=== PATIENT | male | born 1950 | race Caucasian/White ===

== ENCOUNTER 2017-02-21 18:47 | Emergency (ER) | payer MEDICARE ==
--- NOTE | 2017-02-21 19:36 | ERPHSYRPT ---
- History of Present Illness Time Seen by Provider: 02/21/17 19:29 Source: patient Exam Limitations: no limitations Patient Subjective Stated Complaint: abd pain since wednesday night Triage Nursing Assessment: c/o mid abd pain since wednesday night. constipation since wednesday. small oral intake makes pt feel 'bloated and full' 'i have the same feeling and bowel trouble as i did years ago with my aneurysm' skin pale and dry. pt c/o blaoting and distended abd. bs hypoactive Physician History: The patient is a 66-year-old male with his complaining of abdominal bloating for 3-4 days. His last bowel movement was 3 days ago. He feels like he needs to have a bowel movement but is unable to. He and his are concerned because this is the same way he felt more than a year ago when he had an aneurysm in the abdomen repaired. He said a few episodes of abdominal pain but nothing right now. He said before he came and he thought he passed a kidney stone. His past medical history is significant for COPD, abdominal aortic aneurysm, gout, high cholesterol, high blood pressure, and possible kidney stones. Timing/Duration: day(s) (4) Severity: moderate Modifying Factors: Improves With: nothing Associated Symptoms: abdominal pain, loss of appetite, other (abd bloating) Allergies/Adverse Reactions: penicillin G Allergy (Mild, Verified 02/21/17 19:00) hydrocodone bitartrate [From [place]] Adverse Reaction (Verified 02/21/17 19:00) Home Medications: Allopurinol 100 mg [Zyloprim 100 mg] 200 mg PO DAILY 10/29/14 [History] Aspirin 81 mg PO DAILY 10/29/14 [History] Docusate Sodium 100 mg [Colace 100 MG] 100 mg PO BID 10/29/14 [History] Enalapril Maleate 10 mg [Vasotec 10 MG] 10 mg PO DAILY 10/29/14 [History] Ezetimibe/Simvastatin [Vytorin 10-80 mg Tablet] 1 each PO HS 10/29/14 [History] Isosorbide Mononitrate 30 mg [Imdur 30 MG] 30 mg PO DAILY 10/29/14 [History ] Metoprolol Tartrate 25 mg [Lopressor 25MG Tab] 12.5 mg PO BID 10/29/14 [ History] Niacin 500 mg [Niaspan 500 mg] 500 mg PO HS 10/29/14 [History] Simvastatin 40 mg PO HS 10/29/14 [History] Tamsulosin HCl 0.4 mg [Flomax 0.4 MG] 0.4 mg PO HS 10/29/14 [History] Senna 8.6 mg [Senokot 8.6 mg] 1 tab PO BID 02/12/16 [History] Hx Tetanus, Diphtheria Vaccination/Date Given: Yes Hx Influenza Vaccination/Date Given: No Hx Pneumococcal Vaccination/Date Given: No Immunizations Up to Date: Yes - Review of Systems Constitutional: No Fever, No Chills Eyes: No Symptoms Ears, Nose, & Throat: No Symptoms Respiratory: No Cough, No Dyspnea Cardiac: No Chest Pain, No Edema, No Syncope Abdominal/Gastrointestinal: Appetite Changes, Other (bloating) Genitourinary Symptoms: No Dysuria Musculoskeletal: No Back Pain, No Neck Pain Skin: No Rash Neurological: No Dizziness, No Focal Weakness, No Sensory Changes Psychological: No Symptoms Endocrine: No Symptoms Hematologic/Lymphatic: No Symptoms Immunological/Allergic: No Symptoms All Other Systems: Reviewed and Negative - Past Medical History Pertinent Past Medical History: Yes Neurological History: Stroke ENT History: No Pertinent History Cardiac History: Coronary Artery Disease, High Cholesterol, Hypertension, Myocardial Infarction ([place]) Respiratory History: COPD Endocrine Medical History: No Pertinent History Musculoskeletal History: No Pertinent History GI Medical History: Diverticulosis, GERD, Hernia History: No Pertinent History Psycho-Social History: No Pertinent History Male Reproductive Disorders: No Pertinent History Other Medical History: GOUT - Past Surgical History Past Surgical History: Yes Neuro Surgical History: No Pertinent History Cardiac: Angioplasty, CABG, Cardiac Catheterization, Cardiac Stent, Vascular Surgery Respiratory: Chest Surgery Gastrointestinal: Appendectomy, Hernia Repair Genitourinary: No Pertinent History Musculoskeletal: Orthopedic Surgery Male Surgical History: No Pertinent History Other Surgical History: SEVERAL STENTS-cardiac stent x2, femoral stent x1. TRIPLE A REPAIR JANUARY [id number] - Social History Smoking Status: Current every day smoker How long have you smoked: 55 years Exposure to second hand smoke: Yes Drug Use: none Patient Lives Alone: No - Nursing Vital Signs Nursing Vital Signs: Initial Vital Signs Temperature 97.9 F Temperature Source Oral Pulse Rate 52 Respiratory Rate 16 Blood Pressure [] 176/77 Pain Intensity 6 - Physical Exam General Appearance: mild distress Eye Exam: PERRL/EOMI, eyes nml inspection Ears, Nose, Throat Exam: normal ENT inspection, TMs normal, pharynx normal, moist mucous membranes Neck Exam: normal inspection, non-tender, supple, full range of motion Respiratory Exam: normal breath sounds Cardiovascular Exam: regular rate/rhythm, normal heart sounds, normal peripheral pulses Gastrointestinal/Abdomen Exam: soft, normal bowel sounds, No tenderness, No mass Rectal Exam: not done Back Exam: normal inspection, normal range of motion, No CVA tenderness, No vertebral tenderness Extremity Exam: normal inspection, normal range of motion, pelvis stable Neurologic Exam: alert, oriented x 3, cooperative, normal mood/affect, nml cerebellar function, nml station & gait, sensation nml, No motor deficits Skin Exam: normal color, warm, dry, No rash Lymphatic Exam: No adenopathy SpO2 Interpretation: normal SpO2: 94 Oxygen Delivery: Room Air - CT Exams Abdomen/Pelvis CT Interpretation: Tele-radiologist Report (mild difuse fecal stasis, aortocaval soft tissue mass, repaired AAA per DR Aleman.) Ordered Tests: Active Orders 24 hr Category Date Time Status IV Insertion STAT Care 02/21/17 19:40 Active ABDOMEN AND PELVIS W/0 CONTRAS [CT] Stat Exams 02/21/17 19:40 Taken CBC W DIFF Stat Lab 02/21/17 20:00 Completed CMP Stat Lab 02/21/17 20:00 Completed LIPASE Stat Lab 02/21/17 20:00 Completed TROPONIN Stat Lab 02/21/17 20:00 Completed UA Stat Lab 02/21/17 20:11 Completed Lab/Rad Data: Laboratory Result Diagrams 02/21/17 20:00 02/21/17 20:00 Laboratory Results 02/21/17 02/21/17 02/21/17 Range/Units 20:11 20:00 20:00 WBC 10.3 (4.0-10.5) K/mm3 RBC 5.30 (4.1-5.6) M/mm3 Hgb 16.5 (12.5-18.0) gm/dl Hct 49.3 (42-50) % MCV 93.0 (78-100) fl MCH 31.1 (26-32) pg MCHC 33.5 (32-36) g/dl RDW 13.7 (11.5-14.0) % Plt Count 133 L (150-450) K/mm3 MPV 9.7 H (6-9.5) fl Gran % 71.9 H (36.0-66.0) % Lymphocytes % 20.1 L (24.0-44.0) % Monocytes % 7.0 (0.0-12.0) % Eosinophils % 0.7 (0.00-5.0) % Basophils % 0.3 (0.0-0.4) % Basophils # 0.03 (0-0.4) Sodium 146 H (136-145) mEq/L Potassium 3.9 (3.5-5.1) mEq/L Chloride 107 (98-107) mEq/L Carbon Dioxide 28.6 (21-32) mEq/L Anion Gap 14.2 (5-15) MEQ/L BUN 15 (9-20) mg/dL Creatinine 0.96 (0.55-1.30) mg/dl Estimated GFR > 60 ML/MIN Glucose 90 (70-110) MG/DL Calcium 9.9 (8.5-10.1) mg/dL Total Bilirubin 0.6 (0.2-1.0) mg/dL AST 18 (15-37) U/L ALT 23 (12-78) U/L Alkaline Phosphatase 123 H (46-116) U/L Troponin I < 0.017 (0.000-0.056) ng/ml Serum Total Protein 7.6 (6.4-8.2) gm/dL Albumin 3.8 (3.4-5.0) g/dL Lipase 170 (73-393) U/L Ur Collection Type VOID Urine Color YELLOW (YELLOW) Urine Appearance CLEAR (CLEAR) Urine pH 6.5 (5-6) Ur Specific [place] 1.010 (1.005-1.025) Urine Protein NEGATIVE (Negative) Urine Glucose (UA) NEGATIVE (NEGATIVE) mg/dL Urine Ketones NEGATIVE (NEGATIVE) Urine Nitrite NEGATIVE (NEGATIVE) Urine Bilirubin NEGATIVE (NEGATIVE) Urine Urobilinogen 0.2 (0-1) mg/dL Urine WBC (Auto) NEGATIVE (NEGATIVE) Urine RBC (Auto) NEGATIVE (0-5) Augie/ul Specimen Received 02/21/171999 - Progress Progress: unchanged Counseled pt/family regarding: lab results, diagnosis, rad results - Departure Time of Disposition: 21:29 Departure Disposition: Home Clinical Impression: Constipation Condition: Stable Critical Care Time: No Additional Instructions: You have constipation. By a bottle of magnesium citrate [id number] and consume tonight with plenty of fluids.
[2017-02-21 20:03] LABS: BASOPHIL % 0.3 % (0.0-0.4); Eosinophil % 0.7 % (0.00-5.0); Granulocytes % 71.9 % (36.0-66.0); Lymphocytes % 20.1 % (24.0-44.0); Mean Corpuscular Hemoglobin 31.1 pg (26-32); Mean Platelet Volume 9.7 fl (6-9.5); Platelet Count 133 K/mm3 (150-450); Red Cell Distribution Width 13.7 % (11.5-14.0); White Blood Count 10.3 K/mm3 (4.0-10.5)
[2017-02-21 20:14] LABS: COMPLETE URINE MICROSCOPIC? NO; Collection Type VOID; Ph 6.5 (5-6)
[2017-02-21 20:27] LABS: ALBUMIN 3.8 g/dL (3.4-5.0); ALKALINE PHOSPHATASE 123 U/L (46-116); ANION GAP 14.2 MEQ/L (5-15); BILIRUBIN,TOTAL 0.6 mg/dL (0.2-1.0); BLOOD UREA NITROGEN 15 mg/dL (9-20); CHLORIDE 107 mEq/L (98-107); Carbon Dioxide 28.6 mEq/L (21-32); Glucose 90 MG/DL (70-110); LIPASE 170 U/L (73-393); Potassium 3.9 mEq/L (3.5-5.1); SGOT/AST 18 U/L (15-37); SGPT/ALT 23 U/L (12-78); SODIUM 146 mEq/L (136-145); Total Protein 7.6 gm/dL (6.4-8.2)
[2017-02-21 20:28] LABS: TROPONIN < 0.017 ng/ml (0.000-0.056)
[2017-02-21 21:41] VITALS: BP 167/84; PULSE 78; O2SAT 98
--- NOTE | 2017-02-22 09:00 | XRAY ---
Indication: Abdominal pain. Multiple contiguous axial images obtained through the abdomen and pelvis without contrast as ordered. Comparison: CT abdomen February 19, 2016. Lung bases again demonstrates mild pulmonary emphysema with scattered fibrosis/scarring. Stable tiny subpleural nodules in the left lower lobe, probably granulomatous in this demographic. Heart is not enlarged. Noncontrasted stomach and bowel loops appear nonobstructed. There is now mild diffuse scattered colonic fecal debris throughout. Previous reported appendectomy. No free fluid/air. Stable bilateral renal cysts, bilateral nonobstructing renal micro-calculi, and small aortocaval soft tissue mass. Incidental enlarged prostate gland with benign chunky calcifications. Remaining liver, gallbladder, pancreas, spleen, adrenal glands, kidneys, ureters, and bladder appear unremarkable for noncontrast exam. There remains scattered aortoiliac calcifications. Stable distal 3.3 cm AAA with aortobiiliac stent graft. Lack of IV contrast precludes evaluation for stent graft patency. Osseous structures intact again with L5-S1 degenerative changes and L5 laminectomy. Impression: 1. Fecal stasis without obstruction. 2. Enlarged prostate gland with benign calcifications. 3. Stable bilateral renal cysts, nonobstructing bilateral renal micro-calculi, small aortocaval soft tissue mass, and 3.3 cm AAA with aortobiiliac stent graft. CT DI 12.83
== END 2017-02-21 21:41 | disposition home or self-care (01) ==
LOC: ED 18:47
DX: K59.00 Constipation, unspecified (principal); R10.9 Unspecified abdominal pain; Z79.899 Other long term (current) drug therapy
CPT/HCPCS: 36000; 36415; 74176; 80053; 81002; 83690; 84484; 85025; 99284

== ENCOUNTER 2017-04-20 19:04 | Emergency (ER) | payer MEDICARE ==
--- NOTE | 2017-04-20 20:02 | ERPHSYRPT ---
- History of Present Illness Time Seen by Provider: 04/20/17 19:51 Historian: patient Exam Limitations: no limitations (now her there is a visible line normal: This is going on for many years and was she given when given Toradol) Patient Subjective Stated Complaint: pt states he has been having stomach pain for 2-3 weeks. states he feels bloated and has stomach cramping after eating. states he went to his dr and had a ct on wednesday. c/o difficulty urinating also since this morning. Triage Nursing Assessment: pt alert and oriented, asnwers questions approp. pt ambulatory with steady gait noted. respirations nonlabored. abd soft, bowel sounds present in all 4 quads. no urine assessed at this time. Physician History: The patient is a 66-year-old male with his complaining of chronic lower abdominal pain for many months that has worsened in the past 3 weeks. Today he says he is tired of it and wants to know what is wrong. He had a colonoscopy done in January that the says was clean. He had a abdomen pelvis CT done about a week ago and they do not have the report. I am currently looking at the report which states minimally worsening fecal stasis, new posterior urinary bladder calcifications. Today he denies nausea or vomiting. He typically has constipation that for the last 2 days he has had diarrhea. His doctor is now on vacation for 2 weeks. His past medical history is significant for COPD, aneurysm repairs, hypertension, gout, and BPH. He has had his appendix removed. Timing/Duration: week(s) (3), gradual onset, worse Activities at Onset: none Quality: other (bloating) Abdominal Pain Onset Location: suprapubic Pain Radiation: no radiation Severity of Pain-Max: moderate Severity of Pain-Current: moderate Modifying Factors: Improves With: eating (makes it worse) Associated Symptoms: denies symptoms Allergies/Adverse Reactions: penicillin G Allergy (Mild, Verified 04/20/17 19:27) hydrocodone bitartrate [From [place]] Adverse Reaction (Verified 04/20/17 19:27) Home Medications: Allopurinol 100 mg [Zyloprim 100 mg] 200 mg PO DAILY 10/29/14 [History] Aspirin 81 mg PO DAILY 10/29/14 [History] Docusate Sodium 100 mg [Colace 100 MG] 100 mg PO BID 10/29/14 [History] Enalapril Maleate 10 mg [Vasotec 10 MG] 10 mg PO DAILY 10/29/14 [History] Isosorbide Mononitrate 30 mg [Imdur 30 MG] 30 mg PO DAILY 10/29/14 [History ] Metoprolol Tartrate 25 mg [Lopressor 25MG Tab] 12.5 mg PO BID 10/29/14 [ History] Niacin 500 mg [Niaspan 500 mg] 500 mg PO HS 10/29/14 [History] Simvastatin 40 mg PO HS 10/29/14 [History] Tamsulosin HCl 0.4 mg [Flomax 0.4 MG] 0.4 mg PO HS 10/29/14 [History] Senna 8.6 mg [Senokot 8.6 mg] 1 tab PO BID 02/12/16 [History] Hx Tetanus, Diphtheria Vaccination/Date Given: Yes Hx Influenza Vaccination/Date Given: No Hx Pneumococcal Vaccination/Date Given: No Immunizations Up to Date: Yes - Review of Systems Constitutional: No Fever, No Chills Eyes: No Symptoms Ears, Nose, & Throat: No Symptoms Respiratory: No Cough, No Dyspnea Cardiac: No Chest Pain, No Edema, No Syncope Abdominal/Gastrointestinal: Abdominal Pain, Diarrhea, Constipation Genitourinary Symptoms: No Dysuria Musculoskeletal: No Back Pain, No Neck Pain Skin: No Rash Neurological: No Dizziness, No Focal Weakness, No Sensory Changes Psychological: No Symptoms Endocrine: No Symptoms Hematologic/Lymphatic: No Symptoms Immunological/Allergic: No Symptoms All Other Systems: Reviewed and Negative - Past Medical History Pertinent Past Medical History: Yes Neurological History: Stroke ENT History: No Pertinent History Cardiac History: Coronary Artery Disease, High Cholesterol, Hypertension, Myocardial Infarction ([place]) Respiratory History: COPD Endocrine Medical History: No Pertinent History Musculoskeletal History: No Pertinent History GI Medical History: Diverticulosis, GERD, Hernia History: No Pertinent History Psycho-Social History: No Pertinent History Male Reproductive Disorders: No Pertinent History Other Medical History: GOUT - Past Surgical History Past Surgical History: Yes Neuro Surgical History: No Pertinent History Cardiac: Angioplasty, CABG, Cardiac Catheterization, Cardiac Stent, Vascular Surgery Respiratory: Chest Surgery Gastrointestinal: Appendectomy, Hernia Repair Genitourinary: No Pertinent History Musculoskeletal: Orthopedic Surgery Male Surgical History: No Pertinent History Other Surgical History: SEVERAL STENTS-cardiac stent x2, femoral stent x1. TRIPLE A REPAIR JANUARY [id number] - Social History Smoking Status: Current every day smoker How long have you smoked: 55 years Exposure to second hand smoke: Yes Drug Use: none Patient Lives Alone: No - Nursing Vital Signs Nursing Vital Signs: Initial Vital Signs Temperature 97.8 F Temperature Source Oral Pulse Rate 64 Respiratory Rate 22 Blood Pressure [] 179/86 Pain Intensity 8 - Physical Exam General Appearance: no apparent distress, alert Eye Exam: PERRL/EOMI, eyes nml inspection Ears, Nose, Throat Exam: normal ENT inspection, pharynx normal, moist mucous membranes Neck Exam: normal inspection, non-tender, supple, full range of motion Respiratory Exam: normal breath sounds, lungs clear, No respiratory distress Cardiovascular Exam: regular rate/rhythm, normal heart sounds Gastrointestinal/Abdomen Exam: soft, No tenderness, No mass Rectal Exam: not done Back Exam: normal inspection, normal range of motion, No CVA tenderness, No vertebral tenderness Extremity Exam: normal inspection, normal range of motion, pelvis stable Neurologic Exam: alert, oriented x 3, cooperative, normal mood/affect, nml cerebellar function, sensation nml, No motor deficits Skin Exam: normal color, warm, dry SpO2 Interpretation: normal SpO2: 94 Oxygen Delivery: Room Air - CT Exams Abdomen/Pelvis CT Interpretation: Tele-radiologist Report, Other (nonacute and nonobstructed abd. nonobstructing renal microcalculi. enlarged prostate. posterior urinary calcifications. small aortocaval soft tissues mass. 3.3 cm AAA with aortobiiliac stent graft. per Dr Barnhart) Ordered Tests: Active Orders 24 hr Category Date Time Status IV Insertion STAT Care 04/20/17 20:07 Active ABDOMEN AND PELVIS W/0 CONTRAS [CT] Stat Exams 04/20/17 20:08 Taken CBC W DIFF Stat Lab 04/20/17 20:15 Completed CMP Stat Lab 04/20/17 20:15 Completed LIPASE Stat Lab 04/20/17 20:15 Completed Lactic Acid Stat Lab 04/20/17 20:17 Completed UA W/RFX UR CULTURE Stat Lab 04/20/17 20:15 Completed Medication Summary Discontinued Medications Generic Name Dose Route Start Last Admin Trade Name Ivonne PRN Reason Stop Dose Admin Sodium Chloride 1,000 mls @ 999 mls/hr 04/20/17 20:07 04/20/17 20:21 Sodium Chloride 0.9% 1000 Ml IV 04/20/17 21:07 999 mls/hr .Q1H1M STA Administration Sodium Chloride Confirm 04/20/17 20:20 Sodium Chloride 0.9% 1000 Ml Administered 04/20/17 20:21 Dose 1,000 mls @ ud .ROUTE .STK-MED ONE Ondansetron HCl 4 mg 04/20/17 21:40 Zofran 4 Mg/2 Ml Vial IV 04/20/17 21:41 STAT ONE Potassium Chloride 40 meq 04/20/17 21:13 04/20/17 21:19 Klor Con 10 Meq PO 04/20/17 21:14 40 meq STAT ONE Administration Potassium Chloride Confirm 04/20/17 21:16 Klor Con 10 Meq Administered 04/20/17 21:17 Dose 40 meq PO .STK-MED ONE Potassium Chloride Confirm 04/20/17 21:21 Klor Con 10 Meq Administered 04/20/17 21:22 Dose 10 meq PO .STK-MED ONE Lab/Rad Data: Laboratory Result Diagrams 04/20/17 20:15 04/20/17 20:15 Laboratory Results 04/20/17 04/20/17 04/20/17 Range/Units 20:17 20:15 20:15 WBC 11.8 H (4.0-10.5) K/mm3 RBC 5.05 (4.1-5.6) M/mm3 Hgb 15.9 (12.5-18.0) gm/dl Hct 46.8 (42-50) % MCV 92.7 (78-100) fl MCH 31.5 (26-32) pg MCHC 34.0 (32-36) g/dl RDW 14.0 (11.5-14.0) % Plt Count 143 L (150-450) K/mm3 MPV 9.6 H (6-9.5) fl Gran % 75.0 H (36.0-66.0) % Lymphocytes % 17.0 L (24.0-44.0) % Monocytes % 6.7 (0.0-12.0) % Eosinophils % 1.1 (0.00-5.0) % Basophils % 0.2 (0.0-0.4) % Basophils # 0.02 (0-0.4) Sodium 146 H (136-145) mEq/L Potassium 3.1 L (3.5-5.1) mEq/L Chloride 108 H (98-107) mEq/L Carbon Dioxide 27.3 (21-32) mEq/L Anion Gap 14.2 (5-15) MEQ/L BUN 15 (9-20) mg/dL Creatinine 1.10 (0.55-1.30) mg/dl Estimated GFR > 60 ML/MIN Glucose 97 (70-110) MG/DL Lactic Acid 1.0 (0.4-2.0) Calcium 9.3 (8.5-10.1) mg/dL Total Bilirubin 0.70 (0.2-1.0) mg/dL AST 18 (15-37) U/L ALT 25 (12-78) U/L Alkaline Phosphatase 112 (46-116) U/L Serum Total Protein 7.1 (6.4-8.2) gm/dL Albumin 3.5 (3.4-5.0) g/dL Lipase 123 (73-393) U/L Ur Collection Type Urine Color (YELLOW) Urine Appearance (CLEAR) Urine pH (5-6) Ur Specific [place] (1.005-1.025) Urine Protein (Negative) Urine Ketones (NEGATIVE) Urine Blood (0-5) Augie/ul Urine Nitrite (NEGATIVE) Urine Bilirubin (NEGATIVE) Urine Urobilinogen (0-1) mg/dL Ur Leukocyte Esterase (NEGATIVE) Urine Glucose (NEGATIVE) mg/dL Specimen Received 04/20/17 Range/Units 20:15 WBC (4.0-10.5) K/mm3 RBC (4.1-5.6) M/mm3 Hgb (12.5-18.0) gm/dl Hct (42-50) % MCV (78-100) fl MCH (26-32) pg MCHC (32-36) g/dl RDW (11.5-14.0) % Plt Count (150-450) K/mm3 MPV (6-9.5) fl Gran % (36.0-66.0) % Lymphocytes % (24.0-44.0) % Monocytes % (0.0-12.0) % Eosinophils % (0.00-5.0) % Basophils % (0.0-0.4) % Basophils # (0-0.4) Sodium (136-145) mEq/L Potassium (3.5-5.1) mEq/L Chloride (98-107) mEq/L Carbon Dioxide (21-32) mEq/L Anion Gap (5-15) MEQ/L BUN (9-20) mg/dL Creatinine (0.55-1.30) mg/dl Estimated GFR ML/MIN Glucose (70-110) MG/DL Lactic Acid (0.4-2.0) Calcium (8.5-10.1) mg/dL Total Bilirubin (0.2-1.0) mg/dL AST (15-37) U/L ALT (12-78) U/L Alkaline Phosphatase (46-116) U/L Serum Total Protein (6.4-8.2) gm/dL Albumin (3.4-5.0) g/dL Lipase (73-393) U/L Ur Collection Type CLEAN CATCH Urine Color YELLOW (YELLOW) Urine Appearance SLIGHTLY CLOUDY (CLEAR) Urine pH 7.0 (5-6) Ur Specific [place] 1.010 (1.005-1.025) Urine Protein NEGATIVE (Negative) Urine Ketones NEGATIVE (NEGATIVE) Urine Blood NEGATIVE (0-5) Augie/ul Urine Nitrite NEGATIVE (NEGATIVE) Urine Bilirubin NEGATIVE (NEGATIVE) Urine Urobilinogen NORMAL (0-1) mg/dL Ur Leukocyte Esterase NEGATIVE (NEGATIVE) Urine Glucose NEGATIVE (NEGATIVE) mg/dL Specimen Received 04/20/172014 - Progress Progress: unchanged Counseled pt/family regarding: lab results, diagnosis, need for follow-up, rad results - Departure Time of Disposition: 21:31 Departure Disposition: Home Clinical Impression: Abdominal pain, Hypokalemia Condition: Stable Critical Care Time: No Referrals: CAMACHO EARL [Primary Care Provider] - Additional Instructions: You have abdominal pain. We are unsure of what is causing your pain at this time. Your potassium level was slightly low in the ER. We gave you potassium 40 mEq. The abdominal pelvic CT scan did not show any definite findings that would explain your abdominal pain. I want to put you on a trial of Zofran 4 mg ODT every 8 hours. Call your doctor's office tomorrow and arrange for a follow- up. Prescriptions: Ondansetron [Zofran Odt] 4 mg PO Q6HPRN PRN #10 tab.rapdis PRN Reason: Nausea/Vomiting
[2017-04-20] MEDS ORDERED: Sodium Chloride 0.9% 1000 ML 1,000 ML IV STA (20:07)
[2017-04-20] MEDS ORDERED: Sodium Chloride 0.9% 1000 ML 1,000 ML ONE (20:20)
[2017-04-20 20:28] LABS: BASOPHIL % 0.2 % (0.0-0.4); Eosinophil % 1.1 % (0.00-5.0); Mean Cell Volume 92.7 fl (78-100); Mean Corpuscular Hemoglobin 31.5 pg (26-32); Mean Platelet Volume 9.6 fl (6-9.5); Monocytes % 6.7 % (0.0-12.0); Platelet Count 143 K/mm3 (150-450); Red Blood Count 5.05 M/mm3 (4.1-5.6); White Blood Count 11.8 K/mm3 (4.0-10.5)
[2017-04-20 20:41] LABS: ADD URINE CULTURE? NO (NO); Bilirubin NEGATIVE (NEGATIVE); Blood NEGATIVE Ery/ul (0-5); COMPLETE URINE MICROSCOPIC? NO; Collection Type CLEAN CATCH; Glucose NEGATIVE (NEGATIVE); Leukocyte Esterase NEGATIVE (NEGATIVE)
[2017-04-20 20:48] LABS: ALBUMIN 3.5 g/dL (3.4-5.0); ALKALINE PHOSPHATASE 112 U/L (46-116); ANION GAP 14.2 MEQ/L (5-15); BLOOD UREA NITROGEN 15 mg/dL (9-20); CHLORIDE 108 mEq/L (98-107); Carbon Dioxide 27.3 mEq/L (21-32); Glucose 97 MG/DL (70-110); LIPASE 123 U/L (73-393); Potassium 3.1 mEq/L (3.5-5.1); SGOT/AST 18 U/L (15-37); SGPT/ALT 25 U/L (12-78); SODIUM 146 mEq/L (136-145); Total Protein 7.1 gm/dL (6.4-8.2)
[2017-04-20] MEDS ORDERED: Klor Con 10 MEQ PO ONE ×3 (21:13→21:21)
[2017-04-20] MEDS ORDERED: Zofran 4 MG/2 ML VIAL IV ONE (21:40)
[2017-04-20] MEDS ORDERED: Zofran 4 MG/2 ML VIAL ONE (21:43)
[2017-04-20 21:52] VITALS: BP 128/70; PULSE 70; O2SAT 100
--- NOTE | 2017-04-21 08:42 | XRAY ---
Indication: Abdominal pain and bloating. Multiple contiguous axial images obtained through the abdomen and pelvis without contrast as ordered. Comparison: April 15, 2017. Lung bases again demonstrates mild pulmonary emphysema with scattered fibrosis/scarring. Stable tiny subpleural nodules in the left lower lobe, probably granulomatous in this demographic. Heart is not enlarged. Noncontrasted stomach and bowel loops appear nonobstructed. No significant fecal stasis. Previous reported appendectomy. No free fluid/air. Stable curvilinear posterior urinary bladder calcifications/micro-calculi. Also stable bilateral renal cysts, nonobstructing renal micro-calculi, small aortocaval soft tissue mass, and enlarged prostate gland with benign chunky calcifications. Remaining liver, gallbladder, pancreas, spleen, adrenal glands, kidneys, ureters, and bladder appear unremarkable for noncontrast exam. There remains mild scattered aortoiliac calcifications including both intrarenal arteries. Stable distal 3.3 cm AAA with aortobiiliac stent graft. Lack of IV contrast precludes evaluation for stent graft patency. Osseous structures intact again with L5-S1 degenerative changes and L5 laminectomy. Impression: 1. No new or acute intra-abdominal/pelvic abnormalities on this noncontrast exam. 2. Stable urinary bladder calcifications/micro-calculi, bilateral renal cysts, nonobstructing renal micro-calculi, enlarged prostate gland with benign calcifications, small aortocaval soft tissue mass, 3.3 cm AAA with aortobiiliac stent graft, and pulmonary emphysema. CT DI 9.57
== END 2017-04-20 21:52 | disposition home or self-care (01) ==
LOC: ED 19:04
DX: R10.9 Unspecified abdominal pain (principal); E87.6 Hypokalemia; R19.7 Diarrhea, unspecified; K59.00 Constipation, unspecified; I25.2 Old myocardial infarction; E78.00 Pure hypercholesterolemia, unspecified; I10 Essential (primary) hypertension; I25.10 Atherosclerotic heart disease of native coronary artery without angina pectoris
CPT/HCPCS: 36000; 36415; 74176; 80053; 81002; 83605; 83690; 85025; 96360; 96374; 99284; J2405; A9270-GY

== ENCOUNTER 2017-05-01 21:08 | Observation (INO) | payer MEDICARE ==
[2017-05-01] MEDS ORDERED: Zofran 4 MG/2 ML VIAL IV ONE (22:28)
[2017-05-01] MEDS ORDERED: MORPHINE SULFATE 4 MG INJ IV ONE (22:28)
[2017-05-01] MEDS ORDERED: Sodium Chloride 0.9% 1000 ML 1,000 ML IV SCH (22:30)
--- NOTE | 2017-05-01 22:32 | ERPHSYRPT ---
- History of Present Illness Time Seen by Provider: 05/01/17 22:28 Historian: patient Exam Limitations: no limitations Patient Subjective Stated Complaint: PER PATIENT C/O INTERMITENT ABD PAIN STARTING 3-4 MONTHS AGO, SEEN BY PCP AND HERE BY DR TELLO FOR INCREASED PAIN IN BILAT LOWER QUADS, NO C/O NAUSEA, VOMITING OR DIARRHEA, HAS HAD 2 CT'S WITHOUT FINDINGS, NO DIFF WITH URINATION Triage Nursing Assessment: PATIENT AOX3, B/P HIGH REPORTED TO MD, NO FEVER NOTED , ABD SOFT, Physician History: This is a 66-year-old white male with history of chronic lower abdominal pain, coronary artery disease, CVA, hyperlipidemia, high blood pressure, [place], COPD He arrives with complaint of lower abdominal pain bilaterally in the lower abdomen symptoms going on for 4-5 days he states he's had some constipation but had a bowel movement today no melena no hematochezia no urinary symptoms no vomiting he does state that he has pain when he walks in the lower abdomen. Past medical history includes chronic lower abdominal pain, CVA, coronary artery disease, hyperlipidemia, high blood pressure, myocardial infarction, COPD , diverticulosis, GERD, hernia, gout Past surgical history includes angioplasty, CABG, cardiac catheter, cardiac stent, vascular surgery, chest surgery, appendectomy, hernia repair, stents, AAA , femoral stent 1 Timing/Duration: day(s) (4 days) Activities at Onset: none Quality: cramping Abdominal Pain Onset Location: other (bilateral lower abdomen) Pain Radiation: other (bilateral lower abdomen) Severity of Pain-Max: moderate Modifying Factors: Improves With: walking. Worsens With: analgesics, antacids, breathing, coughing, defecating, eating, exercise, lying down, movement, palpation, rest, urinating, vomiting, position Associated Symptoms: No back, No chest pain, No diaphoresis, No diarrhea, No fever/chills, No fatigue, No headache, No heartburn, No loss of appetite, No nausea ( ), No neck pain, No rash, No shortness of breath, No syncope, No vomiting, No weakness (40 ago) Previous symptoms: same symptoms as today Allergies/Adverse Reactions: penicillin G Allergy (Mild, Verified 04/20/17 19:27) hydrocodone bitartrate [From [place]] Adverse Reaction (Verified 04/20/17 19:27) Home Medications: Allopurinol 100 mg [Zyloprim 100 mg] 200 mg PO DAILY 10/29/14 [History] Aspirin 81 mg PO DAILY 10/29/14 [History] Docusate Sodium 100 mg [Colace 100 MG] 100 mg PO BID 10/29/14 [History] Enalapril Maleate 10 mg [Vasotec 10 MG] 10 mg PO DAILY 10/29/14 [History] Isosorbide Mononitrate 30 mg [Imdur 30 MG] 30 mg PO DAILY 10/29/14 [History ] Metoprolol Tartrate 25 mg [Lopressor 25MG Tab] 12.5 mg PO BID 10/29/14 [ History] Niacin 500 mg [Niaspan 500 mg] 500 mg PO HS 10/29/14 [History] Simvastatin 40 mg PO HS 10/29/14 [History] Tamsulosin HCl 0.4 mg [Flomax 0.4 MG] 0.4 mg PO HS 10/29/14 [History] Senna 8.6 mg [Senokot 8.6 mg] 1 tab PO BID 02/12/16 [History] Hx Tetanus, Diphtheria Vaccination/Date Given: Yes Hx Influenza Vaccination/Date Given: No Hx Pneumococcal Vaccination/Date Given: No Immunizations Up to Date: Yes - Review of Systems Constitutional: No Fever, No Chills Eyes: No Symptoms Ears, Nose, & Throat: No Symptoms Respiratory: No Cough, No Dyspnea Cardiac: No Chest Pain, No Edema, No Syncope Abdominal/Gastrointestinal: Abdominal Pain, Constipation, No Nausea, No Vomiting , No Diarrhea, No Hematemesis, No Hematochezia, No Melena, No Dysphagia, No Appetite Changes Genitourinary Symptoms: No Dysuria Musculoskeletal: No Back Pain, No Neck Pain Skin: No Rash Neurological: No Dizziness, No Focal Weakness, No Sensory Changes Psychological: No Symptoms Endocrine: No Symptoms All Other Systems: Reviewed and Negative - Past Medical History Pertinent Past Medical History: Yes Neurological History: No Pertinent History ENT History: No Pertinent History Cardiac History: No Pertinent History, Aneurysm, Coronary Artery Disease, High Cholesterol, Hypertension, Peripheral Vascular Disease Respiratory History: No Pertinent History Endocrine Medical History: No Pertinent History Musculoskeletal History: No Pertinent History GI Medical History: No Pertinent History History: No Pertinent History Psycho-Social History: No Pertinent History Male Reproductive Disorders: No Pertinent History Other Medical History: GOUT - Past Surgical History Past Surgical History: Yes Neuro Surgical History: No Pertinent History Cardiac: Vascular Surgery Respiratory: No Pertinent History Gastrointestinal: Hernia Repair Genitourinary: No Pertinent History Musculoskeletal: No Pertinent History Male Surgical History: No Pertinent History Other Surgical History: SEVERAL STENTS-cardiac stent x2, femoral stent x1. TRIPLE A REPAIR JANUARY [id number] - Social History Smoking Status: Current every day smoker How long have you smoked: 1PPD Exposure to second hand smoke: Yes Drug Use: none Patient Lives Alone: No (FAMILY) - Nursing Vital Signs Nursing Vital Signs: Initial Vital Signs Temperature 98.3 F Temperature Source Oral Pulse Rate 60 Respiratory Rate 16 Blood Pressure [] 196/95 Pain Intensity 1 - Physical Exam General Appearance: mild distress Eye Exam: PERRL/EOMI, eyes nml inspection Ears, Nose, Throat Exam: normal ENT inspection, pharynx normal, moist mucous membranes Neck Exam: normal inspection, non-tender, supple, full range of motion Respiratory Exam: normal breath sounds, lungs clear, No respiratory distress Cardiovascular Exam: regular rate/rhythm, normal heart sounds Gastrointestinal/Abdomen Exam: soft, normal bowel sounds, tenderness ( suprapubic tenderness) Rectal Exam: normal exam, other (small amount of firm stool no bleeding) Back Exam: normal inspection, normal range of motion, No CVA tenderness, No vertebral tenderness Extremity Exam: normal inspection, normal range of motion, pelvis stable Neurologic Exam: alert, oriented x 3, cooperative, game protector II-XII nml as tested, normal mood/affect Skin Exam: normal color, warm, dry SpO2 Interpretation: normal (95%) SpO2: 95 Oxygen Delivery: Room Air - Course Nursing assessment & vital signs reviewed: Yes - CT Exams Abdomen/Pelvis CT Interpretation: Tele-radiologist Report, Other (CT abdomen and pelvis: Impression: 1. 3.2 cm abdominal aortic aneurysm is redemonstrated with postoperative changes from aortoiliac bypass graft. There is no periaortic hemorrhage 2. 1.91.4 cm oval soft tissue mass in the aortocaval space unchanged. Differential diagnostic considerations include an enlarged aortocaval lymph node and focal fibrosis. 3. 3 mm nonobstructive calculus present in the lower pole of left kidney. 4. Mild apparent thickening of the wall of the posterior inferior urinary bladder which measures up to 5 mm consider correlation with urinalysis to exclude UTI.) Ordered Tests: Active Orders 24 hr Category Date Time Status IV Insertion STAT Care 05/01/17 22:28 Active Oxygen-ED Only NASAL CANNULA 2 lpm Care 05/01/17 22:42 Active ABDOMEN AND PELVIS W CONTRAST [CT] Stat Exams 05/01/17 23:24 Taken AMYLASE Stat Lab 05/01/17 22:34 Completed CBC W DIFF Stat Lab 05/01/17 22:34 Completed CMP Stat Lab 05/01/17 22:52 Completed LIPASE Stat Lab 05/01/17 22:34 Completed Occult Blood,Stool Other Stat Lab 05/01/17 22:44 Completed UA W/RFX UR CULTURE Stat Lab 05/01/17 22:37 Completed Medication Summary Generic Name Dose Route Start Last Admin Trade Name Freq PRN Reason Stop Dose Admin Sodium Chloride 1,000 mls @ 100 mls/hr 05/01/17 22:30 05/01/17 22:38 Sodium Chloride 0.9% 1000 Ml IV 05/31/17 22:29 100 mls/hr .Q10H YESENIA Administration Discontinued Medications Generic Name Dose Route Start Last Admin Trade Name Freq PRN Reason Stop Dose Admin Morphine Sulfate 4 mg 05/01/17 22:28 05/01/17 22:39 Morphine Sulfate 4 Mg Inj IV 05/01/17 22:29 4 mg STAT ONE Administration Morphine Sulfate Confirm 05/01/17 22:37 Morphine Sulfate 4 Mg Inj Administered 05/01/17 22:38 Dose 4 mg .ROUTE .STK-MED ONE Ondansetron HCl 4 mg 05/01/17 22:28 05/01/17 22:39 Zofran 4 Mg/2 Ml Vial IV 05/01/17 22:29 4 mg STAT ONE Administration Ondansetron HCl Confirm 05/01/17 22:37 Zofran 4 Mg/2 Ml Vial Administered 05/01/17 22:38 Dose 4 mg .ROUTE .STK-MED ONE Lab/Rad Data: Laboratory Result Diagrams 05/01/17 22:34 05/01/17 22:52 Laboratory Results 07/15/17 07/15/17 07/15/17 Range/Units 22:52 22:44 22:37 WBC (4.0-10.5) K/mm3 RBC (4.1-5.6) M/mm3 Hgb (12.5-18.0) gm/dl Hct (42-50) % MCV (78-100) fl MCH (26-32) pg MCHC (32-36) g/dl RDW (11.5-14.0) % Plt Count (150-450) K/mm3 MPV (6-9.5) fl Gran % (36.0-66.0) % Lymphocytes % (24.0-44.0) % Monocytes % (0.0-12.0) % Eosinophils % (0.00-5.0) % Basophils % (0.0-0.4) % Basophils # (0-0.4) Sodium 146 H (136-145) mEq/L Potassium 3.3 L (3.5-5.1) mEq/L Chloride 108 H (98-107) mEq/L Carbon Dioxide 26.4 (21-32) mEq/L Anion Gap 14.8 (5-15) MEQ/L BUN 13 (9-20) mg/dL Creatinine 0.88 (0.55-1.30) mg/dl Estimated GFR > 60 ML/MIN Glucose 113 H (70-110) MG/DL Calcium 9.2 (8.5-10.1) mg/dL Total Bilirubin 0.60 (0.2-1.0) mg/dL AST 21 (15-37) U/L ALT 28 (12-78) U/L Alkaline Phosphatase 112 (46-116) U/L Serum Total Protein 7.0 (6.4-8.2) gm/dL Albumin 3.7 (3.4-5.0) g/dL Amylase (25-115) U/L Lipase (73-393) U/L Ur Collection Type VOID Urine Color YELLOW (YELLOW) Urine Appearance CLEAR (CLEAR) Urine pH 7.0 (5-6) Ur Specific Horatio 1.015 (1.005-1.025) Urine Protein NEGATIVE (Negative) Urine Ketones NEGATIVE (NEGATIVE) Urine Blood NEGATIVE (0-5) Augie/ul Urine Nitrite NEGATIVE (NEGATIVE) Urine Bilirubin NEGATIVE (NEGATIVE) Urine Urobilinogen NORMAL (0-1) mg/dL Ur Leukocyte Esterase NEGATIVE (NEGATIVE) Urine Glucose NEGATIVE (NEGATIVE) mg/dL Stool Occult Blood NEGATIVE (Negative) Specimen Received 05/01/17 2200 05/01/17 05/01/17 Range/Units 22:34 22:34 WBC 13.5 H (4.0-10.5) K/mm3 RBC 4.94 (4.1-5.6) M/mm3 Hgb 15.7 (12.5-18.0) gm/dl Hct 46.3 (42-50) % MCV 93.7 (78-100) fl MCH 31.8 (26-32) pg MCHC 33.9 (32-36) g/dl RDW 14.1 H (11.5-14.0) % Plt Count 132 L (150-450) K/mm3 MPV 9.8 H (6-9.5) fl Gran % 80.1 H (36.0-66.0) % Lymphocytes % 12.4 L (24.0-44.0) % Monocytes % 6.7 (0.0-12.0) % Eosinophils % 0.6 (0.00-5.0) % Basophils % 0.2 (0.0-0.4) % Basophils # 0.03 (0-0.4) Sodium (136-145) mEq/L Potassium (3.5-5.1) mEq/L Chloride (98-107) mEq/L Carbon Dioxide (21-32) mEq/L Anion Gap (5-15) MEQ/L BUN (9-20) mg/dL Creatinine (0.55-1.30) mg/dl Estimated GFR ML/MIN Glucose (70-110) MG/DL Calcium (8.5-10.1) mg/dL Total Bilirubin (0.2-1.0) mg/dL AST (15-37) U/L ALT (12-78) U/L Alkaline Phosphatase (46-116) U/L Serum Total Protein (6.4-8.2) gm/dL Albumin (3.4-5.0) g/dL Amylase 26 (25-115) U/L Lipase 139 (73-393) U/L Ur Collection Type Urine Color (YELLOW) Urine Appearance (CLEAR) Urine pH (5-6) Ur Specific Horatio (1.005-1.025) Urine Protein (Negative) Urine Ketones (NEGATIVE) Urine Blood (0-5) Augie/ul Urine Nitrite (NEGATIVE) Urine Bilirubin (NEGATIVE) Urine Urobilinogen (0-1) mg/dL Ur Leukocyte Esterase (NEGATIVE) Urine Glucose (NEGATIVE) mg/dL Stool Occult Blood (Negative) Specimen Received - Progress Progress: improved Progress Note: 05/02/17 01:27 This is a 66-year-old white male with history of abdominal aortic aneurysm with repair, chronic low abdominal pain, CVA, coronary artery disease, hyperlipidemia , high blood pressure, UT, COPD, diverticulosis, GERD, hernia Patient has been complaining of several days of pain in the lower abdomen he states he has felt constipated Patient presents with complaint of the lower abdominal pain Patient was given IV fluids of normal saline he was also given morphine for pain He was noted have a white count of 13.5, hemoglobin 15.7 hematocrit 46.3 chemistry was essentially normal urinalysis essentially normal occult stool was negative patient did not have a rectal impaction Patient did have a 3.2 cm abdominal aortic aneurysm which was redemonstrated there was no periaortic hemorrhage there were postoperative changes from aortobiiliac bypass graft was also 1.9 x 1.4 cm oval soft tissue mass in the aorta locatable space which was unchanged there is a 3 mm nonobstructing calculus present in the lower pole of the left kidney there was a mild appearing 16 of the wall posterior inferior urinary bladder which measured up to 5 mm Patient was given morphine and IV fluids patient continued to have lower abdominal pain but which improved patient was noted to have a blood pressure which was 180/90 this came up to 196/95 wall patient was being monitored I've discussed the case with Dr. Earl she requests that we admit patient place patient on IV fluids provide I the pain medications we will monitor the patient's blood pressure it is felt that he is most likely elevated secondary to pain and will not use antihypertensive at this time. Will repeat CBC CMP in the morning - Departure Time of Disposition: 01:34 Departure Disposition: Observation Clinical Impression: Abdominal pain Qualifiers: Abdominal location: unspecified location Qualified Code(s): R10.9 - Unspecified abdominal pain Condition: Fair Critical Care Time: No Referrals: CAMACHO EARL [Primary Care Provider] -
[2017-05-01] MEDS ORDERED: Sodium Chloride 0.9% 1000 ML 1,000 ML ONE (22:37)
[2017-05-01] MEDS ORDERED: Zofran 4 MG/2 ML VIAL ONE (22:37)
[2017-05-01] MEDS ORDERED: MORPHINE SULFATE 4 MG INJ ONE (22:37)
[2017-05-01 22:38] LABS: BASOPHIL % 0.2 % (0.0-0.4); Eosinophil % 0.6 % (0.00-5.0); Granulocytes % 80.1 % (36.0-66.0); Lymphocytes % 12.4 % (24.0-44.0); Mean Cell Volume 93.7 fl (78-100); Mean Corpuscular Hemoglobin 31.8 pg (26-32); Mean Platelet Volume 9.8 fl (6-9.5); Monocytes % 6.7 % (0.0-12.0); Platelet Count 132 K/mm3 (150-450); Red Blood Count 4.94 M/mm3 (4.1-5.6); Red Cell Distribution Width 14.1 % (11.5-14.0); White Blood Count 13.5 K/mm3 (4.0-10.5)
[2017-05-01 22:40] LABS: ADD URINE CULTURE? NO (NO); Bilirubin NEGATIVE (NEGATIVE); Blood NEGATIVE Ery/ul (0-5); COMPLETE URINE MICROSCOPIC? NO; Collection Type VOID; Glucose NEGATIVE (NEGATIVE); Leukocyte Esterase NEGATIVE (NEGATIVE)
[2017-05-01 22:58] LABS: LIPASE 139 U/L (73-393)
[2017-05-01 23:04] LABS: ALBUMIN 3.7 g/dL (3.4-5.0); ALKALINE PHOSPHATASE 112 U/L (46-116); ANION GAP 14.8 MEQ/L (5-15); BLOOD UREA NITROGEN 13 mg/dL (9-20); CHLORIDE 108 mEq/L (98-107); Carbon Dioxide 26.4 mEq/L (21-32); Glucose 113 MG/DL (70-110); Potassium 3.3 mEq/L (3.5-5.1); SGOT/AST 21 U/L (15-37); SGPT/ALT 28 U/L (12-78); SODIUM 146 mEq/L (136-145)
[2017-05-02] MEDS ORDERED: Zofran 4 MG/2 ML VIAL IV PRN (01:58)
[2017-05-02] MEDS: Sodium Chloride 0.9% 1000 ML 1,000 ML IV SCH ×2 (06:14→17:18)
[2017-05-02 06:52] LABS: BASOPHIL % 0.2 % (0.0-0.4); Eosinophil % 0.7 % (0.00-5.0); Granulocytes % 77.7 % (36.0-66.0); Lymphocytes % 14.4 % (24.0-44.0); Mean Cell Volume 94.6 fl (78-100); Mean Corpuscular Hemoglobin 31.6 pg (26-32); Platelet Count 108 K/mm3 (150-450); Red Blood Count 4.62 M/mm3 (4.1-5.6); Red Cell Distribution Width 14.1 % (11.5-14.0); White Blood Count 11.5 K/mm3 (4.0-10.5)
[2017-05-02 07:35] LABS: ALBUMIN 3.1 g/dL (3.4-5.0); ALKALINE PHOSPHATASE 97 U/L (46-116); ANION GAP 11.7 MEQ/L (5-15); BLOOD UREA NITROGEN 10 mg/dL (9-20); CHLORIDE 109 mEq/L (98-107); Glucose 98 MG/DL (70-110); Potassium 3.2 mEq/L (3.5-5.1); SGOT/AST 16 U/L (15-37); SGPT/ALT 27 U/L (12-78); SODIUM 146 mEq/L (136-145); Total Protein 6.4 gm/dL (6.4-8.2)
[2017-05-02] MEDS ORDERED: ZOFRAN ODT 4 MG PO PRN (09:44)
--- NOTE | 2017-05-02 09:45 | PCM.HP ---
History of Present Illness - Chief Complaint Chief Complaint: abd pain for 2-3 days History of Present Illness: This is a 66-year-old white male with history of chronic lower abdominal pain, coronary artery disease, CVA, hyperlipidemia, high blood pressure, [place], COPD He arrives with complaint of lower abdominal pain bilaterally in the lower abdomen symptoms going on for 4-5 days he states he's had some constipation but had a bowel movement today no melena no hematochezia no urinary symptoms no vomiting he does state that he has pain when he walks in the lower abdomen. Past medical history includes chronic lower abdominal pain, CVA, coronary artery disease, hyperlipidemia, high blood pressure, myocardial infarction, COPD , diverticulosis, GERD, hernia, gout Past surgical history includes angioplasty, CABG, cardiac catheter, cardiac stent, vascular surgery, chest surgery, appendectomy, hernia repair, stents, AAA , femoral stent 1 - Review of Systems Constitutional: No Fever, No Chills Eyes: No Symptoms Ears, Nose, & Throat: No Symptoms Respiratory: No Cough, No Short Of Breath Cardiac: No Chest Pain, No Edema, No Syncope Abdominal/Gastrointestinal: Abdominal Pain, No Nausea, No Vomiting, No Diarrhea Genitourinary Symptoms: Dysuria Musculoskeletal: No Back Pain, No Neck Pain Skin: No Rash Neurological: No Dizziness, No Focal Weakness, No Sensory Changes Psychological: No Symptoms Endocrine: No Symptoms Hematologic/Lymphatic: No Symptoms Immunological/Allergic: No Symptoms Medications & Allergies Home Medications: Home Medication List Allopurinol 100 mg [Zyloprim 100 mg] 200 mg PO DAILY 10/29/14 [History Confirmed 04/20/17] Aspirin 81 mg PO DAILY 10/29/14 [History Confirmed 04/20/17] Docusate Sodium 100 mg [Colace 100 MG] 100 mg PO BID 10/29/14 [History Confirmed 04/20/17] Enalapril Maleate 10 mg [Vasotec 10 MG] 10 mg PO DAILY 10/29/14 [History Confirmed 04/20/17] Isosorbide Mononitrate 30 mg [Imdur 30 MG] 30 mg PO DAILY 10/29/14 [ History Confirmed 04/20/17] Metoprolol Tartrate 25 mg [Lopressor 25MG Tab] 12.5 mg PO BID 10/29/14 [ History Confirmed 04/20/17] Niacin 500 mg [Niaspan 500 mg] 500 mg PO HS 10/29/14 [History Confirmed ] Simvastatin 40 mg PO HS 10/29/14 [History Confirmed 04/20/17] Tamsulosin HCl 0.4 mg [Flomax 0.4 MG] 0.4 mg PO HS 10/29/14 [History Confirmed 04/20/17] Senna 8.6 mg [Senokot 8.6 mg] 1 tab PO BID 02/12/16 [History Confirmed 02/01] Ondansetron [Zofran Odt] 4 mg PO Q6HPRN PRN #10 tab.rapdis 04/20/17 [Rx] Allergies/Adverse Reactions: Allergies Allergy/AdvReac Type Severity Reaction Status Date / Time penicillin G Allergy Mild Verified 04/20/17 19:27 hydrocodone bitartrate AdvReac Verified 04/20/17 19:27 [From [facility]] - Past Medical History Past Medical History: Yes Neurological History: No Pertinent History, Stroke ENT History: No Pertinent History Cardiac History: No Pertinent History, Aneurysm, Coronary Artery Disease, High Cholesterol, Hypertension, Peripheral Vascular Disease Respiratory History: No Pertinent History Endocrine Medical History: No Pertinent History Musculoskelatal History: No Pertinent History GI Medical History: No Pertinent History History: No Pertinent History Pyscho-Social History: No Pertinent History Male Reproductive Disorders: No Pertinent History Comment: GOUT - Past Surgical History Past Surgical History: Yes Neuro Surgical History: No Pertinent History Cardiac History: CABG, Cardiac Catheterization, Cardiac Stent, Vascular Surgery Respiratory Surgery: No Pertinent History GI Surgical History: Appendectomy, Hernia Repair Genitourinary Surgical Hx: No Pertinent History Musculskeletal Surgical Hx: No Pertinent History Male Surgical History: No Pertinent History Other Surgical History: SEVERAL STENTS-cardiac stent x2, femoral stent x1. Double Aneurysm REPAIR JANUARY [id number], quadruple bypass - Social History Smoking Status: Current every day smoker How long have you smoked: 57 years Exposure to second hand smoke: Yes Alcohol: None Drug Use: none - Physical Exam Vital Signs: Vital Signs - 24 hr Temp Pulse Resp BP Pulse Ox 05/02/17 08:00 98.2 F 60 18 177/81 95 07/16/17 07:41 96 05/02/17 03:03 96 05/02/17 02:01 97.9 F 68 19 215/102 97 05/02/17 01:34 95 05/02/17 01:03 60 16 196/95 95 05/01/17 23:55 18 05/01/17 23:48 62 18 197/99 96 05/01/17 22:43 60 22 187/93 95 05/01/17 22:18 98.3 F 56 L 12 180/90 95 Oxygen-Last 24 hours O2 Percentage 2 Liters = 28% O2 Percentage 2 Liters = 28% O2 Percentage 2 Liters = 28% General Appearance: no apparent distress, alert Neurologic Exam: alert, oriented x 3, cooperative, normal mood/affect, nml cerebellar function, nml station & gait, sensation nml, No motor deficits Eye Exam: PERRL/EOMI, eyes nml inspection Ears, Nose, Throat Exam: normal ENT inspection, TMs normal, pharynx normal, moist mucous membranes Neck Exam: normal inspection, non-tender, supple, full range of motion Respiratory Exam: normal breath sounds, lungs clear, No respiratory distress Cardiovascular Exam: regular rate/rhythm, normal heart sounds, normal peripheral pulses Gastrointestinal/Abdomen Exam: soft, normal bowel sounds, No tenderness, No mass Back Exam: normal inspection, normal range of motion, No CVA tenderness, No vertebral tenderness Extremity Exam: normal inspection, normal range of motion, pelvis stable Skin Exam: normal color, warm, dry, No rash Lymphatic Exam: No adenopathy Results - Labs Lab/Micro Results: Lab Results-Last 24 Hours 05/02/17 05/02/17 Range/Units 06:25 06:25 WBC 11.5 H (4.0-10.5) K/mm3 RBC 4.62 (4.1-5.6) M/mm3 Hgb 14.6 (12.5-18.0) gm/dl Hct 43.7 (42-50) % MCV 94.6 (78-100) fl MCH 31.6 (26-32) pg MCHC 33.4 (32-36) g/dl RDW 14.1 H (11.5-14.0) % Plt Count 108 L (150-450) K/mm3 MPV 10.0 H (6-9.5) fl Gran % 77.7 H (36.0-66.0) % Lymphocytes % 14.4 L (24.0-44.0) % Monocytes % 7.0 (0.0-12.0) % Eosinophils % 0.7 (0.00-5.0) % Basophils % 0.2 (0.0-0.4) % Basophils # 0.02 (0-0.4) Sodium 146 H (136-145) mEq/L Potassium 3.2 L (3.5-5.1) mEq/L Chloride 109 H (98-107) mEq/L Carbon Dioxide 28.0 (21-32) mEq/L Anion Gap 11.7 (5-15) MEQ/L BUN 10 (9-20) mg/dL Creatinine 0.81 (0.55-1.30) mg/dl Estimated GFR > 60 ML/MIN Glucose 98 (70-110) MG/DL Calcium 8.5 (8.5-10.1) mg/dL Total Bilirubin 0.70 (0.2-1.0) mg/dL AST 16 (15-37) U/L ALT 27 (12-78) U/L Alkaline Phosphatase 97 (46-116) U/L Serum Total Protein 6.4 (6.4-8.2) gm/dL Albumin 3.1 L (3.4-5.0) g/dL - Other Procedures and Tests Respiratory Therapy 05/02/17 03:54 Oxygen NASAL CANNULA 2 lpm Assessment/Plan (1) UTI (urinary tract infection) Current Visit: Yes Status: Acute Qualifiers: Urinary tract infection type: site unspecified Hematuria presence: without hematuria Qualified Code(s): N39.0 - Urinary tract infection, site not specified Code(s): N39.0 - URINARY TRACT INFECTION, SITE NOT SPECIFIED (2) Abdominal pain Current Visit: Yes Status: Acute Qualifiers: Abdominal location: lower abdomen, unspecified Qualified Code(s): R10.30 - Lower abdominal pain, unspecified Code(s): R10.9 - UNSPECIFIED ABDOMINAL PAIN
[2017-05-02] MEDS ORDERED: MEDICATION INTERVENTION MC PRN (09:51)
--- NOTE | 2017-05-02 09:52 | XRAY ---
Indication: Abdominal pain and bloating. Multiple contiguous axial images obtained through the abdomen and pelvis using 80 cc Isovue 370 contrast. Comparison: February 21, April 15, and April 20, 2017. Lung bases again demonstrates mild pulmonary emphysema with scattered fibrosis/scarring. Stable tiny subpleural nodules in the left lower lobe, probably granulomatous in this demographic. Heart is not enlarged. Noncontrasted stomach and bowel loops appear nonobstructed. Previous reported appendectomy. No free fluid/air. Stable curvilinear posterior urinary bladder calcifications/micro-calculi. Also stable bilateral renal cysts, nonobstructing renal micro-calculi, bilateral renal cysts, small aortocaval soft tissue mass, and enlarged prostate gland with benign chunky calcifications. Remaining liver, gallbladder, pancreas, spleen, adrenal glands, kidneys, ureters, and bladder appear unremarkable. There remains mild scattered aortoiliac calcifications including both intrarenal arteries. Stable distal 3.3 cm AAA with patent aortobiiliac stent graft. Osseous structures intact again with L5-S1 degenerative changes and L5 laminectomy. Impression: 1. Again no acute intra-abdominal/pelvic abnormalities. 2. Stable urinary bladder calcifications/micro-calculi, bilateral renal cysts, nonobstructing renal micro-calculi, enlarged prostate gland with benign calcifications, small aortocaval soft tissue mass, 3.3 cm AAA with aortobiiliac stent graft, and pulmonary emphysema. Comment: Preliminary interpretation was made by [facility]. No discrepancy. CT DI 12.44
[2017-05-02] MEDS ORDERED: Levofloxacin 500MG/100ML D5W 500 MG/100 ML BAG IV SCH (10:00)
[2017-05-02] MEDS ORDERED: NON-FORMULARY ITEM (Aspirin [Aspirin] 81 MG) PO SCH (10:00)
[2017-05-02] MEDS: Lopressor 25MG Tab PO SCH ×2 (11:33→21:18)
[2017-05-02] MEDS: SENOKOT 8.6 MG PO SCH ×2 (11:33→21:19)
[2017-05-02] MEDS: Imdur 30 MG PO SCH (11:35)
[2017-05-02] MEDS: Vasotec 10 MG PO SCH (11:35)
[2017-05-02] MEDS: ECOTRIN 81 MG PO SCH (11:36)
[2017-05-02] MEDS: Colace 100 MG PO SCH ×2 (11:36→21:18)
[2017-05-02] MEDS: ZYLOPRIM 100 MG PO SCH (11:37)
[2017-05-02] MEDS: MORPHINE SULFATE 4 MG INJ IV PRN (20:47)
[2017-05-02] MEDS ORDERED: NON-FORMULARY ITEM (Simvastatin [Simvastatin] 40 MG) PO SCH (22:00)
[2017-05-02] MEDS ORDERED: NON-FORMULARY ITEM (Niacin 500 Mg*** [Niaspan 500 Mg***] 500 MG) PO SCH (22:00)
[2017-05-02] MEDS ORDERED: Flomax 0.4 MG PO SCH (22:00)
[2017-05-02] MEDS ORDERED: ZOCOR 20MG PO SCH (22:00)
[2017-05-03] MEDS: MORPHINE SULFATE 4 MG INJ IV PRN (03:25)
[2017-05-03] MEDS: Sodium Chloride 0.9% 1000 ML 1,000 ML IV SCH (03:31)
[2017-05-03 06:17] LABS: BASOPHIL % 0.1 % (0.0-0.4); Eosinophil % 1.4 % (0.00-5.0); Granulocytes % 71.2 % (36.0-66.0); Lymphocytes % 19.8 % (24.0-44.0); Mean Cell Volume 94.7 fl (78-100); Mean Corpuscular Hemoglobin 31.6 pg (26-32); Mean Platelet Volume 9.3 fl (6-9.5); Monocytes % 7.5 % (0.0-12.0); Platelet Count 97 K/mm3 (150-450); Red Blood Count 4.34 M/mm3 (4.1-5.6); White Blood Count 7.8 K/mm3 (4.0-10.5)
[2017-05-03 06:58] LABS: ANION GAP 8.7 MEQ/L (5-15); BLOOD UREA NITROGEN 10 mg/dL (9-20); CHLORIDE 108 mEq/L (98-107); Carbon Dioxide 30.2 mEq/L (21-32); Glucose 100 MG/DL (70-110); Potassium 3.5 mEq/L (3.5-5.1); SODIUM 143 mEq/L (136-145)
[2017-05-03 07:50] VITALS: BP 180/88; PULSE 47; O2SAT 95
--- NOTE | 2017-05-03 08:54 | PCM.DCORD ---
- Discharge Discharge Date: 05/03/17 Disposition: Home, Self-Care Condition: Stable Prescriptions: New Ciprofloxacin [Cipro 500 MG] 500 mg PO BIDAC #14 tablet Continue Aspirin 81 mg PO DAILY Allopurinol 100 mg [Zyloprim 100 mg] 200 mg PO DAILY Niacin 500 mg [Niaspan 500 mg] 500 mg PO HS Docusate Sodium 100 mg [Colace 100 MG] 100 mg PO BID Tamsulosin HCl 0.4 mg [Flomax 0.4 MG] 0.4 mg PO HS Isosorbide Mononitrate 30 mg [Imdur 30 MG] 30 mg PO DAILY Simvastatin 40 mg PO HS Metoprolol Tartrate 25 mg [Lopressor 25MG Tab] 12.5 mg PO BID Senna 8.6 mg [Senokot 8.6 mg] 1 tab PO BID Ondansetron [Zofran Odt] 4 mg PO Q6HPRN PRN #10 tab.rapdis PRN Reason: Nausea/Vomiting Enalapril Maleate 10 mg [Vasotec 10 MG] 20 mg PO DAILY #30 tablet Discontinued Enalapril Maleate 10 mg [Vasotec 10 MG] 10 mg PO DAILY Follow up with: CAMACHO EARL [Primary Care Provider] - Forms: Patient Portal Information
[2017-05-03] MEDS: Colace 100 MG PO SCH (10:03)
[2017-05-03] MEDS: Imdur 30 MG PO SCH (10:04)
[2017-05-03] MEDS: ZYLOPRIM 100 MG PO SCH (10:04)
[2017-05-03] MEDS: Vasotec 10 MG PO SCH (10:04)
[2017-05-03] MEDS: Lopressor 25MG Tab PO SCH (10:04)
[2017-05-03] MEDS: SENOKOT 8.6 MG PO SCH (10:04)
[2017-05-03] MEDS: ECOTRIN 81 MG PO SCH (10:05)
== END 2017-05-03 10:55 | disposition home or self-care (01) ==
LOC: ED 21:08 → MED SURG 05-02 01:53
PROVIDERS: ADMIT General Practice; ATTEND General Practice
DX: N39.0 Urinary tract infection, site not specified (principal); I10 Essential (primary) hypertension; Z79.899 Other long term (current) drug therapy
CPT/HCPCS: 36000; 36415; 74177; 80048; 80053; 81002; 82150; 82272; 83690; 85025; 93268; 94760; 96360; 96361; 96374; 96375; 99285; G0378; J1956; J2270; J2405; A9270-GY

== ENCOUNTER 2017-06-22 22:16 | Emergency (ER) | payer MEDICARE ==
[2017-06-22] MEDS ORDERED: Xopenex 1.25 MG/0.5 ML UD NEBULE IH ONE ×2 (22:24→22:36)
[2017-06-22] MEDS ORDERED: ROCEPHIN 1 Gm-D5w 50 ml Bag** 1 G/50 ML IVPB IV STA (22:25)
[2017-06-22] MEDS ORDERED: Zithromax 500 MG/ 250 ML NaCl Premix 500 MG/250 ML IVPB IV STA (22:25)
[2017-06-22] MEDS ORDERED: Sodium Chloride 0.9% 1000 ML 1,000 ML IV SCH (22:30)
--- NOTE | 2017-06-22 22:30 | ERPHSYRPT ---
- History of Present Illness Time Seen by Provider: 06/22/17 22:16 Source: patient Exam Limitations: no limitations Physician History: FOR THE PAST 12 HOURS PT HAS HAD INTERMITTENT SHORTNESS OF AIR AND A FEELING LIKE HIS ABDOMEN IS DISTENDED WITHOUT PAIN; DENIES FEVER, NAUSEA, VOMITING, CHEST PAIN. Allergies/Adverse Reactions: penicillin G Allergy (Mild, Verified 06/22/17 22:42) hydrocodone bitartrate [From [place]] Adverse Reaction (Verified 06/22/17 22:42) Home Medications: Allopurinol 100 mg [Zyloprim 100 mg] 200 mg PO DAILY 10/29/14 [History] Aspirin 81 mg PO DAILY 10/29/14 [History] Docusate Sodium 100 mg [Colace 100 MG] 100 mg PO BID 10/29/14 [History] Isosorbide Mononitrate 30 mg [Imdur 30 MG] 30 mg PO DAILY 10/29/14 [History ] Metoprolol Tartrate 25 mg [Lopressor 25MG Tab] 12.5 mg PO BID 10/29/14 [ History] Niacin 500 mg [Niaspan 500 mg] 500 mg PO HS 10/29/14 [History] Simvastatin 40 mg PO HS 10/29/14 [History] Tamsulosin HCl 0.4 mg [Flomax 0.4 MG] 0.4 mg PO HS 10/29/14 [History] Senna 8.6 mg [Senokot 8.6 mg] 1 tab PO BID 02/12/16 [History] Hx Tetanus, Diphtheria Vaccination/Date Given: Yes Hx Influenza Vaccination/Date Given: No Hx Pneumococcal Vaccination/Date Given: No - Review of Systems Constitutional: No Fever Respiratory: Dyspnea Cardiac: No Chest Pain Abdominal/Gastrointestinal: Other (ABDOMINAL DISTENSION(SUBJECTIVE FEELING).), No Nausea, No Vomiting All Other Systems: Reviewed and Negative - Past Medical History Pertinent Past Medical History: Yes Neurological History: No Pertinent History, Stroke ENT History: No Pertinent History Cardiac History: No Pertinent History, Aneurysm, Coronary Artery Disease, High Cholesterol, Hypertension, Peripheral Vascular Disease Respiratory History: No Pertinent History Endocrine Medical History: No Pertinent History Musculoskeletal History: No Pertinent History GI Medical History: No Pertinent History History: No Pertinent History Psycho-Social History: No Pertinent History Male Reproductive Disorders: No Pertinent History Other Medical History: GOUT - Past Surgical History Past Surgical History: Yes Neuro Surgical History: No Pertinent History Cardiac: CABG, Cardiac Catheterization, Cardiac Stent, Vascular Surgery Respiratory: No Pertinent History Gastrointestinal: Appendectomy, Hernia Repair Genitourinary: No Pertinent History Musculoskeletal: No Pertinent History Male Surgical History: No Pertinent History Other Surgical History: SEVERAL STENTS-cardiac stent x2, femoral stent x1. Double Aneurysm REPAIR JANUARY [id number], quadruple bypass - Social History Smoking Status: Current every day smoker How long have you smoked: 57 years Exposure to second hand smoke: Yes Drug Use: none Patient Lives Alone: No (FAMILY) - Nursing Vital Signs Nursing Vital Signs: Initial Vital Signs Pulse Rate 66 06/22/17 22:35 Respiratory Rate 66 H 06/22/17 22:35 Blood Pressure 122/68 06/22/17 22:35 O2 Sat by Pulse Oximetry 98 06/22/17 22:35 Pain Scale Pain Intensity 0 - Physical Exam General Appearance: alert Eye Exam: PERRL/EOMI Ears, Nose, Throat Exam: TMs normal, pharynx normal Neck Exam: normal inspection Respiratory Exam: wheezing (MILD) Cardiovascular Exam: normal heart sounds Gastrointestinal/Abdomen Exam: soft, normal bowel sounds Back Exam: normal range of motion Extremity Exam: normal inspection, No pedal edema Neurologic Exam: alert, cooperative Skin Exam: warm, dry - Course Nursing assessment & vital signs reviewed: Yes EKG Interpreted by Me: RATE (65), Sinus Rhythm, NORMAL AXIS, NORMAL INTERVALS - Radiology Exams Chest X-ray Interpretation: Interpreted by me, No Pneumonia Ordered Tests: Active Orders 24 hr Category Date 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 06/22/17 22:24 Active EKG-ER Only STAT Care 06/22/17 22:20 Active IV Insertion STAT Care 06/22/17 22:20 Active Oxygen-ED Only NASAL CANNULA 4 lpm Care 06/22/17 22:20 Active Pulse Oximetry (ED) STAT Care 06/22/17 22:20 Active CHEST 2 VIEWS (PA AND LAT) Stat Exams 06/22/17 22:21 Completed AMYLASE Stat Lab 06/22/17 22:30 Completed ARTERIAL BLOOD GASES Stat Lab 06/22/17 23:20 Results BLOOD CULTURE Stat Lab 06/22/17 22:42 Received CBC W DIFF Stat Lab 06/22/17 22:30 Completed CMP Stat Lab 06/22/17 22:30 Completed CULTURE,SPUTUM Stat Lab 06/22/17 22:25 Uncollected LIPASE Stat Lab 06/22/17 22:30 Completed MAGNESIUM Stat Lab 06/22/17 22:30 Completed Manual Differential NC Stat Lab 06/22/17 22:30 Completed NT PRO BNP Stat Lab 06/22/17 22:30 Completed PROTIME WITH INR Stat Lab 06/22/17 22:30 Completed PTT Stat Lab 06/22/17 22:30 Completed TROPONIN Q3H Lab 06/22/17 22:30 Completed TROPONIN Q3H Lab 06/23/17 01:30 Ordered TROPONIN Q3H Lab 06/23/17 04:30 Ordered TROPONIN Q3H Lab 06/23/17 07:30 Ordered TROPONIN Q3H Lab 06/23/17 10:30 Ordered UA W/RFX UR CULTURE Stat Lab 06/22/17 22:40 Received Medication Summary Generic Name Dose Route Start Last Admin Trade Name Freq PRN Reason Stop Dose Admin Sodium Chloride 1,000 mls @ 100 mls/hr 06/22/17 22:30 06/22/17 23:24 Sodium Chloride 0.9% 1000 Ml IV 07/22/17 22:29 100 mls/hr .Q10H YESENIA Administration Discontinued Medications Generic Name Dose Route Start Last Admin Trade Name Freq PRN Reason Stop Dose Admin Ceftriaxone Sodium/Dextrose 1 g in 50 mls @ 100 mls/hr 06/22/17 22:25 23:25 Rocephin 1 Gm-D5w 50 Ml Bag IV 06/22/17 22:54 100 mls/hr STAT STA Administration Azithromycin 500 mg in 250 mls @ 250 mls/hr 06/22/17 22:25 06/22/17 23:25 Zithromax 500 Mg/ 250 Ml Nacl Premix IV 06/22/17 23:24 250 mls/hr STAT STA Administration Azithromycin Confirm 06/22/17 23:14 Zithromax 500 Mg/ 250 Ml Nacl Premix Administered 06/22/17 23:15 Dose 500 mg in 250 mls @ ud IV .STK-MED ONE Ceftriaxone Sodium/Dextrose Confirm 06/22/17 23:14 Rocephin 1 Gm-D5w 50 Ml Bag Administered 06/22/17 23:15 Dose 1 g in 50 mls @ ud IV .STK-MED ONE Levalbuterol HCl 1.25 mg 06/22/17 22:24 06/22/17 22:41 Xopenex 1.25 Mg/0.5 Ml Ud Nebule IH 06/22/17 22:25 1.25 mg STAT ONE Administration Levalbuterol HCl Confirm 06/22/17 22:36 Xopenex 1.25 Mg/0.5 Ml Ud Nebule Administered 06/22/17 22:37 Dose 1.25 mg IH .STK-MED ONE Sodium Chloride Confirm 06/22/17 22:38 Sodium Chloride 3 Ml Ud Nebules Administered 06/22/17 22:39 Dose 3 ml IH .STK-MED ONE Lab/Rad Data: Laboratory Result Diagrams 06/22/17 22:30 06/22/17 22:30 Laboratory Results 06/22/17 06/22/17 06/22/17 Range/Units 23:20 22:30 22:30 WBC (4.0-10.5) K/mm3 RBC (4.1-5.6) M/mm3 Hgb (12.5-18.0) gm/dl Hct (42-50) % MCV (78-100) fl MCH (26-32) pg MCHC (32-36) g/dl RDW (11.5-14.0) % Plt Count (150-450) K/mm3 MPV (6-9.5) fl INR 1.04 (0.8-3.0) APTT 33.9 (24.1-36.1) SECONDS Puncture Site Pending pCO2 34 L (35-45) mmHg pO2 78 (75-100) mmHg Base Excess 0.1 (-2.0-2.0) O2 Saturation 95.1 (94-100) g/dF ABG pH 7.45 (7.35-7.45) ABG HCO3 23.6 (22-28) ABG O2 Sat (Measured) 101.6 H (95-100) % Jerome Test Pending A-a Gradient 136 a/A Ratio 0.36 Hemoglobin 13.9 Carboxyhemoglobin 5.2 (0.0-6.9) % THgb Methemoglobin 1.1 L (1.4-1.5) % Temperature 37.0 C POC O2 Flow Rate 36 % Sodium (136-145) mEq/L Potassium 3.7 (3.5-5.1) mEq/L Chloride (98-107) mEq/L Carbon Dioxide (21-32) mEq/L Anion Gap (5-15) MEQ/L BUN (9-20) mg/dL Creatinine (0.55-1.30) mg/dl Estimated GFR ML/MIN Glucose (70-110) MG/DL Calcium (8.5-10.1) mg/dL Magnesium (1.8-2.4) mg/dL Total Bilirubin (0.2-1.0) mg/dL AST (15-37) U/L ALT (12-78) U/L Alkaline Phosphatase (46-116) U/L Troponin I < 0.017 (0.000-0.056) ng/ml NT-Pro-B Natriuret Pep (0-125) pg/ml Serum Total Protein (6.4-8.2) gm/dL Albumin (3.4-5.0) g/dL Amylase (25-115) U/L Lipase (73-393) U/L 06/22/17 06/22/17 Range/Units 22:30 22:30 WBC 12.2 H (4.0-10.5) K/mm3 RBC 4.48 (4.1-5.6) M/mm3 Hgb 14.2 (12.5-18.0) gm/dl Hct 42.8 (42-50) % MCV 95.5 (78-100) fl MCH 31.7 (26-32) pg MCHC 33.2 (32-36) g/dl RDW 13.7 (11.5-14.0) % Plt Count 111 L (150-450) K/mm3 MPV 9.7 H (6-9.5) fl INR (0.8-3.0) APTT (24.1-36.1) SECONDS Puncture Site pCO2 (35-45) mmHg pO2 (75-100) mmHg Base Excess (-2.0-2.0) O2 Saturation (94-100) g/dF ABG pH (7.35-7.45) ABG HCO3 (22-28) ABG O2 Sat (Measured) (95-100) % Jerome Test A-a Gradient a/A Ratio Hemoglobin Carboxyhemoglobin (0.0-6.9) % THgb Methemoglobin (1.4-1.5) % Temperature C POC O2 Flow Rate % Sodium 144 (136-145) mEq/L Potassium 4.0 (3.5-5.1) mEq/L Chloride 110 H (98-107) mEq/L Carbon Dioxide 25.5 (21-32) mEq/L Anion Gap 12.4 (5-15) MEQ/L BUN 16 (9-20) mg/dL Creatinine 1.02 (0.55-1.30) mg/dl Estimated GFR > 60 ML/MIN Glucose 107 (70-110) MG/DL Calcium 9.3 (8.5-10.1) mg/dL Magnesium 2.0 (1.8-2.4) mg/dL Total Bilirubin 1.00 (0.2-1.0) mg/dL AST 15 (15-37) U/L ALT 26 (12-78) U/L Alkaline Phosphatase 90 (46-116) U/L Troponin I (0.000-0.056) ng/ml NT-Pro-B Natriuret Pep 245 H (0-125) pg/ml Serum Total Protein 6.8 (6.4-8.2) gm/dL Albumin 3.3 L (3.4-5.0) g/dL Amylase 25 (25-115) U/L Lipase 131 (73-393) U/L - Departure Time of Disposition: 00:00 Departure Disposition: Home Clinical Impression: BRONCHITIS Condition: Stable Critical Care Time: No Referrals: CAMACHO EARL [Primary Care Provider] - Instructions: Bronchitis Additional Instructions: FOLLOW UP WITH PRIVATE DOCTOR TOMORROW. Prescriptions: Azithromycin 250 mg [Zithromax 250 MG TABLET] 250 mg PO ZPACK #6 tablet
[2017-06-22 22:38] VITALS: PULSE 66
[2017-06-22] MEDS ORDERED: Sodium Chloride 3 ML UD NEBULES IH ONE (22:38)
[2017-06-22 22:52] LABS: Mean Cell Volume 95.5 fl (78-100); Mean Corpuscular Hemoglobin 31.7 pg (26-32); Mean Platelet Volume 9.7 fl (6-9.5); Platelet Count 111 K/mm3 (150-450); Red Blood Count 4.48 M/mm3 (4.1-5.6); Red Cell Distribution Width 13.7 % (11.5-14.0); White Blood Count 12.2 K/mm3 (4.0-10.5)
[2017-06-22] MEDS ORDERED: Zithromax 500 MG/ 250 ML NaCl Premix 500 MG/250 ML IVPB IV ONE (23:14)
[2017-06-22] MEDS ORDERED: Sodium Chloride 0.9% 1000 ML 1,000 ML ONE (23:14)
[2017-06-22] MEDS ORDERED: ROCEPHIN 1 Gm-D5w 50 ml Bag** 1 G/50 ML IVPB IV ONE (23:14)
[2017-06-22 23:18] LABS: INR 1.04 (0.8-3.0); PROTIME 11.8 SECONDS (8.83-12.87)
[2017-06-22 23:20] LABS: PTT 33.9 SECONDS (24.1-36.1)
[2017-06-22 23:31] LABS: A-aADO2 136; ARTERIAL BLD GAS O2 SATURATION 101.6 % (95-100); ARTERIAL BLOOD GAS BASE EXCESS 0.1 (-2.0-2.0); ARTERIAL BLOOD GAS FIO2 36 %; ARTERIAL BLOOD GAS PO2 78 mmHg (75-100); ARTERIAL BLOOD GAS pH 7.45 (7.35-7.45)
[2017-06-22 23:33] VITALS: BP 150/82
[2017-06-22 23:33] LABS: ALBUMIN 3.3 g/dL (3.4-5.0); ALKALINE PHOSPHATASE 90 U/L (46-116); ANION GAP 12.4 MEQ/L (5-15); BLOOD UREA NITROGEN 16 mg/dL (9-20); CHLORIDE 110 mEq/L (98-107); Carbon Dioxide 25.5 mEq/L (21-32); Glucose 107 MG/DL (70-110); LIPASE 131 U/L (73-393); SGOT/AST 15 U/L (15-37); SGPT/ALT 26 U/L (12-78); SODIUM 144 mEq/L (136-145); Total Protein 6.8 gm/dL (6.4-8.2)
--- NOTE | 2017-06-22 23:39 | XRAY ---
Exam: Two-view chest from 06/22/2017. Comparison: PA chest film from an acute abdominal series on 03/15/2016. Indication: Shortness of breath. Findings: Upright PA and lateral chest films are submitted for evaluation. The heart size and contour are normal. The central pulmonary arteries appear prominent bilaterally. Consider pulmonary artery hypertension. I see evidence of prior CABG and midline sternotomy. There appears to be a coronary artery vascular calcification or stent overlying the anterior aspect of the heart on the lateral image. Mild tortuosity of the descending thoracic aorta is seen. The lungs are hyperinflated consistent with COPD. No air space infiltrates, vascular congestion, pneumothorax, or significant pleural fluid is seen. The lateral film is mildly rotated. The bones are demineralized. No acute osseous process is seen. Impression: 1. Hyperinflation of the lungs consistent with COPD. 2. In addition, the central pulmonary arteries are quite prominent bilaterally. Correlate clinically regarding pulmonary artery hypertension. 3. Status post CABG. The heart size is normal. No evidence of acute cardiac decompensation/CHF is seen. 4. No air space infiltrates to suggest focal pneumonia or other active lung disease is seen.
[2017-06-23 00:13] LABS: Eosinophil 2 % (0.00-3.0); Platelet Estimate NORMAL (NORMAL); Total Cells Counted 100
[2017-06-23] MEDS ORDERED: Xopenex 1.25 MG/0.5 ML UD NEBULE IH ONE ×2 (01:20→01:22)
[2017-06-23] MEDS ORDERED: Sodium Chloride 3 ML UD NEBULES IH ONE (01:22)
[2017-06-23 01:33] VITALS: O2SAT 94
[2017-06-23 04:30] LABS: ALLEN TEST OK? YES
== END 2017-06-23 01:45 | disposition home or self-care (01) ==
LOC: ED 22:16
DX: J20.9 Acute bronchitis, unspecified (principal); R06.2 Wheezing; I10 Essential (primary) hypertension; I73.9 Peripheral vascular disease, unspecified; Z98.61 Coronary angioplasty status; Z95.1 Presence of aortocoronary bypass graft
CPT/HCPCS: 36000; 36415; 36600; 71020; 80053; 81002; 82150; 82375; 82803; 83690; 83735; 83880; 84484; 85025; 85610; 85730; 87040; 93005; 93041; 94640; 96360; 96365; 96367; 99284; J0456; J0696; A9270-GY

== ENCOUNTER 2017-09-22 04:02 | Emergency (ER) | payer MEDICARE ==
[2017-09-22] MEDS ORDERED: solu-MEDROL 125 MG IV ONE (04:20)
[2017-09-22] MEDS ORDERED: PROVENTIL 2.5 MG/3 ML NEB IH ONE ×2 (04:20→04:32)
[2017-09-22] MEDS ORDERED: solu-MEDROL 125 MG ONE (04:24)
[2017-09-22 04:27] LABS: Mean Cell Volume 93.7 fl (78-100); Mean Platelet Volume 9.1 fl (6-9.5); Platelet Count 129 K/mm3 (150-450); Red Blood Count 4.78 M/mm3 (4.1-5.6); Red Cell Distribution Width 14.2 % (11.5-14.0); White Blood Count 11.7 K/mm3 (4.0-10.5)
--- NOTE | 2017-09-22 04:28 | ERPHSYRPT ---
- History of Present Illness Time Seen by Provider: 09/22/17 04:22 Source: patient Exam Limitations: no limitations Patient Subjective Stated Complaint: pt states he was short of breath at home Triage Nursing Assessment: pt alert and oriented. pt arrive per ambulance. [facility] 3. respirations nonlabored at this time. o2 on per nc 2l. lungs cta. no cough noted at this time. heart rate 60's on monitor sinus rhythm Physician History: patient presents with shortness of breath for 1 day. Patient had a breathing treatment around 1:00 AM and went back to bed. Patient was awakened with continued shortness of breath, which she then called paramedics. Patient has long-standing history of COPD and chronic shortness of breath. Patient denies any chest pain, cough, fever, abdominal pain, dizziness or weakness. Patient states he was last seen in the ED about 2 or 3 months ago for shortness of breath. Timing/Duration: today, hour(s) (2) Activities at Onset: rest Severity of Dyspnea-Max: moderate Severity of Dyspnea-Current: mild Possible Cause: frequent episodes Modifying Factors: Improves With: albuterol nebulizer (improves). Worsens With : coughing, exertion Associated Symptoms: intermittent, No cough, No chest pain/discomfort, No edema , No fever, No lightheadedness, No wheezing, No weakness, No dizziness, No lightheadedness, No productive cough International travel in last 2 weeks: No Allergies/Adverse Reactions: penicillin G Allergy (Mild, Verified 09/22/17 04:16) hydrocodone bitartrate [From [place]] Adverse Reaction (Verified 09/22/17 04:16) Home Medications: Albuterol 8 gm Mdi Hfa [Ventolin Hfa MDI] 2 puffs IH QID 08/18/17 [History ] Albuterol/Ipratropium 3ml Neb* [DUONEB 0.5-3 MG/3 ml Neb] 3 ml IH QID [History] Allopurinol 100 mg [Zyloprim 100 mg] 200 mg PO DAILY 08/18/17 [History] Alprazolam 0.25 mg [xanAX 0.25 MG] 0.25 mg PO [id number] PRN 08/18/17 [ History] Alprazolam [Xanax 0.25 mg] 1 tab PO QHS 08/18/17 [History] Amlodipine Besylate 5 mg [Norvasc 5 mg] 5 mg PO DAILY 08/18/17 [History] Aspirin EC 81 mg [Ecotrin 81 mg] 81 mg PO DAILY 08/18/17 [History] Docusate Sodium 100 mg [Colace 100 MG] 100 mg PO BID 08/18/17 [History] Enalapril Maleate 10 mg [Vasotec 10 MG] 10 mg PO DAILY 08/18/17 [History] HydrALAzine HCL 25 MG TAB [Apresoline 25 MG TABLET] 50 mg PO Q8H 08/18/17 [History] Isosorbide Mononitrate 30 mg [Imdur 30 MG] 30 mg PO DAILY 08/18/17 [History ] Metoprolol Succinate [Toprol Xl] 12.5 mg PO BID 08/18/17 [History] Niacin 500 mg [Niaspan 500 mg] 500 mg PO DAILY 08/18/17 [History] Nitroglycerin 0.4 mg Tablet [Nitrostat 0.4 MG Tablet] 0.4 mg SL Q5MIN PRN MR X 3 PRN 08/18/17 [History] PANTOPRAZOLE 40 mg Tablet [Protonix 40MG Tablet] 40 mg PO QAM 08/18/17 [ History] Potassium Chloride 10 Meq Tab* [Klor Con 10 MEQ] 10 meq PO DAILY 08/18/17 [ History] Ranolazine 500 MG [Ranexa 500 MG] 500 mg PO BID 08/18/17 [History] Simvastatin 40 mg [Zocor 40 mg] 40 mg PO HS 08/18/17 [History] Tamsulosin HCl 0.4 mg [Flomax 0.4 MG] 0.4 mg PO DAILY 08/18/17 [History] Hx Tetanus, Diphtheria Vaccination/Date Given: Yes Hx Influenza Vaccination/Date Given: Yes Hx Pneumococcal Vaccination/Date Given: Yes Immunizations Up to Date: Yes - Review of Systems Constitutional: No Fever, No Chills Eyes: No Symptoms Ears, Nose, & Throat: No Symptoms Respiratory: Dyspnea, Dyspnea on Exertion (MCCRACKEN) (he didn't I think, given 1), No Cough Cardiac: No Chest Pain, No Edema, No Syncope Abdominal/Gastrointestinal: No Symptoms, No Abdominal Pain, No Nausea, No Vomiting, No Diarrhea Genitourinary Symptoms: No Symptoms, No Dysuria Musculoskeletal: No Symptoms, No Back Pain, No Neck Pain Skin: No Symptoms, No Rash Neurological: No Symptoms, No Dizziness, No Focal Weakness, No Sensory Changes Psychological: No Symptoms Endocrine: No Symptoms All Other Systems: Reviewed and Negative - Past Medical History Pertinent Past Medical History: Yes Neurological History: No Pertinent History, Stroke ENT History: No Pertinent History Cardiac History: No Pertinent History, Aneurysm, Coronary Artery Disease, High Cholesterol, Hypertension, Peripheral Vascular Disease Respiratory History: No Pertinent History Endocrine Medical History: No Pertinent History Musculoskeletal History: No Pertinent History GI Medical History: No Pertinent History History: No Pertinent History Psycho-Social History: No Pertinent History Male Reproductive Disorders: No Pertinent History Other Medical History: GOUT - Past Surgical History Past Surgical History: Yes Neuro Surgical History: No Pertinent History Cardiac: CABG, Cardiac Catheterization, Cardiac Stent, Vascular Surgery Respiratory: No Pertinent History Gastrointestinal: Appendectomy, Hernia Repair Genitourinary: No Pertinent History Musculoskeletal: No Pertinent History Male Surgical History: No Pertinent History Other Surgical History: SEVERAL STENTS-cardiac stent x2, femoral stent x1. Double Aneurysm REPAIR JANUARY [id number], quadruple bypass - Social History Smoking Status: Former smoker How long have you smoked: 57 years Exposure to second hand smoke: Yes Drug Use: none Patient Lives Alone: No - Nursing Vital Signs Nursing Vital Signs: Initial Vital Signs Pulse Rate 64 09/22/17 04:06 Respiratory Rate 16 09/22/17 04:06 Blood Pressure 171/100 09/22/17 04:06 O2 Sat by Pulse Oximetry 95 09/22/17 04:06 Pain Scale Pain Intensity 0 - Physical Exam General Appearance: no apparent distress, alert Eye Exam: PERRL/EOMI Neck Exam: normal inspection, supple Respiratory Exam: diminished breath sounds Cardiovascular/Chest Exam: normal heart sounds, regular rate/rhythm Abdominal/Gastrointestinal Exam: soft, No tenderness, No distention, No mass Extremity Exam: non-tender, normal range of motion, normal inspection, no calf tenderness, no pedal edema Peripheral Pulses Exam: dorsalis-pedis (R): 2+, dorsalis-pedis (L): 2+ Neurologic Exam: alert, oriented x 3, cooperative, 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 tested, sensation nml, No motor deficits Skin Exam: normal color, warm, No dry Lymphatic Exam: No adenopathy SpO2 Interpretation: normal SpO2: 95 Oxygen Delivery: Nasal Cannula (2L) - Course Nursing assessment & vital signs reviewed: Yes EKG Interpreted by Me: RATE (60), Sinus Rhythm, NORMAL AXIS, NORMAL INTERVALS, Non-specific ST Changes - CT Exams Chest CT Interpretation: Tele-radiologist Report, No PE (multiple pulmonary nodules seen on previous study) Ordered Tests: Active Orders 24 hr Category 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 09/22/17 04:20 Active EKG-ER Only STAT Care 09/22/17 04:20 Active IV Insertion STAT Care 09/22/17 04:20 Active Oxygen-ED Only NASAL CANNULA 2 lpm Care 09/22/17 04:20 Active CHEST 1 VIEW (PORTABLE) Stat Exams 09/22/17 04:20 Taken CHEST WITH CONTRAST [CT] Stat Exams 09/22/17 05:05 Taken BMP Stat Lab 09/22/17 04:15 Completed CBC W DIFF Stat Lab 09/22/17 04:15 Completed D-DIMER QUANTITATION Stat Lab 09/22/17 04:15 Completed Manual Differential NC Stat Lab 09/22/17 04:15 Completed NT PRO BNP Stat Lab 09/22/17 04:15 Completed TROPONIN Q3H Lab 09/22/17 04:15 Completed TROPONIN Q3H Lab 09/22/17 07:30 Ordered TROPONIN Q3H Lab 09/22/17 10:30 Ordered TROPONIN Q3H Lab 09/22/17 13:30 Ordered TROPONIN Q3H Lab 09/22/17 16:30 Ordered Respiratory Nebulizer STAT RT 09/22/17 04:21 Active Medication Summary Discontinued Medications Generic Name Dose Route Start Last Admin Trade Name Freq PRN Reason Stop Dose Admin Albuterol Sulfate 2.5 mg 09/22/17 04:20 09/22/17 04:33 Proventil 2.5 Mg/3 Ml Neb IH 09/22/17 04:21 2.5 mg STAT ONE Administration Albuterol Sulfate Confirm 09/22/17 04:32 Proventil 2.5 Mg/3 Ml Neb Administered 09/22/17 04:33 Dose 2.5 mg IH .STK-MED ONE Methylprednisolone Sodium Succinate 125 mg 09/22/17 04:20 09/22/17 04:27 Solu-Medrol 125 Mg IV 09/22/17 04:21 125 mg STAT ONE Administration Methylprednisolone Sodium Succinate Confirm 09/22/17 04:24 Solu-Medrol 125 Mg Administered 09/22/17 04:25 Dose 125 mg .ROUTE .STK-MED ONE Lab/Rad Data: Laboratory Result Diagrams 09/22/17 04:15 09/22/17 04:15 Laboratory Results 09/22/17 09/22/17 09/22/17 Range/Units 04:15 04:15 04:15 WBC (4.0-10.5) K/mm3 RBC (4.1-5.6) M/mm3 Hgb (12.5-18.0) gm/dl Hct (42-50) % MCV (78-100) fl MCH (26-32) pg MCHC (32-36) g/dl RDW (11.5-14.0) % Plt Count (150-450) K/mm3 MPV (6-9.5) fl Segmented Neutrophils (36.-66.) % Lymphocytes (Manual) (24-44) % Monocytes (Manual) (0.0-12.0) % Eosinophils (Manual) (0.00-3.0) % Differential Comment Atypical Lymphocytes % Platelet Estimate (NORMAL) D-Dimer 3712.71 H* (0-500) ng/mL Sodium 143 (136-145) mEq/L Potassium 3.7 (3.5-5.1) mEq/L Chloride 105 (98-107) mEq/L Carbon Dioxide 23.8 (21-32) mEq/L Anion Gap 17.5 H (5-15) MEQ/L BUN 15 (9-20) mg/dL Creatinine 1.12 (0.55-1.30) mg/dl Estimated GFR > 60 ML/MIN Glucose 115 H (70-110) MG/DL Calcium 9.3 (8.5-10.1) mg/dL Troponin I < 0.017 (0.000-0.056) ng/ml NT-Pro-B Natriuret Pep 220 H (0-125) pg/ml 09/22/17 Range/Units 04:15 WBC 11.7 H (4.0-10.5) K/mm3 RBC 4.78 (4.1-5.6) M/mm3 Hgb 14.8 (12.5-18.0) gm/dl Hct 44.8 (42-50) % MCV 93.7 (78-100) fl MCH 31.0 (26-32) pg MCHC 33.0 (32-36) g/dl RDW 14.2 H (11.5-14.0) % Plt Count 129 L (150-450) K/mm3 MPV 9.1 (6-9.5) fl Segmented Neutrophils 78 H (36.-66.) % Lymphocytes (Manual) 13 L (24-44) % Monocytes (Manual) 6 (0.0-12.0) % Eosinophils (Manual) 1 (0.00-3.0) % Differential Comment NORMAL Atypical Lymphocytes 2 % Platelet Estimate NORMAL (NORMAL) D-Dimer (0-500) ng/mL Sodium (136-145) mEq/L Potassium (3.5-5.1) mEq/L Chloride (98-107) mEq/L Carbon Dioxide (21-32) mEq/L Anion Gap (5-15) MEQ/L BUN (9-20) mg/dL Creatinine (0.55-1.30) mg/dl Estimated GFR ML/MIN Glucose (70-110) MG/DL Calcium (8.5-10.1) mg/dL Troponin I (0.000-0.056) ng/ml NT-Pro-B Natriuret Pep (0-125) pg/ml - Progress Progress: improved Air Movement: good Progress Note: 09/22/17 06:53 patient was given DuoNeb along with Solu-Medrol, which did seem to improve his shortness of breath. Blood Culture(s) Obtained: No Counseled pt/family regarding: lab results, diagnosis, rad results - Departure Time of Disposition: 06:55 Departure Disposition: Home Clinical Impression: COPD exacerbation, Pulmonary nodules Condition: Stable Critical Care Time: No Referrals: CAMACHO EARL [Primary Care Provider] - Instructions: Chronic Obstructive Pulmonary Disease Additional Instructions: Rx: Prednisone Follow-up with your doctor for pulmonary nodules. Return for worse cough, shortness of breath, fever or any problems
[2017-09-22 04:47] LABS: ANION GAP 17.5 MEQ/L (5-15); BLOOD UREA NITROGEN 15 mg/dL (9-20); CHLORIDE 105 mEq/L (98-107); Carbon Dioxide 23.8 mEq/L (21-32); Glucose 115 MG/DL (70-110); Potassium 3.7 mEq/L (3.5-5.1); SODIUM 143 mEq/L (136-145)
[2017-09-22 05:58] LABS: ATYPICAL LYMPHS 2 %; Eosinophil 1 % (0.00-3.0); Platelet Estimate NORMAL (NORMAL); Total Cells Counted 100
[2017-09-22 06:59] VITALS: BP 174/84; PULSE 70; O2SAT 96
--- NOTE | 2017-09-22 09:23 | XRAY ---
Indication: Chest pain and short of breath. Elevated d-dimer. Multiple contiguous images obtained through the chest using 80 cc Isovue 370 contrast and PE protocol. Comparison: October 30, 2014. There is satisfactory opacification of the pulmonary arteries. No filling defect or pulmonary embolus. Heart is not enlarged and again demonstrates previous CABG surgery. Aorta is normal in course and caliber. Stable small mediastinal lymph nodes. No pathologic mediastinal/hilar lymphadenopathy. Examination of the lung parenchyma again demonstrates extensive diffuse pulmonary emphysema. Stable posterior right upper lobe calcified granuloma. Also stable noncalcified right upper lobe micronodules (image 25 and 33, series 4). No suspicious pulmonary mass, infiltrate, or effusion. Bony thorax intact again with sternotomy wires. Limited upper abdomen demonstrates 1.5 cm bilateral mid renal cysts. There is partially visualized AAA with aortic stent graft. Impression: 1. Again negative pulmonary embolus. 2. Stable extensive pulmonary emphysema 3. Stable calcified and noncalcified pulmonary nodules presumed benign given stability over the years 4. No new/acute cardiopulmonary abnormalities. Comment: Preliminary interpretation was made by [facility]. No discrepancy. CT DI 14.00
--- NOTE | 2017-09-22 09:25 | XRAY ---
Indication: Short of breath. Comparison: August 18, 2017. Portable chest unchanged again hyperinflated and clear. Heart is not enlarged and again demonstrates previous CABG surgery. No new/acute findings.
== END 2017-09-22 08:16 | disposition home or self-care (01) ==
LOC: ED 04:02
DX: J44.1 Chronic obstructive pulmonary disease with (acute) exacerbation (principal); R91.1 Solitary pulmonary nodule; Z79.899 Other long term (current) drug therapy; I25.10 Atherosclerotic heart disease of native coronary artery without angina pectoris; E78.00 Pure hypercholesterolemia, unspecified; I10 Essential (primary) hypertension; I73.9 Peripheral vascular disease, unspecified; Z95.1 Presence of aortocoronary bypass graft; Z98.61 Coronary angioplasty status
CPT/HCPCS: 36000; 36415; 71010; 71260; 80048; 83880; 84484; 85025; 85379; 93005; 93041; 94640; 99284; J2930; A9270-GY

== ENCOUNTER 2017-10-21 06:06 | Emergency (ER) | payer MEDICARE ==
--- NOTE | 2017-10-21 06:15 | ERPHSYRPT ---
- History of Present Illness Time Seen by Provider: 10/21/17 06:06 Source: patient, EMS Exam Limitations: no limitations Physician History: THIS AM PT GOT OUT OF BED, BECAME UNSTEADY AND FELL HITTING HIS RIGHT FOREARM ON THE OXYGEN TANK. PT DENIES CHEST PAIN, BACK PAIN, NECK PAIN, LOC, NAUSEA, VOMITING, ABDOMINAL PAIN, NUMBNESS. PT HAS BEEN COUGHING UP WHITE PHLEGM FOR THE PAST 2 WEEKS AND HAS BEEN GENERALLY WEAK, DIZZY AND SHORT OF AIR. Allergies/Adverse Reactions: penicillin G Allergy (Mild, Verified 09/22/17 04:16) hydrocodone bitartrate [From [place]] Adverse Reaction (Verified 09/22/17 04:16) Home Medications: Albuterol 8 gm Mdi Hfa [Ventolin Hfa MDI] 2 puffs IH QID 08/18/17 [History ] Albuterol/Ipratropium 3ml Neb* [DUONEB 0.5-3 MG/3 ml Neb] 3 ml IH QID [History] Allopurinol 100 mg [Zyloprim 100 mg] 200 mg PO DAILY 08/18/17 [History] Alprazolam 0.25 mg [xanAX 0.25 MG] 0.25 mg PO [id number] PRN 08/18/17 [ History] Alprazolam [Xanax 0.25 mg] 1 tab PO QHS 08/18/17 [History] Amlodipine Besylate 5 mg [Norvasc 5 mg] 5 mg PO DAILY 08/18/17 [History] Aspirin EC 81 mg [Ecotrin 81 mg] 81 mg PO DAILY 08/18/17 [History] Docusate Sodium 100 mg [Colace 100 MG] 100 mg PO BID 08/18/17 [History] Enalapril Maleate 10 mg [Vasotec 10 MG] 10 mg PO DAILY 08/18/17 [History] HydrALAzine HCL 25 MG TAB [Apresoline 25 MG TABLET] 50 mg PO Q8H 08/18/17 [History] Isosorbide Mononitrate 30 mg [Imdur 30 MG] 30 mg PO DAILY 08/18/17 [History ] Metoprolol Succinate [Toprol Xl] 12.5 mg PO BID 08/18/17 [History] Niacin 500 mg [Niaspan 500 mg] 500 mg PO DAILY 08/18/17 [History] Nitroglycerin 0.4 mg Tablet [Nitrostat 0.4 MG Tablet] 0.4 mg SL Q5MIN PRN MR X 3 PRN 08/18/17 [History] PANTOPRAZOLE 40 mg Tablet [Protonix 40MG Tablet] 40 mg PO QAM 08/18/17 [ History] Potassium Chloride 10 Meq Tab* [Klor Con 10 MEQ] 10 meq PO DAILY 08/18/17 [ History] Ranolazine 500 MG [Ranexa 500 MG] 500 mg PO BID 08/18/17 [History] Simvastatin 40 mg [Zocor 40 mg] 40 mg PO HS 08/18/17 [History] Tamsulosin HCl 0.4 mg [Flomax 0.4 MG] 0.4 mg PO DAILY 08/18/17 [History] Hx Tetanus, Diphtheria Vaccination/Date Given: Yes Hx Influenza Vaccination/Date Given: Yes Hx Pneumococcal Vaccination/Date Given: Yes - Review of Systems Constitutional: Weakness (GENERALIZED) Respiratory: Cough, Dyspnea Cardiac: No Chest Pain Abdominal/Gastrointestinal: No Abdominal Pain, No Nausea, No Vomiting Neurological: Dizziness, No Headache All Other Systems: Reviewed and Negative - Past Medical History Pertinent Past Medical History: Yes Neurological History: No Pertinent History, Stroke ENT History: No Pertinent History Cardiac History: No Pertinent History, Aneurysm, Coronary Artery Disease, High Cholesterol, Hypertension, Peripheral Vascular Disease Respiratory History: No Pertinent History Endocrine Medical History: No Pertinent History Musculoskeletal History: No Pertinent History GI Medical History: No Pertinent History History: No Pertinent History Psycho-Social History: No Pertinent History Male Reproductive Disorders: No Pertinent History Other Medical History: GOUT - Past Surgical History Past Surgical History: Yes Neuro Surgical History: No Pertinent History Cardiac: CABG, Cardiac Catheterization, Cardiac Stent, Vascular Surgery Respiratory: No Pertinent History Gastrointestinal: Appendectomy, Hernia Repair Genitourinary: No Pertinent History Musculoskeletal: No Pertinent History Male Surgical History: No Pertinent History Other Surgical History: SEVERAL STENTS-cardiac stent x2, femoral stent x1. Double Aneurysm REPAIR JANUARY [id number], quadruple bypass - Social History Smoking Status: Former smoker How long have you smoked: 57 years Exposure to second hand smoke: Yes Drug Use: none Patient Lives Alone: No - Nursing Vital Signs Nursing Vital Signs: Initial Vital Signs Temperature 97.5 F 10/21/17 06:17 Pulse Rate 67 10/21/17 06:17 Respiratory Rate 20 10/21/17 06:17 Blood Pressure 152/92 10/21/17 06:17 O2 Sat by Pulse Oximetry 99 10/21/17 06:17 Pain Scale Pain Intensity 5 - Physical Exam General Appearance: alert Eye Exam: PERRL/EOMI Ears, Nose, Throat Exam: TMs normal, moist mucous membranes, pharyngeal erythema Neck Exam: normal inspection, No midline tenderness Respiratory Exam: other (BRONCHIAL B.S. OVER ALL VELASQUEZ) Cardiovascular Exam: normal heart sounds Gastrointestinal/Abdomen Exam: soft, normal bowel sounds Back Exam: normal inspection, No vertebral tenderness Extremity Exam: normal range of motion Neurologic Exam: alert, cooperative, sensation nml, other (NO BABINSKI PRESENT) , No motor deficits, No motor weakness Skin Exam: laceration (9.5 CM SUPERFICIAL LACERATION ON VOLAR ASPECT OF RIGHT FOREARM; 3 CM X 1 CM SKIN TEAR ON PROXIMAL VOLAR ASPECT OF RIGHT FOREARM; 1/2 CM ABRASION ON PROXIMAL PALMAR ASPECT RIGHT THUMB.) - Course Nursing assessment & vital signs reviewed: Yes EKG Interpreted by Me: RATE (64), Sinus Rhythm, NORMAL AXIS, NORMAL INTERVALS - Radiology Exams Chest X-ray Interpretation: Interpreted by me, No Pneumonia Right Forearm X-ray Interpretation: Interpreted by me, No Fracture Ordered Tests: Active Orders 24 hr Category Date Time Status EKG-ER Only STAT Care 10/21/17 06:16 Active Wound Care STAT Care 10/21/17 07:03 Active Wound Care STAT Care 10/21/17 07:04 Active CHEST 2 VIEWS (PA AND LAT) Stat Exams 10/21/17 06:13 Taken FOREARM Stat Exams 10/21/17 06:13 Taken BMP Stat Lab 10/21/17 06:25 Completed CBC W DIFF Stat Lab 10/21/17 06:25 Completed MAGNESIUM Stat Lab 10/21/17 06:25 Completed Manual Differential NC Stat Lab 10/21/17 06:25 Completed TROPONIN Q3H Lab 10/21/17 06:25 Completed TROPONIN Q3H Lab 10/21/17 09:30 Ordered TROPONIN Q3H Lab 10/21/17 12:30 Ordered TROPONIN Q3H Lab 10/21/17 15:30 Ordered TROPONIN Q3H Lab 10/21/17 18:30 Ordered Medication Summary Generic Name Dose Route Start Last Admin Trade Name Freq PRN Reason Stop Dose Admin Ceftriaxone Sodium/Dextrose 1 g in 50 mls @ 100 mls/hr 10/21/17 07:11 Rocephin 1 Gm-D5w 50 Ml Bag IV 10/21/17 07:40 STAT STA Magnesium Oxide 400 mg 10/21/17 10:00 Mag-Ox 400 PO 11/20/17 09:59 BID YESENIA Discontinued Medications Generic Name Dose Route Start Last Admin Trade Name Freq PRN Reason Stop Dose Admin Azithromycin 500 mg 10/21/17 07:12 Zithromax 250 Mg Tablet PO 10/21/17 07:13 STAT ONE Lab/Rad Data: Laboratory Result Diagrams 10/21/17 06:25 10/21/17 06:25 Laboratory Results 10/21/17 10/21/17 10/21/17 Range/Units 06:25 06:25 06:25 WBC 9.3 (4.0-10.5) K/mm3 RBC 4.03 L (4.1-5.6) M/mm3 Hgb 12.5 (12.5-18.0) gm/dl Hct 38.7 L (42-50) % MCV 96.0 (78-100) fl MCH 31.0 (26-32) pg MCHC 32.3 (32-36) g/dl RDW 13.1 (11.5-14.0) % Plt Count 99 L (150-450) K/mm3 MPV 9.1 (6-9.5) fl Segmented Neutrophils 81 H (36.-66.) % Band Neutrophils 1 (0.0-2.0) % Lymphocytes (Manual) 13 L (24-44) % Monocytes (Manual) 4 (0.0-12.0) % Eosinophils (Manual) 1 (0.00-3.0) % Differential Comment NORMAL Platelet Estimate DECREASED (NORMAL) Sodium 144 (136-145) mEq/L Potassium 4.1 (3.5-5.1) mEq/L Chloride 108 H (98-107) mEq/L Carbon Dioxide 25.8 (21-32) mEq/L Anion Gap 13.8 (5-15) MEQ/L BUN 18 (9-20) mg/dL Creatinine 1.02 (0.55-1.30) mg/dl Estimated GFR > 60 ML/MIN Glucose 119 H (70-110) MG/DL Calcium 9.0 (8.5-10.1) mg/dL Magnesium 1.7 L (1.8-2.4) mg/dL Troponin I < 0.017 (0.000-0.056) ng/ml - Departure Time of Disposition: 07:15 Departure Disposition: Home Clinical Impression: BRONCHITIS, 9.5 CM LACERATION TO RIGHT FOREARM, SKIN TEAR TO RIGHT FOREARM, ABRASION OF RIGHT THUMB, PHARYNGITIS Condition: Stable Critical Care Time: No Referrals: CAMACHO EARL [Primary Care Provider] - Instructions: Care for a Laceration After Repair, Bronchitis Additional Instructions: FOLLOW UP WITH PRIVATE DOCTOR TOMORROW. KEEP RIGHT FOREARM CLEAN & DRY. NEOSPORIN & BANDAGE TO RIGHT THUMB DAILY FOR THE NEXT 10 DAYS. Prescriptions: Guaifenesin/Codeine Phosphate [Robitussin AC Syrup] 10 ml PO Q4H PRN PRN #120 ml PRN Reason: Cough Azithromycin 250 mg [Zithromax 250 MG TABLET] 250 mg PO ZPACK #6 tablet
[2017-10-21 06:31] VITALS: O2SAT 99
[2017-10-21 06:45] LABS: Granulocyte Absolute (ANC) 6.73 (1.4-6.9); Hematocrit 38.7 % (42-50); Hemoglobin 12.5 gm/dl (12.5-18.0); Mean Corpuscular Hgb Concent. 32.3 g/dl (32-36); Mean Platelet Volume 9.1 fl (6-9.5); Platelet Count 99 K/mm3 (150-450); Red Blood Count 4.03 M/mm3 (4.1-5.6); Red Cell Distribution Width 13.1 % (11.5-14.0); White Blood Count 9.3 K/mm3 (4.0-10.5)
[2017-10-21 06:56] LABS: ANION GAP 13.8 MEQ/L (5-15); BLOOD UREA NITROGEN 18 mg/dL (9-20); CHLORIDE 108 mEq/L (98-107); Carbon Dioxide 25.8 mEq/L (21-32); Creatinine 1 1.02 mg/dl (0.55-1.30); EST GLOMERULAR FILTRATION RATE > 60 ML/MIN; Glucose 119 MG/DL (70-110); MAGNESIUM 1.7 mg/dL (1.8-2.4); Potassium 4.1 mEq/L (3.5-5.1); SODIUM 144 mEq/L (136-145)
[2017-10-21 07:04] LABS: BAND 1 % (0.0-2.0); Eosinophil 1 % (0.00-3.0); Lymphocytes 13 % (24-44); Monocyte 4 % (0.0-12.0); Neutrophils 81 % (36.-66.); Total Cells Counted 100
[2017-10-21 07:05] LABS: Platelet Estimate DECREASED (NORMAL)
[2017-10-21] MEDS ORDERED: ROCEPHIN 1 Gm-D5w 50 ml Bag** 1 G/50 ML IVPB IV STA (07:11)
[2017-10-21] MEDS ORDERED: Zithromax 250 MG TABLET PO ONE (07:12)
[2017-10-21 07:36] VITALS: BP 171/90; PULSE 68
[2017-10-21] MEDS ORDERED: Rocephin 500 MG INJ ONE (07:41)
[2017-10-21] MEDS ORDERED: MAG-OX 400 ONE (07:41)
[2017-10-21] MEDS ORDERED: Zithromax 250 MG TABLET ONE (07:41)
[2017-10-21] MEDS ORDERED: Rocephin 500 MG INJ IM ONE (07:50)
--- NOTE | 2017-10-21 09:15 | XRAY ---
Indication: Cough. Comparison: September 22, 2017. PA/lateral chest unchanged again hyperinflated and clear with previous CABG surgery. Heart is not enlarged. No new/acute findings.
--- NOTE | 2017-10-21 09:17 | XRAY ---
Indication: Pain and laceration following fall. Comparison: None 2 views of the right forearm demonstrates mild osteopenia and minimal posterior elbow soft tissue swelling/laceration. No other bony, articular, or soft tissue abnormalities.
[2017-10-21] MEDS ORDERED: MAG-OX 400 PO SCH (10:00)
== END 2017-10-21 08:38 | disposition home or self-care (01) ==
LOC: ED 06:06
DX: J40 Bronchitis, not specified as acute or chronic (principal); S51.811A Laceration without foreign body of right forearm, initial encounter; S60.311A Abrasion of right thumb, initial encounter; J02.9 Acute pharyngitis, unspecified; W01.198A Fall on same level from slipping, tripping and stumbling with subsequent striking against other object, initial encounter
CPT/HCPCS: 36415; 71046; 73090; 80048; 83735; 84484; 85025; 93005; 96372; 99284; J0696; A9270-GY

== ENCOUNTER 2017-12-05 20:07 | Inpatient (IN) | payer MEDICARE ==
[2017-12-05] MEDS ORDERED: DUONEB 0.5-3 MG/3 ml Neb IH ONE ×2 (20:19→20:35)
[2017-12-05] MEDS ORDERED: solu-MEDROL 125 MG IV ONE (20:35)
[2017-12-05] MEDS ORDERED: Sodium Chloride 0.9% 1000 ML 1,000 ML IV SCH (20:45)
--- NOTE | 2017-12-05 20:48 | ERPHSYRPT ---
- History of Present Illness Time Seen by Provider: 12/05/17 20:45 Source: patient, family Exam Limitations: no limitations Patient Subjective Stated Complaint: increased SOA today at home Triage Nursing Assessment: dropped in sats at home today 90%, increased home O2 today to 3L, normal use 2L, right side exp wheezes, left side diminished on auscultation, right side swelling to lower extremities Physician History: pt is SP CABG with no CP but has SOBreath today - and family members have had the flu - has hx also of COPD and now has swelling of right leg Timing/Duration: today Cough Quality/Degree: dry cough Possible Cause: no prior episodes Modifying Factors: Improves With: nothing Associated Symptoms: cough, shortness of breath Allergies/Adverse Reactions: penicillin G Allergy (Mild, Verified 10/21/17 08:27) hydrocodone bitartrate [From [place]] Adverse Reaction (Verified 10/21/17 08:27) Home Medications: Albuterol 8 gm Mdi Hfa [Ventolin Hfa MDI] 2 puffs IH QID 08/18/17 [History ] Albuterol/Ipratropium 3ml Neb* [DUONEB 0.5-3 MG/3 ml Neb] 3 ml IH QID [History] Allopurinol 100 mg [Zyloprim 100 mg] 200 mg PO DAILY 08/18/17 [History] Alprazolam 0.25 mg [xanAX 0.25 MG] 0.25 mg PO [id number] PRN 08/18/17 [ History] Alprazolam [Xanax 0.25 mg] 1 tab PO QHS 08/18/17 [History] Amlodipine Besylate 5 mg [Norvasc 5 mg] 5 mg PO DAILY 08/18/17 [History] Aspirin EC 81 mg [Ecotrin 81 mg] 81 mg PO DAILY 08/18/17 [History] Docusate Sodium 100 mg [Colace 100 MG] 100 mg PO BID 08/18/17 [History] Enalapril Maleate 10 mg [Vasotec 10 MG] 10 mg PO DAILY 08/18/17 [History] HydrALAzine HCL 25 MG TAB [Apresoline 25 MG TABLET] 50 mg PO Q8H 08/18/17 [History] Isosorbide Mononitrate 30 mg [Imdur 30 MG] 30 mg PO DAILY 08/18/17 [History ] Metoprolol Succinate [Toprol Xl] 12.5 mg PO BID 08/18/17 [History] Niacin 500 mg [Niaspan 500 mg] 500 mg PO DAILY 08/18/17 [History] Nitroglycerin 0.4 mg Tablet [Nitrostat 0.4 MG Tablet] 0.4 mg SL Q5MIN PRN MR X 3 PRN 08/18/17 [History] PANTOPRAZOLE 40 mg Tablet [Protonix 40MG Tablet] 40 mg PO QAM 08/18/17 [ History] Potassium Chloride 10 Meq Tab* [Klor Con 10 MEQ] 10 meq PO DAILY 08/18/17 [ History] Ranolazine 500 MG [Ranexa 500 MG] 500 mg PO BID 08/18/17 [History] Simvastatin 40 mg [Zocor 40 mg] 40 mg PO HS 08/18/17 [History] Tamsulosin HCl 0.4 mg [Flomax 0.4 MG] 0.4 mg PO DAILY 08/18/17 [History] Hx Tetanus, Diphtheria Vaccination/Date Given: Yes Hx Influenza Vaccination/Date Given: Yes Hx Pneumococcal Vaccination/Date Given: Yes Immunizations Up to Date: Yes - Review of Systems Constitutional: Fatigue, Malaise, Weakness, No Fever, No Chills Eyes: No Symptoms Ears, Nose, & Throat: No Symptoms Respiratory: Cough, Dyspnea Cardiac: No Chest Pain, No Edema, No Syncope Abdominal/Gastrointestinal: No Abdominal Pain, No Nausea, No Vomiting, No Diarrhea Genitourinary Symptoms: No Dysuria Musculoskeletal: No Back Pain, No Neck Pain Skin: No Rash Neurological: No Dizziness, No Focal Weakness, No Sensory Changes Psychological: No Symptoms Endocrine: No Symptoms Hematologic/Lymphatic: No Symptoms Immunological/Allergic: No Symptoms All Other Systems: Reviewed and Negative - Past Medical History Pertinent Past Medical History: Yes Neurological History: No Pertinent History, Stroke ENT History: No Pertinent History Cardiac History: Aneurysm, Coronary Artery Disease, High Cholesterol, Hypertension, Peripheral Vascular Disease Respiratory History: No Pertinent History Endocrine Medical History: No Pertinent History Musculoskeletal History: No Pertinent History GI Medical History: No Pertinent History History: No Pertinent History Psycho-Social History: No Pertinent History Male Reproductive Disorders: No Pertinent History Other Medical History: GOUT - Past Surgical History Past Surgical History: Yes Neuro Surgical History: No Pertinent History Cardiac: CABG, Cardiac Catheterization, Cardiac Stent, Vascular Surgery Respiratory: No Pertinent History Gastrointestinal: Appendectomy, Hernia Repair Genitourinary: No Pertinent History Musculoskeletal: No Pertinent History Male Surgical History: No Pertinent History Other Surgical History: SEVERAL STENTS-cardiac stent x2, femoral stent x1. Double Aneurysm REPAIR JANUARY [id number], quadruple bypass - Social History Smoking Status: Former smoker How long have you smoked: 57 years Exposure to second hand smoke: Yes Drug Use: none Patient Lives Alone: No - Nursing Vital Signs Nursing Vital Signs: Initial Vital Signs Temperature 97.2 F 12/05/17 20:22 Pulse Rate 76 12/05/17 20:22 Respiratory Rate 24 12/05/17 20:22 Blood Pressure 136/71 12/05/17 20:22 O2 Sat by Pulse Oximetry 92 L 12/05/17 20:22 Pain Scale Pain Intensity 0 - Physical Exam General Appearance: no apparent distress, alert Eye Exam: PERRL/EOMI, eyes nml inspection Ears, Nose, Throat Exam: normal ENT inspection, TMs normal, pharynx normal, moist mucous membranes Neck Exam: normal inspection, non-tender, supple, full range of motion Respiratory Exam: airway intact, crackles/rales, No respiratory distress Cardiovascular Exam: regular rate/rhythm, normal heart sounds Gastrointestinal/Abdomen Exam: soft, No tenderness Back Exam: normal inspection, No CVA tenderness, No vertebral tenderness Extremity Exam: normal range of motion, swelling (right leg) Neurologic Exam: alert, oriented x 3, cooperative, normal mood/affect, sensation nml, No motor deficits Skin Exam: normal color, warm, dry, No rash Lymphatic Exam: No adenopathy SpO2: 92 Oxygen Delivery: Nasal Cannula - Course Nursing assessment & vital signs reviewed: Yes EKG Interpreted by Me: Sinus Rhythm, NORMAL AXIS, NORMAL QRS, Non-specific ST Changes - Radiology Exams Chest X-ray Interpretation: Reviewed by me, Other (chronic interstitial changes) - Radiology Ultrasound Exam Right Venous Lower Extremity Ultrasound: negative Ordered Tests: Active Orders 24 hr Category Date Time Status Pouncing Machine Operator STAT Care 12/05/17 20:37 Active EKG-ER Only STAT Care 12/05/17 20:35 Active EKG-ER Only STAT Care 12/05/17 20:35 Inactive IV Insertion STAT Care 12/05/17 20:35 Active IV Insertion STAT Care 12/05/17 20:35 Inactive Oxygen-ED Only NASAL CANNULA 2 lpm Care 12/05/17 20:35 Active Pulse Oximetry (ED) STAT Care 12/05/17 20:35 Active CHEST 1 VIEW (PORTABLE) Stat Exams 12/05/17 20:36 Taken CHEST WITH CONTRAST [CT] Stat Exams 12/05/17 21:37 Taken VENOUS UNILAT/LIMITED EXTREMIT [US] Stat Exams 12/05/17 20:42 Taken CBC W DIFF Stat Lab 12/05/17 20:30 Completed CMP Stat Lab 12/05/17 20:30 Completed CULTURE, THROAT Stat Lab 12/05/17 21:00 Received D-DIMER QUANTITATION Stat Lab 12/05/17 20:30 Completed Lactic Acid Stat Lab 12/05/17 20:35 Completed Manual Differential NC Stat Lab 12/05/17 20:30 Completed NT PRO BNP Stat Lab 12/05/17 20:30 Completed STREP SCREEN-BETA A Stat Lab 12/05/17 21:00 Completed TROPONIN Q3H Lab 12/05/17 20:30 Completed TROPONIN Q3H Lab 12/05/17 23:45 Ordered TROPONIN Q3H Lab 12/06/17 02:45 Ordered TROPONIN Q3H Lab 12/06/17 05:45 Ordered TROPONIN Q3H Lab 12/06/17 08:45 Ordered UA W/RFX UR CULTURE Stat Lab 12/05/17 20:38 Ordered Respiratory Nebulizer STAT RT 12/05/17 20:38 Completed Medication Summary Generic Name Dose Route Start Last Admin Trade Name Freq PRN Reason Stop Dose Admin Sodium Chloride 1,000 mls @ 50 mls/hr 12/05/17 20:45 12/05/17 20:57 Sodium Chloride 0.9% 1000 Ml IV 01/04/18 20:44 50 mls/hr .Q20H YESENIA Administration Discontinued Medications Generic Name Dose Route Start Last Admin Trade Name Freq PRN Reason Stop Dose Admin Albuterol/Ipratropium Confirm 12/05/17 20:19 Duoneb 0.5-3 Mg/3 Ml Neb Administered 12/05/17 20:20 Dose 3 ml IH .STK-MED ONE Albuterol/Ipratropium 3 ml 12/05/17 20:35 12/05/17 20:25 Duoneb 0.5-3 Mg/3 Ml Neb IH 12/05/17 20:36 3 ml STAT ONE Administration Methylprednisolone Sodium Succinate 125 mg 12/05/17 20:35 12/05/17 20:57 Solu-Medrol 125 Mg IV 12/05/17 20:36 125 mg STAT ONE Administration Methylprednisolone Sodium Succinate Confirm 12/05/17 20:52 Solu-Medrol 125 Mg Administered 12/05/17 20:53 Dose 125 mg .ROUTE .STK-MED ONE Lab/Rad Data: Laboratory Result Diagrams 12/05/17 20:30 12/05/17 20:30 Laboratory Results 12/05/17 12/05/17 12/05/17 Range/Units 21:00 21:00 20:35 WBC (4.0-10.5) K/mm3 RBC (4.1-5.6) M/mm3 Hgb (12.5-18.0) gm/dl Hct (42-50) % MCV (78-100) fl MCH (26-32) pg MCHC (32-36) g/dl RDW (11.5-14.0) % Plt Count (150-450) K/mm3 MPV (6-9.5) fl D-Dimer (0-500) ng/mL Sodium (136-145) mEq/L Potassium (3.5-5.1) mEq/L Chloride (98-107) mEq/L Carbon Dioxide (21-32) mEq/L Anion Gap (5-15) MEQ/L BUN (9-20) mg/dL Creatinine (0.55-1.30) mg/dl Estimated GFR ML/MIN Glucose (70-110) MG/DL Lactic Acid 1.0 (0.4-2.0) Calcium (8.5-10.1) mg/dL Total Bilirubin (0.2-1.0) mg/dL AST (15-37) U/L ALT (12-78) U/L Alkaline Phosphatase (46-116) U/L Troponin I (0.000-0.056) ng/ml NT-Pro-B Natriuret Pep (0-125) pg/ml Serum Total Protein (6.4-8.2) gm/dL Albumin (3.4-5.0) g/dL Influenza Type A Ag NEGATIVE (NEGATIVE) Influenza Type B Ag NEGATIVE (NEGATIVE) RSV (PCR) NEGATIVE (Negative) Streptococcus Screen NEGATIVE (Negative) 12/05/17 12/05/17 12/05/17 Range/Units 20:30 20:30 20:30 WBC (4.0-10.5) K/mm3 RBC (4.1-5.6) M/mm3 Hgb (12.5-18.0) gm/dl Hct (42-50) % MCV (78-100) fl MCH (26-32) pg MCHC (32-36) g/dl RDW (11.5-14.0) % Plt Count (150-450) K/mm3 MPV (6-9.5) fl D-Dimer 2422.83 H* (0-500) ng/mL Sodium 144 (136-145) mEq/L Potassium 3.9 (3.5-5.1) mEq/L Chloride 109 H (98-107) mEq/L Carbon Dioxide 25.3 (21-32) mEq/L Anion Gap 13.9 (5-15) MEQ/L BUN 19 (9-20) mg/dL Creatinine 1.16 (0.55-1.30) mg/dl Estimated GFR > 60 ML/MIN Glucose 121 H (70-110) MG/DL Lactic Acid (0.4-2.0) Calcium 8.9 (8.5-10.1) mg/dL Total Bilirubin 0.70 (0.2-1.0) mg/dL AST 15 (15-37) U/L ALT 23 (12-78) U/L Alkaline Phosphatase 84 (46-116) U/L Troponin I < 0.017 (0.000-0.056) ng/ml NT-Pro-B Natriuret Pep 226 H (0-125) pg/ml Serum Total Protein 6.9 (6.4-8.2) gm/dL Albumin 3.6 (3.4-5.0) g/dL Influenza Type A Ag (NEGATIVE) Influenza Type B Ag (NEGATIVE) RSV (PCR) (Negative) Streptococcus Screen (Negative) 12/05/17 Range/Units 20:30 WBC 8.1 (4.0-10.5) K/mm3 RBC 4.40 (4.1-5.6) M/mm3 Hgb 13.6 (12.5-18.0) gm/dl Hct 41.5 L (42-50) % MCV 94.3 (78-100) fl MCH 30.9 (26-32) pg MCHC 32.8 (32-36) g/dl RDW 14.1 H (11.5-14.0) % Plt Count 135 L (150-450) K/mm3 MPV 8.9 (6-9.5) fl D-Dimer (0-500) ng/mL Sodium (136-145) mEq/L Potassium (3.5-5.1) mEq/L Chloride (98-107) mEq/L Carbon Dioxide (21-32) mEq/L Anion Gap (5-15) MEQ/L BUN (9-20) mg/dL Creatinine (0.55-1.30) mg/dl Estimated GFR ML/MIN Glucose (70-110) MG/DL Lactic Acid (0.4-2.0) Calcium (8.5-10.1) mg/dL Total Bilirubin (0.2-1.0) mg/dL AST (15-37) U/L ALT (12-78) U/L Alkaline Phosphatase (46-116) U/L Troponin I (0.000-0.056) ng/ml NT-Pro-B Natriuret Pep (0-125) pg/ml Serum Total Protein (6.4-8.2) gm/dL Albumin (3.4-5.0) g/dL Influenza Type A Ag (NEGATIVE) Influenza Type B Ag (NEGATIVE) RSV (PCR) (Negative) Streptococcus Screen (Negative) - Progress Progress: improved, re-examined Air Movement: good Progress Note: 12/05/17 21:36 d dimer of 200 + dioscussed risk and benfit of CT and pt /family wish to proceed to rule out PE 12/05/17 23:55 pt still feel SObreath and wishes to stay in hosp to stabilize treatment - discussed with Dr Cardenas and will place in on obs Blood Culture(s) Obtained: No Antibiotics given: Yes Discussed with : Other (Ronald ) Will see patient in: hospital (observation) Counseled pt/family regarding: lab results, diagnosis, need for follow-up, rad results - Departure Time of Disposition: 23:56 Departure Disposition: Home Clinical Impression: COPD exacerbation Condition: Good Critical Care Time: No Referrals: CAMACHO EARL [Primary Care Provider] -
[2017-12-05 20:49] LABS: Hematocrit 41.5 % (42-50); Hemoglobin 13.6 gm/dl (12.5-18.0); Mean Cell Volume 94.3 fl (78-100); Mean Corpuscular Hemoglobin 30.9 pg (26-32); Mean Corpuscular Hgb Concent. 32.8 g/dl (32-36); Mean Platelet Volume 8.9 fl (6-9.5); Platelet Count 135 K/mm3 (150-450); Red Cell Distribution Width 14.1 % (11.5-14.0); White Blood Count 8.1 K/mm3 (4.0-10.5)
[2017-12-05] MEDS ORDERED: solu-MEDROL 125 MG ONE (20:52)
[2017-12-05] MEDS ORDERED: Sodium Chloride 0.9% 1000 ML 1,000 ML ONE (20:52)
[2017-12-05 21:32] LABS: ALBUMIN 3.6 g/dL (3.4-5.0); ALKALINE PHOSPHATASE 84 U/L (46-116); ANION GAP 13.9 MEQ/L (5-15); BLOOD UREA NITROGEN 19 mg/dL (9-20); CHLORIDE 109 mEq/L (98-107); Calcium 8.9 mg/dL (8.5-10.1); Carbon Dioxide 25.3 mEq/L (21-32); Creatinine 1 1.16 mg/dl (0.55-1.30); EST GLOMERULAR FILTRATION RATE > 60 ML/MIN; Glucose 121 MG/DL (70-110); NT PRO BNP 226 pg/ml (0-125); Potassium 3.9 mEq/L (3.5-5.1); SGOT/AST 15 U/L (15-37); SGPT/ALT 23 U/L (12-78); SODIUM 144 mEq/L (136-145); Total Protein 6.9 gm/dL (6.4-8.2)
[2017-12-05 21:36] LABS: INFLUENZA A NEGATIVE (NEGATIVE); INFLUENZA B NEGATIVE (NEGATIVE); RESPIRATORY SYNCTIAL VIRUS NEGATIVE (Negative)
[2017-12-06] MEDS ORDERED: Senokot-S Tablet PO PRN (00:45)
[2017-12-06] MEDS ORDERED: MORPHINE SULFATE 2 MG INJ IV PRN (00:45)
[2017-12-06] MEDS ORDERED: MAALOX ES 30 ML UNIT DOSE PO PRN (00:45)
[2017-12-06] MEDS ORDERED: TYLENOL 325 MG PO PRN (00:45)
[2017-12-06] MEDS ORDERED: Zofran 4 MG/2 ML VIAL IV PRN (00:45)
[2017-12-06] MEDS ORDERED: solu-MEDROL 125 MG IV SCH (00:45)
[2017-12-06] MEDS ORDERED: MILK OF MAGNESIA 30 ML PO PRN (00:45)
[2017-12-06 02:22] LABS: ANISOCYTOSIS 1+; Eosinophil 2 % (0.00-3.0); Lymphocytes 23 % (24-44); Monocyte 5 % (0.0-12.0); Neutrophils 70 % (36.-66.); Platelet Estimate NORMAL (NORMAL); Total Cells Counted 100
[2017-12-06 03:39] LABS: Appearance CLEAR (CLEAR); Bilirubin NEGATIVE (NEGATIVE); Blood NEGATIVE Ery/ul (0-5); Glucose NEGATIVE (NEGATIVE); Ketones NEGATIVE (NEGATIVE); Leukocyte Esterase NEGATIVE (NEGATIVE); Nitrite NEGATIVE (NEGATIVE); Protein,Urine Dip NEGATIVE (Negative); Specific Gravity 1.015 (1.005-1.025); Urobilinogen NORMAL mg/dL (0-1)
[2017-12-06 06:55] LABS: Risk Ratio 2.1
[2017-12-06] MEDS: DUONEB 0.5-3 MG/3 ml Neb IH SCH ×5 (07:15→23:57)
--- NOTE | 2017-12-06 09:01 | XRAY ---
Indication: Short of breath. Comparison: October 21, 2017. Portable chest remains hyperinflated and clear with previous CABG surgery. Heart and mediastinal structures within normal limits. No new/acute findings.
--- NOTE | 2017-12-06 09:01 | XRAY ---
Indication: Short of breath. Wheezing. Elevated d-dimer. Multiple contiguous axial images obtained through the chest using 80 cc Isovue 370 contrast and PE protocol. Comparison: September 22, 2017. There is satisfactory opacification of the pulmonary arteries to include the lobar and segmental branches. Minimal respiration artifact limits evaluation of the more distal branches. No filling defect or pulmonary embolus. Heart is not enlarged. Again previous CABG surgery. Aorta is normal in course and caliber. No pathologic mediastinal lymphadenopathy. Examination of the lung parenchyma again demonstrates diffuse pulmonary emphysema, posterior right upper lobe noncalcified micronodule, and right midlung calcified granuloma. No new pulmonary mass, infiltrate, or effusion. Bony thorax intact again with sternotomy wires. Limited upper abdomen demonstrates stable fatty liver and right renal cyst. Impression: 1. Minimal respiration artifact. Again negative for pulmonary embolus. 2. Stable pulmonary emphysema and calcified/noncalcified pulmonary nodules. 3. No new or acute cardiopulmonary abnormalities. 4. Stable fatty liver and right renal cyst. Comment: Preliminary interpretation was made by [facility]. No discrepancy. CT DI 13.33
--- NOTE | 2017-12-06 09:06 | XRAY ---
Indication: Right leg swelling. Short of breath. 2-dimensional sonogram and color Doppler imaging of the major venous vessels of the right leg was performed. Comparison: October 30, 2014. Again no thrombus seen in the examined deep venous vessels of the right leg including greater saphenous vein. Veins demonstrate normal compressibility. Venous waveforms are normal with and without augmentation. Impression: Right leg again negative for DVT. Comment: Preliminary report was given.
[2017-12-06] MEDS ORDERED: Ecotrin 325 MG PO SCH (10:00)
[2017-12-06] MEDS ORDERED: LEVOFLOXACIN 750MG/150ML D5W 750 MG/150 ML BAG IV SCH (10:00)
[2017-12-06] MEDS ORDERED: Zithromax 500 MG/ 250 ML NaCl Premix 500 MG/250 ML IVPB IV SCH ×2 (10:00→22:00)
[2017-12-06] MEDS: NovoLIN R SQ PRN ×2 (10:03→23:33)
[2017-12-06] MEDS: Pepcid 20 MG VIAL IV SCH ×2 (10:03→23:32)
[2017-12-06] MEDS: solu-MEDROL 125 MG IV SCH ×3 (12:32→23:33)
--- NOTE | 2017-12-06 13:31 | PCM.HP ---
History of Present Illness - Chief Complaint Chief Complaint: shortness of breath for 2-3 days History of Present Illness: Mr.HADLEY ESPINOSA is a 67 year old male.pt is SP CABG with no CP but has SOBreath today - and family members have had the flu - has hx also of COPD and now has swelling of right leg Timing/Duration: today Cough Quality/Degree: dry cough Possible Cause: no prior episodes Modifying Factors: Improves With: nothing Associated Symptoms: cough, shortness of breath - Review of Systems Constitutional: No Fever, No Chills Eyes: No Symptoms Ears, Nose, & Throat: No Symptoms Respiratory: Cough, Orthopnea, Short Of Breath Cardiac: No Chest Pain, No Edema, No Syncope Abdominal/Gastrointestinal: No Abdominal Pain, No Nausea, No Vomiting, No Diarrhea Genitourinary Symptoms: No Dysuria Musculoskeletal: No Back Pain, No Neck Pain Skin: No Rash Neurological: No Dizziness, No Focal Weakness, No Sensory Changes Psychological: No Symptoms Endocrine: No Symptoms Hematologic/Lymphatic: No Symptoms Immunological/Allergic: No Symptoms Medications & Allergies Home Medications: Home Medication List Albuterol 8 gm Mdi Hfa [Ventolin Hfa MDI] 2 puffs IH QID 08/18/17 [ History Confirmed 08/18/17] Albuterol/Ipratropium 3ml Neb* [DUONEB 0.5-3 MG/3 ml Neb] 3 ml IH QID [History Confirmed 08/18/17] Allopurinol 100 mg [Zyloprim 100 mg] 200 mg PO DAILY 08/18/17 [History Confirmed 08/18/17] Alprazolam 0.25 mg [xanAX 0.25 MG] 0.25 mg PO [id number] PRN 08/18/17 [ History Confirmed 08/18/17] Alprazolam [Xanax 0.25 mg] 1 tab PO QHS 08/18/17 [History Confirmed 08/18/17] Amlodipine Besylate 5 mg [Norvasc 5 mg] 5 mg PO DAILY 08/18/17 [History Confirmed 08/18/17] Aspirin EC 81 mg [Ecotrin 81 mg] 81 mg PO DAILY 08/18/17 [History Confirmed 08/18/17] Docusate Sodium 100 mg [Colace 100 MG] 100 mg PO BID 08/18/17 [History Confirmed 08/18/17] Enalapril Maleate 10 mg [Vasotec 10 MG] 10 mg PO DAILY 08/18/17 [History Confirmed 08/18/17] HydrALAzine HCL 25 MG TAB [Apresoline 25 MG TABLET] 50 mg PO Q8H 08/18/17 [History Confirmed 08/18/17] Isosorbide Mononitrate 30 mg [Imdur 30 MG] 30 mg PO DAILY 08/18/17 [ History Confirmed 08/18/17] Metoprolol Succinate [Toprol Xl] 12.5 mg PO BID 08/18/17 [History Confirmed 11/03] Niacin 500 mg [Niaspan 500 mg] 500 mg PO DAILY 08/18/17 [History Confirmed 08/18/17] Nitroglycerin 0.4 mg Tablet [Nitrostat 0.4 MG Tablet] 0.4 mg SL Q5MIN PRN MR X 3 PRN 08/18/17 [History Confirmed 08/18/17] PANTOPRAZOLE 40 mg Tablet [Protonix 40MG Tablet] 40 mg PO QAM 08/18/17 [ History Confirmed 08/18/17] Potassium Chloride 10 Meq Tab* [Klor Con 10 MEQ] 10 meq PO DAILY 08/18/17 [ History Confirmed 08/18/17] Ranolazine 500 MG [Ranexa 500 MG] 500 mg PO BID 08/18/17 [History Confirmed 08/18/17] Simvastatin 40 mg [Zocor 40 mg] 40 mg PO HS 08/18/17 [History Confirmed 08/18/17 ] Tamsulosin HCl 0.4 mg [Flomax 0.4 MG] 0.4 mg PO DAILY 08/18/17 [History Confirmed 08/18/17] Levofloxacin [Levaquin] 250 mg PO DAILY #5 tablet 08/22/17 [Rx] Azithromycin 250 mg [Zithromax 250 MG TABLET] 250 mg PO ZPACK #6 tablet [Rx] Guaifenesin/Codeine Phosphate [Robitussin AC Syrup] 10 ml PO Q4H PRN PRN #120 ml 10/21/17 [Rx] Allergies/Adverse Reactions: Allergies Allergy/AdvReac Type Severity Reaction Status Date / Time penicillin G Allergy Mild Verified 10/21/17 08:27 hydrocodone bitartrate AdvReac Verified 10/21/17 08:27 [From [employer]] - Past Medical History Past Medical History: Yes Neurological History: Stroke ENT History: No Pertinent History Cardiac History: Aneurysm, Angina, Coronary Artery Disease, High Cholesterol, Hypertension, Myocardial Infarction ([place]), Peripheral Vascular Disease Respiratory History: COPD Endocrine Medical History: No Pertinent History Musculoskelatal History: Arthritis GI Medical History: No Pertinent History History: No Pertinent History Pyscho-Social History: Anxiety, Depression Male Reproductive Disorders: No Pertinent History Comment: GOUT - Past Surgical History Past Surgical History: Yes Neuro Surgical History: No Pertinent History Cardiac History: CABG, Cardiac Catheterization, Cardiac Stent, Vascular Surgery Respiratory Surgery: No Pertinent History GI Surgical History: Appendectomy, Hernia Repair Genitourinary Surgical Hx: No Pertinent History Musculskeletal Surgical Hx: No Pertinent History Male Surgical History: No Pertinent History Other Surgical History: SEVERAL STENTS-cardiac stent x2, femoral stent x1. Double Aneurysm REPAIR JANUARY [id number], quadruple bypass - Social History Smoking Status: Former smoker How long have you smoked: 57 years Exposure to second hand smoke: No Alcohol: None Drug Use: none - Physical Exam Vital Signs: Vital Signs - 24 hr Temp Pulse Resp BP Pulse Ox 12/06/17 12:00 97 F 79 18 194/92 97 12/06/17 10:35 79 18 97 12/06/17 08:00 95 12/06/17 07:47 75 20 97 12/06/17 07:08 97.8 F 80 20 166/87 97 12/06/17 04:54 74 23 99 12/06/17 04:00 97.6 F 87 23 172/91 95 12/06/17 01:28 97.5 F 80 24 182/98 92 L 12/06/17 00:45 92 L 12/06/17 00:16 74 20 183/93 95 12/05/17 23:57 92 L 02/18/18 23:39 20 158/93 96 02/18/18 22:25 74 22 153/84 96 12/05/17 20:47 96 12/05/17 20:25 66 24 96 12/05/17 20:22 97.2 F 76 24 136/71 92 L Oxygen-Last 24 hours O2 Percentage 3 Liters = 32% O2 Percentage 4 Liters = 36% O2 Percentage 4 Liters = 36% O2 Percentage 4 Liters = 36% O2 Percentage 3 Liters = 32% General Appearance: no apparent distress, alert Neurologic Exam: alert, oriented x 3, cooperative, normal mood/affect, nml cerebellar function, nml station & gait, sensation nml, No motor deficits Eye Exam: PERRL/EOMI, eyes nml inspection Ears, Nose, Throat Exam: normal ENT inspection, TMs normal, pharynx normal, moist mucous membranes Neck Exam: normal inspection, non-tender, supple, full range of motion Respiratory Exam: normal breath sounds, lungs clear, No respiratory distress Cardiovascular Exam: regular rate/rhythm, normal heart sounds, normal peripheral pulses Gastrointestinal/Abdomen Exam: soft, normal bowel sounds, No tenderness, No mass Back Exam: normal inspection, normal range of motion, No CVA tenderness, No vertebral tenderness Extremity Exam: normal inspection, normal range of motion, pelvis stable Skin Exam: normal color, warm, dry, No rash Lymphatic Exam: No adenopathy Results - Labs Lab/Micro Results: Accuchecks Date 12/06/17 Time 11:33 Accucheck Value: 142 Accucheck Value: 214 Lab Results-Last 24 Hours 12/06/17 12/06/17 12/06/17 Range/Units 03:20 05:00 05:40 Hemoglobin A1c 5.5 (4.5-6.2) Troponin I < 0.017 < 0.017 (0.000-0.056) ng/ml Triglycerides (30-200) mg/dL Cholesterol (100-200) mg/dL LDL Cholesterol (5-99) mg/dL HDL Cholesterol (35-60) mg/dL Heart Disease Risk Ratio 12/06/17 12/06/17 Range/Units 05:40 08:45 Hemoglobin A1c (4.5-6.2) Troponin I < 0.017 (0.000-0.056) ng/ml Triglycerides 33 (30-200) mg/dL Cholesterol 155 (100-200) mg/dL LDL Cholesterol 70 (5-99) mg/dL HDL Cholesterol 75 H (35-60) mg/dL Heart Disease Risk Ratio 2.1 Accuchecks Date 12/06/17 Time 11:33 Accucheck Value: 142 Accucheck Value: 214 - Other Procedures and Tests Respiratory Therapy 12/06/17 05:26 Oxygen NASAL CANNULA 2 lpm 12/07/17 05:00 EKG DAILY 12/08/17 05:00 EKG DAILY 12/09/17 05:00 EKG DAILY Assessment/Plan (1) COPD exacerbation Current Visit: Yes Status: Acute Code(s): J44.1 - CHRONIC OBSTRUCTIVE PULMONARY DISEASE W (ACUTE) EXACERBATION (2) COPD (chronic obstructive pulmonary disease) Current Visit: Yes Status: Chronic Qualifiers: COPD type: COPD with acute lower respiratory infection Qualified Code(s): J44.0 - Chronic obstructive pulmonary disease with acute lower respiratory infection
[2017-12-06] MEDS ORDERED: Nitrostat 0.4 MG Tablet SL PRN (15:38)
[2017-12-06] MEDS ORDERED: xanAX 0.25 MG PO PRN (15:38)
[2017-12-06] MEDS ORDERED: MEDICATION INTERVENTION PO SCH (16:00)
[2017-12-06] MEDS: Prozac 20 MG PO SCH (16:21)
[2017-12-06] MEDS: NORVASC 5 MG PO SCH (16:21)
[2017-12-06] MEDS: Klor Con 10 MEQ PO SCH (16:21)
[2017-12-06] MEDS: Imdur 30 MG PO SCH (16:21)
[2017-12-06] MEDS: Flomax 0.4 MG PO SCH (16:21)
[2017-12-06] MEDS: ZYLOPRIM 100 MG PO SCH (16:21)
[2017-12-06] MEDS: Vasotec 10 MG PO SCH (16:21)
[2017-12-06] MEDS ORDERED: Ventolin Hfa MDI IH SCH (17:00)
[2017-12-06] MEDS ORDERED: NON-FORMULARY ITEM (Simvastatin 40 Mg [Zocor 40 Mg] 40 MG) PO SCH (22:00)
[2017-12-06] MEDS: Ranexa 500 MG PO SCH (23:30)
[2017-12-06] MEDS: xanAX 0.25 MG PO SCH (23:31)
[2017-12-06] MEDS: ZOCOR 20MG PO SCH (23:31)
[2017-12-06] MEDS: Colace 100 MG PO SCH (23:31)
[2017-12-06] MEDS: Apresoline 25 MG TABLET PO SCH (23:31)
[2017-12-06] MEDS: Toprol-Xl 25MG Tablets PO SCH (23:32)
[2017-12-07] MEDS: DUONEB 0.5-3 MG/3 ml Neb IH SCH ×6 (03:23→23:43)
[2017-12-07] MEDS: LEVOFLOXACIN 750MG/150ML D5W 750 MG/150 ML BAG IV SCH ×2 (03:33→21:23)
[2017-12-07] MEDS: solu-MEDROL 125 MG IV SCH (05:36)
[2017-12-07] MEDS: ENOXAPARIN SODIUM SQ SCH (09:28)
[2017-12-07] MEDS: Vasotec 10 MG PO SCH (09:29)
[2017-12-07] MEDS: solu-MEDROL 40 MG IV SCH ×3 (09:29→21:25)
[2017-12-07] MEDS: Imdur 30 MG PO SCH (09:29)
[2017-12-07] MEDS: Klor Con 10 MEQ PO SCH (09:29)
[2017-12-07] MEDS: NORVASC 5 MG PO SCH (09:29)
[2017-12-07] MEDS: Pepcid 20 MG VIAL IV SCH (09:29)
[2017-12-07] MEDS: Apresoline 25 MG TABLET PO SCH ×2 (09:29→21:24)
[2017-12-07] MEDS: ECOTRIN 81 MG PO SCH (09:29)
[2017-12-07] MEDS: Ranexa 500 MG PO SCH ×2 (09:29→21:24)
[2017-12-07] MEDS: Colace 100 MG PO SCH ×2 (09:29→21:23)
[2017-12-07] MEDS: Toprol-Xl 25MG Tablets PO SCH ×2 (09:29→21:24)
[2017-12-07] MEDS: Prozac 20 MG PO SCH (09:29)
[2017-12-07] MEDS: Flomax 0.4 MG PO SCH (09:29)
[2017-12-07] MEDS: ZYLOPRIM 100 MG PO SCH (09:29)
[2017-12-07] MEDS ORDERED: NON-FORMULARY ITEM (Niacin 500 Mg*** [Niaspan 500 Mg***] 500 MG) PO SCH (10:00)
--- NOTE | 2017-12-07 11:56 | PCM.NOTE ---
Date and Time: 12/07/17 1155 Subjective Assessment: still short of breath - Review of Systems Constitutional: No Fever, No Chills Eyes: No Symptoms Ears, Nose, & Throat: No Symptoms Respiratory: No Cough, No Short Of Breath Cardiac: No Chest Pain, No Edema, No Syncope Abdominal/Gastrointestinal: No Abdominal Pain, No Nausea, No Vomiting, No Diarrhea Genitourinary Symptoms: No Dysuria Musculoskeletal: No Back Pain, No Neck Pain Skin: No Rash Neurological: No Dizziness, No Focal Weakness, No Sensory Changes Psychological: No Symptoms Endocrine: No Symptoms Hematologic/Lymphatic: No Symptoms Immunological/Allergic: No Symptoms Objective Exam General Appearance: no apparent distress, alert Neurologic Exam: alert, oriented x 3, cooperative, normal mood/affect, nml cerebellar function, sensation nml, No motor deficits Skin Exam: normal color, warm, dry Eye Exam: PERRL, EOMI, eyes nml inspection Ears, Nose, Throat Exam: normal ENT inspection, pharynx normal, moist mucous membranes Neck Exam: normal inspection, non-tender, supple, full range of motion Respiratory Exam: normal breath sounds, lungs clear, No respiratory distress Cardiovascular Exam: regular rate/rhythm, normal heart sounds Gastrointestinal/Abdomen Exam: soft, No tenderness, No mass Extremity Exam: normal inspection, normal range of motion Back Exam: normal inspection, normal range of motion, No CVA tenderness, No vertebral tenderness Male Genitalia Exam: deferred Rectal Exam: deferred OBJECTIVE DATA Vital Signs: Vital Signs - 24 hr Temp Pulse Resp BP Pulse Ox 12/07/17 11:39 22 12/07/17 11:15 97.8 F 84 22 125/83 96 12/07/17 11:05 81 16 95 12/07/17 07:30 98.6 F 87 20 114/88 94 L 12/07/17 06:55 86 20 92 L 12/07/17 04:00 98.5 F 100 H 20 131/75 95 12/07/17 03:23 100 H 20 95 12/07/17 00:00 98.5 F 101 H 20 146/68 92 L 12/06/17 23:57 102 H 19 93 L 12/06/17 20:00 98.1 F 102 H 20 139/73 94 L 12/06/17 19:15 102 H 20 94 L 12/06/17 16:31 97.6 F 80 20 178/91 97 02/19/18 15:35 86 18 94 L 12/06/17 12:00 97 F 79 18 194/92 97 Oxygen-Last 24 hours O2 Percentage 4 Liters = 36% O2 Percentage 4 Liters = 36% O2 Percentage 2 Liters = 28% O2 Percentage 2 Liters = 28% O2 Percentage 2 Liters = 28% O2 Percentage 2 Liters = 28% O2 Percentage 3 Liters = 32% Pain Assessment - Last Documented Pain Intensity 0 Pain Scale Used 0-10 Pain Scale Intake and Output: Intake & Output 12/04/17 12/05/17 12/06/17 12/07/17 11:59 11:59 11:59 11:59 Intake Total 480 Balance 480 Lab Results: Accuchecks Date 12/07/17 Time 11:11 Accucheck Value: 123 Radiology Exams: Radiology Procedures Category Date Time Status VENOUS BILATERAL EXTREMITY [US] Routine Exams 12/07/17 10:30 Ordered Multi-Disciplinary Progress Notes: Multi-Disciplinary Progress Notes 12/07/17 10:47 Pharmacy Note by Simba Gibbs changed to oral per IV to PO policy. Initialized on 12/07/17 10:47 - END OF NOTE Assessment/Plan (1) COPD exacerbation Current Visit: Yes Status: Acute Code(s): J44.1 - CHRONIC OBSTRUCTIVE PULMONARY DISEASE W (ACUTE) EXACERBATION (2) COPD (chronic obstructive pulmonary disease) Current Visit: Yes Status: Chronic Qualifiers: COPD type: COPD with acute lower respiratory infection Qualified Code(s): J44.0 - Chronic obstructive pulmonary disease with acute lower respiratory infection
[2017-12-07] MEDS ORDERED: Sodium Chloride 0.9% 10 ML FLUSH Syringe IV PRN (12:39)
--- NOTE | 2017-12-07 14:08 | XRAY ---
Indication: Elevated d-dimer. Short of breath. 2-dimensional sonogram and color Doppler imaging of the major venous vessels of the left and right leg was performed. Comparison: Right leg venous ultrasound 2 days ago. No thrombus seen in the examined deep venous vessels of the left and right leg including greater saphenous veins. Veins demonstrate normal compressibility. Venous waveforms are normal with and without augmentation. Impression: Left and right legs negative for DVT.
[2017-12-07] MEDS: Sodium Chloride 0.9% 10 ML FLUSH Syringe IV SCH ×2 (15:21→22:09)
--- NOTE | 2017-12-07 15:27 | CONS ---
CONSULT DATE: 12/07/2017 HISTORY: Victor M Phillips is a 67 year-old male with history of chronic obstructive pulmonary disease known to me who has been sick for almost past month. The patient reports that he has had frequent exacerbations of chronic obstructive pulmonary disease requiring emergency room and/or hospital visit. He was brought to the emergency room of [facility] on 12/05/2017 at 2045 hours with complaints of increasing shortness of breath at home. The patient also was noted to have drop in oxygen saturation despite being on oxygen at 3 liters. He usually uses oxygen at 2 liters. He was noted to have diffuse wheezing along with shortness of breath and some leg swelling which has improved since admission. The patient has been admitted to medical floor. He has been treated with IV antibiotics, steroid, bronchodilator with improvement in symptoms. Also I noticed some extreme shortness of breath just walking back from bathroom back to his bed. PAST MEDICAL HISTORY: Besides chronic obstructive pulmonary disease the patient has history of coronary artery disease having undergone coronary artery bypass graft surgery, history of hypertension, anxiety disorder, gastroesophageal reflux, hyperlipidemia and prostatic enlargement. PAST SURGICAL HISTORY: As above. PERSONAL AND SOCIAL HISTORY: The patient has been a smoker. MEDICATIONS: Home and current medications are reviewed. ALLERGIES: PENICILLIN-G, HYDROCODONE. PHYSICAL EXAMINATION: This is an elderly male who appears tachypneic at rest. Vital signs noted. HEENT: Normocephalic. Pupils are reactive. Oropharynx unremarkable. NECK: Supple. Accessory muscles prominent.CVS: First and second heart sounds are normal, regular, rhythmic. RESPIRATORY: Shows diminished breath sounds, bilateral rhonchi are heard. ABDOMEN: Soft. EXTREMITIES: ZANE hose in place. LABORATORY DATA AND TESTS: Cultures are negative. Troponin is negative. Hemoglobin A1C 5.5. Lipid panel noted. White blood cell count 8.1, hemoglobin 13.6, hematocrit 41.5, PLT 135,000. Influenza A and B were negative. D-dimer 22. Sodium 144, potassium 3.9, chloride 109, bicarb 25, glucose 121, BUN 19, creatinine 1.6. CT chest showed respiratory artifact, no pulmonary embolism seen, stable emphysema with calcified pulmonary nodules were noted. Fatty liver with right renal cyst noted as well. ASSESSMENT: This is a 67 year old male admitted with: 1) Chronic obstructive pulmonary disease with acute exacerbation. 2) Acute bronchitis. 3) Hypoxemia with worsening oxygenation requiring incremental increase in supplemental oxygen. 4) Anxiety. 5) Coronary artery disease. 6) Positive D-dimer. RECOMMENDATIONS: Discussed the plan of care with the patient. The patient wishes to do inpatient pulmonary rehab. Plan was discussed with patient. I will follow up.
[2017-12-07] MEDS: ZOCOR 20MG PO SCH (21:23)
[2017-12-07] MEDS: Pepcid 20 MG PO SCH (21:23)
[2017-12-07] MEDS: xanAX 0.25 MG PO SCH (21:23)
[2017-12-08] MEDS: DUONEB 0.5-3 MG/3 ml Neb IH SCH ×6 (03:49→19:37)
[2017-12-08] MEDS: Sodium Chloride 0.9% 10 ML FLUSH Syringe IV SCH ×2 (05:47→13:38)
[2017-12-08] MEDS: solu-MEDROL 40 MG IV SCH ×3 (06:45→21:55)
[2017-12-08] MEDS: Imdur 30 MG PO SCH (09:30)
[2017-12-08] MEDS: ECOTRIN 81 MG PO SCH (09:30)
[2017-12-08] MEDS: Pepcid 20 MG PO SCH ×2 (09:30→21:54)
[2017-12-08] MEDS: Prozac 20 MG PO SCH (09:30)
[2017-12-08] MEDS: Colace 100 MG PO SCH ×2 (09:30→21:54)
[2017-12-08] MEDS: Flomax 0.4 MG PO SCH (09:30)
[2017-12-08] MEDS: Toprol-Xl 25MG Tablets PO SCH ×2 (09:30→21:55)
[2017-12-08] MEDS: Vasotec 10 MG PO SCH (09:30)
[2017-12-08] MEDS: Apresoline 25 MG TABLET PO SCH ×2 (09:30→21:54)
[2017-12-08] MEDS: Ranexa 500 MG PO SCH ×2 (09:30→21:55)
[2017-12-08] MEDS: ENOXAPARIN SODIUM SQ SCH (09:31)
[2017-12-08] MEDS: Klor Con 10 MEQ PO SCH (09:31)
[2017-12-08] MEDS: ZYLOPRIM 100 MG PO SCH (09:31)
--- NOTE | 2017-12-08 12:17 | PCM.NOTE ---
Date and Time: 12/08/17 1216 Subjective Assessment: doing ok - Review of Systems Constitutional: No Fever, No Chills Eyes: No Symptoms Ears, Nose, & Throat: No Symptoms Respiratory: No Cough, No Short Of Breath Cardiac: No Chest Pain, No Edema, No Syncope Abdominal/Gastrointestinal: No Abdominal Pain, No Nausea, No Vomiting, No Diarrhea Genitourinary Symptoms: No Dysuria Musculoskeletal: No Back Pain, No Neck Pain Skin: No Rash Neurological: No Dizziness, No Focal Weakness, No Sensory Changes Psychological: No Symptoms Endocrine: No Symptoms Hematologic/Lymphatic: No Symptoms Immunological/Allergic: No Symptoms Objective Exam General Appearance: no apparent distress, alert Neurologic Exam: alert, oriented x 3, cooperative, normal mood/affect, nml cerebellar function, sensation nml, No motor deficits Skin Exam: normal color, warm, dry Eye Exam: PERRL, EOMI, eyes nml inspection Ears, Nose, Throat Exam: normal ENT inspection, pharynx normal, moist mucous membranes Neck Exam: normal inspection, non-tender, supple, full range of motion Respiratory Exam: normal breath sounds, lungs clear, No respiratory distress Cardiovascular Exam: regular rate/rhythm, normal heart sounds Gastrointestinal/Abdomen Exam: soft, No tenderness, No mass Extremity Exam: normal inspection, normal range of motion Back Exam: normal inspection, normal range of motion, No CVA tenderness, No vertebral tenderness Male Genitalia Exam: deferred Rectal Exam: deferred OBJECTIVE DATA Vital Signs: Vital Signs - 24 hr Temp Pulse Resp BP Pulse Ox 12/08/17 12:00 22 12/08/17 11:13 22 12/08/17 10:57 98.7 F 95 H 22 171/83 92 L 12/08/17 08:00 22 12/08/17 07:47 98.4 F 88 22 162/90 94 L 12/08/17 07:26 100 H 24 93 L 12/08/17 04:28 98.1 F 96 H 16 164/94 92 L 12/08/17 04:00 18 12/08/17 03:50 96 H 16 92 L 12/08/17 00:11 98.0 F 90 16 161/84 93 L 12/08/17 00:00 18 12/07/17 23:44 90 16 93 L 12/07/17 20:00 97.8 F 90 18 134/68 93 L 12/07/17 19:36 93 L 12/07/17 19:30 90 18 93 L 12/07/17 15:52 97.5 F 76 18 114/64 92 L 12/07/17 14:38 92 H 20 93 L Oxygen-Last 24 hours O2 Percentage 4 Liters = 36% O2 Percentage 4 Liters = 36% O2 Percentage 3 Liters = 32% O2 Percentage 3 Liters = 32% O2 Percentage 3 Liters = 32% Oxygen Flowrate (L/min)-RT 3 Pain Assessment - Last Documented Pain Intensity 0 Pain Scale Used 0-10 Pain Scale Intake and Output: Intake & Output 12/06/17 12/07/17 12/08/17 12/09/17 11:59 11:59 11:59 11:59 Intake Total 480 2649 Output Total 2350 Balance 480 299 Weight 72.1 kg Lab Results: Accuchecks Date 12/07/17 Time 22:13 Accucheck Value: 116 Accucheck Value: 112 Accucheck Value: 149 Accucheck Value: 130 Radiology Exams: Radiology Procedures Category Date Time Status VENOUS BILATERAL EXTREMITY [US] Routine Exams 12/07/17 10:30 Completed Multi-Disciplinary Progress Notes: Multi-Disciplinary Progress Notes 12/07/17 14:26 Case Management Note by Lea Brock DISCHARGE PLAN REVIEWED WITH PT AND . REPORTS THAT PT NORMALLY IS ACTIVE AND INDEPENDENT WITH ALL ADL'S. DOES HAVE HOME OXYGEN AND NEBULIZER AT HOME, [facility] IS PROVIDER. DOES NOT USE ANY [facility] EQUIP AT HOME. DID DISCUSS SWING BED ON DISCHARGE FROM ACUTE CARE FOR SHORT TERM REHAB. ALSO, DISCUSSED HAVING C FOLLOW ON DISCHARGE FROM SWING BED. PT/ BOTH IN AGREEMENT FOR THIS PLAN. REPORTS THAT THEY WILL HAVE [facility] ON DISCHARGE , REPORTS THAT SHE WORKS FOR THEM. DECLINED ADDNL NEEDS AT PRESENT. WILL FOLLOW FOR ALL DC NEEDS. Initialized on 12/07/17 14:26 - END OF NOTE Assessment/Plan (1) COPD exacerbation Current Visit: Yes Status: Acute Code(s): J44.1 - CHRONIC OBSTRUCTIVE PULMONARY DISEASE W (ACUTE) EXACERBATION (2) COPD (chronic obstructive pulmonary disease) Current Visit: Yes Status: Chronic Qualifiers: COPD type: COPD with acute lower respiratory infection Qualified Code(s): J44.0 - Chronic obstructive pulmonary disease with acute lower respiratory infection
[2017-12-08] MEDS: LEVOFLOXACIN 750MG/150ML D5W 750 MG/150 ML BAG IV SCH (21:54)
[2017-12-08] MEDS: ZOCOR 20MG PO SCH (21:56)
[2017-12-08] MEDS: xanAX 0.25 MG PO SCH (21:56)
[2017-12-09] MEDS: DUONEB 0.5-3 MG/3 ml Neb IH SCH ×7 (00:40→23:50)
[2017-12-09] MEDS: solu-MEDROL 40 MG IV SCH ×3 (06:31→21:54)
[2017-12-09] MEDS: Sodium Chloride 0.9% 10 ML FLUSH Syringe IV SCH ×3 (06:32→21:54)
--- NOTE | 2017-12-09 09:03 | PCM.NOTE ---
Date and Time: 12/09/17900 Subjective Assessment: very short of breath - Review of Systems Constitutional: No Fever, No Chills Eyes: No Symptoms Ears, Nose, & Throat: No Symptoms Respiratory: No Cough, No Short Of Breath Cardiac: No Chest Pain, No Edema, No Syncope Abdominal/Gastrointestinal: No Abdominal Pain, No Nausea, No Vomiting, No Diarrhea Genitourinary Symptoms: No Dysuria Musculoskeletal: No Back Pain, No Neck Pain Skin: No Rash Neurological: No Dizziness, No Focal Weakness, No Sensory Changes Psychological: No Symptoms Endocrine: No Symptoms Hematologic/Lymphatic: No Symptoms Immunological/Allergic: No Symptoms Objective Exam General Appearance: no apparent distress, alert Neurologic Exam: alert, oriented x 3, cooperative, normal mood/affect, nml cerebellar function, sensation nml, No motor deficits Skin Exam: normal color, warm, dry Eye Exam: PERRL, EOMI, eyes nml inspection Ears, Nose, Throat Exam: normal ENT inspection, pharynx normal, moist mucous membranes Neck Exam: normal inspection, non-tender, supple, full range of motion Respiratory Exam: normal breath sounds, lungs clear, No respiratory distress Cardiovascular Exam: regular rate/rhythm, normal heart sounds Gastrointestinal/Abdomen Exam: soft, No tenderness, No mass Extremity Exam: normal inspection, normal range of motion Back Exam: normal inspection, normal range of motion, No CVA tenderness, No vertebral tenderness Male Genitalia Exam: deferred Rectal Exam: deferred OBJECTIVE DATA Vital Signs: Vital Signs - 24 hr Temp Pulse Resp BP Pulse Ox 12/09/17 07:26 98.4 F 77 20 182/85 97 12/09/17 04:04 89 20 96 12/09/17 04:00 98.0 F 83 22 159/77 93 L 12/09/17 00:40 80 20 96 12/09/17 00:10 97.6 F 89 24 140/81 92 L 12/08/17 20:00 97.7 F 75 22 153/80 94 L 12/08/17 19:38 75 20 95 12/08/17 16:20 97.6 F 78 20 139/81 92 L 12/08/17 16:00 22 12/08/17 15:27 100 H 22 94 L 12/08/17 12:00 22 12/08/17 11:13 22 12/08/17 10:57 98.7 F 95 H 22 171/83 92 L Oxygen-Last 24 hours O2 Percentage 4 Liters = 36% O2 Percentage 3 Liters = 32% O2 Percentage 3 Liters = 32% O2 Percentage 3 Liters = 32% O2 Percentage 3 Liters = 32% O2 Percentage 4 Liters = 36% Pain Assessment - Last Documented Pain Intensity 0 Pain Scale Used 0-10 Pain Scale Intake and Output: Intake & Output 12/06/17 12/07/17 12/08/17 12/09/17 11:59 11:59 11:59 11:59 Intake Total 480 2649 1890 Output Total 2350 1550 Balance 480 299 340 Weight 72.1 kg 79.1 kg Lab Results: Accuchecks Date 12/08/17 Time 16:00 Accucheck Value: 150 Accucheck Value: 118 Accucheck Value: 116 Radiology Exams: Radiology Procedures Category Date Time Status VENOUS BILATERAL EXTREMITY [US] Routine Exams 12/07/17 10:30 Completed Assessment/Plan (1) COPD exacerbation Current Visit: Yes Status: Acute Code(s): J44.1 - CHRONIC OBSTRUCTIVE PULMONARY DISEASE W (ACUTE) EXACERBATION (2) COPD (chronic obstructive pulmonary disease) Current Visit: Yes Status: Chronic Qualifiers: COPD type: COPD with acute lower respiratory infection Qualified Code(s): J44.0 - Chronic obstructive pulmonary disease with acute lower respiratory infection (3) CAD (coronary artery disease) Current Visit: Yes Status: Acute Qualifiers: Coronary Disease-Associated Artery/Lesion type: [place] artery Associated angina: without angina Code(s): I25.10 - ATHSCL HEART DISEASE OF [place] CORONARY ARTERY W/O ANG PCTRS
[2017-12-09] MEDS: Klor Con 10 MEQ PO SCH (09:40)
[2017-12-09] MEDS: ECOTRIN 81 MG PO SCH (09:40)
[2017-12-09] MEDS: Prozac 20 MG PO SCH (09:40)
[2017-12-09] MEDS: Imdur 30 MG PO SCH (09:40)
[2017-12-09] MEDS: Flomax 0.4 MG PO SCH (09:40)
[2017-12-09] MEDS: Ranexa 500 MG PO SCH ×2 (09:41→21:59)
[2017-12-09] MEDS: Toprol-Xl 25MG Tablets PO SCH ×2 (09:41→21:57)
[2017-12-09] MEDS: ENOXAPARIN SODIUM SQ SCH (09:41)
[2017-12-09] MEDS: Vasotec 10 MG PO SCH (09:41)
[2017-12-09] MEDS: Pepcid 20 MG PO SCH ×2 (09:41→21:58)
[2017-12-09] MEDS: Colace 100 MG PO SCH ×2 (09:41→21:58)
[2017-12-09] MEDS: ZYLOPRIM 100 MG PO SCH (09:41)
[2017-12-09] MEDS: Apresoline 25 MG TABLET PO SCH ×2 (09:41→21:59)
[2017-12-09] MEDS: NovoLIN R SQ PRN (21:57)
[2017-12-09] MEDS: xanAX 0.25 MG PO SCH (21:57)
[2017-12-09] MEDS: ZOCOR 20MG PO SCH (21:59)
[2017-12-09] MEDS: LEVOFLOXACIN 750MG/150ML D5W 750 MG/150 ML BAG IV SCH (22:00)
[2017-12-10] MEDS: DUONEB 0.5-3 MG/3 ml Neb IH SCH ×3 (03:33→10:33)
[2017-12-10] MEDS: solu-MEDROL 40 MG IV SCH (05:27)
[2017-12-10] MEDS: Sodium Chloride 0.9% 10 ML FLUSH Syringe IV SCH ×2 (05:27→12:11)
[2017-12-10] MEDS: ECOTRIN 81 MG PO SCH (08:15)
[2017-12-10] MEDS: Vasotec 10 MG PO SCH (08:15)
[2017-12-10] MEDS: Imdur 30 MG PO SCH (08:15)
[2017-12-10] MEDS: Apresoline 25 MG TABLET PO SCH (08:15)
[2017-12-10] MEDS: Flomax 0.4 MG PO SCH (08:15)
[2017-12-10] MEDS: Prozac 20 MG PO SCH (08:15)
[2017-12-10] MEDS: Ranexa 500 MG PO SCH (08:15)
[2017-12-10] MEDS: ENOXAPARIN SODIUM SQ SCH (08:16)
[2017-12-10] MEDS: ZYLOPRIM 100 MG PO SCH (08:16)
[2017-12-10] MEDS: Pepcid 20 MG PO SCH (08:16)
[2017-12-10] MEDS: Klor Con 10 MEQ PO SCH (08:16)
[2017-12-10] MEDS: Toprol-Xl 25MG Tablets PO SCH (08:16)
[2017-12-10] MEDS: Colace 100 MG PO SCH (08:16)
--- NOTE | 2017-12-10 10:34 | PCM.DS ---
Discharge Summary Date of Admission: 12/07/17 08:30 Admitting Physician: LEONCIO PRECIADO Primary Care Provider: CAMACHO EARL Allergies Allergies penicillin G Allergy (Mild, Verified 10/21/17 08:27) hydrocodone bitartrate [From [place]] Adverse Reaction (Verified 10/21/17 08:27) Hospital Summary - Hospital Course Hospital Course: Chief Complaint Diagnosis EXACERBATION COPD, SOB, DYSPNEA Allergies Allergy/AdvReac Type Severity Reaction Status Date / Time penicillin G Allergy Mild Verified 10/21/17 08:27 hydrocodone bitartrate AdvReac Verified 10/21/17 08:27 [From [place]] Vital Signs (Last 24 hours) Temp Pulse Resp BP Pulse Ox 12/10/17 07:44 20 12/10/17 07:15 97.8 F 78 20 160/78 93 L 12/10/17 06:55 78 24 93 L 12/10/17 04:10 98.1 F 78 20 166/90 94 L 12/10/17 04:00 20 12/10/17 03:33 84 22 92 L 12/10/17 00:06 97.6 F 92 H 24 167/94 94 L 12/10/17 00:00 22 12/09/17 23:51 81 18 94 L 12/09/17 20:10 98.2 F 73 18 144/82 95 12/09/17 20:00 18 12/09/17 19:33 96 12/09/17 19:23 80 18 96 12/09/17 16:00 93 H 12/09/17 15:42 97.8 F 76 93 H 156/76 12/09/17 15:30 72 18 93 L 12/09/17 12:00 18 12/09/17 11:41 85 18 95 12/09/17 11:38 78 22 98 12/09/17 10:44 97.9 F 88 20 170/89 95 Home Medications Medication Instructions Recorded Confirmed Last Taken Type Fluoxetine HCl 20 mg [Prozac 20 20 mg PO DAILY 12/06/17 12/07/17 12/05/17 History MG] Docusate Sodium [Stool Softener] 50 mg PO BID 12/07/17 12/07/17 Unknown History Current Medications Generic Name Dose Route Start Last Admin Trade Name Freq PRN Reason Stop Dose Admin Acetaminophen 650 mg 12/06/17 00:45 12/06/17 23:31 Tylenol 325 Mg PO 01/05/18 00:44 650 mg Q4H PRN PRN Administration PAIN AND/OR FEVER Al Hydrox/Mg Hydrox/Simethicone 30 ml 12/06/17 00:45 Maalox Es 30 Ml Unit Dose PO 01/05/18 00:44 Q4H PRN PRN INDIGESTION Albuterol/Ipratropium 3 ml 12/06/17 03:00 12/10/17 06:53 Duoneb 0.5-3 Mg/3 Ml Neb IH 01/05/18 02:59 3 ml Q4HRT YESENIA Administration Allopurinol 100 mg 12/06/17 16:00 12/10/17 08:16 Zyloprim 100 Mg PO 01/05/18 15:59 100 mg DAILY YESENIA Administration Alprazolam 0.25 mg 12/06/17 22:00 12/09/17 21:57 Xanax 0.25 Mg PO 01/05/18 21:59 0.25 mg QHS YESENIA Administration Alprazolam 0.25 mg 12/06/17 15:38 Xanax 0.25 Mg PO 01/05/18 15:37 [id number] PRN ANXIETY Aspirin 81 mg 12/07/17 10:00 12/10/17 08:15 Ecotrin 81 Mg PO 01/06/18 09:59 81 mg DAILY YESENIA Administration Docusate Sodium 100 mg 12/06/17 22:00 12/10/17 08:16 Colace 100 Mg PO 01/05/18 21:59 100 mg BID YESENIA Administration Enalapril Maleate 10 mg 12/06/17 16:00 12/10/17 08:15 Vasotec 10 Mg PO 01/05/18 15:59 10 mg DAILY YESENIA Administration Enoxaparin Sodium 40 mg 12/07/17 10:00 12/10/17 08:16 Enoxaparin Sodium SQ 01/06/18 09:59 40 mg DAILY YESENIA Administration Famotidine 20 mg 12/07/17 22:00 12/10/17 08:16 Pepcid 20 Mg PO 01/06/18 21:59 20 mg Q12HT YESENIA Administration Fluoxetine HCl 20 mg 12/06/17 16:00 12/10/17 08:15 Prozac 20 Mg PO 01/05/18 15:59 20 mg DAILY YESENIA Administration Hydralazine HCl 50 mg 12/06/17 22:00 12/10/17 08:15 Apresoline 25 Mg Tablet PO 01/05/18 21:59 50 mg BID YESENIA Administration Levofloxacin/Dextrose 750 mg in 150 mls @ 100 mls/hr 12/06/17 22:00 12/09/17 22:00 Levofloxacin 750mg/150ml D5w IV 01/05/18 21:59 100 mls/hr Q24H22 YESENIA Administration Insulin Human Regular 0 unit 12/06/17 00:45 12/09/17 21:57 Novolin R SQ 01/05/18 00:44 3 unit PRN PRN Administration HYPERGLYCEMIA Isosorbide Mononitrate 30 mg 12/06/17 16:00 12/10/17 08:15 Imdur 30 Mg PO 01/05/18 15:59 30 mg DAILY YESENIA Administration Magnesium Hydroxide 30 - 60 ml 12/06/17 00:45 Milk Of Magnesia 30 Ml PO 01/05/18 00:44 QDP PRN CONSTIPATION Methylprednisolone Sodium Succinate 40 mg 12/07/17 09:00 12/10/17 05:27 Solu-Medrol 40 Mg IV 01/06/18 08:59 40 mg Q8HT YESENIA Administration Metoprolol Succinate 12.5 mg 12/06/17 22:00 12/10/17 08:16 Toprol-Xl 25mg Tablets PO 01/05/18 21:59 12.5 mg BID YESENIA Administration Morphine Sulfate 2 mg 12/06/17 00:45 Morphine Sulfate 2 Mg Inj IV 12/11/17 00:44 .Q15MIN PRN PRN CHEST PAIN Nitroglycerin 0.4 mg 12/06/17 15:38 Nitrostat 0.4 Mg Tablet SL 01/05/18 15:37 Q5MIN PRN MR X 3 PRN CHEST PAIN Ondansetron HCl 4 mg 12/06/17 00:45 Zofran 4 Mg/2 Ml Vial IV 01/05/18 00:44 Q4H PRN PRN NAUSEA/VOMITING Potassium Chloride 10 meq 12/06/17 16:00 12/10/17 08:16 Klor Con 10 Meq PO 01/05/18 15:59 10 meq DAILY YESENIA Administration Ranolazine 500 mg 12/06/17 22:00 12/10/17 08:15 Ranexa 500 Mg PO 01/05/18 21:59 500 mg BID YESENIA Administration Senna/Docusate Sodium 2 udtab 12/06/17 00:45 Senokot-S Tablet PO 01/05/18 00:44 BID PRN PRN CONSTIPATION Simvastatin 20 mg 12/06/17 22:00 12/09/17 21:59 Zocor 20mg PO 01/05/18 21:59 20 mg HS YESENIA Administration Sodium Chloride 10 ml 12/07/17 14:00 12/10/17 05:27 Sodium Chloride 0.9% 10 Ml Flush Syringe IV 01/06/18 13:59 10 ml Q8HT YESENIA Administration Sodium Chloride 10 ml 12/07/17 12:39 Sodium Chloride 0.9% 10 Ml Flush Syringe IV 01/06/18 12:38 PRN PRN FLUSH Tamsulosin HCl 0.4 mg 12/06/17 16:00 12/10/17 08:15 Flomax 0.4 Mg PO 01/05/18 15:59 0.4 mg DAILY YESENIA Administration Discontinued Medications Generic Name Dose Route Start Last Admin Trade Name Freq PRN Reason Stop Dose Admin Albuterol/Ipratropium Confirm 12/05/17 20:19 Duoneb 0.5-3 Mg/3 Ml Neb Administered 12/05/17 20:20 Dose 3 ml IH .STK-MED ONE Albuterol/Ipratropium 3 ml 12/05/17 20:35 12/05/17 20:25 Duoneb 0.5-3 Mg/3 Ml Neb IH 12/05/17 20:36 3 ml STAT ONE Administration Amlodipine Besylate 5 mg 12/06/17 16:00 12/07/17 09:29 Norvasc 5 Mg PO 01/05/18 15:59 5 mg DAILY YESENIA Administration Aspirin 325 mg 12/06/17 10:00 12/06/17 10:02 Ecotrin 325 Mg PO 01/05/18 09:59 325 mg DAILY YESENIA Administration Famotidine 20 mg 12/06/17 10:00 12/07/17 09:29 Pepcid 20 Mg Vial IV 01/05/18 09:59 20 mg Q12HT YESENIA Administration Sodium Chloride 1,000 mls @ 50 mls/hr 12/05/17 20:45 12/05/17 20:57 Sodium Chloride 0.9% 1000 Ml IV 01/04/18 20:44 50 mls/hr .Q20H YESENIA Administration Sodium Chloride Confirm 12/05/17 20:52 Sodium Chloride 0.9% 1000 Ml Administered 12/05/17 20:53 Dose 1,000 mls @ ud .ROUTE .STK-MED ONE Azithromycin 500 mg in 250 mls @ 250 mls/hr 12/06/17 10:00 12/06/17 05:06 Zithromax 500 Mg/ 250 Ml Nacl Premix IV 01/05/18 09:59 250 mls/hr Q24H10 YESENIA Administration Levofloxacin/Dextrose 750 mg in 150 mls @ 100 mls/hr 12/06/17 10:00 12/06/17 03:14 Levofloxacin 750mg/150ml D5w IV 01/05/18 09:59 100 mls/hr Q24H10 YESENIA Administration Azithromycin 500 mg in 250 mls @ 250 mls/hr 12/06/17 22:00 Zithromax 500 Mg/ 250 Ml Nacl Premix IV 01/05/18 21:59 Q24H22 YESENIA Methylprednisolone Sodium Succinate 125 mg 12/05/17 20:35 12/05/17 20:57 Solu-Medrol 125 Mg IV 12/05/17 20:36 125 mg STAT ONE Administration Methylprednisolone Sodium Succinate Confirm 12/05/17 20:52 Solu-Medrol 125 Mg Administered 12/05/17 20:53 Dose 125 mg .ROUTE .STK-MED ONE Methylprednisolone Sodium Succinate 80 mg 12/06/17 00:45 12/06/17 03:15 Solu-Medrol 125 Mg IV 01/05/18 00:44 80 mg Q6HT YESENIA Administration Methylprednisolone Sodium Succinate 80 mg 12/06/17 12:00 12/07/17 05:36 Solu-Medrol 125 Mg IV 01/05/18 11:59 80 mg Q6HT YESENIA Administration Intake & Output (Last 24 hours) 12/07/17 12/08/17 12/09/17 12/10/17 11:59 11:59 11:59 11:59 Intake Total 1670 2649 1890 1470 Output Total 1150 2350 1550 1950 Balance 520 299 340 -480 Weight 71.7 kg 72.1 kg 79.1 kg 78.8 kg Microbiology Results (Last 24 hours) 12/07/17 13:05 Sputum - Expectorant Gram Stain - Final 12/07/17 13:05 Sputum - Expectorant Sputum Culture - Final ORGANISMS ISOLATED ARE CONSISTENT WITH NORMAL RESP MJ MODERATE GROWTH, NO PREDOMINANT ORGANISM Orders (Last 24 hours) Category Date Time Status Peak Expiratory Flow Rate UD RT 12/09/17 11:38 Active Patient Care Notes (Last 24 hours) 12/10/17 09:25 (created 12/10/17 09:59) Case Management Note by Lea Brock DISCHARGE PLAN REVIEWED, PLAN FOR TRANSITION TO SWING BED TODAY. DECLINED ADDNL NEEDS AT PRESENT. WILL DC HOME WITH POST REHAB STAY WITH [facility]. Initialized on 12/10/17 09:59 - END OF NOTE 12/10/17 09:03 Nursing Note by Grisel Handy AOx3, PERRLA, accommodation normal, wheezing noted bilaterally, stated wheezing not any better than when he came in, O2 3L cannula, O2 sat 93%, skin pink, warm, dry, BS active in all four quadrants, abdomen slightly distended, stated he has been passing gas and had BM yesterday, +1 swelling in right ankle , pedal pulses equal bilaterally. Stated he had a sponge bath yesterday and has no interest in having one today. Resting after eating breakfast. [facility] Initialized on 12/10/17 09:03 - END OF NOTE - Vitals & Intake/Output Vital Signs: Vital Signs Temperature 97.8 F 12/10/17 07:15 Pulse Rate 78 12/10/17 07:15 Respiratory Rate 20 12/10/17 07:44 Blood Pressure 160/78 12/10/17 07:15 O2 Sat by Pulse Oximetry 93 L 12/10/17 07:15 Oxygen-Last Documented O2 Percentage 3 Liters = 32% Intake & Output: Intake & Output 12/07/17 12/08/17 12/09/17 12/10/17 11:59 11:59 11:59 11:59 Intake Total 480 2649 1890 1470 Output Total 2350 1550 1950 Balance 480 299 340 -480 Weight 72.1 kg 79.1 kg 78.8 kg - Lab Result Diagrams: 12/05/17 20:30 12/05/17 20:30 Lab Results-Last 24 Hrs: Accuchecks Date 12/10/17 Date 12/09/17 Time 07:25 Time 22:00 Accucheck Value: 118 Accucheck Value: 200 Accucheck Value: 123 Accucheck Value: 98 Micro Results-Entire Visit: Microbiology 12/07/17 13:05 Gram Stain - Final Sputum - Expectorant Sputum Culture - Final ORGANISMS ISOLATED ARE CONSISTENT WITH NORMAL RESP MJ MODERATE GROWTH, NO PREDOMINANT ORGANISM Accuchecks Date 12/10/17 Date 12/09/17 Time 07:25 Time 22:00 Accucheck Value: 118 Accucheck Value: 200 Accucheck Value: 123 Accucheck Value: 98 - Procedures and Test Procedures and Tests throughout Hospitalization: Therapy Orders & Screens 12/09/17 11:38 Peak Expiratory Flow Rate UD Comment: Reason For Exam: Diagnosis: EXACERBATION COPD, SOB, DYSPNEA Discharge Exam General Appearance: no apparent distress, alert Neurologic Exam: alert, oriented x 3, cooperative, normal mood/affect, nml cerebellar function, sensation nml, No motor deficits Skin Exam: normal color, warm, dry Eye Exam: PERRL, EOMI, eyes nml inspection Ears, Nose, Throat Exam: normal ENT inspection, pharynx normal, moist mucous membranes Neck Exam: normal inspection, non-tender, supple, full range of motion Respiratory Exam: chest tenderness, accessory muscle use, crackles/rales, rhonchi, wheezing, No respiratory distress Cardiovascular Exam: regular rate/rhythm, normal heart sounds Gastrointestinal/Abdomen Exam: soft, No tenderness, No mass Extremity Exam: normal inspection, normal range of motion Back Exam: normal inspection, normal range of motion, No CVA tenderness, No vertebral tenderness Male Genitalia Exam: deferred Rectal Exam: deferred Final Diagnosis/Problem List - Final Discharge Diagnosis/Problem (1) COPD exacerbation Current Visit: Yes Status: Resolved (2) COPD (chronic obstructive pulmonary disease) Current Visit: Yes Status: Chronic (3) CAD (coronary artery disease) Current Visit: Yes Status: Chronic (4) Debilitated patient Current Visit: Yes Status: Acute Assessment & Plan: will transfer patient to rehab. - Discharge Discharge Date: 12/10/17 Disposition: Swing Bed @ [facility] Condition: Stable Prescriptions: No Action Albuterol 8 gm Mdi Hfa [Ventolin Hfa MDI] 2 puffs IH QID HydrALAzine HCL 25 MG TAB [Apresoline 25 MG TABLET] 50 mg PO BID Alprazolam [Xanax 0.25 mg] 1 tab PO QHS Metoprolol Succinate [Toprol Xl] 12.5 mg PO BID Alprazolam 0.25 mg [xanAX 0.25 MG] 0.25 mg PO [id number] PRN PRN Reason: Anxiety Tamsulosin HCl 0.4 mg [Flomax 0.4 MG] 0.4 mg PO HS Simvastatin 40 mg [Zocor 40 mg] 40 mg PO HS Ranolazine 500 MG [Ranexa 500 MG] 500 mg PO BID Potassium Chloride 10 Meq Tab* [Klor Con 10 MEQ] 10 meq PO DAILY Niacin 500 mg [Niaspan 500 mg] 500 mg PO HS Isosorbide Mononitrate 30 mg [Imdur 30 MG] 30 mg PO DAILY Enalapril Maleate 10 mg [Vasotec 10 MG] 10 mg PO DAILY Albuterol/Ipratropium 3ml Neb* [DUONEB 0.5-3 MG/3 ml Neb] 3 ml IH QID Aspirin EC 81 mg [Ecotrin 81 mg] 81 mg PO DAILY Allopurinol 100 mg [Zyloprim 100 mg] 100 mg PO DAILY Nitroglycerin 0.4 mg Tablet [Nitrostat 0.4 MG Tablet] 0.4 mg SL Q5MIN PRN MR X 3 PRN PRN Reason: Chest Pain Fluoxetine HCl 20 mg [Prozac 20 MG] 20 mg PO DAILY Docusate Sodium [Stool Softener] 50 mg PO BID Follow up with: CAMACHO EARL [Primary Care Provider] -
[2017-12-10 11:29] VITALS: BP 132/73; PULSE 80; O2SAT 93
== END 2017-12-10 13:44 | disposition swing bed (61) | DRG 191 ==
LOC: ED 20:07 → MED SURG 12-06 00:40 → OBSVTOIN 12-07 08:30
PROVIDERS: ADMIT General Practice; ATTEND General Practice
DX: J44.1 Chronic obstructive pulmonary disease with (acute) exacerbation (principal); I25.810 Atherosclerosis of coronary artery bypass graft(s) without angina pectoris; R53.81 Other malaise; I10 Essential (primary) hypertension; M79.89 Other specified soft tissue disorders; I73.9 Peripheral vascular disease, unspecified; E78.00 Pure hypercholesterolemia, unspecified; Z86.73 Personal history of transient ischemic attack (TIA), and cerebral infarction without residual deficits; M19.90 Unspecified osteoarthritis, unspecified site; F41.8 Other specified anxiety disorders; Z79.899 Other long term (current) drug therapy; I25.2 Old myocardial infarction; M10.9 Gout, unspecified; Z72.0 Tobacco use
CPT/HCPCS: 36000; 36415; 71045; 71260; 80053; 80061; 81002; 82962; 83036; 83605; 83721; 83880; 84484; 85025; 85379; 87070; 87430; 87631; 93005; 93041; 93970; 93971; 94150; 94640; 94760; 94762; 96360; 96361; 99285; G0378; J0456; J1650; J1956; J2920; J2930; A9270-GY

== ENCOUNTER 2017-12-10 13:44 | Inpatient (IN) | payer MEDICARE ==
[2017-12-10] MEDS ORDERED: MAALOX ES 30 ML UNIT DOSE PO PRN (14:21)
[2017-12-10] MEDS ORDERED: MILK OF MAGNESIA 30 ML PO PRN (14:21)
[2017-12-10] MEDS ORDERED: Nitrostat 0.4 MG Tablet SL PRN (14:21)
[2017-12-10] MEDS ORDERED: Senokot-S Tablet PO PRN (14:21)
[2017-12-10] MEDS ORDERED: TYLENOL 325 MG PO PRN (14:21)
[2017-12-10] MEDS ORDERED: Zofran 4 MG/2 ML VIAL IV PRN (14:21)
[2017-12-10] MEDS ORDERED: MORPHINE SULFATE 2 MG INJ IV PRN (14:21)
[2017-12-10] MEDS ORDERED: DUONEB 0.5-3 MG/3 ml Neb IH ONE (14:31)
[2017-12-10] MEDS ORDERED: Sodium Chloride 0.9% 10 ML FLUSH Syringe IV PRN (14:33)
[2017-12-10] MEDS: DUONEB 0.5-3 MG/3 ml Neb IH SCH ×3 (14:34→23:23)
[2017-12-10] MEDS ORDERED: xanAX 0.25 MG PO PRN (14:36)
[2017-12-10] MEDS: solu-MEDROL 40 MG IV SCH ×2 (14:44→21:35)
[2017-12-10] MEDS: Sodium Chloride 0.9% 10 ML FLUSH Syringe IV SCH ×2 (14:44→23:49)
[2017-12-10] MEDS ORDERED: MEDICATION INTERVENTION MC SCH (14:45)
[2017-12-10] MEDS: NovoLIN R SQ PRN (17:10)
[2017-12-10] MEDS: Toprol-Xl 25MG Tablets PO SCH (21:40)
[2017-12-10] MEDS: Ranexa 500 MG PO SCH (21:40)
[2017-12-10] MEDS: LEVOFLOXACIN 750MG/150ML D5W 750 MG/150 ML BAG IV SCH (21:40)
[2017-12-10] MEDS: ZOCOR 20MG PO SCH (21:42)
[2017-12-10] MEDS: xanAX 0.25 MG PO SCH (21:42)
[2017-12-10] MEDS: Apresoline 25 MG TABLET PO SCH (21:42)
[2017-12-10] MEDS: Colace 100 MG PO SCH (21:43)
[2017-12-10] MEDS: Pepcid 20 MG PO SCH (21:43)
[2017-12-11] MEDS: DUONEB 0.5-3 MG/3 ml Neb IH SCH ×5 (02:56→19:06)
[2017-12-11] MEDS: Sodium Chloride 0.9% 10 ML FLUSH Syringe IV SCH ×3 (05:55→22:43)
[2017-12-11] MEDS: solu-MEDROL 40 MG IV SCH ×3 (05:55→22:33)
[2017-12-11] MEDS: Ranexa 500 MG PO SCH ×2 (08:35→22:32)
[2017-12-11] MEDS: Apresoline 25 MG TABLET PO SCH ×2 (08:35→22:32)
[2017-12-11] MEDS: Vasotec 10 MG PO SCH (08:36)
[2017-12-11] MEDS: Prozac 20 MG PO SCH (08:36)
[2017-12-11] MEDS: Flomax 0.4 MG PO SCH (08:36)
[2017-12-11] MEDS: Klor Con 10 MEQ PO SCH (08:36)
[2017-12-11] MEDS: Colace 100 MG PO SCH ×2 (08:36→22:32)
[2017-12-11] MEDS: ECOTRIN 81 MG PO SCH (08:36)
[2017-12-11] MEDS: Imdur 30 MG PO SCH (08:36)
[2017-12-11] MEDS: Toprol-Xl 25MG Tablets PO SCH ×2 (08:36→22:32)
[2017-12-11] MEDS: ZYLOPRIM 100 MG PO SCH (08:36)
[2017-12-11] MEDS: Pepcid 20 MG PO SCH ×2 (08:36→22:33)
[2017-12-11] MEDS: ENOXAPARIN SODIUM SQ SCH (08:37)
[2017-12-11] MEDS ORDERED: Aplisol ID SCH (10:00)
[2017-12-11] MEDS: LEVOFLOXACIN 750MG/150ML D5W 750 MG/150 ML BAG IV SCH (22:32)
[2017-12-11] MEDS: ZOCOR 20MG PO SCH (22:32)
[2017-12-11] MEDS: xanAX 0.25 MG PO SCH (22:33)
[2017-12-12] MEDS: DUONEB 0.5-3 MG/3 ml Neb IH SCH ×7 (00:46→23:41)
[2017-12-12] MEDS: solu-MEDROL 40 MG IV SCH ×3 (06:00→21:23)
[2017-12-12] MEDS: Sodium Chloride 0.9% 10 ML FLUSH Syringe IV SCH ×3 (06:06→21:23)
[2017-12-12] MEDS: Klor Con 10 MEQ PO SCH (10:21)
[2017-12-12] MEDS: ENOXAPARIN SODIUM SQ SCH (10:21)
[2017-12-12] MEDS: Apresoline 25 MG TABLET PO SCH ×2 (10:21→21:23)
[2017-12-12] MEDS: Toprol-Xl 25MG Tablets PO SCH ×2 (10:22→21:24)
[2017-12-12] MEDS: Vasotec 10 MG PO SCH (10:23)
[2017-12-12] MEDS: Colace 100 MG PO SCH ×2 (10:23→21:23)
[2017-12-12] MEDS: Pepcid 20 MG PO SCH ×2 (10:23→21:23)
[2017-12-12] MEDS: Ranexa 500 MG PO SCH ×2 (10:23→21:23)
[2017-12-12] MEDS: ZYLOPRIM 100 MG PO SCH (10:23)
[2017-12-12] MEDS: ECOTRIN 81 MG PO SCH (10:23)
[2017-12-12] MEDS: Flomax 0.4 MG PO SCH (10:23)
[2017-12-12] MEDS: Prozac 20 MG PO SCH (10:23)
[2017-12-12] MEDS: Imdur 30 MG PO SCH (10:23)
[2017-12-12] MEDS: NovoLIN R SQ PRN (15:22)
[2017-12-12] MEDS: LEVOFLOXACIN 750MG/150ML D5W 750 MG/150 ML BAG IV SCH (21:23)
[2017-12-12] MEDS: xanAX 0.25 MG PO SCH (21:24)
[2017-12-12] MEDS: ZOCOR 20MG PO SCH (21:24)
[2017-12-13] MEDS: DUONEB 0.5-3 MG/3 ml Neb IH SCH ×5 (03:42→19:10)
[2017-12-13] MEDS: solu-MEDROL 40 MG IV SCH ×3 (05:32→22:00)
[2017-12-13] MEDS: Sodium Chloride 0.9% 10 ML FLUSH Syringe IV SCH ×3 (05:32→22:08)
[2017-12-13] MEDS: Imdur 30 MG PO SCH (10:57)
[2017-12-13] MEDS: Apresoline 25 MG TABLET PO SCH ×2 (10:58→22:01)
[2017-12-13] MEDS: Vasotec 10 MG PO SCH (10:58)
[2017-12-13] MEDS: Colace 100 MG PO SCH ×2 (10:58→22:01)
[2017-12-13] MEDS: Prozac 20 MG PO SCH (10:58)
[2017-12-13] MEDS: Flomax 0.4 MG PO SCH (10:58)
[2017-12-13] MEDS: Toprol-Xl 25MG Tablets PO SCH ×2 (10:58→22:01)
[2017-12-13] MEDS: Ranexa 500 MG PO SCH ×2 (10:59→22:01)
[2017-12-13] MEDS: ZYLOPRIM 100 MG PO SCH (10:59)
[2017-12-13] MEDS: Klor Con 10 MEQ PO SCH (10:59)
[2017-12-13] MEDS: ECOTRIN 81 MG PO SCH (10:59)
[2017-12-13] MEDS: Pepcid 20 MG PO SCH ×2 (10:59→22:00)
[2017-12-13] MEDS: ENOXAPARIN SODIUM SQ SCH (11:01)
--- NOTE | 2017-12-13 11:51 | PROG NOTE ---
DATE: 12/11/2017 Chart is reviewed and events noted. The patient was transferred to [facility] yesterday. At the time of this evaluation he was alert, awake, complains fatigue, complains of shortness of breath. Complains of dry cough. Complains of choking with solids and liquids. Appears comfortable. PHYSICAL EXAMINATION: VITAL SIGNS: Blood pressure 192/88, heart rate 81, respiratory rate 20, temperature 97.9F. Oxygen saturation 94%. HEENT: Pallor is present. NECK: No JVD is present. CVS: S1, S2 present. RESPIRATORY: Breath sounds are bilaterally diminished. ABDOMEN: Soft, nontender. NEURO: He is alert, awake, answers simple questions. EXTREMITIES: No edema on bilateral lower extremities. LABORATORY DATA AND TESTS: There were no labs since admission. Medications were reviewed. ASSESSMENT: A 67 year old male with impression: 1) Deconditioning. 2) Generalized weakness. 3) Chronic obstructive pulmonary disease with exacerbation. 4) Acute bronchopneumonia. 5) Hypoxemia. 6) Anxiety. 7) History of elevated D-dimer. 8) Coronary artery disease. 9) Dysphagia. 10) Hypertension/coronary artery disease. 11) Anxiety/depression. PLAN: Continue PT and OT as tolerated. Continue broad spectrum IV antibiotic/IV steroids. With his difficulty swallowing will request speech therapy evaluation and modified barium swallow and likely EGD was discussed with patient and his . The patient's clinical condition, work-up results and plan of management were discussed with him and his . He seemed to be understanding and agreement.
--- NOTE | 2017-12-13 12:00 | PCM.NOTE ---
Date and Time: 12/13/17 1159 Subjective Assessment: doing better - Review of Systems Constitutional: No Fever, No Chills Eyes: No Symptoms Ears, Nose, & Throat: No Symptoms Respiratory: Cough, Orthopnea, Short Of Breath, Wheezing Cardiac: No Chest Pain, No Edema, No Syncope Abdominal/Gastrointestinal: No Abdominal Pain, No Nausea, No Vomiting, No Diarrhea Genitourinary Symptoms: No Dysuria Musculoskeletal: No Back Pain, No Neck Pain Skin: No Rash Neurological: No Dizziness, No Focal Weakness, No Sensory Changes Psychological: No Symptoms Endocrine: No Symptoms Hematologic/Lymphatic: No Symptoms Immunological/Allergic: No Symptoms Objective Exam General Appearance: no apparent distress, alert Neurologic Exam: alert, oriented x 3, cooperative, normal mood/affect, nml cerebellar function, sensation nml, No motor deficits Skin Exam: normal color, warm, dry Eye Exam: PERRL, EOMI, eyes nml inspection Ears, Nose, Throat Exam: normal ENT inspection, pharynx normal, moist mucous membranes Neck Exam: normal inspection, non-tender, supple, full range of motion Respiratory Exam: diminished breath sounds, No respiratory distress Cardiovascular Exam: regular rate/rhythm, normal heart sounds Gastrointestinal/Abdomen Exam: soft, No tenderness, No mass Extremity Exam: normal inspection, normal range of motion Back Exam: normal inspection, normal range of motion, No CVA tenderness, No vertebral tenderness Male Genitalia Exam: deferred Rectal Exam: deferred OBJECTIVE DATA Vital Signs: Vital Signs - 24 hr Temp Pulse Resp BP Pulse Ox 12/13/17 11:00 79 22 93 L 12/13/17 07:44 97.9 F 74 18 152/73 96 12/13/17 06:53 81 20 94 L 12/13/17 04:00 22 12/13/17 03:00 83 22 93 L 12/13/17 00:00 22 12/12/17 23:44 89 22 94 L 12/12/17 20:00 97.6 F 87 22 145/69 96 12/12/17 18:42 85 24 93 L 12/12/17 16:00 20 12/12/17 14:57 88 20 96 12/12/17 12:00 20 Oxygen-Last 24 hours O2 Percentage 3 Liters = 32% Pain Assessment - Last Documented Pain Intensity 0 Pain Scale Used 0-10 Pain Scale Intake and Output: Intake & Output 12/10/17 12/11/17 12/12/17 12/13/17 11:59 11:59 11:59 11:59 Intake Total 1600 2040 3111 Output Total 550 450 800 Balance 1050 1590 2311 Weight 79 kg Lab Results: Accuchecks Date 12/12/17 Date 12/12/17 Time 20:00 Time 16:39 Accucheck Value: 118 Accucheck Value: 122 Accucheck Value: 102 Assessment/Plan (1) CAD (coronary artery disease) Current Visit: Yes Status: Chronic Code(s): I25.10 - ATHSCL HEART DISEASE OF [place] CORONARY ARTERY W/O ANG PCTRS (2) COPD (chronic obstructive pulmonary disease) Current Visit: Yes Status: Chronic Qualifiers: COPD type: COPD with acute exacerbation Qualified Code(s): J44.1 - Chronic obstructive pulmonary disease with (acute) exacerbation (3) Vascular disease of abdomen Current Visit: Yes Status: Chronic Code(s): I99.9 - UNSPECIFIED DISORDER OF CIRCULATORY SYSTEM (4) COPD exacerbation Current Visit: No Status: Resolved Code(s): J44.1 - CHRONIC OBSTRUCTIVE PULMONARY DISEASE W (ACUTE) EXACERBATION
--- NOTE | 2017-12-13 14:31 | XRAY ---
Indication: Dysphagia. Modified barium swallow study was performed by Department of speech therapy with fluoroscopic assistance provided. Patient ingested multiple consistencies of liquids and solids. Full report and recommendations will be reported separately. 42 seconds fluoroscopy used.
[2017-12-13 17:11] LABS: Hematocrit 43.7 % (42-50); Hemoglobin 14.6 gm/dl (12.5-18.0); Mean Cell Volume 94.4 fl (78-100); Mean Corpuscular Hemoglobin 31.5 pg (26-32); Mean Corpuscular Hgb Concent. 33.4 g/dl (32-36); Mean Platelet Volume 9.5 fl (6-9.5); Platelet Count 136 K/mm3 (150-450); Red Blood Count 4.63 M/mm3 (4.1-5.6); White Blood Count 19.4 K/mm3 (4.0-10.5)
[2017-12-13 17:28] LABS: ANION GAP 17.2 MEQ/L (5-15); BLOOD UREA NITROGEN 32 mg/dL (9-20); CHLORIDE 104 mEq/L (98-107); Calcium 8.9 mg/dL (8.5-10.1); Carbon Dioxide 23.8 mEq/L (21-32); Creatinine 1 1.25 mg/dl (0.55-1.30); Glucose 135 MG/DL (70-110); Potassium 4.5 mEq/L (3.5-5.1); SODIUM 141 mEq/L (136-145)
[2017-12-13] MEDS: Levofloxacin 250MG Tablet PO SCH (22:00)
[2017-12-13] MEDS: Levofloxacin 500 MG Tablet PO SCH (22:00)
[2017-12-13] MEDS: ZOCOR 20MG PO SCH (22:01)
[2017-12-13] MEDS: xanAX 0.25 MG PO SCH (22:01)
[2017-12-14] MEDS: DUONEB 0.5-3 MG/3 ml Neb IH SCH ×6 (03:34→23:08)
[2017-12-14] MEDS: Sodium Chloride 0.9% 10 ML FLUSH Syringe IV SCH ×3 (05:40→22:34)
[2017-12-14] MEDS: solu-MEDROL 40 MG IV SCH ×3 (05:40→22:27)
[2017-12-14] MEDS: ENOXAPARIN SODIUM SQ SCH (08:35)
[2017-12-14] MEDS: Pepcid 20 MG PO SCH ×2 (08:36→22:28)
[2017-12-14] MEDS: ZYLOPRIM 100 MG PO SCH (08:36)
[2017-12-14] MEDS: Apresoline 25 MG TABLET PO SCH ×2 (08:36→22:28)
[2017-12-14] MEDS: Colace 100 MG PO SCH ×2 (08:36→22:27)
[2017-12-14] MEDS: Ranexa 500 MG PO SCH ×2 (08:37→22:28)
[2017-12-14] MEDS: ECOTRIN 81 MG PO SCH (08:37)
[2017-12-14] MEDS: Imdur 30 MG PO SCH (08:37)
[2017-12-14] MEDS: Prozac 20 MG PO SCH (08:37)
[2017-12-14] MEDS: Toprol-Xl 25MG Tablets PO SCH ×2 (08:37→22:27)
[2017-12-14] MEDS: Klor Con 10 MEQ PO SCH (08:37)
[2017-12-14] MEDS: Vasotec 10 MG PO SCH (08:37)
[2017-12-14] MEDS: Flomax 0.4 MG PO SCH (08:37)
[2017-12-14] MEDS: NovoLIN R SQ PRN ×2 (08:47→13:43)
--- NOTE | 2017-12-14 13:12 | PCM.NOTE ---
Date and Time: 12/14/17 1311 Subjective Assessment: doing ok - Review of Systems Constitutional: No Fever, No Chills Eyes: No Symptoms Ears, Nose, & Throat: No Symptoms Respiratory: No Cough, No Short Of Breath Cardiac: No Chest Pain, No Edema, No Syncope Abdominal/Gastrointestinal: No Abdominal Pain, No Nausea, No Vomiting, No Diarrhea Genitourinary Symptoms: No Dysuria Musculoskeletal: No Back Pain, No Neck Pain Skin: No Rash Neurological: No Dizziness, No Focal Weakness, No Sensory Changes Psychological: No Symptoms Endocrine: No Symptoms Hematologic/Lymphatic: No Symptoms Immunological/Allergic: No Symptoms Objective Exam General Appearance: no apparent distress, alert Neurologic Exam: alert, oriented x 3, cooperative, normal mood/affect, nml cerebellar function, sensation nml, No motor deficits Skin Exam: normal color, warm, dry Eye Exam: PERRL, EOMI, eyes nml inspection Ears, Nose, Throat Exam: normal ENT inspection, pharynx normal, moist mucous membranes Neck Exam: normal inspection, non-tender, supple, full range of motion Respiratory Exam: normal breath sounds, lungs clear, No respiratory distress Cardiovascular Exam: regular rate/rhythm, normal heart sounds Gastrointestinal/Abdomen Exam: soft, No tenderness, No mass Extremity Exam: normal inspection, normal range of motion Back Exam: normal inspection, normal range of motion, No CVA tenderness, No vertebral tenderness Male Genitalia Exam: deferred Rectal Exam: deferred OBJECTIVE DATA Vital Signs: Vital Signs - 24 hr Temp Pulse Resp BP Pulse Ox 12/14/17 11:40 80 16 96 12/14/17 07:55 98.6 F 69 20 189/86 91 L 12/14/17 07:48 72 15 97 12/14/17 04:00 24 12/14/17 03:00 72 22 97 12/14/17 00:00 22 12/13/17 20:00 97.7 F 97 H 20 135/68 93 L 12/13/17 19:00 88 22 92 L 12/13/17 14:52 88 22 93 L Oxygen-Last 24 hours O2 Percentage 3 Liters = 32% O2 Percentage 3 Liters = 32% Pain Assessment - Last Documented Pain Intensity 0 Pain Scale Used 0-10 Pain Scale,FLACC Intake and Output: Intake & Output 12/12/17 12/13/17 12/14/17 12/15/17 11:59 11:59 11:59 11:59 Intake Total 2040 3111 2260 Output Total 450 800 900 Balance 1590 2311 1360 Weight 79 kg Lab Results: Accuchecks Date 12/13/17 Time 20:00 Accucheck Value: 160 Accucheck Value: 139 Accucheck Value: 135 Lab Results-Last 24 Hours 12/13/17 12/13/17 Range/Units 16:50 16:50 WBC 19.4 H (4.0-10.5) K/mm3 RBC 4.63 (4.1-5.6) M/mm3 Hgb 14.6 (12.5-18.0) gm/dl Hct 43.7 (42-50) % MCV 94.4 (78-100) fl MCH 31.5 (26-32) pg MCHC 33.4 (32-36) g/dl RDW 14.0 (11.5-14.0) % Plt Count 136 L (150-450) K/mm3 MPV 9.5 (6-9.5) fl Sodium 141 (136-145) mEq/L Potassium 4.5 (3.5-5.1) mEq/L Chloride 104 (98-107) mEq/L Carbon Dioxide 23.8 (21-32) mEq/L Anion Gap 17.2 H (5-15) MEQ/L BUN 32 H (9-20) mg/dL Creatinine 1.25 (0.55-1.30) mg/dl Estimated GFR > 60 ML/MIN Glucose 135 H (70-110) MG/DL Calcium 8.9 (8.5-10.1) mg/dL Radiology Exams: Radiology Procedures Category Date Time Status MODIFIED BARIUM SWALLOW (RAD) [MODIFIED BARIUM SWALLOW Exams 12/13/17 13:20 Completed EXAM] Routine Multi-Disciplinary Progress Notes: Multi-Disciplinary Progress Notes 12/13/17 14:16 Pharmacy Note by BRIDGE TEACHER,PHARM TODAY IS DAY 7 OF IV LEVAQUIN. CHANGING TO PO PER PHARMACY POLICY MARGARET GASTELUM PHARMD CANDIDATE Initialized on 12/13/17 14:16 - END OF NOTE Assessment/Plan (1) CAD (coronary artery disease) Current Visit: Yes Status: Chronic Qualifiers: Coronary Disease-Associated Artery/Lesion type: [place] artery Code(s): I25.10 - ATHSCL HEART DISEASE OF [place] CORONARY ARTERY W/O ANG PCTRS (2) COPD (chronic obstructive pulmonary disease) Current Visit: Yes Status: Chronic Qualifiers: COPD type: COPD with acute exacerbation Qualified Code(s): J44.1 - Chronic obstructive pulmonary disease with (acute) exacerbation (3) Vascular disease of abdomen Current Visit: Yes Status: Chronic Code(s): I99.9 - UNSPECIFIED DISORDER OF CIRCULATORY SYSTEM (4) COPD exacerbation Current Visit: Yes Status: Resolved Code(s): J44.1 - CHRONIC OBSTRUCTIVE PULMONARY DISEASE W (ACUTE) EXACERBATION
[2017-12-14] MEDS: ZOCOR 20MG PO SCH (22:28)
[2017-12-14] MEDS: Levofloxacin 500 MG Tablet PO SCH (22:28)
[2017-12-14] MEDS: Levofloxacin 250MG Tablet PO SCH (22:28)
[2017-12-14] MEDS: xanAX 0.25 MG PO SCH (22:29)
[2017-12-15] MEDS: DUONEB 0.5-3 MG/3 ml Neb IH SCH ×7 (03:18→22:35)
[2017-12-15] MEDS: solu-MEDROL 40 MG IV SCH ×3 (06:41→22:30)
[2017-12-15] MEDS: Sodium Chloride 0.9% 10 ML FLUSH Syringe IV SCH ×3 (06:43→22:40)
[2017-12-15] MEDS: Apresoline 25 MG TABLET PO SCH ×2 (10:33→22:30)
[2017-12-15] MEDS: Colace 100 MG PO SCH ×2 (10:33→22:30)
[2017-12-15] MEDS: ENOXAPARIN SODIUM SQ SCH (10:33)
[2017-12-15] MEDS: ECOTRIN 81 MG PO SCH (10:33)
[2017-12-15] MEDS: Imdur 30 MG PO SCH (10:34)
[2017-12-15] MEDS: Flomax 0.4 MG PO SCH (10:34)
[2017-12-15] MEDS: Toprol-Xl 25MG Tablets PO SCH ×2 (10:35→22:30)
[2017-12-15] MEDS: Ranexa 500 MG PO SCH ×2 (10:35→22:31)
[2017-12-15] MEDS: Prozac 20 MG PO SCH (10:35)
[2017-12-15] MEDS: Pepcid 20 MG PO SCH ×2 (10:35→22:31)
[2017-12-15] MEDS: Klor Con 10 MEQ PO SCH (10:35)
[2017-12-15] MEDS: Vasotec 10 MG PO SCH (10:36)
[2017-12-15] MEDS: ZYLOPRIM 100 MG PO SCH (10:36)
--- NOTE | 2017-12-15 12:46 | PCM.NOTE ---
Date and Time: 12/15/17 1246 - Review of Systems Constitutional: No Fever, No Chills Eyes: No Symptoms Ears, Nose, & Throat: No Symptoms Respiratory: No Cough, No Short Of Breath Cardiac: No Chest Pain, No Edema, No Syncope Abdominal/Gastrointestinal: No Abdominal Pain, No Nausea, No Vomiting, No Diarrhea Genitourinary Symptoms: No Dysuria Musculoskeletal: No Back Pain, No Neck Pain Skin: No Rash Neurological: No Dizziness, No Focal Weakness, No Sensory Changes Psychological: No Symptoms Endocrine: No Symptoms Hematologic/Lymphatic: No Symptoms Immunological/Allergic: No Symptoms Objective Exam General Appearance: no apparent distress, alert Neurologic Exam: alert, oriented x 3, cooperative, normal mood/affect, nml cerebellar function, sensation nml, No motor deficits Skin Exam: normal color, warm, dry Eye Exam: PERRL, EOMI, eyes nml inspection Ears, Nose, Throat Exam: normal ENT inspection, pharynx normal, moist mucous membranes Neck Exam: normal inspection, non-tender, supple, full range of motion Respiratory Exam: normal breath sounds, lungs clear, No respiratory distress Cardiovascular Exam: regular rate/rhythm, normal heart sounds Gastrointestinal/Abdomen Exam: soft, No tenderness, No mass Extremity Exam: normal inspection, normal range of motion Back Exam: normal inspection, normal range of motion, No CVA tenderness, No vertebral tenderness Male Genitalia Exam: deferred Rectal Exam: deferred OBJECTIVE DATA Vital Signs: Vital Signs - 24 hr Temp Pulse Resp BP Pulse Ox 12/15/17 12:00 22 12/15/17 11:14 95 H 22 93 L 12/15/17 08:00 22 178/86 12/15/17 07:42 97.9 F 75 22 198/103 94 L 12/15/17 06:57 79 20 97 12/15/17 04:00 18 12/15/17 03:19 84 18 93 L 12/15/17 00:00 18 12/14/17 23:08 80 19 94 L 12/14/17 20:00 97.3 F 80 19 132/66 94 L 12/14/17 19:05 80 18 97 12/14/17 16:00 18 Oxygen-Last 24 hours O2 Percentage 3 Liters = 32% O2 Percentage 3 Liters = 32% Pain Assessment - Last Documented Pain Intensity 0 Pain Scale Used 0-10 Pain Scale Intake and Output: Intake & Output 12/13/17 12/14/17 12/15/17 12/16/17 11:59 11:59 11:59 11:59 Intake Total 3111 2260 1320 Output Total 800 900 500 Balance 2311 1360 820 Weight 79 kg Lab Results: Accuchecks Date 12/15/17 Date 12/15/17 Date 12/15/17 Date 12/14/17 Time 11:30 Time 07:30 Time 22:00 Time 16:05 Accucheck Value: 107 Accucheck Value: 100 Accucheck Value: 150 Radiology Exams: Radiology Procedures Category Date Time Status MODIFIED BARIUM SWALLOW (RAD) [MODIFIED BARIUM SWALLOW Exams 12/13/17 13:20 Completed EXAM] Routine Assessment/Plan (1) CAD (coronary artery disease) Current Visit: Yes Status: Chronic Qualifiers: Coronary Disease-Associated Artery/Lesion type: [place] artery Code(s): I25.10 - ATHSCL HEART DISEASE OF [place] CORONARY ARTERY W/O ANG PCTRS (2) COPD (chronic obstructive pulmonary disease) Current Visit: Yes Status: Chronic Qualifiers: COPD type: COPD with acute exacerbation Qualified Code(s): J44.1 - Chronic obstructive pulmonary disease with (acute) exacerbation (3) Vascular disease of abdomen Current Visit: Yes Status: Chronic Code(s): I99.9 - UNSPECIFIED DISORDER OF CIRCULATORY SYSTEM (4) COPD exacerbation Current Visit: Yes Status: Resolved Code(s): J44.1 - CHRONIC OBSTRUCTIVE PULMONARY DISEASE W (ACUTE) EXACERBATION
[2017-12-15] MEDS: Levofloxacin 250MG Tablet PO SCH (22:30)
[2017-12-15] MEDS: ZOCOR 20MG PO SCH (22:30)
[2017-12-15] MEDS: Levofloxacin 500 MG Tablet PO SCH (22:30)
[2017-12-15] MEDS: xanAX 0.25 MG PO SCH (22:40)
[2017-12-16] MEDS: NovoLIN R SQ PRN ×3 (00:52→20:57)
[2017-12-16] MEDS: DUONEB 0.5-3 MG/3 ml Neb IH SCH ×6 (02:28→23:43)
[2017-12-16] MEDS: solu-MEDROL 40 MG IV SCH ×3 (06:37→21:06)
[2017-12-16] MEDS: Sodium Chloride 0.9% 10 ML FLUSH Syringe IV SCH ×3 (06:37→21:06)
[2017-12-16] MEDS: Ranexa 500 MG PO SCH ×2 (07:47→20:57)
[2017-12-16] MEDS: Flomax 0.4 MG PO SCH (07:47)
[2017-12-16] MEDS: Pepcid 20 MG PO SCH ×2 (07:47→20:56)
[2017-12-16] MEDS: Toprol-Xl 25MG Tablets PO SCH ×2 (07:47→20:56)
[2017-12-16] MEDS: Imdur 30 MG PO SCH (07:47)
[2017-12-16] MEDS: Vasotec 10 MG PO SCH (07:47)
[2017-12-16] MEDS: Prozac 20 MG PO SCH (07:47)
[2017-12-16] MEDS: ZYLOPRIM 100 MG PO SCH (07:48)
[2017-12-16] MEDS: Klor Con 10 MEQ PO SCH (07:48)
[2017-12-16] MEDS: ECOTRIN 81 MG PO SCH (07:48)
[2017-12-16] MEDS: ENOXAPARIN SODIUM SQ SCH (07:48)
[2017-12-16] MEDS: Apresoline 25 MG TABLET PO SCH ×2 (07:48→20:57)
[2017-12-16] MEDS: Colace 100 MG PO SCH ×2 (07:49→20:56)
--- NOTE | 2017-12-16 12:08 | PCM.NOTE ---
Date and Time: 12/16/17 1207 Subjective Assessment: doing better - Review of Systems Constitutional: No Fever, No Chills Eyes: No Symptoms Ears, Nose, & Throat: No Symptoms Respiratory: No Cough, No Short Of Breath Cardiac: No Chest Pain, No Edema, No Syncope Abdominal/Gastrointestinal: No Abdominal Pain, No Nausea, No Vomiting, No Diarrhea Genitourinary Symptoms: No Dysuria Musculoskeletal: No Back Pain, No Neck Pain Skin: No Rash Neurological: No Dizziness, No Focal Weakness, No Sensory Changes Psychological: No Symptoms Endocrine: No Symptoms Hematologic/Lymphatic: No Symptoms Immunological/Allergic: No Symptoms Objective Exam General Appearance: no apparent distress, alert Neurologic Exam: alert, oriented x 3, cooperative, normal mood/affect, nml cerebellar function, sensation nml, No motor deficits Skin Exam: normal color, warm, dry Eye Exam: PERRL, EOMI, eyes nml inspection Ears, Nose, Throat Exam: normal ENT inspection, pharynx normal, moist mucous membranes Neck Exam: normal inspection, non-tender, supple, full range of motion Respiratory Exam: normal breath sounds, lungs clear, No respiratory distress Cardiovascular Exam: regular rate/rhythm, normal heart sounds Gastrointestinal/Abdomen Exam: soft, No tenderness, No mass Extremity Exam: normal inspection, normal range of motion Back Exam: normal inspection, normal range of motion, No CVA tenderness, No vertebral tenderness Male Genitalia Exam: deferred Rectal Exam: deferred OBJECTIVE DATA Vital Signs: Vital Signs - 24 hr Temp Pulse Resp BP Pulse Ox 12/16/17 08:59 82 16 93 L 12/16/17 08:00 97.6 F 83 16 160/78 93 L 12/16/17 04:00 18 12/16/17 02:28 74 18 93 L 12/16/17 00:00 18 12/15/17 22:36 90 18 95 12/15/17 20:00 98.3 F 104 H 18 137/73 93 L 12/15/17 17:52 106 H 18 96 12/15/17 16:00 18 12/15/17 15:11 102 H 22 93 L Oxygen-Last 24 hours O2 Percentage 3 Liters = 32% O2 Percentage 2 Liters = 28% Pain Assessment - Last Documented Pain Intensity 0 Pain Scale Used 0-10 Pain Scale Intake and Output: Intake & Output 12/14/17 12/15/17 12/16/1702/18 11:59 11:59 11:59 11:59 Intake Total 2260 1320 1560 Output Total 900 500 Balance 3186 588 0211 Weight 79 kg Lab Results: Accuchecks Date 12/16/17 Date 12/15/17 Date 12/15/17 Time 07:30 Time 22:00 Time 16:30 Accucheck Value: 175 Accucheck Value: 161 Accucheck Value: 138 Assessment/Plan (1) CAD (coronary artery disease) Current Visit: Yes Status: Chronic Qualifiers: Coronary Disease-Associated Artery/Lesion type: [place] artery Code(s): I25.10 - ATHSCL HEART DISEASE OF [place] CORONARY ARTERY W/O ANG PCTRS (2) COPD (chronic obstructive pulmonary disease) Current Visit: Yes Status: Chronic Qualifiers: COPD type: COPD with acute exacerbation Qualified Code(s): J44.1 - Chronic obstructive pulmonary disease with (acute) exacerbation (3) Vascular disease of abdomen Current Visit: Yes Status: Chronic Code(s): I99.9 - UNSPECIFIED DISORDER OF CIRCULATORY SYSTEM (4) COPD exacerbation Current Visit: Yes Status: Resolved Code(s): J44.1 - CHRONIC OBSTRUCTIVE PULMONARY DISEASE W (ACUTE) EXACERBATION
[2017-12-16] MEDS: xanAX 0.25 MG PO SCH (20:56)
[2017-12-16] MEDS: ZOCOR 20MG PO SCH (20:56)
[2017-12-16] MEDS: Levofloxacin 500 MG Tablet PO SCH (20:57)
[2017-12-16] MEDS: Levofloxacin 250MG Tablet PO SCH (20:57)
[2017-12-17] MEDS: DUONEB 0.5-3 MG/3 ml Neb IH SCH ×4 (03:17→14:40)
[2017-12-17 04:00] VITALS: O2SAT 95
[2017-12-17] MEDS: solu-MEDROL 40 MG IV SCH ×2 (05:48→13:57)
[2017-12-17] MEDS: Sodium Chloride 0.9% 10 ML FLUSH Syringe IV SCH ×2 (05:48→11:59)
[2017-12-17 07:37] VITALS: BP 187/102
[2017-12-17] MEDS: Toprol-Xl 25MG Tablets PO SCH (11:54)
[2017-12-17] MEDS: ZYLOPRIM 100 MG PO SCH (11:55)
[2017-12-17] MEDS: Apresoline 25 MG TABLET PO SCH (11:55)
[2017-12-17] MEDS: Prozac 20 MG PO SCH (11:55)
[2017-12-17] MEDS: Klor Con 10 MEQ PO SCH (11:56)
[2017-12-17] MEDS: Vasotec 10 MG PO SCH (11:56)
[2017-12-17] MEDS: Flomax 0.4 MG PO SCH (11:56)
[2017-12-17] MEDS: Ranexa 500 MG PO SCH (11:56)
[2017-12-17] MEDS: Imdur 30 MG PO SCH (11:56)
[2017-12-17] MEDS: Pepcid 20 MG PO SCH (11:57)
[2017-12-17] MEDS: ECOTRIN 81 MG PO SCH (11:57)
[2017-12-17] MEDS: Colace 100 MG PO SCH (11:57)
[2017-12-17] MEDS: ENOXAPARIN SODIUM SQ SCH (11:58)
--- NOTE | 2017-12-17 12:46 | PCM.DS ---
Discharge Summary Date of Admission: 12/10/17 13:44 Admitting Physician: CAMACHO EARL Primary Care Provider: CAMACHO EARL Allergies Allergies penicillin G Allergy (Mild, Verified 12/10/17 14:00) hydrocodone bitartrate [From [facility]] Adverse Reaction (Verified 12/10/17 14:00) Hospital Summary - Hospital Course Hospital Course: Chief Complaint Diagnosis deconditiontg r/t [facility] copd- recurrent episode Allergies Allergy/AdvReac Type Severity Reaction Status Date / Time penicillin G Allergy Mild Verified 12/10/17 14:00 hydrocodone bitartrate AdvReac Verified 12/10/17 14:00 [From [facility]] Vital Signs (Last 24 hours) Temp Pulse Resp BP Pulse Ox 12/17/17 12:00 14 12/17/17 10:42 81 14 95 12/17/17 08:00 14 12/17/17 07:36 98.2 F 87 20 187/102 95 12/17/17 07:00 84 20 97 12/17/17 03:47 20 12/17/17 03:17 90 18 95 12/16/17 23:45 20 12/16/17 23:43 90 20 94 L 12/16/17 20:00 97.9 F 100 H 18 169/76 92 L 12/16/17 17:15 88 20 93 L 12/16/17 16:00 18 12/16/17 15:13 80 18 91 L Current Medications Generic Name Dose Route Start Last Admin Trade Name Freq PRN Reason Stop Dose Admin Acetaminophen 650 mg 12/10/17 14:21 12/12/17 15:58 Tylenol 325 Mg PO 01/09/18 14:20 650 mg Q4H PRN PRN Administration PAIN AND/OR FEVER Al Hydrox/Mg Hydrox/Simethicone 30 ml 12/10/17 14:21 12/13/17 18:31 Maalox Es 30 Ml Unit Dose PO 01/09/18 14:20 30 ml Q4H PRN PRN Administration INDIGESTION Albuterol/Ipratropium 3 ml 12/10/17 15:00 12/17/17 06:37 Duoneb 0.5-3 Mg/3 Ml Neb IH 01/09/18 14:59 3 ml Q4HRT YESENIA Administration Allopurinol 100 mg 12/11/17 10:00 12/17/17 11:55 Zyloprim 100 Mg PO 01/10/18 09:59 100 mg DAILY YESENIA Administration Alprazolam 0.25 mg 12/10/17 22:00 12/16/17 20:56 Xanax 0.25 Mg PO 01/09/18 21:59 0.25 mg HS YESENIA Administration Alprazolam 0.25 mg 12/10/17 14:36 12/12/17 12:13 Xanax 0.25 Mg PO 01/09/18 14:35 0.25 mg Q12H PRN PRN Administration ANXIETY Aspirin 81 mg 12/11/17 10:00 12/17/17 11:57 Ecotrin 81 Mg PO 01/10/18 09:59 81 mg DAILY YESENIA Administration Docusate Sodium 100 mg 12/10/17 22:00 12/17/17 11:57 Colace 100 Mg PO 01/09/18 21:59 100 mg BID YESENIA Administration Enalapril Maleate 10 mg 12/11/17 10:00 12/17/17 11:56 Vasotec 10 Mg PO 01/10/18 09:59 10 mg DAILY YESENIA Administration Enoxaparin Sodium 40 mg 12/11/17 10:00 12/17/17 11:58 Enoxaparin Sodium SQ 01/10/18 09:59 40 mg DAILY YESENIA Administration Famotidine 20 mg 12/10/17 22:00 12/17/17 11:57 Pepcid 20 Mg PO 01/09/18 21:59 20 mg BID YESENIA Administration Fluoxetine HCl 20 mg 12/11/17 10:00 12/17/17 11:55 Prozac 20 Mg PO 01/10/18 09:59 20 mg DAILY YESENIA Administration Hydralazine HCl 50 mg 12/10/17 22:00 12/17/17 11:55 Apresoline 25 Mg Tablet PO 01/09/18 21:59 50 mg BID YESENIA Administration Insulin Human Regular 0 unit 12/10/17 14:21 12/16/17 20:57 Novolin R SQ 01/09/18 14:20 5 unit PRN PRN Administration HYPERGLYCEMIA Isosorbide Mononitrate 30 mg 12/11/17 10:00 12/17/17 11:56 Imdur 30 Mg PO 01/10/18 09:59 30 mg DAILY YESENIA Administration Levofloxacin 500 mg 12/13/17 22:00 12/16/17 20:57 Levofloxacin 500 Mg Tablet PO 01/12/18 21:59 500 mg QPM YESENIA Administration Levofloxacin 250 mg 12/13/17 22:00 12/16/17 20:57 Levofloxacin 250mg Tablet PO 01/12/18 21:59 250 mg QPM YESENIA Administration Magnesium Hydroxide 30 - 60 ml 12/10/17 14:21 Milk Of Magnesia 30 Ml PO 01/09/18 14:20 QDP PRN CONSTIPATION Methylprednisolone Sodium Succinate 40 mg 12/10/17 14:30 12/17/17 05:48 Solu-Medrol 40 Mg IV 01/09/18 14:29 40 mg Q8HT YESENIA Administration Metoprolol Succinate 12.5 mg 12/10/17 22:00 12/17/17 11:54 Toprol-Xl 25mg Tablets PO 01/09/18 21:59 12.5 mg BID YESENIA Administration Nitroglycerin 0.4 mg 12/10/17 14:21 Nitrostat 0.4 Mg Tablet SL 01/09/18 14:20 .Q5MIN PRN CHEST PAIN Ondansetron HCl 4 mg 12/10/17 14:21 Zofran 4 Mg/2 Ml Vial IV 01/09/18 14:20 Q4H PRN PRN NAUSEA/VOMITING Potassium Chloride 10 meq 12/11/17 10:00 12/17/17 11:56 Klor Con 10 Meq PO 01/10/18 09:59 10 meq DAILY YESENIA Administration Ranolazine 500 mg 12/10/17 22:00 12/17/17 11:56 Ranexa 500 Mg PO 01/09/18 21:59 500 mg BID YESENIA Administration Senna/Docusate Sodium 2 udtab 12/10/17 14:21 Senokot-S Tablet PO 01/09/18 14:20 BID PRN PRN CONSTIPATION Simvastatin 20 mg 12/10/17 22:00 12/16/17 20:56 Zocor 20mg PO 01/09/18 21:59 20 mg HS YESENIA Administration Sodium Chloride 10 ml 12/10/17 14:00 12/17/17 11:59 Sodium Chloride 0.9% 10 Ml Flush Syringe IV 01/09/18 13:59 10 ml Q8HT YESENIA Administration Sodium Chloride 10 ml 12/10/17 14:33 Sodium Chloride 0.9% 10 Ml Flush Syringe IV 01/09/18 14:32 PRN PRN Tamsulosin HCl 0.4 mg 12/11/17 10:00 12/17/17 11:56 Flomax 0.4 Mg PO 01/10/18 09:59 0.4 mg DAILY YESENIA Administration Tuberculin PPD 5 unit 12/21/17 10:00 Aplisol ID 12/21/17 10:01 DAILY YESENIA Discontinued Medications Generic Name Dose Route Start Last Admin Trade Name Freq PRN Reason Stop Dose Admin Albuterol/Ipratropium Confirm 12/10/17 14:31 Duoneb 0.5-3 Mg/3 Ml Neb Administered 12/10/17 14:32 Dose 3 ml IH .STK-MED ONE Levofloxacin/Dextrose 750 mg in 150 mls @ 100 mls/hr 12/10/17 22:00 12/12/17 21:23 Levofloxacin 750mg/150ml D5w IV 01/09/18 21:59 100 mls/hr Q24H22 YESENIA Administration Morphine Sulfate 2 mg 12/10/17 14:21 Morphine Sulfate 2 Mg Inj IV 12/15/17 12:00 .Q15MIN PRN PRN CHEST PAIN Tuberculin PPD 5 unit 12/11/17 10:00 12/11/17 09:10 Aplisol ID 12/11/17 10:01 5 unit DAILY YESENIA Administration Intake & Output (Last 24 hours) 12/15/17 12/16/17 12/17/17 12/18/17 11:59 11:59 11:59 11:59 Intake Total 1320 1560 1560 Output Total 500 Balance 820 1560 1560 Weight 79 kg Orders (Last 24 hours) Category Date Time Status Discharge Routine Discharge 12/17/17 Ordered BMP Routine Lab 12/24/17 05:00 Ordered Tuberculin,Purif.prot.deriv. [Aplisol] Med 12/21/17 10:00 Active 5 unit ID DAILY Patient Care Notes (Last 24 hours) 12/17/17 10:25 Case Management Note by Lea Brock REFERRAL TO [facility]ARDIOPULMONARY REHAB HAND DELIVERED TO DAISY LEYVA RN AT THIS TIME. PLAN WILL BE FOR PT TO TRANSITION TO CARDIOPULM REHAB ONCE DISCHARGED FROM HOME HEALTHCARE SERVICES. Initialized on 12/17/17 10:25 - END OF NOTE 12/17/17 10:23 Case Management Note by Lea Brock REFERRAL FAXED TO [facility] PER PT REQUEST OF PROVIDER. REPORTS THAT HIS WORKS THERE. SPOKE WITH MARIAN TO REPORT REFERRAL AND DISCHARGE TO HOME TODAY. Initialized on 12/17/17 10:23 - END OF NOTE - Vitals & Intake/Output Vital Signs: Vital Signs Temperature 98.2 F 12/17/17 07:36 Pulse Rate 81 12/17/17 10:42 Respiratory Rate 14 12/17/17 12:00 Blood Pressure 187/102 12/17/17 07:36 O2 Sat by Pulse Oximetry 95 12/17/17 10:42 Oxygen-Last Documented O2 Percentage 2 Liters = 28% Intake & Output: Intake & Output 12/15/17 12/16/17 12/17/17 12/18/17 11:59 11:59 11:59 11:59 Intake Total 1320 1560 1560 Output Total 500 Balance 820 1560 1560 Weight 79 kg - Lab Result Diagrams: 12/13/17 16:50 12/13/17 16:50 Lab Results-Last 24 Hrs: Accuchecks Date 12/17/17 Date 12/17/17 Date 12/16/17 Date 12/16/17 Time 12:02 Time 07:30 Time 21:00 Time 16:35 Accucheck Value: 132 Accucheck Value: 212 Accucheck Value: 212 Accucheck Value: 110 Micro Results-Entire Visit: Accuchecks Date 12/17/17 Date 12/17/17 Date 12/16/17 Date 12/16/17 Time 12:02 Time 07:30 Time 21:00 Time 16:35 Accucheck Value: 132 Accucheck Value: 212 Accucheck Value: 212 Accucheck Value: 110 - Procedures and Test Procedures and Tests throughout Hospitalization: Therapy Orders & Screens 12/10/17 14:17 PT Eval & Treat (MD Order) ROUTINE Reason for Eval:: weakness Diagnosis: deconditiontg r/t [facility] copd- recurrent episode 12/10/17 14:28 Respiratory Nebulizer Q4H Comment: Diagnosis: deconditiontg r/t [facility] copd- recurrent episode 12/10/17 14:29 Oxygen NASAL CANNULA 3 lpm Comment: Diagnosis: deconditiontg r/t [facility] copd- recurrent episode Peak Expiratory Flow Rate DAILY Comment: Reason For Exam: Diagnosis: deconditiontg r/t [facility] copd- recurrent episode 12/10/17 16:00 RT Miscellaneous Order ROUTINE Comment: Physician Instructions: Reason For Exam: Diagnosis: deconditiontg r/t [place] copd- recurrent episode 12/11/17 16:22 Modified Barium Swallow Eval .as ordered Comment: Physician Instructions: Reason For Exam: ST Eval & Treat ( Order) .as ordered Comment: Physician Instructions: Reason For Exam: Evaluate: Yes Treat: Yes Reason for Eval: dysphagia dysphagia Diagnosis: deconditiontg r/t [facility] copd- recurrent episode Discharge Exam General Appearance: no apparent distress, alert Neurologic Exam: alert, oriented x 3, cooperative, normal mood/affect, nml cerebellar function, sensation nml, No motor deficits Skin Exam: normal color, warm, dry Eye Exam: PERRL, EOMI, eyes nml inspection Ears, Nose, Throat Exam: normal ENT inspection, pharynx normal, moist mucous membranes Neck Exam: normal inspection, non-tender, supple, full range of motion Respiratory Exam: normal breath sounds, lungs clear, No respiratory distress Cardiovascular Exam: regular rate/rhythm, normal heart sounds Gastrointestinal/Abdomen Exam: soft, No tenderness, No mass Extremity Exam: normal inspection, normal range of motion Back Exam: normal inspection, normal range of motion, No CVA tenderness, No vertebral tenderness Male Genitalia Exam: deferred Rectal Exam: deferred Final Diagnosis/Problem List - Final Discharge Diagnosis/Problem (1) COPD (chronic obstructive pulmonary disease) Current Visit: Yes Status: Chronic (2) CAD (coronary artery disease) Current Visit: Yes Status: Chronic (3) Vascular disease of abdomen Current Visit: Yes Status: Chronic (4) COPD exacerbation Current Visit: Yes Status: Resolved - Discharge Discharge Date: 12/17/17 Disposition: Home, Self-Care Condition: Stable Prescriptions: Continue Albuterol 8 gm Mdi Hfa [Ventolin Hfa MDI] 2 puffs IH QID HydrALAzine HCL 25 MG TAB [Apresoline 25 MG TABLET] 50 mg PO BID Alprazolam [Xanax 0.25 mg] 1 tab PO QHS Metoprolol Succinate [Toprol Xl] 12.5 mg PO BID Alprazolam 0.25 mg [xanAX 0.25 MG] 0.25 mg PO [id number] PRN PRN Reason: Anxiety Tamsulosin HCl 0.4 mg [Flomax 0.4 MG] 0.4 mg PO HS Simvastatin 40 mg [Zocor 40 mg] 40 mg PO HS Ranolazine 500 MG [Ranexa 500 MG] 500 mg PO BID Potassium Chloride 10 Meq Tab* [Klor Con 10 MEQ] 10 meq PO DAILY Niacin 500 mg [Niaspan 500 mg] 500 mg PO HS Isosorbide Mononitrate 30 mg [Imdur 30 MG] 30 mg PO DAILY Enalapril Maleate 10 mg [Vasotec 10 MG] 10 mg PO DAILY Albuterol/Ipratropium 3ml Neb* [DUONEB 0.5-3 MG/3 ml Neb] 3 ml IH QID Aspirin EC 81 mg [Ecotrin 81 mg] 81 mg PO DAILY Allopurinol 100 mg [Zyloprim 100 mg] 100 mg PO DAILY Nitroglycerin 0.4 mg Tablet [Nitrostat 0.4 MG Tablet] 0.4 mg SL Q5MIN PRN MR X 3 PRN PRN Reason: Chest Pain Fluoxetine HCl 20 mg [Prozac 20 MG] 20 mg PO DAILY Docusate Sodium [Stool Softener] 50 mg PO BID Instructions: Exacerbation of COPD (DC), Breathing Exercises Additional Instructions: [facility] WILL CALL YOU TO SET UP YOUR FIRST VISIT. ALSO, THE REFERRAL HAS BEEN MADE TO CARDIOPULMONARY REHAB. YOU WILL TRANSITION TO CARDIOPULMONARY REHAB AFTER A FEW WEEKS OF HOME HEALTH CARE VISITS FOR NURSING AND PHYSICAL THERAPY. Follow up with: SHIVA EARL [ACTIVE STAFF] - 12/29/17 3:45 pm CAMACHO EARL [Primary Care Provider] - 12/24/17 2:45 pm Forms: Discharge Instructions
[2017-12-17 14:42] VITALS: PULSE 92
[2017-12-21] MEDS ORDERED: Aplisol ID SCH (10:00)
== END 2017-12-17 15:15 | disposition home or self-care (01) | DRG 190 ==
LOC: MED SURG 13:44
PROVIDERS: ADMIT General Practice; ATTEND General Practice
DX: J44.1 Chronic obstructive pulmonary disease with (acute) exacerbation (principal); J18.0 Bronchopneumonia, unspecified organism; I25.810 Atherosclerosis of coronary artery bypass graft(s) without angina pectoris; I10 Essential (primary) hypertension; R53.81 Other malaise; M19.90 Unspecified osteoarthritis, unspecified site; F41.8 Other specified anxiety disorders; I73.9 Peripheral vascular disease, unspecified; E78.00 Pure hypercholesterolemia, unspecified; I25.2 Old myocardial infarction; R09.02 Hypoxemia; R13.10 Dysphagia, unspecified; I99.9 Unspecified disorder of circulatory system; Z79.899 Other long term (current) drug therapy
CPT/HCPCS: 36415; 74230; 80048; 82962; 85027; 94150; 94640; 94760; J1650; J1956; J2920; 97110-GP; A9270-GY

== ENCOUNTER 2018-02-05 15:17 | Emergency (ER) | payer MEDICARE ==
[2018-02-05] MEDS ORDERED: DUONEB 0.5-3 MG/3 ml Neb IH ONE ×2 (15:55→16:06)
[2018-02-05] MEDS ORDERED: solu-MEDROL 125 MG IV ONE (15:55)
[2018-02-05] MEDS ORDERED: solu-MEDROL 125 MG ONE (16:06)
--- NOTE | 2018-02-05 16:06 | ERPHSYRPT ---
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 pt arrives with noted edema to lucas ue amd mild edema to le. pt pale/w/d resp easy at this time only mild work of breathing noted on arrival Timing/Duration: yesterday Activities at Onset: none Severity of Dyspnea-Max: moderate Severity of Dyspnea-Current: moderate Possible Cause: frequent episodes Modifying Factors: Improves With: nothing Associated Symptoms: constant, cough, wheezing Hx Tetanus, Diphtheria Vaccination/Date Given: Yes Hx Influenza Vaccination/Date Given: Yes Hx Pneumococcal Vaccination/Date Given: Yes <CELE DUMONT - Last Filed: 02/06/18 10:39> - History of Present Illness Time Seen by Provider: 02/05/18 15:55 Physician History: Pt started c/o increasing dyspnea since yesterday. He has been wheezing all night, according to his . He denies recent cold symptoms, fever, chills, chest pain, but vomited once yesterday, when coughing. He also denies chest pain , leg swelling, other complaints. He used his nebulizer but with no relief, denies recent antibiotics or steroids. (CELE DUMONT) Allergies/Adverse Reactions: penicillin G Allergy (Mild, Verified 12/10/17 14:00) hydrocodone bitartrate [From [place]] Adverse Reaction (Verified 12/10/17 14:00) Home Medications: ALPRAZolam [Xanax 0.25 mg] 1 tab PO QHS 08/18/17 [History] Albuterol 8 gm Mdi Hfa [Ventolin Hfa MDI] 2 puffs IH QID 08/18/17 [History ] Albuterol/Ipratropium 3ml Neb* [DUONEB 0.5-3 MG/3 ml Neb] 3 ml IH QID [History] Allopurinol 100 mg [Zyloprim 100 mg] 100 mg PO DAILY 08/18/17 [History] Alprazolam 0.25 mg [xanAX 0.25 MG] 0.25 mg PO [id number] PRN 08/18/17 [ History] Aspirin EC 81 mg [Ecotrin 81 mg] 81 mg PO DAILY 08/18/17 [History] Enalapril Maleate 10 mg [Vasotec 10 MG] 10 mg PO DAILY 08/18/17 [History] HydrALAzine HCL 25 MG TAB [Apresoline 25 MG TABLET] 50 mg PO BID 08/18/17 [History] Isosorbide Mononitrate 30 mg [Imdur 30 MG] 30 mg PO DAILY 08/18/17 [History ] Metoprolol Succinate [Toprol Xl] 12.5 mg PO BID 08/18/17 [History] Niacin 500 mg [Niaspan 500 mg] 500 mg PO HS 08/18/17 [History] Nitroglycerin 0.4 mg Tablet [Nitrostat 0.4 MG Tablet] 0.4 mg SL Q5MIN PRN MR X 3 PRN 08/18/17 [History] Potassium Chloride 10 Meq Tab* [Klor Con 10 MEQ] 10 meq PO DAILY 08/18/17 [ History] Ranolazine 500 MG [Ranexa 500 MG] 500 mg PO BID 08/18/17 [History] Simvastatin 40 mg [Zocor 40 mg] 40 mg PO HS 08/18/17 [History] Tamsulosin HCl 0.4 mg [Flomax 0.4 MG] 0.4 mg PO HS 08/18/17 [History] Fluoxetine HCl 20 mg [Prozac 20 MG] 20 mg PO DAILY 12/06/17 [History] Docusate Sodium [Stool Softener] 50 mg PO BID 12/07/17 [History] - Review of Systems Constitutional: No Symptoms Respiratory: Cough, Dyspnea, Wheezing Cardiac: No Symptoms Abdominal/Gastrointestinal: Vomiting All Other Systems: Reviewed and Negative <CELE DUMONT - Last Filed: 02/06/18 10:39> - Past Medical History Pertinent Past Medical History: Yes Neurological History: Stroke ENT History: No Pertinent History Cardiac History: Aneurysm, Angina, Coronary Artery Disease, High Cholesterol, Hypertension, Myocardial Infarction ([place]), Peripheral Vascular Disease Respiratory History: COPD Endocrine Medical History: No Pertinent History Musculoskeletal History: Arthritis GI Medical History: No Pertinent History History: No Pertinent History Psycho-Social History: Anxiety, Depression Male Reproductive Disorders: No Pertinent History Other Medical History: GOUT - Past Surgical History Past Surgical History: Yes Neuro Surgical History: No Pertinent History Cardiac: CABG, Cardiac Catheterization, Cardiac Stent, Vascular Surgery Respiratory: No Pertinent History Gastrointestinal: Appendectomy, Hernia Repair Genitourinary: No Pertinent History Musculoskeletal: No Pertinent History Male Surgical History: No Pertinent History Other Surgical History: SEVERAL STENTS-cardiac stent x2, femoral stent x1. Double Aneurysm REPAIR JANUARY [id number], quadruple bypass - Social History Smoking Status: Former smoker How long have you smoked: 57 years Exposure to second hand smoke: No Drug Use: none Patient Lives Alone: No <CELE DUMONT - Last Filed: 02/06/18 10:39> - Physical Exam General Appearance: no apparent distress Eye Exam: eyes nml inspection Ears, Nose, Throat Exam: normal ENT inspection Neck Exam: normal inspection, non-tender, supple, No carotid bruit, No JVD Respiratory Exam: diminished breath sounds, rhonchi, wheezing (diffuse, bilateral.), No chest tenderness Cardiovascular/Chest Exam: normal heart sounds, regular rate/rhythm, murmur, normal peripheral pulses, No edema, No JVD Abdominal/Gastrointestinal Exam: soft, normal bowel sounds, No tenderness, No distention, No mass Extremity Exam: non-tender, normal inspection, no calf tenderness, no pedal edema, No brittni's sign Peripheral Pulses Exam: dorsalis-pedis (R): 2+, dorsalis-pedis (L): 2+ Neurologic Exam: alert, oriented x 3 Skin Exam: normal color, warm, dry, No rash Lymphatic Exam: No adenopathy SpO2 Interpretation: normal SpO2: 93 Oxygen Delivery: Nasal Cannula <CELE DUMONT - Last Filed: 02/06/18 10:39> - Nursing Vital Signs Nursing Vital Signs: Initial Vital Signs Temperature 98.0 F 02/05/18 15:19 Pulse Rate 71 02/05/18 15:19 Respiratory Rate 22 02/05/18 15:19 Blood Pressure 91/57 02/05/18 15:19 O2 Sat by Pulse Oximetry 93 L 02/05/18 15:19 Pain Scale Pain Intensity 0 - Course Nursing assessment & vital signs reviewed: Yes EKG Interpreted by Me: RATE (68/min), NORMAL AXIS, NORMAL INTERVALS, Non- specific ST Changes, Other (inferior Q waves) <AUDREYINDUCELE - Last Filed: 02/06/18 10:39> Ordered Tests: Active Orders 24 hr Category Date Time Status Tobacco Wetter STAT Care 02/05/18 15:57 Active EKG-ER Only STAT Care 02/05/18 15:55 Active IV Insertion STAT Care 02/05/18 15:55 Active Oxygen-ED Only NASAL CANNULA 2 lpm Care 02/05/18 15:55 Active CHEST 2 VIEWS (PA AND LAT) Stat Exams 02/05/18 15:56 Completed CHEST WITH CONTRAST [CT] Stat Exams 02/05/18 17:23 Completed BLOOD CULTURE Stat Lab 02/05/18 16:20 Received CBC W DIFF Stat Lab 02/05/18 15:55 Completed CMP Stat Lab 02/05/18 15:55 Completed CULTURE,SPUTUM Stat Lab 02/05/18 18:30 Results D-DIMER QUANTITATION Stat Lab 02/05/18 15:55 Completed Lactic Acid Stat Lab 02/05/18 15:55 Completed MAGNESIUM Stat Lab 02/05/18 15:55 Completed NT PRO BNP Stat Lab 02/05/18 15:55 Completed PROTIME WITH INR Stat Lab 02/05/18 15:55 Completed PTT Stat Lab 02/05/18 15:55 Completed TROPONIN Q3H Lab 02/05/18 15:55 Completed TROPONIN Q3H Lab 02/05/18 19:00 Completed Respiratory Nebulizer STAT RT 02/05/18 15:57 Completed Medication Summary Discontinued Medications Generic Name Dose Route Start Last Admin Trade Name Freq PRN Reason Stop Dose Admin Albuterol/Ipratropium 3 ml 02/05/18 15:55 02/05/18 16:25 Duoneb 0.5-3 Mg/3 Ml Neb IH 02/05/18 15:56 3 ml STAT ONE Administration Albuterol/Ipratropium Confirm 02/05/18 16:06 Duoneb 0.5-3 Mg/3 Ml Neb Administered 02/05/18 16:07 Dose 3 ml IH .STK-MED ONE Methylprednisolone Sodium Succinate 125 mg 02/05/18 15:55 02/05/18 16:07 Solu-Medrol 125 Mg IV 02/05/18 15:56 125 mg STAT ONE Administration Methylprednisolone Sodium Succinate Confirm 02/05/18 16:06 Solu-Medrol 125 Mg Administered 02/05/18 16:07 Dose 125 mg .ROUTE .STK-MED ONE Lab/Rad Data: Laboratory Result Diagrams 02/05/18 15:55 02/05/18 15:55 Laboratory Results 02/05/18 02/05/18 02/05/18 Range/Units 19:00 16:20 15:55 WBC (4.0-10.5) K/mm3 RBC (4.1-5.6) M/mm3 Hgb (12.5-18.0) gm/dl Hct (42-50) % MCV (78-100) fl MCH (26-32) pg MCHC (32-36) g/dl RDW (11.5-14.0) % Plt Count (150-450) K/mm3 MPV (6-9.5) fl Gran % (36.0-66.0) % Eos # (Auto) (0-0.5) Absolute Lymphs (auto) (1.0-4.6) Absolute Monos (auto) (0.0-1.3) Lymphocytes % (24.0-44.0) % Monocytes % (0.0-12.0) % Eosinophils % (0.00-5.0) % Basophils % (0.0-0.4) % Absolute Granulocytes (1.4-6.9) Basophils # (0-0.4) PT (8.83-12.87) SECONDS INR (0.8-3.0) APTT (24.1-36.1) SECONDS D-Dimer (215-500) ng/mL Sodium (137-145) mmol/L Potassium (3.5-5.1) mmol/L Chloride (98-107) mmol/L Carbon Dioxide (22-30) mmol/L Anion Gap (5-15) MEQ/L BUN (9-20) mg/dL Creatinine (0.66-1.25) mg/dL Estimated GFR ML/MIN Glucose (74-106) mg/dL Lactic Acid (0.4-2.0) Calcium (8.4-10.2) mg/dL Magnesium (1.6-2.3) mg/dL Total Bilirubin (0.2-1.3) mg/dL AST (17-59) U/L ALT (0-50) U/L Alkaline Phosphatase (38-126) U/L Troponin I < 0.012 < 0.012 (0.000-0.034) ng/mL NT-Pro-B Natriuret Pep (0-900) pg/mL Serum Total Protein (6.3-8.2) g/dL Albumin (3.5-5.0) g/dL Influenza Type A Ag NEGATIVE (NEGATIVE) Influenza Type B Ag NEGATIVE (NEGATIVE) RSV (PCR) NEGATIVE (Negative) 02/05/18 02/05/18 02/05/18 Range/Units 15:55 15:55 15:55 WBC (4.0-10.5) K/mm3 RBC (4.1-5.6) M/mm3 Hgb (12.5-18.0) gm/dl Hct (42-50) % MCV (78-100) fl MCH (26-32) pg MCHC (32-36) g/dl RDW (11.5-14.0) % Plt Count (150-450) K/mm3 MPV (6-9.5) fl Gran % (36.0-66.0) % Eos # (Auto) (0-0.5) Absolute Lymphs (auto) (1.0-4.6) Absolute Monos (auto) (0.0-1.3) Lymphocytes % (24.0-44.0) % Monocytes % (0.0-12.0) % Eosinophils % (0.00-5.0) % Basophils % (0.0-0.4) % Absolute Granulocytes (1.4-6.9) Basophils # (0-0.4) PT 11.9 (8.83-12.87) SECONDS INR 1.07 (0.8-3.0) APTT 34.9 (24.1-36.1) SECONDS D-Dimer 3544.09 H* (215-500) ng/mL Sodium 143 (137-145) mmol/L Potassium 3.7 (3.5-5.1) mmol/L Chloride 105 (98-107) mmol/L Carbon Dioxide 27 (22-30) mmol/L Anion Gap 13.9 (5-15) MEQ/L BUN 18 (9-20) mg/dL Creatinine 1.10 (0.66-1.25) mg/dL Estimated GFR > 60.0 ML/MIN Glucose 149 H (74-106) mg/dL Lactic Acid 1.5 (0.4-2.0) Calcium 9.6 (8.4-10.2) mg/dL Magnesium 1.6 (1.6-2.3) mg/dL Total Bilirubin 0.50 (0.2-1.3) mg/dL AST 17 (17-59) U/L ALT 16 (0-50) U/L Alkaline Phosphatase 88 (38-126) U/L Troponin I (0.000-0.034) ng/mL NT-Pro-B Natriuret Pep 153 (0-900) pg/mL Serum Total Protein 6.5 (6.3-8.2) g/dL Albumin 3.9 (3.5-5.0) g/dL Influenza Type A Ag (NEGATIVE) Influenza Type B Ag (NEGATIVE) RSV (PCR) (Negative) 02/05/18 Range/Units 15:55 WBC 8.1 (4.0-10.5) K/mm3 RBC 4.16 (4.1-5.6) M/mm3 Hgb 13.2 (12.5-18.0) gm/dl Hct 39.9 L (42-50) % MCV 95.9 (78-100) fl MCH 31.7 (26-32) pg MCHC 33.1 (32-36) g/dl RDW 14.0 (11.5-14.0) % Plt Count 123 L (150-450) K/mm3 MPV 9.4 (6-9.5) fl Gran % 73.1 H (36.0-66.0) % Eos # (Auto) 0.35 (0-0.5) Absolute Lymphs (auto) 1.28 (1.0-4.6) Absolute Monos (auto) 0.53 (0.0-1.3) Lymphocytes % 15.7 L (24.0-44.0) % Monocytes % 6.5 (0.0-12.0) % Eosinophils % 4.3 (0.00-5.0) % Basophils % 0.4 (0.0-0.4) % Absolute Granulocytes 5.95 (1.4-6.9) Basophils # 0.03 (0-0.4) PT (8.83-12.87) SECONDS INR (0.8-3.0) APTT (24.1-36.1) SECONDS D-Dimer (215-500) ng/mL Sodium (137-145) mmol/L Potassium (3.5-5.1) mmol/L Chloride (98-107) mmol/L Carbon Dioxide (22-30) mmol/L Anion Gap (5-15) MEQ/L BUN (9-20) mg/dL Creatinine (0.66-1.25) mg/dL Estimated GFR ML/MIN Glucose (74-106) mg/dL Lactic Acid (0.4-2.0) Calcium (8.4-10.2) mg/dL Magnesium (1.6-2.3) mg/dL Total Bilirubin (0.2-1.3) mg/dL AST (17-59) U/L ALT (0-50) U/L Alkaline Phosphatase (38-126) U/L Troponin I (0.000-0.034) ng/mL NT-Pro-B Natriuret Pep (0-900) pg/mL Serum Total Protein (6.3-8.2) g/dL Albumin (3.5-5.0) g/dL Influenza Type A Ag (NEGATIVE) Influenza Type B Ag (NEGATIVE) RSV (PCR) (Negative) <LEONCIO PRECIADO - Last Filed: 02/05/18 19:39> - Progress Progress: improved Air Movement: good <CELE DUMONT - Last Filed: 02/06/18 10:39> - Progress Progress Note: 02/05/18 19:[address] chest report patient has been stable, case discussed in details with Dr Preciado, he will complete his dispension. (CELE DUMONT) - Departure Departure Disposition: Home Critical Care Time: Yes Critical Care Time(excluding separately billable procedures): 30-74 minutes <LEONCIO PRECIADO - Last Filed: 02/05/18 19:39> - Departure Time of Disposition: 19:12 Critical Care Time: No <CELE DUMONT - Last Filed: 02/06/18 10:39> - Departure Clinical Impression: COPD (chronic obstructive pulmonary disease) Qualifiers: COPD type: chronic bronchitis Chronic bronchitis type: unspecified Qualified Code(s): J42 - Unspecified chronic bronchitis Condition: Stable Referrals: CAMACHO EARL [Primary Care Provider] - Instructions: Chronic Obstructive Pulmonary Disease Additional Instructions: STEVNE ESPINOSAARNAUD MANRIQUEZ was seen on 02/05/18 n the Emergency Room. At that time you were treated for an emergent condition, during your visit Laboratory, Radiology and/or other procedures may have been ordered. It is very important that you follow-up with your Primary Care Physician CAMACHO EARL within the next 24-48 hours to review your Emergency Room visit and the final results of testing that was ordered. Some test results such as Urine Cultures, Blood Cultures, and other cultures if ordered will not be finalized for 24-48 hours. If you do not have a Primary Care Provider please call the medical records department at [phone] to obtain a copy of your results or you may sign into our patient portal to obtain these results by visiting us @ [email or web address] and completing the following steps: 1. Click on the Patient Portal link 2. Click the Patient Self Enrollment Link to complete the enrollment form and entering your 3. Once the enrollment form is completed you will receive an email with a temporary ID and password at the email address you provided. 4. Next choose a user name and password. Your user name must be at least 4 characters long and your password must be at least 4 characters long. 5. Choose a security question from the list and provide your answer to the question. If you already have signed into the Health Portal you may access your Health Care Information 10/05 by the following steps: 1. Login to our website @ [email or web address] 2. Enter your original user name and password. FAQS The [facility] Health Portal is an online tool that contains your Lab Results, Radiology Reports, Visit History, Discharge Instructions and Health Summary Lab and Radiology Results will not be available for 72 hours on the portal. The Portal is a secure site, passwords are encryted and URLs are re-written so they cannot be copied and pasted. You and authorized family members are the only ones who can access your Portal. Also there is a timeout feature that protects your information if you leave the Portal page open. If you have technical difficulty please use the Contact Us link on the page this will allow you to submit any questions you have regarding the Portal or you may contact the Medical Record Department at [phone].
[2018-02-05 16:14] LABS: INR 1.07 (0.8-3.0)
[2018-02-05 16:16] LABS: PTT 34.9 SECONDS (24.1-36.1)
[2018-02-05 16:21] LABS: ALBUMIN 3.9 g/dL (3.5-5.0); ALKALINE PHOSPHATASE 88 U/L (38-126); ANION GAP 13.9 MEQ/L (5-15); BLOOD UREA NITROGEN 18 mg/dL (9-20); CHLORIDE 105 mmol/L (98-107); Calcium 9.6 mg/dL (8.4-10.2); Carbon Dioxide 27 mmol/L (22-30); Glucose 149 mg/dL (74-106); Potassium 3.7 mmol/L (3.5-5.1); SGOT/AST 17 U/L (17-59); SGPT/ALT 16 U/L (0-50); SODIUM 143 mmol/L (137-145); Total Protein 6.5 g/dL (6.3-8.2)
[2018-02-05 16:25] LABS: BASOPHIL % 0.4 % (0.0-0.4); Basophil (Absolute #) 0.03 (0-0.4); Eosinophil % 4.3 % (0.00-5.0); Eosinophil (Absolute #) 0.35 (0-0.5); Granulocyte Absolute (ANC) 5.95 (1.4-6.9); Granulocytes % 73.1 % (36.0-66.0); Hematocrit 39.9 % (42-50); Hemoglobin 13.2 gm/dl (12.5-18.0); Lymphocyte (Absolute #) 1.28 (1.0-4.6); Lymphocytes % 15.7 % (24.0-44.0); Mean Cell Volume 95.9 fl (78-100); Mean Corpuscular Hemoglobin 31.7 pg (26-32); Mean Corpuscular Hgb Concent. 33.1 g/dl (32-36); Mean Platelet Volume 9.4 fl (6-9.5); Monocyte (Absolute #) 0.53 (0.0-1.3); Monocytes % 6.5 % (0.0-12.0); Platelet Count 123 K/mm3 (150-450); Red Blood Count 4.16 M/mm3 (4.1-5.6); White Blood Count 8.1 K/mm3 (4.0-10.5)
[2018-02-05 16:29] LABS: NT PRO BNP 153 pg/mL (0-900)
[2018-02-05 16:38] LABS: D-DIMER QUANTITATION 3544.09 ng/mL (215-500)
[2018-02-05 16:57] LABS: INFLUENZA A NEGATIVE (NEGATIVE); INFLUENZA B NEGATIVE (NEGATIVE); RESPIRATORY SYNCTIAL VIRUS NEGATIVE (Negative)
[2018-02-05 20:00] VITALS: BP 135/89; PULSE 67
--- NOTE | 2018-02-05 22:37 | XRAY ---
Indication: Elevated d-dimer. Multiple contiguous axial images obtained through the chest using 80 cc Isovue 370 contrast and PE protocol. Comparison: December 05, 2017. There is satisfactory opacification of the pulmonary arteries. Again no filling defect or pulmonary embolus. Heart is not enlarged again demonstrating CABG surgery. Aorta is normal in course and caliber. No pathologic mediastinal/hilar lymphadenopathy. Examination of the lung parenchyma again demonstrates diffuse pulmonary emphysema, right upper lobe noncalcified micronodule, right midlung calcified granuloma, and minimal bilateral dependent atelectasis. No infiltrate or effusion. Bony thorax intact. Limited upper abdomen again demonstrates fatty liver and right renal cyst. Impression: 1. Again negative pulmonary embolus. No new/acute cardiopulmonary abnormalities. 2. Stable pulmonary emphysema and calcified/noncalcified pulmonary nodules. 3. Stable fatty liver and right renal cyst. Comment: Preliminary interpretation was made by [facility]. No discrepancy. CTDI 13.33
--- NOTE | 2018-02-05 22:39 | XRAY ---
Indication: Short of breath. Comparison: December 05, 2017. PA/lateral chest again hyperinflated and clear. Heart and mediastinal structures within normal limits again with CABG surgery. Bony thorax intact again with mild osteopenia and degenerative changes. Impression: Stable nonacute hyperinflated chest with chronic features.
[2018-02-06 10:40] VITALS: O2SAT 93
== END 2018-02-05 20:00 | disposition home or self-care (01) ==
LOC: ED 15:17
DX: J42 Unspecified chronic bronchitis (principal); R05 Cough; Z79.899 Other long term (current) drug therapy; Z95.1 Presence of aortocoronary bypass graft; Z98.61 Coronary angioplasty status; J44.9 Chronic obstructive pulmonary disease, unspecified; R06.02 Shortness of breath; I25.10 Atherosclerotic heart disease of native coronary artery without angina pectoris
CPT/HCPCS: 36000; 36415; 71046; 71260; 80053; 83605; 83735; 83880; 84484; 85025; 85379; 85610; 85730; 87040; 87070; 87631; 93005; 93041; 94150; 94640; 96374; 99284; J2930; A9270-GY

== ENCOUNTER 2018-02-07 09:15 | Inpatient (IN) | payer MEDICARE ==
[2018-02-07] MEDS ORDERED: DUONEB 0.5-3 MG/3 ml Neb IH ONE ×2 (09:29→09:39)
[2018-02-07] MEDS ORDERED: solu-MEDROL 125 MG IV ONE (09:29)
[2018-02-07] MEDS ORDERED: solu-MEDROL 125 MG ONE (09:35)
--- NOTE | 2018-02-07 09:39 | ERPHSYRPT ---
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 He has been developing increasing SOB, productive cough over the past 3 days, denies chest pain, hemoptysis, fever, vomiting. He underwent detailed evaluation, including CT chest, ruled out PE. He was discharged on PO steroid and Z-fior, reports further worsening despite antibiotics and frequent nebulizer treatments. He called his doctor's office today and was instructed to come here. Timing/Duration: day(s) (3) Activities at Onset: none Severity of Dyspnea-Max: moderate Severity of Dyspnea-Current: moderate Possible Cause: frequent episodes Modifying Factors: Improves With: albuterol nebulizer, coughing Associated Symptoms: constant, cough, loss of appetite, productive cough International travel in last 2 weeks: No Allergies/Adverse Reactions: penicillin G Allergy (Mild, Verified 02/07/18 09:17) hydrocodone bitartrate [From Loda] Adverse Reaction (Verified 02/07/18 09:17) Home Medications: ALPRAZolam [Xanax 0.25 mg] 1 tab PO QHS 08/18/17 [History] Albuterol 8 gm Mdi Hfa [Ventolin Hfa MDI] 2 puffs IH QID 08/18/17 [History ] Albuterol/Ipratropium 3ml Neb* [DUONEB 0.5-3 MG/3 ml Neb] 3 ml IH QID [History] Allopurinol 100 mg [Zyloprim 100 mg] 100 mg PO DAILY 08/18/17 [History] Alprazolam 0.25 mg [xanAX 0.25 MG] 0.25 mg PO [id number] PRN 08/18/17 [ History] Aspirin EC 81 mg [Ecotrin 81 mg] 81 mg PO DAILY 08/18/17 [History] Enalapril Maleate 10 mg [Vasotec 10 MG] 10 mg PO DAILY 08/18/17 [History] HydrALAzine HCL 25 MG TAB [Apresoline 25 MG TABLET] 50 mg PO BID 08/18/17 [History] Isosorbide Mononitrate 30 mg [Imdur 30 MG] 30 mg PO DAILY 08/18/17 [History ] Metoprolol Succinate [Toprol Xl] 12.5 mg PO BID 08/18/17 [History] Niacin 500 mg [Niaspan 500 mg] 500 mg PO HS 08/18/17 [History] Nitroglycerin 0.4 mg Tablet [Nitrostat 0.4 MG Tablet] 0.4 mg SL Q5MIN PRN MR X 3 PRN 08/18/17 [History] Potassium Chloride 10 Meq Tab* [Klor Con 10 MEQ] 10 meq PO DAILY 08/18/17 [ History] Ranolazine 500 MG [Ranexa 500 MG] 500 mg PO BID 08/18/17 [History] Simvastatin 40 mg [Zocor 40 mg] 40 mg PO HS 08/18/17 [History] Tamsulosin HCl 0.4 mg [Flomax 0.4 MG] 0.4 mg PO HS 08/18/17 [History] Fluoxetine HCl 20 mg [Prozac 20 MG] 20 mg PO DAILY 12/06/17 [History] Docusate Sodium [Stool Softener] 50 mg PO BID 12/07/17 [History] Hx Tetanus, Diphtheria Vaccination/Date Given: Yes Hx Influenza Vaccination/Date Given: Yes Hx Pneumococcal Vaccination/Date Given: Yes Immunizations Up to Date: Yes - Review of Systems Constitutional: No Symptoms Respiratory: Cough, Dyspnea, Wheezing Cardiac: No Symptoms Abdominal/Gastrointestinal: Nausea All Other Systems: Reviewed and Negative - Past Medical History Pertinent Past Medical History: Yes Neurological History: Stroke ENT History: No Pertinent History Cardiac History: Aneurysm, Angina, Coronary Artery Disease, High Cholesterol, Hypertension, Myocardial Infarction ([place]), Peripheral Vascular Disease Respiratory History: COPD Endocrine Medical History: No Pertinent History Musculoskeletal History: Arthritis GI Medical History: No Pertinent History History: No Pertinent History Psycho-Social History: Anxiety, Depression Male Reproductive Disorders: No Pertinent History Other Medical History: GOUT - Past Surgical History Past Surgical History: Yes Neuro Surgical History: No Pertinent History Cardiac: CABG, Cardiac Catheterization, Cardiac Stent, Vascular Surgery Respiratory: No Pertinent History Gastrointestinal: Appendectomy, Hernia Repair Genitourinary: No Pertinent History Musculoskeletal: No Pertinent History Male Surgical History: No Pertinent History Other Surgical History: SEVERAL STENTS-cardiac stent x2, femoral stent x1. Double Aneurysm REPAIR JANUARY [id number], quadruple bypass - Social History Smoking Status: Former smoker How long have you smoked: 57 years Exposure to second hand smoke: No Drug Use: none Patient Lives Alone: No - Nursing Vital Signs Nursing Vital Signs: Initial Vital Signs Pulse Rate 65 02/07/18 09:22 Respiratory Rate 28 H 02/07/18 09:22 Blood Pressure 113/62 02/07/18 09:22 O2 Sat by Pulse Oximetry 94 L 02/07/18 09:22 Pain Scale Pain Intensity 0 - Physical Exam General Appearance: no apparent distress Eye Exam: eyes nml inspection Ears, Nose, Throat Exam: normal ENT inspection, normal pharynx Neck Exam: normal inspection, non-tender, supple, No carotid bruit, No JVD Respiratory Exam: airway intact, rhonchi, wheezing (diffuse in all couch), No chest tenderness, No respiratory distress Cardiovascular/Chest Exam: normal heart sounds, regular rate/rhythm, normal peripheral pulses, No murmur, No edema, No JVD Abdominal/Gastrointestinal Exam: soft, normal bowel sounds, No tenderness Extremity Exam: non-tender, No no calf tenderness, No no pedal edema, No brittni' s sign Neurologic Exam: alert, oriented x 3, cooperative, normal mood/affect Skin Exam: normal color, warm, dry, No rash Lymphatic Exam: No adenopathy SpO2 Interpretation: normal SpO2: 94 Oxygen Delivery: Nasal Cannula - Course Nursing assessment & vital signs reviewed: Yes EKG Interpreted by Me: RATE (59/min), Sinus Simeon, NORMAL AXIS, NORMAL INTERVALS , Non-specific ST Changes - Radiology Exams Chest X-ray Interpretation: Reviewed by me, Other (COPD, no infiltrates) Ordered Tests: Active Orders 24 hr Category Date Time Status Machine Operator STAT Care 02/07/18 09:30 Active EKG-ER Only STAT Care 02/07/18 09:29 Active IV Insertion STAT Care 02/07/18 09:29 Active Oxygen-ED Only NASAL CANNULA 2 lpm Care 02/07/18 09:29 Active CHEST 2 VIEWS (PA AND LAT) Stat Exams 02/07/18 09:30 Completed ARTERIAL BLOOD GASES Stat Lab 02/07/18 08:40 Completed BLOOD CULTURE Stat Lab 02/07/18 09:48 Received CBC W DIFF Stat Lab 02/07/18 09:40 Completed CMP Stat Lab 02/07/18 09:40 Completed CULTURE,SPUTUM Stat Lab 02/07/18 09:30 Uncollected Lactic Acid Stat Lab 02/07/18 08:40 Completed MAGNESIUM Stat Lab 02/07/18 09:40 Completed Manual Differential NC Stat Lab 02/07/18 09:40 Completed NT PRO BNP Stat Lab 02/07/18 09:40 Completed PROTIME WITH INR Stat Lab 02/07/18 09:40 Completed PTT Stat Lab 02/07/18 09:40 Completed TROPONIN Q3H Lab 02/07/18 09:40 Completed TROPONIN Q3H Lab 02/07/18 12:30 Ordered TROPONIN Q3H Lab 02/07/18 15:30 Ordered TROPONIN Q3H Lab 02/07/18 18:30 Ordered TROPONIN Q3H Lab 02/07/18 21:30 Ordered Respiratory Nebulizer STAT RT 02/07/18 09:31 Completed Medication Summary Generic Name Dose Route Start Last Admin Trade Name Freq PRN Reason Stop Dose Admin Levofloxacin/Dextrose 750 mg in 150 mls @ 100 mls/hr 02/07/18 11:51 Levofloxacin 750mg/150ml D5w IV 02/07/18 13:20 STAT STA Discontinued Medications Generic Name Dose Route Start Last Admin Trade Name Freq PRN Reason Stop Dose Admin Albuterol/Ipratropium 3 ml 02/07/18 09:29 02/07/18 09:45 Duoneb 0.5-3 Mg/3 Ml Neb IH 02/07/18 09:30 3 ml STAT ONE Administration Albuterol/Ipratropium Confirm 02/07/18 09:39 Duoneb 0.5-3 Mg/3 Ml Neb Administered 02/07/18 09:40 Dose 3 ml IH .STK-MED ONE Methylprednisolone Sodium Succinate 125 mg 02/07/18 09:29 02/07/18 09:36 Solu-Medrol 125 Mg IV 02/07/18 09:30 125 mg STAT ONE Administration Methylprednisolone Sodium Succinate Confirm 02/07/18 09:35 Solu-Medrol 125 Mg Administered 02/07/18 09:36 Dose 125 mg .ROUTE .STK-MED ONE Lab/Rad Data: Laboratory Result Diagrams 02/07/18 09:40 02/07/18 09:40 Laboratory Results 02/07/18 02/07/18 02/07/18 Range/Units 09:40 09:40 09:40 WBC (4.0-10.5) K/mm3 RBC (4.1-5.6) M/mm3 Hgb (12.5-18.0) gm/dl Hct (42-50) % MCV (78-100) fl MCH (26-32) pg MCHC (32-36) g/dl RDW (11.5-14.0) % Plt Count (150-450) K/mm3 MPV (6-9.5) fl Segmented Neutrophils (36.-66.) % Band Neutrophils (0.0-2.0) % Lymphocytes (Manual) (24-44) % Monocytes (Manual) (0.0-12.0) % Eosinophils (Manual) (0.00-3.0) % Platelet Estimate (NORMAL) RBC Morphology PT 11.4 (8.83-12.87) SECONDS INR 1.02 (0.8-3.0) APTT 32.5 (24.1-36.1) SECONDS Puncture Site pCO2 (35-45) mmHg pO2 (75-100) mmHg Base Excess (-2.0-2.0) O2 Saturation (94-100) g/dF ABG pH (7.35-7.45) ABG HCO3 (22-28) ABG O2 Sat (Measured) (95-100) % Jerome Test A-a Gradient a/A Ratio Hemoglobin Carboxyhemoglobin (0.0-6.9) % THgb Methemoglobin (1.4-1.5) % Potassium 3.8 (3.5-5.1) Temperature C POC O2 Flow Rate % Sodium 146 H (137-145) mmol/L Chloride 108 H (98-107) mmol/L Carbon Dioxide 25 (22-30) mmol/L Anion Gap 16.6 H (5-15) MEQ/L BUN 21 H (9-20) mg/dL Creatinine 1.11 (0.66-1.25) mg/dL Estimated GFR > 60.0 ML/MIN Glucose 108 H (74-106) mg/dL Lactic Acid (0.4-2.0) Calcium 9.5 (8.4-10.2) mg/dL Magnesium 1.8 (1.6-2.3) mg/dL Total Bilirubin 0.50 (0.2-1.3) mg/dL AST 21 (17-59) U/L ALT 20 (0-50) U/L Alkaline Phosphatase 92 (38-126) U/L Troponin I < 0.012 (0.000-0.034) ng/mL NT-Pro-B Natriuret Pep 261 (0-900) pg/mL Serum Total Protein 6.9 (6.3-8.2) g/dL Albumin 4.2 (3.5-5.0) g/dL 02/07/18 02/07/18 Range/Units 09:40 08:40 WBC 12.0 H (4.0-10.5) K/mm3 RBC 4.36 (4.1-5.6) M/mm3 Hgb 13.8 (12.5-18.0) gm/dl Hct 41.8 L (42-50) % MCV 95.9 (78-100) fl MCH 31.7 (26-32) pg MCHC 33.0 (32-36) g/dl RDW 14.5 H (11.5-14.0) % Plt Count 141 L (150-450) K/mm3 MPV 9.1 (6-9.5) fl Segmented Neutrophils 76 H (36.-66.) % Band Neutrophils 2 (0.0-2.0) % Lymphocytes (Manual) 18 L (24-44) % Monocytes (Manual) 3 (0.0-12.0) % Eosinophils (Manual) 1 (0.00-3.0) % Platelet Estimate NORMAL (NORMAL) RBC Morphology NORMAL PT (8.83-12.87) SECONDS INR (0.8-3.0) APTT (24.1-36.1) SECONDS Puncture Site RIGHT RADIAL pCO2 35 (35-45) mmHg pO2 60 L (75-100) mmHg Base Excess -0.6 (-2.0-2.0) O2 Saturation 92.3 L (94-100) g/dF ABG pH 7.43 (7.35-7.45) ABG HCO3 23.2 (22-28) ABG O2 Sat (Measured) 95.4 (95-100) % Jerome Test YES A-a Gradient 96 a/A Ratio 0.38 Hemoglobin 13.3 Carboxyhemoglobin 2.3 (0.0-6.9) % THgb Methemoglobin 0.9 L (1.4-1.5) % Potassium 3.6 (3.5-5.1) Temperature 37.0 C POC O2 Flow Rate 28 % Sodium (137-145) mmol/L Chloride (98-107) mmol/L Carbon Dioxide (22-30) mmol/L Anion Gap (5-15) MEQ/L BUN (9-20) mg/dL Creatinine (0.66-1.25) mg/dL Estimated GFR ML/MIN Glucose (74-106) mg/dL Lactic Acid 1.7 (0.4-2.0) Calcium (8.4-10.2) mg/dL Magnesium (1.6-2.3) mg/dL Total Bilirubin (0.2-1.3) mg/dL AST (17-59) U/L ALT (0-50) U/L Alkaline Phosphatase (38-126) U/L Troponin I (0.000-0.034) ng/mL NT-Pro-B Natriuret Pep (0-900) pg/mL Serum Total Protein (6.3-8.2) g/dL Albumin (3.5-5.0) g/dL - Progress Progress: improved Air Movement: fair Progress Note: 02/07/18 11:[address] Smith discussed all results with patient's current condition, she agreed to admit him for observation on iv Levaquin, patient and his daughter were informed, they agreed. Blood Culture(s) Obtained: No Antibiotics given: Yes Discussed with : Lorene Earl Will see patient in: hospital (observation) Counseled pt/family regarding: lab results, diagnosis, rad results - Departure Time of Disposition: 11:54 Departure Disposition: Observation Clinical Impression: COPD (chronic obstructive pulmonary disease) Qualifiers: COPD type: chronic bronchitis Chronic bronchitis type: simple Qualified Code(s) : J41.0 - Simple chronic bronchitis Condition: Fair Critical Care Time: No Referrals: CAMACHO EARL [Primary Care Provider] - Instructions: Chronic Obstructive Pulmonary Disease
[2018-02-07 09:42] LABS: A-aADO2 96; ABG HEMOGLOBIN 13.3; ABG POTASSIUM 3.6 (3.5-5.1); ARTERIAL BLD GAS O2 SATURATION 95.4 % (95-100); ARTERIAL BLOOD GAS BASE EXCESS -0.6 (-2.0-2.0); ARTERIAL BLOOD GAS FIO2 28 %; ARTERIAL BLOOD GAS PCO2 35 mmHg (35-45); ARTERIAL BLOOD GAS PO2 60 mmHg (75-100); ARTERIAL BLOOD GAS pH 7.43 (7.35-7.45); CARBOXYHEMOGLOBIN 2.3 % THgb (0.0-6.9); HCO3- 23.2 (22-28); HGB O2 SAT 92.3 g/dF (94-100); Lactic Acid 1.7 (0.4-2.0); Methhemoglobin 0.9 % (1.4-1.5); paO2 pAO1 0.38
[2018-02-07 09:43] LABS: ABG SITE RIGHT RADIAL; ALLEN TEST OK? YES
[2018-02-07 09:47] LABS: Hematocrit 41.8 % (42-50); Hemoglobin 13.8 gm/dl (12.5-18.0); Mean Cell Volume 95.9 fl (78-100); Mean Corpuscular Hemoglobin 31.7 pg (26-32); Mean Platelet Volume 9.1 fl (6-9.5); Platelet Count 141 K/mm3 (150-450); Red Blood Count 4.36 M/mm3 (4.1-5.6); Red Cell Distribution Width 14.5 % (11.5-14.0)
[2018-02-07 10:05] LABS: INR 1.02 (0.8-3.0)
[2018-02-07 10:07] LABS: PTT 32.5 SECONDS (24.1-36.1)
--- NOTE | 2018-02-07 10:14 | XRAY ---
Indication: Cough and short of breath. Comparison: CT PE study 2 days ago. PA/lateral chest remains hyperinflated and clear. Heart is not enlarged again with CABG surgery. No new/acute findings.
[2018-02-07 10:23] LABS: ALBUMIN 4.2 g/dL (3.5-5.0); ALKALINE PHOSPHATASE 92 U/L (38-126); ANION GAP 16.6 MEQ/L (5-15); BLOOD UREA NITROGEN 21 mg/dL (9-20); CHLORIDE 108 mmol/L (98-107); Calcium 9.5 mg/dL (8.4-10.2); Carbon Dioxide 25 mmol/L (22-30); Creatinine 1 1.11 mg/dL (0.66-1.25); Glucose 108 mg/dL (74-106); Potassium 3.8 mmol/L (3.5-5.1); SGOT/AST 21 U/L (17-59); SGPT/ALT 20 U/L (0-50); SODIUM 146 mmol/L (137-145); Total Protein 6.9 g/dL (6.3-8.2)
[2018-02-07 10:28] LABS: BAND 2 % (0.0-2.0); Eosinophil 1 % (0.00-3.0); Lymphocytes 18 % (24-44); Monocyte 3 % (0.0-12.0); Neutrophils 76 % (36.-66.); Platelet Estimate NORMAL (NORMAL); Total Cells Counted 100
[2018-02-07 10:31] LABS: NT PRO BNP 261 pg/mL (0-900)
[2018-02-07] MEDS ORDERED: LEVOFLOXACIN 750MG/150ML D5W 750 MG/150 ML BAG IV STA (11:51)
[2018-02-07] MEDS ORDERED: LEVOFLOXACIN 750MG/150ML D5W 750 MG/150 ML BAG IV ONE (11:54)
--- NOTE | 2018-02-07 12:52 | PCM.HP ---
History of Present Illness - Chief Complaint Chief Complaint: Shortness of Breath for 1 week History of Present Illness: Mr.HADLEY ESPINOSA is a 67 year old male. Pt was seen here 2 days ago with similar complaints. He has been developing increasing SOB, productive cough over the past 3 days, denies chest pain, hemoptysis, fever, vomiting. He underwent detailed evaluation, including CT chest, ruled out PE. He was discharged on PO steroid and Z-fior, reports further worsening despite antibiotics and frequent nebulizer treatments. He called his doctor's office today and was instructed to come here. - Review of Systems Constitutional: No Fever, No Chills Eyes: No Symptoms Ears, Nose, & Throat: No Symptoms Respiratory: No Cough, No Short Of Breath Cardiac: No Chest Pain, No Edema, No Syncope Abdominal/Gastrointestinal: No Abdominal Pain, No Nausea, No Vomiting, No Diarrhea Genitourinary Symptoms: No Dysuria Musculoskeletal: No Back Pain, No Neck Pain Skin: No Rash Neurological: No Dizziness, No Focal Weakness, No Sensory Changes Psychological: No Symptoms Endocrine: No Symptoms Hematologic/Lymphatic: No Symptoms Immunological/Allergic: No Symptoms Medications & Allergies Home Medications: Home Medication List ALPRAZolam [Xanax 0.25 mg] 1 tab PO QHS 08/18/17 [History Confirmed 02/07/18] Albuterol 8 gm Mdi Hfa [Ventolin Hfa MDI] 2 puffs IH QID 08/18/17 [ History Confirmed 02/07/18] Albuterol/Ipratropium 3ml Neb* [DUONEB 0.5-3 MG/3 ml Neb] 3 ml IH QID [History Confirmed 02/07/18] Allopurinol 100 mg [Zyloprim 100 mg] 100 mg PO DAILY 08/18/17 [History Confirmed 02/07/18] Alprazolam 0.25 mg [xanAX 0.25 MG] 0.25 mg PO [id number] PRN 08/18/17 [ History Confirmed 02/07/18] Aspirin EC 81 mg [Ecotrin 81 mg] 81 mg PO DAILY 08/18/17 [History Confirmed 02/07/18] Enalapril Maleate 10 mg [Vasotec 10 MG] 10 mg PO DAILY 08/18/17 [History Confirmed 02/07/18] HydrALAzine HCL 25 MG TAB [Apresoline 25 MG TABLET] 50 mg PO BID 08/18/17 [History Confirmed 02/07/18] Isosorbide Mononitrate 30 mg [Imdur 30 MG] 30 mg PO DAILY 08/18/17 [ History Confirmed 02/07/18] Metoprolol Succinate [Toprol Xl] 12.5 mg PO BID 08/18/17 [History Confirmed ] Niacin 500 mg [Niaspan 500 mg] 500 mg PO HS 08/18/17 [History Confirmed ] Nitroglycerin 0.4 mg Tablet [Nitrostat 0.4 MG Tablet] 0.4 mg SL Q5MIN PRN MR X 3 PRN 08/18/17 [History Confirmed 02/07/18] Potassium Chloride 10 Meq Tab* [Klor Con 10 MEQ] 10 meq PO DAILY 08/18/17 [ History Confirmed 02/07/18] Ranolazine 500 MG [Ranexa 500 MG] 500 mg PO BID 08/18/17 [History Confirmed 02/07/18] Simvastatin 40 mg [Zocor 40 mg] 40 mg PO HS 08/18/17 [History Confirmed 02/07/18 ] Tamsulosin HCl 0.4 mg [Flomax 0.4 MG] 0.4 mg PO HS 08/18/17 [History Confirmed 02/07/18] Fluoxetine HCl 20 mg [Prozac 20 MG] 20 mg PO DAILY 12/06/17 [History Confirmed 02/07/18] Docusate Sodium [Stool Softener] 50 mg PO BID 12/07/17 [History Confirmed ] Allergies/Adverse Reactions: Allergies Allergy/AdvReac Type Severity Reaction Status Date / Time penicillin G Allergy Mild Verified 02/07/18 09:17 hydrocodone bitartrate AdvReac Verified 02/07/18 09:17 [From Center] - Past Medical History Past Medical History: Yes Neurological History: Stroke ENT History: No Pertinent History Cardiac History: Aneurysm, Angina, Coronary Artery Disease, High Cholesterol, Hypertension, Myocardial Infarction ([place]), Peripheral Vascular Disease Respiratory History: COPD Endocrine Medical History: No Pertinent History Musculoskelatal History: Arthritis GI Medical History: No Pertinent History History: No Pertinent History Pyscho-Social History: Anxiety, Depression Male Reproductive Disorders: No Pertinent History Comment: GOUT - Past Surgical History Past Surgical History: Yes Neuro Surgical History: No Pertinent History Cardiac History: CABG, Cardiac Catheterization, Cardiac Stent, Vascular Surgery Respiratory Surgery: No Pertinent History GI Surgical History: Appendectomy, Hernia Repair Genitourinary Surgical Hx: No Pertinent History Musculskeletal Surgical Hx: No Pertinent History Male Surgical History: No Pertinent History Other Surgical History: SEVERAL STENTS-cardiac stent x2, femoral stent x1. Double Aneurysm REPAIR JANUARY [id number], quadruple bypass - Social History Smoking Status: Former smoker How long have you smoked: 57 years Exposure to second hand smoke: No Alcohol: None Drug Use: none - Physical Exam Vital Signs: Vital Signs - 24 hr Temp Pulse Resp BP Pulse Ox 02/07/18 12:29 97.5 F 62 126/62 02/07/18 12:26 97.5 F 62 22 126/62 93 L 02/07/18 11:54 94 L 02/07/18 11:50 57 L 20 98/64 93 L 02/07/18 11:40 57 L 20 98/64 93 L 02/07/18 10:50 63 14 100/65 94 L 02/07/18 10:05 70 16 98/57 96 02/07/18 09:45 86 22 95 02/07/18 09:22 65 28 H 113/62 94 L Oxygen-Last 24 hours O2 Percentage 4 Liters = 36% O2 Percentage 4 Liters = 36% O2 Percentage 4 Liters = 36% O2 Percentage 4 Liters = 36% O2 Percentage 2 Liters = 28% O2 Percentage 2 Liters = 28% O2 Percentage 2 Liters = 28% O2 Percentage 2 Liters = 28% General Appearance: no apparent distress, alert Neurologic Exam: alert, oriented x 3, cooperative, normal mood/affect, nml cerebellar function, nml station & gait, sensation nml, No motor deficits Eye Exam: PERRL/EOMI, eyes nml inspection Ears, Nose, Throat Exam: normal ENT inspection, TMs normal, pharynx normal, moist mucous membranes Neck Exam: normal inspection, non-tender, supple, full range of motion Respiratory Exam: normal breath sounds, lungs clear, No respiratory distress Cardiovascular Exam: regular rate/rhythm, normal heart sounds, normal peripheral pulses Gastrointestinal/Abdomen Exam: soft, normal bowel sounds, No tenderness, No mass Back Exam: normal inspection, normal range of motion, No CVA tenderness, No vertebral tenderness Extremity Exam: normal inspection, normal range of motion, pelvis stable Skin Exam: normal color, warm, dry, No rash Lymphatic Exam: No adenopathy Assessment/Plan (1) COPD exacerbation Current Visit: Yes Status: Acute Assessment & Plan: Chief Complaint Diagnosis Shortness of Breath, COPD Exacerbationj Allergies Allergy/AdvReac Type Severity Reaction Status Date / Time penicillin G Allergy Mild Verified 02/07/18 09:17 hydrocodone bitartrate AdvReac Verified 02/07/18 09:17 [From Center] Vital Signs (Last 24 hours) Temp Pulse Resp BP Pulse Ox 02/07/18 12:29 97.5 F 62 126/62 02/07/18 12:26 97.5 F 62 22 126/62 93 L 02/07/18 11:54 94 L 02/07/18 11:50 57 L 20 98/64 93 L 02/07/18 11:40 57 L 20 98/64 93 L 02/07/18 10:50 63 14 100/65 94 L 02/07/18 10:05 70 16 98/57 96 02/07/18 09:45 86 22 95 02/07/18 09:22 65 28 H 113/62 94 L Current Medications Generic Name Dose Route Start Last Admin Trade Name Freq PRN Reason Stop Dose Admin Albuterol/Ipratropium 3 ml 02/07/18 15:00 Duoneb 0.5-3 Mg/3 Ml Neb IH 03/09/18 14:59 Q4HRT YESENIA Famotidine 20 mg 02/07/18 13:00 Pepcid 20 Mg PO 03/09/18 12:59 Q12HT YESENIA Levofloxacin/Dextrose 750 mg in 150 mls @ 100 mls/hr 02/07/18 11:51 02/07/18 11:57 Levofloxacin 750mg/150ml D5w IV 02/07/18 13:20 100 mls/hr STAT STA Administration Levofloxacin/Dextrose 750 mg in 150 mls @ 100 mls/hr 02/08/18 10:00 Levofloxacin 750mg/150ml D5w IV 03/10/18 09:59 Q24H10 [facility] Sodium Chloride 1,000 mls @ 100 mls/hr 02/07/18 12:00 Sodium Chloride 0.45% 1000 Ml IV 03/09/18 11:59 .Q10H [facility] Methylprednisolone Sodium Succinate 80 mg 02/07/18 13:00 Solu-Medrol 125 Mg IV 03/09/18 12:59 Q6HT [facility] Discontinued Medications Generic Name Dose Route Start Last Admin Trade Name Freq PRN Reason Stop Dose Admin Albuterol/Ipratropium 3 ml 02/07/18 09:29 02/07/18 09:45 Duoneb 0.5-3 Mg/3 Ml Neb IH 02/07/18 09:30 3 ml STAT ONE Administration Albuterol/Ipratropium Confirm 02/07/18 09:39 Duoneb 0.5-3 Mg/3 Ml Neb Administered 02/07/18 09:40 Dose 3 ml IH .STK-MED ONE Levofloxacin/Dextrose Confirm 02/07/18 11:54 Levofloxacin 750mg/150ml D5w Administered 02/07/18 11:55 Dose 750 mg in 150 mls @ ud IV .STK-MED ONE Methylprednisolone Sodium Succinate 125 mg 02/07/18 09:29 02/07/18 09:36 Solu-Medrol 125 Mg IV 02/07/18 09:30 125 mg STAT ONE Administration Methylprednisolone Sodium Succinate Confirm 02/07/18 09:35 Solu-Medrol 125 Mg Administered 02/07/18 09:36 Dose 125 mg .ROUTE .STK-MED ONE Intake & Output (Last 24 hours) 02/05/18 02/06/18 02/07/18 02/08/18 11:59 11:59 11:59 11:59 Weight 69.4 kg 70.2 kg Microbiology Results (Last 24 hours) 02/07/18 09:48 Blood Blood Culture Gram Stain - Pending 02/07/18 09:48 Blood Blood Culture - Pending 02/07/18 09:40 Blood Blood Culture Gram Stain - Pending 02/07/18 09:40 Blood Blood Culture - Pending Laboratory Results (Last 24 hours) 02/07/18 02/07/18 02/07/18 09:40 09:40 09:40 WBC RBC Hgb Hct MCV MCH MCHC RDW Plt Count MPV Segmented Neutrophils Band Neutrophils Lymphocytes (Manual) Monocytes (Manual) Eosinophils (Manual) Platelet Estimate RBC Morphology PT 11.4 INR 1.02 APTT 32.5 Puncture Site pCO2 pO2 Base Excess O2 Saturation ABG pH ABG HCO3 ABG O2 Sat (Measured) Jerome Test A-a Gradient a/A Ratio Hemoglobin Carboxyhemoglobin Methemoglobin Potassium 3.8 Temperature POC O2 Flow Rate Sodium 146 H Chloride 108 H Carbon Dioxide 25 Anion Gap 16.6 H BUN 21 H Creatinine 1.11 Estimated GFR > 60.0 Glucose 108 H Lactic Acid Calcium 9.5 Magnesium 1.8 Total Bilirubin 0.50 AST 21 ALT 20 Alkaline Phosphatase 92 Troponin I < 0.012 NT-Pro-B Natriuret Pep 261 Serum Total Protein 6.9 Albumin 4.2 02/07/18 02/07/18 09:40 08:40 WBC 12.0 H RBC 4.36 Hgb 13.8 Hct 41.8 L MCV 95.9 MCH 31.7 MCHC 33.0 RDW 14.5 H Plt Count 141 L MPV 9.1 Segmented Neutrophils 76 H Band Neutrophils 2 Lymphocytes (Manual) 18 L Monocytes (Manual) 3 Eosinophils (Manual) 1 Platelet Estimate NORMAL RBC Morphology NORMAL PT INR APTT Puncture Site RIGHT RADIAL pCO2 35 pO2 60 L Base Excess -0.6 O2 Saturation 92.3 L ABG pH 7.43 ABG HCO3 23.2 ABG O2 Sat (Measured) 95.4 Jerome Test YES A-a Gradient 96 a/A Ratio 0.38 Hemoglobin 13.3 Carboxyhemoglobin 2.3 Methemoglobin 0.9 L Potassium 3.6 Temperature 37.0 POC O2 Flow Rate 28 Sodium Chloride Carbon Dioxide Anion Gap BUN Creatinine Estimated GFR Glucose Lactic Acid 1.7 Calcium Magnesium Total Bilirubin AST ALT Alkaline Phosphatase Troponin I NT-Pro-B Natriuret Pep Serum Total Protein Albumin Orders (Last 24 hours) Category Date Time Status Machine Repairer STAT Care 02/07/18 09:30 Active Code Status Order ROUTINE Care 02/07/18 11:55 Active EKG-ER Only STAT Care 02/07/18 09:29 Active Fall Protocol ROUTINE Care 02/07/18 11:56 Completed IV Care Q6H Care 02/07/18 11:55 Active IV Insertion STAT Care 02/07/18 09:29 Active Oxygen-ED Only NASAL CANNULA 2 lpm Care 02/07/18 09:[address] in Observation ROUTINE Care 02/07/18 11:55 Active Trav Miller, Apply ROUTINE Care 02/07/18 11:55 Active Telemetry ROUTINE Care 02/07/18 11:55 Active Weight,Daily 0600 Care 02/07/18 11:55 Active Cardio-Pulmonary Rehab .as ordered Cons 02/07/18 12:31 Active Cardiac Diet Diet 02/07/18 Lunch Active CHEST 2 VIEWS (PA AND LAT) Stat Exams 02/07/18 09:30 Completed ARTERIAL BLOOD GASES Stat Lab 02/07/18 08:40 Completed BLOOD CULTURE Stat Lab 02/07/18 09:48 Received CBC W DIFF Stat Lab 02/07/18 09:40 Completed CMP Stat Lab 02/07/18 09:40 Completed CULTURE,SPUTUM Stat Lab 02/07/18 09:30 Uncollected Lactic Acid Stat Lab 02/07/18 08:40 Completed MAGNESIUM Stat Lab 02/07/18 09:40 Completed Manual Differential NC Stat Lab 02/07/18 09:40 Completed NT PRO BNP Stat Lab 02/07/18 09:40 Completed PROTIME WITH INR Stat Lab 02/07/18 09:40 Completed PTT Stat Lab 02/07/18 09:40 Completed TROPONIN Q3H Lab 02/07/18 09:40 Completed TROPONIN Q3H Lab 02/07/18 12:42 Received TROPONIN Q3H Lab 02/07/18 15:30 Ordered TROPONIN Q3H Lab 02/07/18 18:30 Ordered TROPONIN Q3H Lab 02/07/18 21:30 Ordered Albuterol/Ipratropium 3ml Neb* [DUONEB 0.5-3 MG/3 ml Med 02/07/18 09:39 Discontinued Neb] 3 ml IH .STK-MED ONE Albuterol/Ipratropium 3ml Neb* [DUONEB 0.5-3 MG/3 ml Med 02/07/18 15:00 Active Neb] 3 ml IH Q4HRT Albuterol/Ipratropium 3ml Neb* [DUONEB 0.5-3 MG/3 ml Med 02/07/18 09:29 Discontinued Neb] 3 ml IH STAT ONE Famotidine 20 mg [Pepcid 20 MG] Med 02/07/18 13:00 Active 20 mg PO Q12HT Levofloxacin [Levofloxacin 750Mg/150Ml D5w] Med 02/08/18 10:00 Active 750 mg in 150 ml IV Q24H10 Levofloxacin [Levofloxacin 750Mg/150Ml D5w] Med 02/07/18 11:51 Active 750 mg in 150 ml IV STAT Levofloxacin [Levofloxacin 750Mg/150Ml D5w] Med 02/07/18 11:54 Discontinued 750 mg in 150 ml IV UD Methylprednis Sod Succ 125 mg* [solu-MEDROL 125 MG] Med 02/07/18 09:35 Discontinued 125 mg .ROUTE .STK-MED ONE Methylprednis Sod Succ 125 mg* [solu-MEDROL 125 MG] Med 02/07/18 09:29 Discontinued 125 mg IV STAT ONE Methylprednis Sod Succ 125 mg* [solu-MEDROL 125 MG] Med 02/07/18 13:00 Active 80 mg IV Q6HT NaCl 0.45% 1000 ml [Sodium Chloride 0.45% 1000 ML] 1, Med 02/07/18 12:00 Active 000 ml IV 100 mls/hr Oxygen NASAL CANNULA 2 lpm RT 02/07/18 11:55 Active Respiratory Nebulizer STAT RT 02/07/18 09:31 Completed Code(s): J44.1 - CHRONIC OBSTRUCTIVE PULMONARY DISEASE W (ACUTE) EXACERBATION (2) COPD (chronic obstructive pulmonary disease) Current Visit: Yes Status: Chronic Qualifiers: COPD type: chronic bronchitis Chronic bronchitis type: simple Qualified Code(s): J41.0 - Simple chronic bronchitis (3) CAD (coronary artery disease) Current Visit: Yes Status: Chronic Qualifiers: Coronary Disease-Associated Artery/Lesion type: [place] artery Code(s): I25.10 - ATHSCL HEART DISEASE OF [place] CORONARY ARTERY W/O ANG PCTRS (4) Vascular disease of abdomen Current Visit: Yes Status: Chronic Code(s): I99.9 - UNSPECIFIED DISORDER OF CIRCULATORY SYSTEM
[2018-02-07] MEDS: Pepcid 20 MG PO SCH (14:18)
[2018-02-07] MEDS: solu-MEDROL 125 MG IV SCH ×2 (14:18→17:53)
[2018-02-07] MEDS: DUONEB 0.5-3 MG/3 ml Neb IH SCH ×3 (14:34→23:50)
--- NOTE | 2018-02-07 14:39 | CONS ---
CONSULT DATE: 02/07/2018 HISTORY: Victor M Phillips is a 67 year-old male with chronic obstructive pulmonary disease, well known to me, who has been hospitalized with complaints of progressive shortness of breath. The patient reports that he was in the emergency room on Wednesday with similar complaints and was sent home. However his symptoms again got worse leading to another emergency room visit. At the time of my evaluation the patient is eating lunch comfortably and voices no new complaints. PAST MEDICAL HISTORY: Positive for chronic obstructive pulmonary disease, anxiety disorder, chronic bronchitis, hypertension, coronary artery disease, hyperlipidemia and prostate enlargement. PAST SURGICAL HISTORY: Cardiac catheterization with stents. He also had femoral stent. Abdominal aneurysm repair in 2016 with quadruple bypass. PERSONAL AND SOCIAL HISTORY: The patient is a smoker. He lives with family. MEDICATIONS: Home and current medications are reviewed. ALLERGIES: PENICILLIN G, HYDROCODONE BITARTRATE. PHYSICAL EXAMINATION: This is an elderly male who appears comfortable but chronically ill. Vital signs are noted. HEENT: Normocephalic. Oral exam unremarkable. NECK: Accessory muscles are mildly prominent. CVS: First and second heart sounds are normal, regular, rhythmic. RESPIRATORY: Shows diminished breath sounds, occasional rhonchi heard. ABDOMEN: Soft. EXTREMITIES: No edema is noted. LABORATORY DATA AND TESTS: White blood cell count 12, hemoglobin 13.8, hematocrit 42, PLT 141,000. International normalized ratio 1.0. The pH 1.43, pCO2 37, pO2 60 on 2 liters nasal cannula. Sodium 146, potassium 3.8, chloride 100, bicarb 25, BUN 21, creatinine 1.1. Chest x-ray showed no acute findings. CT chest negative for pulmonary embolism. ASSESSMENT: This is a 67 year old male admitted with: 1) Acute on chronic hypoxic respiratory failure. 2) Chronic obstructive pulmonary disease with exacerbation. 3) Coronary artery disease. 4) Hypertension. 5) Anxiety. 6) Fragility. RECOMMENDATIONS: The patient has been admitted. Continue IV antibiotics, steroids, bronchodilators, deep venous thrombosis and GI prophylaxis. Steroid taper. The patient's prognosis is poor and he may be appropriate for palliative care. The patient's last known FEV1 was 32% predicted.
[2018-02-07] MEDS: ENOXAPARIN SODIUM SQ SCH (15:42)
[2018-02-07] MEDS ORDERED: xanAX 0.25 MG PO PRN (15:49)
[2018-02-07] MEDS ORDERED: MEDICATION INTERVENTION MC SCH (16:15)
[2018-02-07] MEDS: Apresoline 25 MG TABLET PO SCH (16:31)
--- NOTE | 2018-02-07 16:34 | XRAY ---
Indication: Elevated d-dimer. CHF and CABG surgery. 2-dimensional sonogram and color Doppler imaging of the major venous vessels of the left and right leg was performed. Comparison: December 07, 2017. Again no thrombus seen in the examined deep venous vessels of the left and right leg including greater saphenous veins. Veins demonstrate normal compressibility. Venous waveforms are normal with and without augmentation. Impression: Left and right leg remains negative for DVT.
[2018-02-07] MEDS ORDERED: DUONEB 0.5-3 MG/3 ml Neb IH SCH (17:00)
[2018-02-07] MEDS ORDERED: Ventolin Hfa MDI IH SCH (17:00)
[2018-02-07] MEDS ORDERED: NON-FORMULARY ITEM (Niacin 500 Mg*** [Niaspan 500 Mg***] 500 MG) PO SCH (22:00)
[2018-02-07] MEDS ORDERED: EZETIMIBE PO SCH (22:00)
[2018-02-07] MEDS ORDERED: SIMVASTATIN PO SCH (22:00)
[2018-02-08] MEDS: solu-MEDROL 125 MG IV SCH ×5 (00:19→23:34)
[2018-02-08] MEDS: Apresoline 25 MG TABLET PO SCH ×3 (00:19→16:32)
[2018-02-08] MEDS: Zetia 10 MG PO SCH ×2 (00:22→21:11)
[2018-02-08] MEDS: ZOCOR 20MG PO SCH ×2 (00:22→21:11)
[2018-02-08] MEDS: Ranexa 500 MG PO SCH ×3 (00:23→21:11)
[2018-02-08] MEDS: Flomax 0.4 MG PO SCH ×2 (00:23→21:11)
[2018-02-08] MEDS: NEURONTIN 300 MG PO SCH ×3 (00:23→21:11)
[2018-02-08] MEDS: Lopressor 25MG Tab PO SCH ×3 (00:23→21:11)
[2018-02-08] MEDS: Pepcid 20 MG PO SCH ×3 (00:23→21:11)
[2018-02-08] MEDS: DUONEB 0.5-3 MG/3 ml Neb IH SCH ×6 (03:52→22:51)
[2018-02-08] MEDS: ZYLOPRIM 100 MG PO SCH (08:56)
[2018-02-08] MEDS: Klor Con 10 MEQ PO SCH (08:56)
[2018-02-08] MEDS: ENOXAPARIN SODIUM SQ SCH (08:56)
[2018-02-08] MEDS: Imdur 30 MG PO SCH (08:57)
[2018-02-08] MEDS: Ecotrin 325 MG PO SCH (08:57)
[2018-02-08] MEDS: Colace 100 MG PO SCH (08:57)
[2018-02-08] MEDS: Prozac 20 MG PO SCH (08:57)
[2018-02-08] MEDS: Vasotec 10 MG PO SCH (08:57)
[2018-02-08] MEDS: LEVOFLOXACIN 750MG/150ML D5W 750 MG/150 ML BAG IV SCH (09:02)
--- NOTE | 2018-02-08 09:08 | PCM.NOTE ---
Date and Time: 02/08/18906 Subjective Assessment: still short of breath - Review of Systems Constitutional: No Fever, No Chills Eyes: No Symptoms Ears, Nose, & Throat: No Symptoms Respiratory: No Cough, No Short Of Breath Cardiac: No Chest Pain, No Edema, No Syncope Abdominal/Gastrointestinal: No Abdominal Pain, No Nausea, No Vomiting, No Diarrhea Genitourinary Symptoms: No Dysuria Musculoskeletal: No Back Pain, No Neck Pain Skin: No Rash Neurological: No Dizziness, No Focal Weakness, No Sensory Changes Psychological: No Symptoms Endocrine: No Symptoms Hematologic/Lymphatic: No Symptoms Immunological/Allergic: No Symptoms Objective Exam General Appearance: no apparent distress, alert Neurologic Exam: alert, oriented x 3, cooperative, normal mood/affect, nml cerebellar function, sensation nml, No motor deficits Skin Exam: normal color, warm, dry Eye Exam: PERRL, EOMI, eyes nml inspection Ears, Nose, Throat Exam: normal ENT inspection, pharynx normal, moist mucous membranes Neck Exam: normal inspection, non-tender, supple, full range of motion Respiratory Exam: normal breath sounds, lungs clear, No respiratory distress Cardiovascular Exam: regular rate/rhythm, normal heart sounds Gastrointestinal/Abdomen Exam: soft, No tenderness, No mass Extremity Exam: normal inspection, normal range of motion Back Exam: normal inspection, normal range of motion, No CVA tenderness, No vertebral tenderness Male Genitalia Exam: deferred Rectal Exam: deferred OBJECTIVE DATA Vital Signs: Vital Signs - 24 hr Temp Pulse Resp BP Pulse Ox 02/08/18 07:25 97.9 F 86 22 179/84 90 L 02/08/18 07:00 78 20 93 L 02/08/18 04:00 97.5 F 85 24 177/79 91 L 02/08/18 03:53 81 24 92 L 02/08/18 00:00 97.5 F 68 24 185/80 92 L 02/07/18 23:50 69 22 93 L 02/07/18 20:00 97.7 F 80 22 147/66 94 L 02/07/18 18:41 78 22 92 L 02/07/18 16:26 97.5 F 65 22 122/62 94 L 02/07/18 16:00 22 02/07/18 13:27 66 18 96 02/07/18 12:36 97.5 F 62 22 126/62 93 L 02/07/18 12:29 97.5 F 62 126/62 02/07/18 12:26 97.5 F 62 22 126/62 93 L 02/07/18 11:54 94 L 02/07/18 11:50 57 L 20 98/64 93 L 02/07/18 11:40 57 L 20 98/64 93 L 02/07/18 10:50 63 14 100/65 94 L 02/07/18 10:05 70 16 98/57 96 02/07/18 09:45 86 22 95 02/07/18 09:22 65 28 H 113/62 94 L Oxygen-Last 24 hours O2 Percentage 2 Liters = 28% O2 Percentage 3 Liters = 32% O2 Percentage 2 Liters = 28% O2 Percentage 2 Liters = 28% O2 Percentage 4 Liters = 36% O2 Percentage 4 Liters = 36% O2 Percentage 4 Liters = 36% O2 Percentage 4 Liters = 36% O2 Percentage 4 Liters = 36% O2 Percentage 4 Liters = 36% O2 Percentage 2 Liters = 28% O2 Percentage 2 Liters = 28% O2 Percentage 2 Liters = 28% O2 Percentage 2 Liters = 28% Pain Assessment - Last Documented Pain Intensity 0 Pain Scale Used 0-10 Pain Scale Intake and Output: Intake & Output 02/05/18 02/06/18 02/07/18 02/08/18 11:59 11:59 11:59 11:59 Intake Total 4080 Output Total 300 Balance 3780 Weight 70.2 kg Lab Results: Lab Results-Last 24 Hours 02/07/18 02/07/18 02/07/18 Range/Units 12:42 15:30 18:57 Troponin I < 0.012 < 0.012 < 0.012 (0.000-0.034) ng/mL 02/07/18 Range/Units 21:30 Troponin I < 0.012 (0.000-0.034) ng/mL Radiology Exams: Radiology Procedures Category Date Time Status VENOUS BILATERAL EXTREMITY [US] Urgent Exams 02/07/18 14:30 Completed Assessment/Plan (1) COPD exacerbation Current Visit: Yes Status: Acute Onset Date: ~02/07/18 Code(s): J44.1 - CHRONIC OBSTRUCTIVE PULMONARY DISEASE W (ACUTE) EXACERBATION (2) COPD (chronic obstructive pulmonary disease) Current Visit: Yes Status: Chronic Onset Date: ~02/07/18 Qualifiers: COPD type: chronic bronchitis Chronic bronchitis type: simple Qualified Code(s): J41.0 - Simple chronic bronchitis (3) CAD (coronary artery disease) Current Visit: Yes Status: Chronic Onset Date: ~02/07/18 Qualifiers: Coronary Disease-Associated Artery/Lesion type: [place] artery Code(s): I25.10 - ATHSCL HEART DISEASE OF [place] CORONARY ARTERY W/O ANG PCTRS (4) Vascular disease of abdomen Current Visit: Yes Status: Chronic Onset Date: ~02/07/18 Code(s): I99.9 - UNSPECIFIED DISORDER OF CIRCULATORY SYSTEM
[2018-02-08 09:29] LABS: Hematocrit 41.9 % (42-50); Hemoglobin 13.9 gm/dl (12.5-18.0); Mean Cell Volume 93.7 fl (78-100); Mean Corpuscular Hemoglobin 31.1 pg (26-32); Mean Corpuscular Hgb Concent. 33.2 g/dl (32-36); Mean Platelet Volume 9.4 fl (6-9.5); Platelet Count 158 K/mm3 (150-450); Red Blood Count 4.47 M/mm3 (4.1-5.6); Red Cell Distribution Width 13.9 % (11.5-14.0); White Blood Count 12.5 K/mm3 (4.0-10.5)
[2018-02-08 09:42] LABS: ANION GAP 16.7 MEQ/L (5-15); BLOOD UREA NITROGEN 24 mg/dL (9-20); CHLORIDE 107 mmol/L (98-107); Calcium 9.7 mg/dL (8.4-10.2); Carbon Dioxide 20 mmol/L (22-30); Creatinine 1 1.02 mg/dL (0.66-1.25); Glucose 151 mg/dL (74-106); SODIUM 140 mmol/L (137-145)
[2018-02-08] MEDS ORDERED: NON-FORMULARY ITEM (Docusate Sodium [Stool Softener] 50 MG) PO SCH (10:00)
[2018-02-08] MEDS: xanAX 0.25 MG PO PRN ×2 (11:28→23:34)
[2018-02-09] MEDS: Apresoline 25 MG TABLET PO SCH ×3 (01:04→17:32)
[2018-02-09 01:46] LABS: A-aADO2 121; ABG HEMOGLOBIN 12.9; ABG POTASSIUM 3.8 (3.5-5.1); ABG SITE RIGHT RADIAL; ALLEN TEST OK? YES; ARTERIAL BLD GAS O2 SATURATION 97.1 % (95-100); ARTERIAL BLOOD GAS BASE EXCESS -4.1 (-2.0-2.0); ARTERIAL BLOOD GAS FIO2 32 %; ARTERIAL BLOOD GAS PCO2 33 mmHg (35-45); ARTERIAL BLOOD GAS PO2 66 mmHg (75-100); ARTERIAL BLOOD GAS pH 7.39 (7.35-7.45); CARBOXYHEMOGLOBIN 2.3 % THgb (0.0-6.9); HGB O2 SAT 94.5 g/dF (94-100); Methhemoglobin 0.5 % (1.4-1.5); paO2 pAO1 0.35
[2018-02-09] MEDS: DUONEB 0.5-3 MG/3 ml Neb IH SCH ×6 (03:49→23:00)
[2018-02-09 05:57] LABS: Hemoglobin 12.7 gm/dl (12.5-18.0); Mean Corpuscular Hemoglobin 30.6 pg (26-32); Mean Corpuscular Hgb Concent. 32.6 g/dl (32-36); Mean Platelet Volume 9.6 fl (6-9.5); Platelet Count 151 K/mm3 (150-450); Red Blood Count 4.15 M/mm3 (4.1-5.6); White Blood Count 11.4 K/mm3 (4.0-10.5)
[2018-02-09] MEDS: solu-MEDROL 125 MG IV SCH ×3 (06:06→17:31)
[2018-02-09 06:18] LABS: ANION GAP 14.5 MEQ/L (5-15); BLOOD UREA NITROGEN 25 mg/dL (9-20); CHLORIDE 110 mmol/L (98-107); Calcium 9.3 mg/dL (8.4-10.2); Carbon Dioxide 21 mmol/L (22-30); Creatinine 1 0.98 mg/dL (0.66-1.25); Glucose 146 mg/dL (74-106); Potassium 3.8 mmol/L (3.5-5.1); SODIUM 141 mmol/L (137-145)
[2018-02-09] MEDS: ENOXAPARIN SODIUM SQ SCH (10:01)
[2018-02-09] MEDS: Vasotec 10 MG PO SCH (10:02)
[2018-02-09] MEDS: Colace 100 MG PO SCH (10:02)
[2018-02-09] MEDS: Imdur 30 MG PO SCH (10:02)
[2018-02-09] MEDS: Prozac 20 MG PO SCH (10:02)
[2018-02-09] MEDS: NEURONTIN 300 MG PO SCH ×2 (10:02→21:38)
[2018-02-09] MEDS: Ecotrin 325 MG PO SCH (10:02)
[2018-02-09] MEDS: Pepcid 20 MG PO SCH ×2 (10:02→21:38)
[2018-02-09] MEDS: Lopressor 25MG Tab PO SCH ×2 (10:02→21:38)
[2018-02-09] MEDS: Ranexa 500 MG PO SCH ×2 (10:02→21:38)
[2018-02-09] MEDS: LEVOFLOXACIN 750MG/150ML D5W 750 MG/150 ML BAG IV SCH (10:03)
[2018-02-09] MEDS: ZYLOPRIM 100 MG PO SCH (10:03)
[2018-02-09] MEDS: Klor Con 10 MEQ PO SCH (10:07)
--- NOTE | 2018-02-09 11:46 | PCM.NOTE ---
Date and Time: 02/09/18 1145 Subjective Assessment: still short of breath - Review of Systems Constitutional: No Fever, No Chills Eyes: No Symptoms Ears, Nose, & Throat: No Symptoms Respiratory: No Cough, No Short Of Breath Cardiac: No Chest Pain, No Edema, No Syncope Abdominal/Gastrointestinal: No Abdominal Pain, No Nausea, No Vomiting, No Diarrhea Genitourinary Symptoms: No Dysuria Musculoskeletal: No Back Pain, No Neck Pain Skin: No Rash Neurological: No Dizziness, No Focal Weakness, No Sensory Changes Psychological: No Symptoms Endocrine: No Symptoms Hematologic/Lymphatic: No Symptoms Immunological/Allergic: No Symptoms Objective Exam General Appearance: no apparent distress, alert Neurologic Exam: alert, oriented x 3, cooperative, normal mood/affect, nml cerebellar function, sensation nml, No motor deficits Skin Exam: normal color, warm, dry Eye Exam: PERRL, EOMI, eyes nml inspection Ears, Nose, Throat Exam: normal ENT inspection, pharynx normal, moist mucous membranes Neck Exam: normal inspection, non-tender, supple, full range of motion Respiratory Exam: normal breath sounds, lungs clear, No respiratory distress Cardiovascular Exam: regular rate/rhythm, normal heart sounds Gastrointestinal/Abdomen Exam: soft, No tenderness, No mass Extremity Exam: normal inspection, normal range of motion Back Exam: normal inspection, normal range of motion, No CVA tenderness, No vertebral tenderness Male Genitalia Exam: deferred Rectal Exam: deferred OBJECTIVE DATA Vital Signs: Vital Signs - 24 hr Temp Pulse Resp BP Pulse Ox 02/09/18 10:27 94 H 22 92 L 02/09/18 06:59 98.2 F 97 H 24 144/71 97 02/09/18 06:53 93 L 02/09/18 06:41 100 H 24 86 L 02/09/18 04:00 98.1 F 78 21 140/76 93 L 02/09/18 00:00 97.7 F 73 18 136/81 91 L 02/08/18 22:00 73 20 91 L 02/08/18 20:00 97.5 F 82 24 144/73 93 L 02/08/18 18:00 77 22 89 L 02/08/18 16:00 98.0 F 80 22 164/77 91 L 02/08/18 14:00 78 24 91 L 02/08/18 12:00 97.7 F 87 22 110/63 93 L Oxygen-Last 24 hours O2 Percentage 4 Liters = 36% O2 Percentage 3 Liters = 32% O2 Percentage 3 Liters = 32% O2 Percentage 2 Liters = 28% O2 Percentage 2 Liters = 28% O2 Percentage 2 Liters = 28% Pain Assessment - Last Documented Pain Intensity 0 Pain Scale Used 0-10 Pain Scale,FLACC Intake and Output: Intake & Output 02/06/18 02/07/18 02/08/18 02/09/18 11:59 11:59 11:59 11:59 Intake Total 3600 3254 Output Total 300 500 Balance 3300 2754 Weight 70.2 kg 71.2 kg Lab Results: Lab Results-Last 24 Hours 02/09/18 02/09/18 02/09/18 Range/Units 01:40 05:20 05:20 WBC 11.4 H (4.0-10.5) K/mm3 RBC 4.15 (4.1-5.6) M/mm3 Hgb 12.7 (12.5-18.0) gm/dl Hct 39.0 L (42-50) % MCV 94.0 (78-100) fl MCH 30.6 (26-32) pg MCHC 32.6 (32-36) g/dl RDW 14.0 (11.5-14.0) % Plt Count 151 (150-450) K/mm3 MPV 9.6 H (6-9.5) fl Puncture Site RIGHT RADIAL pCO2 33 L (35-45) mmHg pO2 66 L (75-100) mmHg Base Excess -4.1 L (-2.0-2.0) O2 Saturation 94.5 (94-100) g/dF ABG pH 7.39 (7.35-7.45) ABG HCO3 20.0 L (22-28) ABG O2 Sat (Measured) 97.1 (95-100) % Jreome Test YES A-a Gradient 121 a/A Ratio 0.35 Hemoglobin 12.9 Carboxyhemoglobin 2.3 (0.0-6.9) % THgb Methemoglobin 0.5 L (1.4-1.5) % Potassium 3.8 3.8 (3.5-5.1) Temperature 37.0 C POC O2 Flow Rate 32 % Sodium 141 (137-145) mmol/L Chloride 110 H (98-107) mmol/L Carbon Dioxide 21 L (22-30) mmol/L Anion Gap 14.5 (5-15) MEQ/L BUN 25 H (9-20) mg/dL Creatinine 0.98 (0.66-1.25) mg/dL Estimated GFR > 60.0 ML/MIN Glucose 146 H (74-106) mg/dL Calcium 9.3 (8.4-10.2) mg/dL Radiology Exams: Radiology Procedures Category Date Time Status VENOUS BILATERAL EXTREMITY [US] Urgent Exams 02/07/18 14:30 Completed Assessment/Plan (1) COPD exacerbation Current Visit: Yes Status: Acute Onset Date: ~02/07/18 Assessment & Plan: Chief Complaint Diagnosis COPD, SOB Allergies Allergy/AdvReac Type Severity Reaction Status Date / Time penicillin G Allergy Mild Verified 02/07/18 09:17 hydrocodone bitartrate AdvReac Verified 02/07/18 09:17 [From [place]] Vital Signs (Last 24 hours) Temp Pulse Resp BP Pulse Ox 02/09/18 10:27 94 H 22 92 L 02/09/18 06:59 98.2 F 97 H 24 144/71 97 02/09/18 06:53 93 L 02/09/18 06:41 100 H 24 86 L 02/09/18 04:00 98.1 F 78 21 140/76 93 L 02/09/18 00:00 97.7 F 73 18 136/81 91 L 02/08/18 22:00 73 20 91 L 02/08/18 20:00 97.5 F 82 24 144/73 93 L 02/08/18 18:00 77 22 89 L 02/08/18 16:00 98.0 F 80 22 164/77 91 L 02/08/18 14:00 78 24 91 L 02/08/18 12:00 97.7 F 87 22 110/63 93 L Home Medications Medication Instructions Recorded Confirmed Last Taken Type Allopurinol 100 mg [Zyloprim 100 mg PO DAILY 02/07/18 02/07/18 02/07/18 History 100 mg] Aspirin EC 325 mg [Ecotrin 325 325 mg PO DAILY 02/07/18 02/07/18 02/07/18 History MG] Docusate Sodium [Stool Softener] 50 mg PO DAILY 02/07/18 02/07/18 02/07/18 History Ezetimibe/Simvastatin 1 each PO HS 02/07/18 02/07/18 02/06/18 History [Ezetimibe-Simvastatin 10-80 mg] Gabapentin [Gabapentin] 300 mg PO BID 02/07/18 02/07/18 02/07/18 History Metoprolol Tartrate 25 mg 12.5 mg PO BID 02/07/18 02/07/18 02/07/18 History [Lopressor 25MG Tab] Tamsulosin HCl 0.4 mg [Flomax 0.4 mg PO HS 02/07/18 02/07/18 02/06/18 History 0.4 MG] Current Medications Generic Name Dose Route Start Last Admin Trade Name Freq PRN Reason Stop Dose Admin Albuterol/Ipratropium 3 ml 02/07/18 15:00 02/09/18 10:24 Duoneb 0.5-3 Mg/3 Ml Neb IH 03/09/18 14:59 3 ml Q4HRT YESENIA Administration Allopurinol 100 mg 02/08/18 10:00 02/09/18 10:03 Zyloprim 100 Mg PO 03/10/18 09:59 100 mg DAILY YESENIA Administration Alprazolam 0.25 mg 02/08/18 11:12 02/08/18 23:34 Xanax 0.25 Mg PO 03/10/18 11:11 0.25 mg BIDPRN PRN Administration ANXIETY Aspirin 325 mg 02/08/18 10:00 02/09/18 10:02 Ecotrin 325 Mg PO 03/10/18 09:59 325 mg DAILY YESENIA Administration Docusate Sodium 100 mg 02/08/18 10:00 02/09/18 10:02 Colace 100 Mg PO 03/10/18 09:59 100 mg DAILY YESENIA Administration Ezetimibe 10 mg 02/07/18 22:00 02/08/18 21:11 Zetia 10 Mg PO 03/09/18 21:59 10 mg HS YESENIA Administration Enalapril Maleate 10 mg 02/08/18 10:00 02/09/18 10:02 Vasotec 10 Mg PO 03/10/18 09:59 10 mg DAILY YESENIA Administration Enoxaparin Sodium 40 mg 02/07/18 15:00 02/09/18 10:01 Enoxaparin Sodium SQ 03/09/18 14:59 40 mg DAILY YESENIA Administration Famotidine 20 mg 02/07/18 13:00 02/09/18 10:02 Pepcid 20 Mg PO 03/09/18 12:59 20 mg Q12HT YESENIA Administration Fluoxetine HCl 20 mg 02/08/18 10:00 02/09/18 10:02 Prozac 20 Mg PO 03/10/18 09:59 20 mg DAILY YESENIA Administration Gabapentin 300 mg 02/07/18 22:00 02/09/18 10:02 Neurontin 300 Mg PO 03/09/18 21:59 300 mg BID YESENIA Administration Hydralazine HCl 50 mg 02/07/18 16:00 02/09/18 08:12 Apresoline 25 Mg Tablet PO 03/09/18 15:59 50 mg Q8H YESENIA Administration Levofloxacin/Dextrose 750 mg in 150 mls @ 100 mls/hr 02/08/18 10:00 02/09/18 10:03 Levofloxacin 750mg/150ml D5w IV 03/10/18 09:59 100 mls/hr Q24H10 YESENIA Administration Sodium Chloride 1,000 mls @ 100 mls/hr 02/07/18 12:00 02/09/18 08:14 Sodium Chloride 0.45% 1000 Ml IV 03/09/18 11:59 100 mls/hr .Q10H YESENIA Administration Isosorbide Mononitrate 30 mg 02/08/18 10:00 02/09/18 10:02 Imdur 30 Mg PO 03/10/18 09:59 30 mg DAILY YESENIA Administration Methylprednisolone Sodium Succinate 80 mg 02/07/18 13:00 02/09/18 06:06 Solu-Medrol 125 Mg IV 03/09/18 12:59 80 mg Q6HT YESENIA Administration Metoprolol Tartrate 12.5 mg 02/07/18 22:00 02/09/18 10:02 Lopressor 25mg Tab PO 03/09/18 21:59 12.5 mg BID YESENIA Administration Potassium Chloride 10 meq 02/08/18 10:00 02/09/18 10:07 Klor Con 10 Meq PO 03/10/18 09:59 10 meq DAILY YESENIA Administration Ranolazine 500 mg 02/07/18 22:00 02/09/18 10:02 Ranexa 500 Mg PO 03/09/18 21:59 500 mg BID YESENIA Administration Simvastatin 80 mg 02/07/18 22:00 02/08/18 21:11 Zocor 20mg PO 03/09/18 21:59 80 mg HS YESENIA Administration Tamsulosin HCl 0.4 mg 02/07/18 22:00 02/08/18 21:11 Flomax 0.4 Mg PO 03/09/18 21:59 0.4 mg HS YESENIA Administration Discontinued Medications Generic Name Dose Route Start Last Admin Trade Name Freq PRN Reason Stop Dose Admin Albuterol/Ipratropium 3 ml 02/07/18 09:29 02/07/18 09:45 Duoneb 0.5-3 Mg/3 Ml Neb IH 02/07/18 09:30 3 ml STAT ONE Administration Albuterol/Ipratropium Confirm 02/07/18 09:39 Duoneb 0.5-3 Mg/3 Ml Neb Administered 02/07/18 09:40 Dose 3 ml IH .STK-MED ONE Alprazolam 0.25 mg 02/07/18 15:49 Xanax 0.25 Mg PO 03/09/18 15:48 HS PRN PRN ANXIETY Levofloxacin/Dextrose 750 mg in 150 mls @ 100 mls/hr 02/07/18 11:51 02/07/18 11:57 Levofloxacin 750mg/150ml D5w IV 02/07/18 13:20 100 mls/hr STAT STA Administration Levofloxacin/Dextrose Confirm 02/07/18 11:54 Levofloxacin 750mg/150ml D5w Administered 02/07/18 11:55 Dose 750 mg in 150 mls @ ud IV .STK-MED ONE Methylprednisolone Sodium Succinate 125 mg 02/07/18 09:29 02/07/18 09:36 Solu-Medrol 125 Mg IV 02/07/18 09:30 125 mg STAT ONE Administration Methylprednisolone Sodium Succinate Confirm 02/07/18 09:35 Solu-Medrol 125 Mg Administered 02/07/18 09:36 Dose 125 mg .ROUTE .STK-MED ONE Intake & Output (Last 24 hours) 02/06/18 02/07/18 02/08/18 02/09/18 11:59 11:59 11:59 11:59 Intake Total 4080 3254 Output Total 300 500 Balance 3780 2754 Weight 69.4 kg 70.2 kg 71.2 kg Microbiology Results (Last 24 hours) 02/08/18 05:30 Sputum - Expectorant Gram Stain - Final 02/08/18 05:30 Sputum - Expectorant Sputum Culture - Preliminary ORGANISMS ISOLATED ARE CONSISTENT WITH NORMAL RESP MJ LIGHT GROWTH, NO PREDOMINANT ORGANISM 02/07/18 09:48 Blood Blood Culture Gram Stain - Pending 02/07/18 09:48 Blood Blood Culture - Preliminary NO GROWTH TO DATE 02/07/18 09:40 Blood Blood Culture Gram Stain - Pending 02/07/18 09:40 Blood Blood Culture - Preliminary NO GROWTH TO DATE Laboratory Results (Last 24 hours) 02/09/18 02/09/18 02/09/18 05:20 05:20 01:40 WBC 11.4 H RBC 4.15 Hgb 12.7 Hct 39.0 L MCV 94.0 MCH 30.6 MCHC 32.6 RDW 14.0 Plt Count 151 MPV 9.6 H Puncture Site RIGHT RADIAL pCO2 33 L pO2 66 L Base Excess -4.1 L O2 Saturation 94.5 ABG pH 7.39 ABG HCO3 20.0 L ABG O2 Sat (Measured) 97.1 Jerome Test YES A-a Gradient 121 a/A Ratio 0.35 Hemoglobin 12.9 Carboxyhemoglobin 2.3 Methemoglobin 0.5 L Potassium 3.8 3.8 Temperature 37.0 POC O2 Flow Rate 32 Sodium 141 Chloride 110 H Carbon Dioxide 21 L Anion Gap 14.5 BUN 25 H Creatinine 0.98 Estimated GFR > 60.0 Glucose 146 H Calcium 9.3 Orders (Last 24 hours) Category Date Time Status ABG [ARTERIAL BLOOD GASES] Stat Lab 02/09/18 01:40 Completed BMP AM.LAB Lab 02/09/18 05:20 Completed CBC AM.LAB Lab 02/09/18 05:20 Completed Alprazolam 0.25 mg [xanAX 0.25 MG] Med 02/08/18 11:12 Active 0.25 mg PO BIDPRN PRN Code(s): J44.1 - CHRONIC OBSTRUCTIVE PULMONARY DISEASE W (ACUTE) EXACERBATION (2) COPD (chronic obstructive pulmonary disease) Current Visit: Yes Status: Chronic Onset Date: ~02/07/18 Qualifiers: COPD type: chronic bronchitis Chronic bronchitis type: simple Qualified Code(s): J41.0 - Simple chronic bronchitis (3) CAD (coronary artery disease) Current Visit: Yes Status: Chronic Onset Date: ~02/07/18 Qualifiers: Coronary Disease-Associated Artery/Lesion type: [place] artery Code(s): I25.10 - ATHSCL HEART DISEASE OF [place] CORONARY ARTERY W/O ANG PCTRS (4) Vascular disease of abdomen Current Visit: Yes Status: Chronic Onset Date: ~02/07/18 Code(s): I99.9 - UNSPECIFIED DISORDER OF CIRCULATORY SYSTEM
[2018-02-09] MEDS: ZOCOR 20MG PO SCH (21:38)
[2018-02-09] MEDS: Flomax 0.4 MG PO SCH (21:38)
[2018-02-09] MEDS: Zetia 10 MG PO SCH (21:38)
[2018-02-10] MEDS: solu-MEDROL 125 MG IV SCH ×3 (00:36→12:14)
[2018-02-10] MEDS: Apresoline 25 MG TABLET PO SCH ×2 (00:37→07:55)
[2018-02-10] MEDS ORDERED: PROVENTIL 2.5 MG/3 ML NEB IH PRN (00:46)
[2018-02-10] MEDS: DUONEB 0.5-3 MG/3 ml Neb IH SCH ×3 (03:15→10:37)
[2018-02-10] MEDS: LEVOFLOXACIN 750MG/150ML D5W 750 MG/150 ML BAG IV SCH (09:45)
[2018-02-10] MEDS: Klor Con 10 MEQ PO SCH (09:47)
[2018-02-10] MEDS: Colace 100 MG PO SCH (09:47)
[2018-02-10] MEDS: Lopressor 25MG Tab PO SCH (09:47)
[2018-02-10] MEDS: Imdur 30 MG PO SCH (09:47)
[2018-02-10] MEDS: Pepcid 20 MG PO SCH (09:47)
[2018-02-10] MEDS: Ranexa 500 MG PO SCH (09:47)
[2018-02-10] MEDS: ZYLOPRIM 100 MG PO SCH (09:47)
[2018-02-10] MEDS: Vasotec 10 MG PO SCH (09:47)
[2018-02-10] MEDS: Prozac 20 MG PO SCH (09:48)
[2018-02-10] MEDS: xanAX 0.25 MG PO PRN (09:48)
[2018-02-10] MEDS: NEURONTIN 300 MG PO SCH (09:48)
[2018-02-10] MEDS: Ecotrin 325 MG PO SCH (09:49)
[2018-02-10] MEDS: ENOXAPARIN SODIUM SQ SCH (09:55)
[2018-02-10 11:22] VITALS: BP 147/87; PULSE 95; O2SAT 89
--- NOTE | 2018-02-10 12:12 | PCM.DS ---
Discharge Summary Date of Admission: 02/07/18 13:57 Admitting Physician: CAMACHO EARL Primary Care Provider: CAMACHO EARL Allergies Allergies penicillin G Allergy (Mild, Verified 02/07/18 09:17) hydrocodone bitartrate [From [place]] Adverse Reaction (Verified 02/07/18 09:17) Hospital Summary - Hospital Course Hospital Course: Chief Complaint Diagnosis COPD, SOB Allergies Allergy/AdvReac Type Severity Reaction Status Date / Time penicillin G Allergy Mild Verified 02/07/18 09:17 hydrocodone bitartrate AdvReac Verified 02/07/18 09:17 [From [place]] Vital Signs (Last 24 hours) Temp Pulse Resp BP Pulse Ox 02/10/18 11:21 97.9 F 95 H 24 147/87 89 L 02/10/18 10:38 89 24 94 L 02/10/18 07:11 97.9 F 90 22 155/81 91 L 02/10/18 06:37 91 H 22 92 L 02/10/18 04:00 97.9 F 92 H 22 154/69 93 L 02/10/18 03:17 80 17 90 L 02/10/18 00:54 94 H 24 90 L 02/10/18 00:00 98.2 F 95 H 24 136/68 91 L 02/09/18 22:00 96 H 22 94 L 02/09/18 20:00 26 H 02/09/18 19:23 97.6 F 89 23 132/61 92 L 02/09/18 18:00 91 H 20 93 L 02/09/18 16:00 20 02/09/18 15:39 98.4 F 90 20 142/75 91 L 02/09/18 14:40 93 L 02/09/18 14:28 88 24 84 L Home Medications Medication Instructions Recorded Confirmed Last Taken Type Allopurinol 100 mg [Zyloprim 100 mg PO DAILY 02/07/18 02/07/18 02/07/18 History 100 mg] Aspirin EC 325 mg [Ecotrin 325 325 mg PO DAILY 02/07/18 02/07/18 02/07/18 History MG] Docusate Sodium [Stool Softener] 50 mg PO DAILY 02/07/18 02/07/18 02/07/18 History Ezetimibe/Simvastatin 1 each PO HS 02/07/18 02/07/18 02/06/18 History [Ezetimibe-Simvastatin 10-80 mg] Gabapentin [Gabapentin] 300 mg PO BID 02/07/18 02/07/18 02/07/18 History Metoprolol Tartrate 25 mg 12.5 mg PO BID 02/07/18 02/07/18 02/07/18 History [Lopressor 25MG Tab] Tamsulosin HCl 0.4 mg [Flomax 0.4 mg PO HS 02/07/18 02/07/18 02/06/18 History 0.4 MG] Current Medications Generic Name Dose Route Start Last Admin Trade Name Freq PRN Reason Stop Dose Admin Albuterol Sulfate 2.5 mg 02/10/18 00:46 02/10/18 00:51 Proventil 2.5 Mg/3 Ml Neb IH 03/12/18 00:45 2.5 mg Q2H PRN PRN Administration SHORTNESS OF BREATH/WHEEZING Albuterol/Ipratropium 3 ml 02/07/18 15:00 02/10/18 10:37 Duoneb 0.5-3 Mg/3 Ml Neb IH 03/09/18 14:59 3 ml Q4HRT YESENIA Administration Allopurinol 100 mg 02/08/18 10:00 02/10/18 09:47 Zyloprim 100 Mg PO 03/10/18 09:59 100 mg DAILY YESENIA Administration Alprazolam 0.25 mg 02/08/18 11:12 02/10/18 09:48 Xanax 0.25 Mg PO 03/10/18 11:11 0.25 mg BIDPRN PRN Administration ANXIETY Aspirin 325 mg 02/08/18 10:00 02/10/18 09:49 Ecotrin 325 Mg PO 03/10/18 09:59 325 mg DAILY YESENIA Administration Docusate Sodium 100 mg 02/08/18 10:00 02/10/18 09:47 Colace 100 Mg PO 03/10/18 09:59 100 mg DAILY YESENIA Administration Ezetimibe 10 mg 02/07/18 22:00 02/09/18 21:38 Zetia 10 Mg PO 03/09/18 21:59 10 mg HS YESENIA Administration Enalapril Maleate 10 mg 02/08/18 10:00 02/10/18 09:47 Vasotec 10 Mg PO 03/10/18 09:59 10 mg DAILY YESENIA Administration Enoxaparin Sodium 40 mg 02/07/18 15:00 02/10/18 09:55 Enoxaparin Sodium SQ 03/09/18 14:59 40 mg DAILY YESENIA Administration Famotidine 20 mg 02/07/18 13:00 02/10/18 09:47 Pepcid 20 Mg PO 03/09/18 12:59 20 mg Q12HT YESENIA Administration Fluoxetine HCl 20 mg 02/08/18 10:00 02/10/18 09:48 Prozac 20 Mg PO 03/10/18 09:59 20 mg DAILY YESENIA Administration Gabapentin 300 mg 02/07/18 22:00 02/10/18 09:48 Neurontin 300 Mg PO 03/09/18 21:59 300 mg BID YESENIA Administration Hydralazine HCl 50 mg 02/07/18 16:00 02/10/18 07:55 Apresoline 25 Mg Tablet PO 03/09/18 15:59 50 mg Q8H YESENIA Administration Levofloxacin/Dextrose 750 mg in 150 mls @ 100 mls/hr 02/08/18 10:00 02/10/18 09:45 Levofloxacin 750mg/150ml D5w IV 03/10/18 09:59 100 mls/hr Q24H10 YESENIA Administration Sodium Chloride 1,000 mls @ 100 mls/hr 02/07/18 12:00 02/10/18 03:59 Sodium Chloride 0.45% 1000 Ml IV 03/09/18 11:59 100 mls/hr .Q10H YESENIA Administration Isosorbide Mononitrate 30 mg 02/08/18 10:00 02/10/18 09:47 Imdur 30 Mg PO 03/10/18 09:59 30 mg DAILY YESENIA Administration Methylprednisolone Sodium Succinate 80 mg 02/07/18 13:00 02/10/18 06:44 Solu-Medrol 125 Mg IV 03/09/18 12:59 80 mg Q6HT YESENIA Administration Metoprolol Tartrate 12.5 mg 02/07/18 22:00 04/26/18 09:47 Lopressor 25mg Tab PO 03/09/18 21:59 12.5 mg BID YESENIA Administration Potassium Chloride 10 meq 02/08/18 10:00 02/10/18 09:47 Klor Con 10 Meq PO 03/10/18 09:59 10 meq DAILY YESENIA Administration Ranolazine 500 mg 02/07/18 22:00 02/10/18 09:47 Ranexa 500 Mg PO 03/09/18 21:59 500 mg BID YESENIA Administration Simvastatin 80 mg 02/07/18 22:00 02/09/18 21:38 Zocor 20mg PO 03/09/18 21:59 80 mg HS YESENIA Administration Tamsulosin HCl 0.4 mg 02/07/18 22:00 02/09/18 21:38 Flomax 0.4 Mg PO 03/09/18 21:59 0.4 mg HS YESENIA Administration Discontinued Medications Generic Name Dose Route Start Last Admin Trade Name Freq PRN Reason Stop Dose Admin Albuterol/Ipratropium 3 ml 02/07/18 09:29 02/07/18 09:45 Duoneb 0.5-3 Mg/3 Ml Neb IH 02/07/18 09:30 3 ml STAT ONE Administration Albuterol/Ipratropium Confirm 02/07/18 09:39 Duoneb 0.5-3 Mg/3 Ml Neb Administered 02/07/18 09:40 Dose 3 ml IH .STK-MED ONE Alprazolam 0.25 mg 02/07/18 15:49 Xanax 0.25 Mg PO 03/09/18 15:48 HS PRN PRN ANXIETY Levofloxacin/Dextrose 750 mg in 150 mls @ 100 mls/hr 02/07/18 11:51 02/07/18 11:57 Levofloxacin 750mg/150ml D5w IV 02/07/18 13:20 100 mls/hr STAT STA Administration Levofloxacin/Dextrose Confirm 02/07/18 11:54 Levofloxacin 750mg/150ml D5w Administered 02/07/18 11:55 Dose 750 mg in 150 mls @ ud IV .STK-MED ONE Methylprednisolone Sodium Succinate 125 mg 02/07/18 09:29 02/07/18 09:36 Solu-Medrol 125 Mg IV 02/07/18 09:30 125 mg STAT ONE Administration Methylprednisolone Sodium Succinate Confirm 02/07/18 09:35 Solu-Medrol 125 Mg Administered 02/07/18 09:36 Dose 125 mg .ROUTE .STK-MED ONE Intake & Output (Last 24 hours) 02/08/18 02/09/18 02/10/18 02/11/18 11:59 11:59 11:59 11:59 Intake Total 4080 3254 3595 Output Total 133 795 6187 Balance 3780 2754 1845 Weight 70.2 kg 71.2 kg 77.6 kg Microbiology Results (Last 24 hours) 02/08/18 05:30 Sputum - Expectorant Gram Stain - Final 02/08/18 05:30 Sputum - Expectorant Sputum Culture - Final ORGANISMS ISOLATED ARE CONSISTENT WITH NORMAL RESP MJ LIGHT GROWTH, NO PREDOMINANT ORGANISM Orders (Last 24 hours) Category Date Time Status Albuterol 2.5 mg/3 ml Neb [Proventil 2.5 mg/3 ml Neb Med 02/10/18 00:46 Active ] 2.5 mg IH Q2H PRN PRN Respiratory Nebulizer UD RT 02/10/18 00:46 Active Patient Care Notes (Last 24 hours) 02/09/18 14:20 (created 02/09/18 15:29) Case Management Note by Lea Brcok DR. ROUNDED AND EVALUATED, ALSO, IN AGREEMENT FOR SWING BED REHAB STAY ON DISCHARGE FROM ACUTE CARE. Initialized on 02/09/18 15:29 - END OF NOTE 02/09/18 12:20 (created 02/09/18 15:27) Case Management Note by Lea Brock DISCHARGE PLAN REVIEWED WITH PT. WANTS TO TRANSITION TO SWING BED FOR SHORT TERM REHAB STAY IF POSSIBLE. DR. PRECIADO ROUNDED AND EVALUATED, DISCUSSED SWING BED, ALL QUESTIONS ANSWERED. NO ADDNL NEEDS NOTED AT PRESENT. WILL FOLLOW. Initialized on 02/09/18 15:27 - END OF NOTE - Vitals & Intake/Output Vital Signs: Vital Signs Temperature 97.9 F 02/10/18 11:21 Pulse Rate 95 H 02/10/18 11:21 Respiratory Rate 24 02/10/18 11:21 Blood Pressure 147/87 02/10/18 11:21 O2 Sat by Pulse Oximetry 89 L 02/10/18 11:21 Oxygen-Last Documented O2 Percentage 3 Liters = 32% Intake & Output: Intake & Output 02/08/18 02/09/18 02/10/18 02/11/18 11:59 11:59 11:59 11:59 Intake Total 3600 3254 3595 Output Total 329 801 8174 Balance 3300 2754 1845 Weight 70.2 kg 71.2 kg 77.6 kg - Lab Result Diagrams: 02/09/18 05:20 02/09/18 05:20 Micro Results-Entire Visit: Microbiology 02/08/18 05:30 Gram Stain - Final Sputum - Expectorant Sputum Culture - Final ORGANISMS ISOLATED ARE CONSISTENT WITH NORMAL RESP MJ LIGHT GROWTH, NO PREDOMINANT ORGANISM - Procedures and Test Procedures and Tests throughout Hospitalization: Therapy Orders & Screens 02/10/18 00:46 Respiratory Nebulizer UD Comment: albuterol q2prn Diagnosis: COPD, SOB Discharge Exam General Appearance: no apparent distress, alert Neurologic Exam: alert, oriented x 3, cooperative, normal mood/affect, nml cerebellar function, sensation nml, No motor deficits Skin Exam: normal color, warm, dry Eye Exam: PERRL, EOMI, eyes nml inspection Ears, Nose, Throat Exam: normal ENT inspection, pharynx normal, moist mucous membranes Neck Exam: normal inspection, non-tender, supple, full range of motion Respiratory Exam: diminished breath sounds, prolonged expirations, crackles/ rales, No respiratory distress Cardiovascular Exam: regular rate/rhythm, normal heart sounds Gastrointestinal/Abdomen Exam: soft, No tenderness, No mass Extremity Exam: normal inspection, normal range of motion Back Exam: normal inspection, normal range of motion, No CVA tenderness, No vertebral tenderness Male Genitalia Exam: deferred Rectal Exam: deferred Final Diagnosis/Problem List - Final Discharge Diagnosis/Problem (1) COPD exacerbation Current Visit: Yes Status: Resolved Onset Date: ~02/07/18 (2) COPD (chronic obstructive pulmonary disease) Current Visit: Yes Status: Chronic Onset Date: ~02/07/18 (3) CAD (coronary artery disease) Current Visit: Yes Status: Chronic Onset Date: ~02/07/18 (4) Vascular disease of abdomen Current Visit: Yes Status: Chronic Onset Date: ~02/07/18 - Discharge Discharge Date: 02/10/18 [facility] Condition: Fair Prescriptions: No Action Albuterol 8 gm Mdi Hfa [Ventolin Hfa MDI] 2 puffs IH QID HydrALAzine HCL 25 MG TAB [Apresoline 25 MG TABLET] 50 mg PO Q8H ALPRAZolam [Xanax 0.25 mg] 0.25 tab PO QHS PRN PRN Reason: Anxiety Ranolazine 500 MG [Ranexa 500 MG] 500 mg PO BID Potassium Chloride 10 Meq Tab* [Klor Con 10 MEQ] 10 meq PO DAILY Niacin 500 mg [Niaspan 500 mg] 500 mg PO HS Isosorbide Mononitrate 30 mg [Imdur 30 MG] 30 mg PO DAILY Enalapril Maleate 10 mg [Vasotec 10 MG] 10 mg PO DAILY Albuterol/Ipratropium 3ml Neb* [DUONEB 0.5-3 MG/3 ml Neb] 3 ml IH QID Fluoxetine HCl 20 mg [Prozac 20 MG] 20 mg PO DAILY Gabapentin [Gabapentin] 300 mg PO BID Allopurinol 100 mg [Zyloprim 100 mg] 100 mg PO DAILY Docusate Sodium [Stool Softener] 50 mg PO DAILY Aspirin EC 325 mg [Ecotrin 325 MG] 325 mg PO DAILY Ezetimibe/Simvastatin [Ezetimibe-Simvastatin 10-80 mg] 1 each PO HS Tamsulosin HCl 0.4 mg [Flomax 0.4 MG] 0.4 mg PO HS Metoprolol Tartrate 25 mg [Lopressor 25MG Tab] 12.5 mg PO BID Follow up with: CAMACHO EARL [Primary Care Provider] - 1 Week
== END 2018-02-10 14:01 | disposition swing bed (61) | DRG 190 ==
LOC: ED 09:15 → MED SURG 12:24 → OBSVTOIN 13:57 → MED SURG 02-09 01:31
PROVIDERS: ADMIT General Practice; ATTEND General Practice
DX: J44.1 Chronic obstructive pulmonary disease with (acute) exacerbation (principal); J96.20 Acute and chronic respiratory failure, unspecified whether with hypoxia or hypercapnia; J41.0 Simple chronic bronchitis; I99.9 Unspecified disorder of circulatory system; I73.9 Peripheral vascular disease, unspecified; F41.9 Anxiety disorder, unspecified; F41.8 Other specified anxiety disorders; M10.9 Gout, unspecified; I25.810 Atherosclerosis of coronary artery bypass graft(s) without angina pectoris; I25.2 Old myocardial infarction; R06.02 Shortness of breath; Q99.2 Fragile X chromosome; I10 Essential (primary) hypertension; E78.00 Pure hypercholesterolemia, unspecified; M19.90 Unspecified osteoarthritis, unspecified site; F17.200 Nicotine dependence, unspecified, uncomplicated; Z79.899 Other long term (current) drug therapy; Z86.73 Personal history of transient ischemic attack (TIA), and cerebral infarction without residual deficits
CPT/HCPCS: 36000; 36415; 36600; 71046; 80048; 80053; 82375; 82803; 83605; 83735; 83880; 84484; 85025; 85027; 85610; 85730; 87040; 87070; 93005; 93041; 93970; 94150; 94640; 94760; 96365; 96374; 99285; J1650; J1956; J2930; A9270-GY

== ENCOUNTER 2018-02-10 12:21 | Inpatient (IN) | payer MEDICARE ==
[2018-02-10] MEDS ORDERED: PROVENTIL 2.5 MG/3 ML NEB IH PRN (14:19)
[2018-02-10] MEDS ORDERED: Apresoline 25 MG TABLET PO SCH (14:19)
[2018-02-10] MEDS ORDERED: Sodium Chloride 0.9% 10 ML FLUSH Syringe IV PRN (14:22)
[2018-02-10] MEDS: DUONEB 0.5-3 MG/3 ml Neb IH SCH ×3 (14:50→23:05)
[2018-02-10] MEDS: Apresoline 25 MG TABLET PO SCH (16:56)
[2018-02-10] MEDS: solu-MEDROL 125 MG IV SCH ×2 (18:15→23:35)
[2018-02-10] MEDS: ZOCOR 20MG PO SCH (21:55)
[2018-02-10] MEDS: Flomax 0.4 MG PO SCH (21:55)
[2018-02-10] MEDS: Sodium Chloride 0.9% 10 ML FLUSH Syringe IV SCH (21:55)
[2018-02-10] MEDS: NEURONTIN 300 MG PO SCH (21:55)
[2018-02-10] MEDS: Pepcid 20 MG PO SCH (21:55)
[2018-02-10] MEDS: Ranexa 500 MG PO SCH (21:55)
[2018-02-10] MEDS: Zetia 10 MG PO SCH (21:55)
[2018-02-10] MEDS: Lopressor 25MG Tab PO SCH (21:56)
[2018-02-10] MEDS: xanAX 0.25 MG PO PRN (23:35)
[2018-02-11] MEDS: Apresoline 25 MG TABLET PO SCH ×4 (00:43→23:44)
[2018-02-11] MEDS: DUONEB 0.5-3 MG/3 ml Neb IH SCH ×6 (03:06→23:01)
[2018-02-11] MEDS: solu-MEDROL 125 MG IV SCH ×4 (06:52→23:44)
[2018-02-11] MEDS: ENOXAPARIN SODIUM SQ SCH (09:07)
[2018-02-11] MEDS: Prozac 20 MG PO SCH (09:08)
[2018-02-11] MEDS: Pepcid 20 MG PO SCH ×2 (09:08→21:49)
[2018-02-11] MEDS: Imdur 30 MG PO SCH (09:08)
[2018-02-11] MEDS: Ecotrin 325 MG PO SCH (09:08)
[2018-02-11] MEDS: Vasotec 10 MG PO SCH (09:08)
[2018-02-11] MEDS: Ranexa 500 MG PO SCH ×2 (09:08→21:49)
[2018-02-11] MEDS: Klor Con 10 MEQ PO SCH (09:08)
[2018-02-11] MEDS: NEURONTIN 300 MG PO SCH ×2 (09:09→21:49)
[2018-02-11] MEDS: ZYLOPRIM 100 MG PO SCH (09:09)
[2018-02-11] MEDS: Colace 100 MG PO SCH (09:09)
[2018-02-11] MEDS: Lopressor 25MG Tab PO SCH ×2 (09:09→21:49)
[2018-02-11] MEDS: LEVOFLOXACIN 750MG/150ML D5W 750 MG/150 ML BAG IV SCH (09:21)
[2018-02-11] MEDS ORDERED: Aplisol ID SCH (10:00)
[2018-02-11] MEDS: Sodium Chloride 0.9% 10 ML FLUSH Syringe IV SCH ×3 (10:15→23:06)
[2018-02-11] MEDS: ZOCOR 20MG PO SCH (21:47)
[2018-02-11] MEDS: Zetia 10 MG PO SCH (21:48)
[2018-02-11] MEDS: Flomax 0.4 MG PO SCH (21:49)
[2018-02-11] MEDS: xanAX 0.25 MG PO PRN (22:21)
[2018-02-12] MEDS: DUONEB 0.5-3 MG/3 ml Neb IH SCH ×3 (03:29→10:46)
[2018-02-12] MEDS: solu-MEDROL 125 MG IV SCH (06:38)
[2018-02-12] MEDS: Sodium Chloride 0.9% 10 ML FLUSH Syringe IV SCH (06:38)
[2018-02-12 07:28] VITALS: BP 128/80
[2018-02-12 08:32] LABS: Hematocrit 40.8 % (42-50); Hemoglobin 13.6 gm/dl (12.5-18.0); Mean Cell Volume 93.4 fl (78-100); Mean Corpuscular Hemoglobin 31.1 pg (26-32); Mean Corpuscular Hgb Concent. 33.3 g/dl (32-36); Platelet Count 136 K/mm3 (150-450); Red Blood Count 4.37 M/mm3 (4.1-5.6); Red Cell Distribution Width 13.9 % (11.5-14.0)
[2018-02-12] MEDS: NEURONTIN 300 MG PO SCH (08:33)
[2018-02-12] MEDS: Prozac 20 MG PO SCH (08:33)
[2018-02-12] MEDS: Imdur 30 MG PO SCH (08:33)
[2018-02-12] MEDS: Klor Con 10 MEQ PO SCH (08:33)
[2018-02-12] MEDS: Apresoline 25 MG TABLET PO SCH (08:33)
[2018-02-12] MEDS: Lopressor 25MG Tab PO SCH (08:34)
[2018-02-12] MEDS: Ecotrin 325 MG PO SCH (08:34)
[2018-02-12] MEDS: Vasotec 10 MG PO SCH (08:34)
[2018-02-12] MEDS: Colace 100 MG PO SCH (08:34)
[2018-02-12] MEDS: Pepcid 20 MG PO SCH (08:34)
[2018-02-12] MEDS: ZYLOPRIM 100 MG PO SCH (08:34)
[2018-02-12] MEDS: Ranexa 500 MG PO SCH (08:34)
[2018-02-12] MEDS: ENOXAPARIN SODIUM SQ SCH (08:36)
[2018-02-12 08:37] LABS: A-aADO2 89; ABG HEMOGLOBIN 13.2; ABG SITE LEFT RADIAL; ALLEN TEST OK? Yes; ARTERIAL BLD GAS O2 SATURATION 96.7 % (95-100); ARTERIAL BLOOD GAS BASE EXCESS 2.7 (-2.0-2.0); ARTERIAL BLOOD GAS FIO2 28 %; ARTERIAL BLOOD GAS PCO2 36 mmHg (35-45); ARTERIAL BLOOD GAS PO2 66 mmHg (75-100); ARTERIAL BLOOD GAS pH 7.47 (7.35-7.45); CARBOXYHEMOGLOBIN 2.1 % THgb (0.0-6.9); HCO3- 26.2 (22-28); HGB O2 SAT 93.6 g/dF (94-100); Methhemoglobin 1.1 % (1.4-1.5); paO2 pAO1 0.43
[2018-02-12 09:04] LABS: ALBUMIN 3.8 g/dL (3.5-5.0); ALKALINE PHOSPHATASE 74 U/L (38-126); ANION GAP 15.2 MEQ/L (5-15); BLOOD UREA NITROGEN 37 mg/dL (9-20); CHLORIDE 108 mmol/L (98-107); Calcium 9.2 mg/dL (8.4-10.2); Carbon Dioxide 23 mmol/L (22-30); Creatinine 1 1.19 mg/dL (0.66-1.25); Glucose 139 mg/dL (74-106); SGOT/AST 21 U/L (17-59); SGPT/ALT 23 U/L (0-50); SODIUM 142 mmol/L (137-145); Total Protein 6.3 g/dL (6.3-8.2)
[2018-02-12 09:12] LABS: NT PRO BNP 452 pg/mL (0-900)
[2018-02-12] MEDS: LEVOFLOXACIN 750MG/150ML D5W 750 MG/150 ML BAG IV SCH (10:17)
[2018-02-12 10:48] VITALS: PULSE 84
[2018-02-12] MEDS ORDERED: Racepinephrine INH Solution 2.25% IH ONE (11:15)
[2018-02-12] MEDS ORDERED: Sodium Chloride 3 ML UD NEBULES IH ONE (11:17)
[2018-02-12] MEDS ORDERED: Lasix 20 MG/2 ML IV ONE (11:20)
[2018-02-12] MEDS ORDERED: solu-MEDROL 125 MG IV SCH (11:30)
[2018-02-12 11:35] VITALS: O2SAT 94
[2018-02-12 11:42] LABS: Appearance CLEAR (CLEAR)
[2018-02-12 11:44] LABS: Lactic Acid 2.3 (0.4-2.0)
[2018-02-12 11:44] LABS: Bilirubin NEGATIVE (NEGATIVE); Blood NEGATIVE Ery/ul (0-5); Glucose NEGATIVE (NEGATIVE); Ketones NEGATIVE (NEGATIVE); Leukocyte Esterase NEGATIVE (NEGATIVE); Nitrite NEGATIVE (NEGATIVE); Protein,Urine Dip NEGATIVE (Negative); Specific Gravity 1.015 (1.005-1.025); Urobilinogen NORMAL mg/dL (0-1)
--- NOTE | 2018-02-12 17:25 | XRAY ---
Indication: Short of breath. Comparison: February 07, 2018. Portable chest less inflated today with now minimal bibasilar linear opacities, infiltrates versus atelectasis. Remaining heart and lungs unremarkable again with incidental CABG surgery and calcified granulomas. Comment: Preliminary interpretation was made by [facility]. No critical discrepancy.
[2018-02-22] MEDS ORDERED: Aplisol ID SCH (10:00)
== END 2018-02-12 11:15 | disposition swing bed (61) | DRG 192 ==
LOC: MED SURG 14:02
PROVIDERS: ADMIT General Practice; ATTEND General Practice
DX: J44.1 Chronic obstructive pulmonary disease with (acute) exacerbation (principal); R41.0 Disorientation, unspecified; I10 Essential (primary) hypertension; I25.10 Atherosclerotic heart disease of native coronary artery without angina pectoris; I73.9 Peripheral vascular disease, unspecified; E78.00 Pure hypercholesterolemia, unspecified; F41.8 Other specified anxiety disorders; K21.9 Gastro-esophageal reflux disease without esophagitis; M19.90 Unspecified osteoarthritis, unspecified site; M10.9 Gout, unspecified; Z79.899 Other long term (current) drug therapy; Z87.891 Personal history of nicotine dependence
CPT/HCPCS: 36415; 36600; 71045; 80053; 81002; 82375; 82803; 83605; 83880; 85027; 94150; 94640; 94760; J1650; J1940; J1956; J2930; A9270-GY

== ENCOUNTER 2018-02-12 11:15 | Inpatient (IN) | payer MEDICARE ==
[2018-02-12 13:32] LABS: A-aADO2 123; ABG HEMOGLOBIN 13.1; ABG SITE LEFT RADIAL; ARTERIAL BLD GAS O2 SATURATION 96.3 % (95-100); ARTERIAL BLOOD GAS BASE EXCESS -1.7 (-2.0-2.0); ARTERIAL BLOOD GAS FIO2 32 %; ARTERIAL BLOOD GAS PCO2 32 mmHg (35-45); ARTERIAL BLOOD GAS PO2 65 mmHg (75-100); ARTERIAL BLOOD GAS pH 7.44 (7.35-7.45); CARBOXYHEMOGLOBIN 2.2 % THgb (0.0-6.9); HCO3- 21.7 (22-28); HGB O2 SAT 93.3 g/dF (94-100); Lactic Acid 4.1 (0.4-2.0); paO2 pAO1 0.35
[2018-02-12 13:33] LABS: ALLEN TEST OK? Yes
[2018-02-12] MEDS ORDERED: Sodium Chloride 0.9% 10 ML FLUSH Syringe IV PRN (13:50)
[2018-02-12] MEDS ORDERED: PROVENTIL 2.5 MG/3 ML NEB IH PRN (13:50)
[2018-02-12] MEDS ORDERED: Apresoline 25 MG TABLET PO SCH (13:50)
[2018-02-12] MEDS: DUONEB 0.5-3 MG/3 ml Neb IH SCH ×3 (14:00→23:41)
[2018-02-12] MEDS: Apresoline 25 MG TABLET PO SCH ×2 (14:52→23:09)
[2018-02-12] MEDS: Sodium Chloride 0.9% 10 ML FLUSH Syringe IV SCH ×2 (14:52→23:10)
[2018-02-12 17:10] LABS: Lactic Acid 2.1 (0.4-2.0)
[2018-02-12] MEDS: solu-MEDROL 125 MG IV SCH ×2 (17:57→23:08)
[2018-02-12] MEDS: xanAX 0.25 MG PO PRN (20:34)
[2018-02-12] MEDS: Flomax 0.4 MG PO SCH (23:09)
[2018-02-12] MEDS: Ranexa 500 MG PO SCH (23:09)
[2018-02-12] MEDS: NEURONTIN 300 MG PO SCH (23:09)
[2018-02-12] MEDS: Zetia 10 MG PO SCH (23:09)
[2018-02-12] MEDS: ZOCOR 20MG PO SCH (23:09)
[2018-02-12] MEDS: Lopressor 25MG Tab PO SCH (23:10)
[2018-02-12] MEDS: Pepcid 20 MG PO SCH (23:10)
[2018-02-13] MEDS: DUONEB 0.5-3 MG/3 ml Neb IH SCH ×6 (03:10→23:42)
[2018-02-13 05:38] LABS: Granulocyte Absolute (ANC) 8.18 (1.4-6.9); Hematocrit 36.5 % (42-50); Hemoglobin 12.2 gm/dl (12.5-18.0); Mean Cell Volume 93.8 fl (78-100); Mean Corpuscular Hgb Concent. 33.4 g/dl (32-36); Mean Platelet Volume 9.3 fl (6-9.5); Platelet Count 110 K/mm3 (150-450); Red Blood Count 3.89 M/mm3 (4.1-5.6); Red Cell Distribution Width 13.5 % (11.5-14.0); White Blood Count 8.9 K/mm3 (4.0-10.5)
[2018-02-13 05:54] LABS: ALBUMIN 3.1 g/dL (3.5-5.0); ALKALINE PHOSPHATASE 56 U/L (38-126); ANION GAP 11.7 MEQ/L (5-15); BLOOD UREA NITROGEN 33 mg/dL (9-20); CHLORIDE 107 mmol/L (98-107); Calcium 8.9 mg/dL (8.4-10.2); Carbon Dioxide 25 mmol/L (22-30); Creatinine 1 0.97 mg/dL (0.66-1.25); Glucose 193 mg/dL (74-106); SGOT/AST 17 U/L (17-59); SODIUM 140 mmol/L (137-145); Total Protein 5.4 g/dL (6.3-8.2)
[2018-02-13 05:59] LABS: Mean Corpuscular Hemoglobin 31.3 pg (26-32)
[2018-02-13 06:00] LABS: SGPT/ALT 22 U/L (0-50)
[2018-02-13] MEDS: solu-MEDROL 125 MG IV SCH ×4 (06:05→23:52)
[2018-02-13] MEDS: Sodium Chloride 0.9% 10 ML FLUSH Syringe IV SCH ×3 (06:06→22:25)
[2018-02-13] MEDS: Apresoline 25 MG TABLET PO SCH ×3 (06:06→22:23)
[2018-02-13 08:26] LABS: Lymphocytes 5 % (24-44); Neutrophils 95 % (36.-66.); Platelet Estimate NORMAL (NORMAL); Total Cells Counted 100
[2018-02-13] MEDS: Lasix 20 MG/2 ML IV SCH (10:02)
[2018-02-13] MEDS: NEURONTIN 300 MG PO SCH ×2 (10:03→22:23)
[2018-02-13] MEDS: Imdur 30 MG PO SCH (10:03)
[2018-02-13] MEDS: Ranexa 500 MG PO SCH ×2 (10:03→22:23)
[2018-02-13] MEDS: Pepcid 20 MG PO SCH ×2 (10:03→22:23)
[2018-02-13] MEDS: Lopressor 25MG Tab PO SCH ×2 (10:03→22:23)
[2018-02-13] MEDS: Ecotrin 325 MG PO SCH (10:03)
[2018-02-13] MEDS: Colace 100 MG PO SCH (10:05)
[2018-02-13] MEDS: ZYLOPRIM 100 MG PO SCH (10:05)
[2018-02-13] MEDS: Prozac 20 MG PO SCH (10:05)
[2018-02-13] MEDS: Vasotec 10 MG PO SCH (10:05)
[2018-02-13] MEDS: Klor Con 10 MEQ PO SCH (10:05)
[2018-02-13] MEDS: LEVOFLOXACIN 750MG/150ML D5W 750 MG/150 ML BAG IV SCH (10:06)
[2018-02-13] MEDS: ENOXAPARIN SODIUM SQ SCH (10:48)
[2018-02-13] MEDS: Flomax 0.4 MG PO SCH (22:23)
[2018-02-13] MEDS: xanAX 0.25 MG PO PRN (22:23)
[2018-02-13] MEDS: Zetia 10 MG PO SCH (22:23)
[2018-02-13] MEDS: ZOCOR 20MG PO SCH (22:24)
[2018-02-14] MEDS: DUONEB 0.5-3 MG/3 ml Neb IH SCH ×6 (03:35→22:55)
[2018-02-14 05:58] LABS: Hemoglobin 12.6 gm/dl (12.5-18.0); Mean Cell Volume 93.6 fl (78-100); Mean Corpuscular Hgb Concent. 33.2 g/dl (32-36); Mean Platelet Volume 9.9 fl (6-9.5); Platelet Count 118 K/mm3 (150-450); Red Blood Count 4.06 M/mm3 (4.1-5.6); Red Cell Distribution Width 13.5 % (11.5-14.0); White Blood Count 12.1 K/mm3 (4.0-10.5)
[2018-02-14] MEDS: Apresoline 25 MG TABLET PO SCH ×3 (06:01→21:12)
[2018-02-14] MEDS: Sodium Chloride 0.9% 10 ML FLUSH Syringe IV SCH ×3 (06:01→21:36)
[2018-02-14] MEDS: solu-MEDROL 125 MG IV SCH ×4 (06:01→20:56)
[2018-02-14 06:21] LABS: ANION GAP 10.9 MEQ/L (5-15); BLOOD UREA NITROGEN 38 mg/dL (9-20); CHLORIDE 105 mmol/L (98-107); Calcium 9.8 mg/dL (8.4-10.2); Carbon Dioxide 29 mmol/L (22-30); Creatinine 1 0.96 mg/dL (0.66-1.25); Glucose 169 mg/dL (74-106); Potassium 3.9 mmol/L (3.5-5.1); SODIUM 141 mmol/L (137-145)
--- NOTE | 2018-02-14 08:55 | XRAY ---
Indication: Decreased oxygenation. COPD exacerbation. Comparison: One day earlier. PA/lateral chest hyperinflated today with clearing of the previous bibasilar linear opacities. No focal infiltrate, consolidation, or large effusion. Heart is not enlarged again demonstrating CABG surgery. No new/acute findings. Impression: Nonacute hyperinflated chest with chronic features.
--- NOTE | 2018-02-14 09:49 | HP ---
HISTORY OF PRESENT ILLNESS: The patient is a poor historian. History has been gathered from review of patient's chart and discussion with patient's . Victor M Phillips is a 67 year old male with past medical history of hypoxemia, chronic obstructive pulmonary disease, hypertension, coronary artery disease, hyperlipidemia, anxiety and depression. He was initially seen in the emergency room on 02/07/2018 with increasing shortness of breath, cough underwent work up, treatment and was discharged home on steroid/antibiotic. Eventually his contacted me on 02/07/2018 stating the patient had worsening shortness of breath and I advised them to go back to the emergency room. The patient was admitted to the emergency room on 02/07/2018 with diagnosis of chronic obstructive pulmonary disease exacerbation. He was placed on treatment with supplemental oxygen nebulization, IV steroids, IV antibiotics. Also he was evaluated by pulmonary and he was treated conservatively. The patient was noted to be very deconditioned and was transferred to swing-bed on 02/10/2018. During his swing-bed stay he was continued on the above medications. I was contacted by nursing staff earlier this a.m. stating that during softball winder today the patient had been extremely confused, removed his oxygen several times. Also as per respiratory therapist, Beckie, the patient was noted to be in worsening respiratory distress and wheezing. Obtained STAT labs including ABG, CT, additional medications including steroids and additional medical management. Eventually I was contacted by case management due to above changes that the patient does need to be transferred back to acute care. The patient was transferred and admitted to acute care on 02/12/2018 in the a.m. Since admission to acute care he was continued on prior treatment as noted in addition to which his steroids were increased and he was placed on treatment with IV diuretics. Also the patient, as per nursing staff, the patient had reported seeing things in his room and tele-mental consultation was requested. At the time of this evaluation the patient is alert and awake. He states his shortness of breath is better. The patient's and multiple family members were present in the room and the patient's reports that overall the patient does seem to be doing a lot better. The patient denies chest pain, increased shortness of breath, denies any other complaints and appears mildly confused. The patient has had similar episodes of confusion during his prior hospital stay. PAST MEDICAL HISTORY: As noted above. History of gout. PAST SURGICAL HISTORY: Cardiac catheterization with stent placement. History of femoral stent placement. History of abdominal aortic aneurysm status post repair. Status post coronary artery bypass graft. ALLERGIES: PENICILLIN G, HYDROCODONE. MEDICATIONS: Current medications were reviewed. FAMILY HISTORY: Noncontributory. SOCIAL HISTORY: The patient lives at home and is a former smoker. No history of alcohol abuse or illicit drug use. REVIEW OF SYSTEMS: Somewhat limited due to the patient's confusion. However increased shortness of breath and wheezing earlier today but those symptoms have improved. The patient denies pain. History of confusion. "Seeing things in the room". PHYSICAL EXAMINATION: An elderly male lying comfortably in bed, not in acute distress. VITAL SIGNS: Blood pressure 142/86, heart rate 87, respiratory rate 22, temperature 97.7F. Oxygen saturation 95% on 3 liters. HEENT: Pallor is present. NECK: No JVD is present. CVS: S1, S2 present. RESPIRATORY: Breath sounds bilaterally diminished, fine bibasilar crackles present. ABDOMEN: Soft, obese, nontender. NEURO: He is alert, awake, mildly confused, and answers a few simple questions. EXTREMITIES: Revealed 1+ edema on bilateral lower extremities. LABORATORY DATA AND TESTS: Labs from today shows CBC with white blood cell 12, hemoglobin 13.6, hemoglobin 40.8, PLT count 136. BMP shows chloride 108, BUN 37, creatinine 1.19, glucose 139. NT-BNP 452. The latest ABG showed pH of 7.44, pCO2 32, pO2 65. Lactic acid is 4.1. UA shows no nitrite, negative leukocyte esterase. Chest x-ray from earlier today showed findings suggestive of hyperinflation, right perihilar/infrahilar consolidations. CT scan of head from earlier today showed atrophy and chronic/remote ischemic changes without evidence of superimposed acute infarct, hemorrhage or mass effect. ASSESSMENT: A 67 year old male with impression: 1) Encephalopathy likely multifactorial, metabolic versus due to respiratory failure, clinically improving. 2) Acute on chronic hypoxemic respiratory failure. 3) Chronic obstructive pulmonary disease with exacerbation. 4) Acute bronchopneumonia. 5) History of hypertension/coronary artery disease. 6) History of anxiety/depression. 7) History of peripheral vascular disease. 8) History of gout. PLAN: As noted earlier the patient was changed to acute care. Continue supplemental oxygen/BiPAP nebulization, broad spectrum IV antibiotics, steroid dose has been increased. The patient was placed on cautious diuretics. Will continue to monitor CBC and electrolytes. Continue to monitor neurological and hemodynamic status. In view of elevated lactic acid will recheck lactic acid in two hours. Also will continue IV antibiotic and additional work up including blood cultures in progress. Will obtain baseline troponin. With regards to his hallucinations they appear to be likely related to his encephalopathy. Tele-mental consult was ordered however the patient's family () does not wish to proceed with that. The patient/family has opted to have the patient placed in "SCO" status. They are fully aware of the patient's poor prognosis. The patient's clinical condition, plan of management, overall poor prognosis was discussed with the patient's and other family members. They are in understanding and agreement. They declined having any questions/concerns that remained unanswered at the conclusion of today's visit. The plan was discussed several times with the patient's nurse, Maida, and also with respiratory therapist, Beckie, over phone and in person.
[2018-02-14] MEDS: LEVOFLOXACIN 750MG/150ML D5W 750 MG/150 ML BAG IV SCH (10:24)
[2018-02-14] MEDS: Vasotec 10 MG PO SCH (10:24)
[2018-02-14] MEDS: Imdur 30 MG PO SCH (10:24)
[2018-02-14] MEDS: Ranexa 500 MG PO SCH ×2 (10:24→21:12)
[2018-02-14] MEDS: Lopressor 25MG Tab PO SCH ×2 (10:24→21:13)
[2018-02-14] MEDS: Prozac 20 MG PO SCH (10:25)
[2018-02-14] MEDS: Pepcid 20 MG PO SCH ×2 (10:25→21:13)
[2018-02-14] MEDS: ENOXAPARIN SODIUM SQ SCH (10:25)
[2018-02-14] MEDS: Klor Con 10 MEQ PO SCH (10:25)
[2018-02-14] MEDS: Lasix 20 MG/2 ML IV SCH (10:26)
[2018-02-14] MEDS: ZYLOPRIM 100 MG PO SCH (10:26)
[2018-02-14] MEDS: Ecotrin 325 MG PO SCH (10:26)
[2018-02-14] MEDS: Colace 100 MG PO SCH (10:26)
[2018-02-14] MEDS: NEURONTIN 300 MG PO SCH ×2 (10:26→21:12)
--- NOTE | 2018-02-14 11:21 | PROG NOTE ---
DATE: 02/13/2018 Chart is reviewed and events noted. At the time of evaluation earlier today the patient was alert, awake, sitting comfortably in bed. He stated his shortness of breath was much better. He denied any new complaints, appeared comfortable. PHYSICAL EXAMINATION: VITAL SIGNS: Blood pressure 117/59, heart rate 86, respiratory rate 17, temperature 97.9F. Oxygen saturation 94% on 3 liters. HEENT: No pallor or icterus is noted. NECK: No JVD is present. CVS: S1, S2 present. RESPIRATORY: Breath sounds are diminished. ABDOMEN: Soft, nontender. NEURO: He is alert, awake, answers simple questions appropriately. EXTREMITIES: Trace edema on bilateral lower extremities. LABORATORY DATA AND TESTS: Labs from today showed unremarkable CBC except hemoglobin 12.2, hematocrit 36.5. BMP was notable for BUN 33, creatinine 0.97, glucose 193. Repeat lactic acid from yesterday was 2.1. Blood cultures from 02/12/2018 are pending. Medications were reviewed. ASSESSMENT: A 67 year old male with impression: 1) Encephalopathy, clinically resolved. 2) Chronic obstructive pulmonary disease exacerbation, clinically improving. 3) Acute bronchopneumonia. 4) History of hypertension/coronary artery disease. 5) Anxiety/depression. PLAN: Continue to monitor neurological and hemodynamic status. Continue low dose IV diuretic, follow up CBC and electrolytes. Fall precautions. Taper steroids as tolerated. Start PT/OT tomorrow. The plan was discussed with the patient and . They seemed to be in understanding and agreement.
--- NOTE | 2018-02-14 11:51 | PCM.NOTE ---
Date and Time: 02/14/18 1146 Subjective Assessment: still short of breath - Review of Systems Constitutional: No Fever, No Chills Eyes: No Symptoms Ears, Nose, & Throat: No Symptoms Respiratory: Cough, Orthopnea, Short Of Breath, Wheezing Cardiac: No Chest Pain, No Edema, No Syncope Abdominal/Gastrointestinal: No Abdominal Pain, No Nausea, No Vomiting, No Diarrhea Genitourinary Symptoms: No Dysuria Musculoskeletal: No Back Pain, No Neck Pain Skin: No Rash Neurological: No Dizziness, No Focal Weakness, No Sensory Changes Psychological: No Symptoms Endocrine: No Symptoms Hematologic/Lymphatic: No Symptoms Immunological/Allergic: No Symptoms Objective Exam General Appearance: moderate distress, alert Neurologic Exam: alert, oriented x 3, cooperative, normal mood/affect, nml cerebellar function, sensation nml, No motor deficits Skin Exam: normal color, warm, dry Eye Exam: PERRL, EOMI, eyes nml inspection Ears, Nose, Throat Exam: normal ENT inspection, pharynx normal, moist mucous membranes Neck Exam: normal inspection, non-tender, supple, full range of motion Respiratory Exam: diminished breath sounds, accessory muscle use, prolonged expirations, crackles/rales, rhonchi, wheezing, No respiratory distress Cardiovascular Exam: regular rate/rhythm, normal heart sounds Gastrointestinal/Abdomen Exam: soft, No tenderness, No mass Extremity Exam: normal inspection, normal range of motion Back Exam: normal inspection, normal range of motion, No CVA tenderness, No vertebral tenderness Male Genitalia Exam: deferred Rectal Exam: deferred OBJECTIVE DATA Vital Signs: Vital Signs - 24 hr Temp Pulse Resp BP Pulse Ox 02/14/18 10:30 80 20 95 02/14/18 08:00 20 02/14/18 07:02 71 16 95 02/14/18 06:59 97.6 F 78 22 136/70 92 L 02/14/18 04:20 98.1 F 72 20 159/77 88 L 02/14/18 04:00 22 02/14/18 03:35 73 24 86 L 02/14/18 00:00 22 02/13/18 23:42 96 H 21 92 L 02/13/18 23:39 98.5 F 79 24 176/86 90 L 02/13/18 19:45 22 02/13/18 19:02 98.0 F 88 22 138/64 91 L 02/13/18 19:00 81 21 91 L 02/13/18 16:03 98 F 90 20 116/60 93 L 02/13/18 16:00 20 02/13/18 14:20 76 93 L 02/13/18 12:51 97.9 F 86 22 117/59 94 L 02/13/18 12:00 16 Oxygen-Last 24 hours O2 Percentage 4 Liters = 36% O2 Percentage 3 Liters = 32% O2 Percentage 3 Liters = 32% O2 Percentage 3 Liters = 32% O2 Percentage 3 Liters = 32% O2 Percentage 3 Liters = 32% Pain Assessment - Last Documented Pain Intensity 0 Pain Scale Used 0-10 Pain Scale Intake and Output: Intake & Output 02/11/18 02/12/18 02/13/18 02/14/18 11:59 11:59 11:59 11:59 Intake Total 1120 1680 Output Total 3350 3000 Balance -2230 -1320 Weight 76.2 kg 76.6 kg Lab Results: Lab Results-Last 24 Hours 02/14/18 02/14/18 Range/Units 05:18 05:18 WBC 12.1 H (4.0-10.5) K/mm3 RBC 4.06 L (4.1-5.6) M/mm3 Hgb 12.6 (12.5-18.0) gm/dl Hct 38.0 L (42-50) % MCV 93.6 (78-100) fl MCH 31.0 (26-32) pg MCHC 33.2 (32-36) g/dl RDW 13.5 (11.5-14.0) % Plt Count 118 L (150-450) K/mm3 MPV 9.9 H (6-9.5) fl Sodium 141 (137-145) mmol/L Potassium 3.9 (3.5-5.1) mmol/L Chloride 105 (98-107) mmol/L Carbon Dioxide 29 (22-30) mmol/L Anion Gap 10.9 (5-15) MEQ/L BUN 38 H (9-20) mg/dL Creatinine 0.96 (0.66-1.25) mg/dL Estimated GFR > 60.0 ML/MIN Glucose 169 H (74-106) mg/dL Calcium 9.8 (8.4-10.2) mg/dL Radiology Exams: Radiology Procedures Category Date Time Status CHEST 2 VIEWS (PA AND LAT) DAILY Exams 02/13/18 17:45 Completed Assessment/Plan (1) CAD (coronary artery disease) Current Visit: No Status: Chronic Onset Date: ~02/07/18 Qualifiers: Coronary Disease-Associated Artery/Lesion type: [place] artery [place] vs. transplanted heart: [place] heart Associated angina: angina presence unspecified Qualified Code(s): I25.10 - Atherosclerotic heart disease of [place] coronary artery without angina pectoris Code(s): I25.10 - ATHSCL HEART DISEASE OF [place] CORONARY ARTERY W/O ANG PCTRS (2) COPD (chronic obstructive pulmonary disease) Current Visit: No Status: Chronic Onset Date: ~02/07/18 Qualifiers: (3) Vascular disease of abdomen Current Visit: Yes Status: Chronic Onset Date: ~02/07/18 Code(s): I99.9 - UNSPECIFIED DISORDER OF CIRCULATORY SYSTEM (4) COPD exacerbation Current Visit: Yes Status: Acute Onset Date: ~02/07/18 Code(s): J44.1 - CHRONIC OBSTRUCTIVE PULMONARY DISEASE W (ACUTE) EXACERBATION
[2018-02-14] MEDS: Flomax 0.4 MG PO SCH (21:12)
[2018-02-14] MEDS: ZOCOR 20MG PO SCH (21:12)
[2018-02-14] MEDS: Zetia 10 MG PO SCH (21:12)
[2018-02-14] MEDS: xanAX 0.25 MG PO PRN (21:13)
[2018-02-15] MEDS: solu-MEDROL 125 MG IV SCH ×5 (01:22→23:53)
[2018-02-15] MEDS: DUONEB 0.5-3 MG/3 ml Neb IH SCH ×6 (03:10→23:47)
[2018-02-15] MEDS: Sodium Chloride 0.9% 10 ML FLUSH Syringe IV SCH ×3 (06:29→21:07)
[2018-02-15] MEDS: Apresoline 25 MG TABLET PO SCH ×3 (06:29→21:07)
--- NOTE | 2018-02-15 09:11 | PCM.NOTE ---
Date and Time: 02/15/18908 Subjective Assessment: doing ok, still short of breath - Review of Systems Constitutional: No Fever, No Chills Eyes: No Symptoms Ears, Nose, & Throat: No Symptoms Respiratory: Cough, Orthopnea, Short Of Breath, Wheezing Cardiac: No Chest Pain, No Edema, No Syncope Abdominal/Gastrointestinal: No Abdominal Pain, No Nausea, No Vomiting, No Diarrhea Genitourinary Symptoms: No Dysuria Musculoskeletal: No Back Pain, No Neck Pain Skin: No Rash Neurological: No Dizziness, No Focal Weakness, No Sensory Changes Psychological: No Symptoms Endocrine: No Symptoms Hematologic/Lymphatic: No Symptoms Immunological/Allergic: No Symptoms Objective Exam General Appearance: no apparent distress, alert Neurologic Exam: alert, oriented x 3, cooperative, normal mood/affect, nml cerebellar function, sensation nml, No motor deficits Skin Exam: normal color, warm, dry Eye Exam: PERRL, EOMI, eyes nml inspection Ears, Nose, Throat Exam: normal ENT inspection, pharynx normal, moist mucous membranes Neck Exam: normal inspection, non-tender, supple, full range of motion Respiratory Exam: prolonged expirations, crackles/rales, rhonchi, wheezing, No respiratory distress Cardiovascular Exam: regular rate/rhythm, normal heart sounds Gastrointestinal/Abdomen Exam: soft, No tenderness, No mass Extremity Exam: normal inspection, normal range of motion Back Exam: normal inspection, normal range of motion, No CVA tenderness, No vertebral tenderness Male Genitalia Exam: deferred Rectal Exam: deferred OBJECTIVE DATA Vital Signs: Vital Signs - 24 hr Temp Pulse Resp BP Pulse Ox 02/15/18 07:29 98.2 F 86 20 148/72 96 02/15/18 06:37 74 20 94 L 02/15/18 04:00 97.7 F 85 22 153/68 94 L 02/15/18 03:00 78 20 93 L 02/15/18 00:00 97.7 F 87 14 130/62 92 L 02/14/18 23:00 86 18 95 02/14/18 20:00 97.8 F 85 22 188/81 92 L 02/14/18 19:00 85 22 92 L 02/14/18 16:19 97.7 F 98 H 22 155/70 4 L 02/14/18 16:00 22 02/14/18 15:06 80 15 93 L 02/14/18 12:36 98 F 86 22 157/81 92 L 02/14/18 12:00 20 02/14/18 10:30 80 20 95 Oxygen-Last 24 hours O2 Percentage 4 Liters = 36% O2 Percentage 4 Liters = 36% O2 Percentage 4 Liters = 36% O2 Percentage 4 Liters = 36% O2 Percentage 4 Liters = 36% O2 Percentage 4 Liters = 36% Pain Assessment - Last Documented Pain Intensity 0 Pain Scale Used FLACC Intake and Output: Intake & Output 02/12/18 02/13/18 02/14/18 02/15/18 11:59 11:59 11:59 11:59 Intake Total 1120 1680 960 Output Total 3350 3000 1800 Balance -6530 -4930 -840 Weight 76.2 kg 76.6 kg 75.5 kg Radiology Exams: Radiology Procedures Category Date Time Status CHEST 2 VIEWS (PA AND LAT) DAILY Exams 02/13/18 17:45 Completed Assessment/Plan (1) COPD exacerbation Current Visit: Yes Status: Acute Onset Date: ~02/07/18 Code(s): J44.1 - CHRONIC OBSTRUCTIVE PULMONARY DISEASE W (ACUTE) EXACERBATION (2) CAD (coronary artery disease) Current Visit: Yes Status: Chronic Onset Date: ~02/07/18 Qualifiers: Coronary Disease-Associated Artery/Lesion type: [place] artery [place] vs. transplanted heart: [place] heart Associated angina: angina presence unspecified Qualified Code(s): I25.10 - Atherosclerotic heart disease of [place] coronary artery without angina pectoris Code(s): I25.10 - ATHSCL HEART DISEASE OF [place] CORONARY ARTERY W/O ANG PCTRS (3) COPD (chronic obstructive pulmonary disease) Current Visit: Yes Status: Chronic Onset Date: ~02/07/18 Qualifiers: COPD type: COPD with acute exacerbation (4) Vascular disease of abdomen Current Visit: Yes Status: Chronic Onset Date: ~02/07/18 Code(s): I99.9 - UNSPECIFIED DISORDER OF CIRCULATORY SYSTEM
[2018-02-15] MEDS: ZYLOPRIM 100 MG PO SCH (11:09)
[2018-02-15] MEDS: Klor Con 10 MEQ PO SCH (11:09)
[2018-02-15] MEDS: Lopressor 25MG Tab PO SCH ×2 (11:09→21:07)
[2018-02-15] MEDS: LEVOFLOXACIN 750MG/150ML D5W 750 MG/150 ML BAG IV SCH (11:09)
[2018-02-15] MEDS: Lasix 20 MG/2 ML IV SCH (11:09)
[2018-02-15] MEDS: Ecotrin 325 MG PO SCH (11:09)
[2018-02-15] MEDS: NEURONTIN 300 MG PO SCH ×2 (11:10→21:07)
[2018-02-15] MEDS: Colace 100 MG PO SCH (11:10)
[2018-02-15] MEDS: Vasotec 10 MG PO SCH (11:10)
[2018-02-15] MEDS: ENOXAPARIN SODIUM SQ SCH (11:10)
[2018-02-15] MEDS: Pepcid 20 MG PO SCH ×2 (11:10→21:07)
[2018-02-15] MEDS: Prozac 20 MG PO SCH (11:10)
[2018-02-15] MEDS: Imdur 30 MG PO SCH (11:10)
[2018-02-15] MEDS: Ranexa 500 MG PO SCH ×2 (11:10→21:07)
[2018-02-15] MEDS: xanAX 0.25 MG PO PRN (20:44)
[2018-02-15] MEDS: ZOCOR 20MG PO SCH (21:06)
[2018-02-15] MEDS: Flomax 0.4 MG PO SCH (21:06)
[2018-02-15] MEDS: Zetia 10 MG PO SCH (21:07)
[2018-02-16] MEDS: DUONEB 0.5-3 MG/3 ml Neb IH SCH ×3 (03:21→10:47)
[2018-02-16] MEDS: Sodium Chloride 0.9% 10 ML FLUSH Syringe IV SCH (05:56)
[2018-02-16] MEDS: Apresoline 25 MG TABLET PO SCH (05:56)
[2018-02-16] MEDS: solu-MEDROL 125 MG IV SCH (05:57)
[2018-02-16] MEDS: NEURONTIN 300 MG PO SCH (09:38)
[2018-02-16] MEDS: Colace 100 MG PO SCH (09:38)
[2018-02-16] MEDS: Ecotrin 325 MG PO SCH (09:38)
[2018-02-16] MEDS: Imdur 30 MG PO SCH (09:38)
[2018-02-16] MEDS: Lasix 20 MG/2 ML IV SCH (09:38)
[2018-02-16] MEDS: Lopressor 25MG Tab PO SCH (09:38)
[2018-02-16] MEDS: Prozac 20 MG PO SCH (09:38)
[2018-02-16] MEDS: Vasotec 10 MG PO SCH (09:38)
[2018-02-16] MEDS: Klor Con 10 MEQ PO SCH (09:39)
[2018-02-16] MEDS: ENOXAPARIN SODIUM SQ SCH (09:39)
[2018-02-16] MEDS: LEVOFLOXACIN 750MG/150ML D5W 750 MG/150 ML BAG IV SCH (09:39)
[2018-02-16] MEDS: Pepcid 20 MG PO SCH (09:39)
[2018-02-16] MEDS: Ranexa 500 MG PO SCH (09:39)
[2018-02-16] MEDS: ZYLOPRIM 100 MG PO SCH (09:39)
[2018-02-16 10:50] VITALS: O2SAT 98
[2018-02-16 12:57] VITALS: BP 159/73; PULSE 82
--- NOTE | 2018-02-16 13:35 | PCM.DS ---
Discharge Summary Date of Admission: 02/12/18 11:15 Admitting Physician: CAMACHO EARL Primary Care Provider: LEONCIO PRECIADO Allergies Allergies penicillin G Allergy (Mild, Verified 02/07/18 09:17) hydrocodone bitartrate [From [place]] Adverse Reaction (Verified 02/07/18 09:17) Hospital Summary - Hospital Course Hospital Course: Chief Complaint Diagnosis rsp distress, Hypoxia, dyspnea, stridor, exac COPD Allergies Allergy/AdvReac Type Severity Reaction Status Date / Time penicillin G Allergy Mild Verified 02/07/18 09:17 hydrocodone bitartrate AdvReac Verified 02/07/18 09:17 [From [place]] Vital Signs (Last 24 hours) Temp Pulse Resp BP Pulse Ox 02/16/18 12:00 98.3 F 82 20 159/73 98 02/16/18 10:49 77 20 98 02/16/18 07:32 98 F 83 20 167/78 94 L 02/16/18 06:57 80 22 94 L 02/16/18 04:00 98.6 F 84 24 148/64 90 L 02/16/18 03:21 77 24 91 L 02/16/18 00:00 98.0 F 79 24 136/65 95 02/15/18 23:47 79 24 95 02/15/18 20:00 98.1 F 81 24 139/66 92 L 02/15/18 19:55 81 24 92 L 02/15/18 16:00 22 02/15/18 15:55 97.9 F 81 22 157/82 95 02/15/18 15:00 76 22 96 Current Medications Generic Name Dose Route Start Last Admin Trade Name Freq PRN Reason Stop Dose Admin Albuterol Sulfate 2.5 mg 02/12/18 13:50 Proventil 2.5 Mg/3 Ml Neb IH 03/12/18 00:45 Q2H PRN PRN SHORTNESS OF BREATH/WHEEZING Albuterol/Ipratropium 3 ml 02/12/18 13:50 02/16/18 10:47 Duoneb 0.5-3 Mg/3 Ml Neb IH 03/09/18 14:59 3 ml Q4HRT YESENIA Administration Allopurinol 100 mg 02/12/18 13:50 05/02/18 09:39 Zyloprim 100 Mg PO 03/10/18 09:59 100 mg DAILY YESENIA Administration Alprazolam 0.25 mg 02/12/18 13:50 02/15/18 20:44 Xanax 0.25 Mg PO 03/10/18 11:11 0.25 mg BIDPRN PRN Administration ANXIETY Aspirin 325 mg 02/12/18 13:50 02/16/18 09:38 Ecotrin 325 Mg PO 03/10/18 09:59 325 mg DAILY YESENIA Administration Docusate Sodium 100 mg 02/12/18 13:50 02/16/18 09:38 Colace 100 Mg PO 03/10/18 09:59 100 mg DAILY YESENIA Administration Ezetimibe 10 mg 02/12/18 13:50 02/15/18 21:07 Zetia 10 Mg PO 03/09/18 21:59 10 mg HS YESENIA Administration Enalapril Maleate 10 mg 02/12/18 13:50 02/16/18 09:38 Vasotec 10 Mg PO 03/10/18 09:59 10 mg DAILY YESENIA Administration Enoxaparin Sodium 40 mg 02/12/18 13:50 02/16/18 09:39 Enoxaparin Sodium SQ 03/09/18 14:59 40 mg DAILY YESENIA Administration Famotidine 20 mg 02/12/18 13:50 02/16/18 09:39 Pepcid 20 Mg PO 03/09/18 12:59 20 mg Q12HT YESENIA Administration Fluoxetine HCl 20 mg 02/12/18 13:50 02/16/18 09:38 Prozac 20 Mg PO 03/10/18 09:59 20 mg DAILY YESENIA Administration Furosemide 20 mg 02/13/18 10:00 02/16/18 09:38 Lasix 20 Mg/2 Ml IV 03/15/18 09:59 20 mg DAILY YESENIA Administration Gabapentin 300 mg 02/12/18 13:50 02/16/18 09:38 Neurontin 300 Mg PO 03/09/18 21:59 300 mg BID YESENIA Administration Hydralazine HCl 50 mg 02/12/18 14:00 02/16/18 05:56 Apresoline 25 Mg Tablet PO 03/14/18 13:49 50 mg Q8HT YESENIA Administration Levofloxacin/Dextrose 750 mg in 150 mls @ 100 mls/hr 02/12/18 13:50 02/16/18 09:39 Levofloxacin 750mg/150ml D5w IV 03/10/18 09:59 100 mls/hr Q24H10 YESENIA Administration Isosorbide Mononitrate 30 mg 02/12/18 13:50 02/16/18 09:38 Imdur 30 Mg PO 03/10/18 09:59 30 mg DAILY YESENIA Administration Methylprednisolone Sodium Succinate 80 mg 02/13/18 17:38 02/16/18 05:57 Solu-Medrol 125 Mg IV 03/14/18 11:29 80 mg Q6HT YESENIA Administration Metoprolol Tartrate 12.5 mg 02/12/18 13:50 02/16/18 09:38 Lopressor 25mg Tab PO 03/09/18 21:59 12.5 mg BID YESENIA Administration Potassium Chloride 10 meq 02/12/18 13:50 02/16/18 09:39 Klor Con 10 Meq PO 03/10/18 09:59 10 meq DAILY YESENIA Administration Ranolazine 500 mg 02/12/18 13:50 02/16/18 09:39 Ranexa 500 Mg PO 03/09/18 21:59 500 mg BID YESENIA Administration Simvastatin 80 mg 02/12/18 13:50 02/15/18 21:06 Zocor 20mg PO 03/09/18 21:59 80 mg HS YESENIA Administration Sodium Chloride 10 ml 02/12/18 13:50 02/16/18 05:56 Sodium Chloride 0.9% 10 Ml Flush Syringe IV 03/12/18 21:59 10 ml Q8HT YESENIA Administration Sodium Chloride 10 ml 02/12/18 13:50 Sodium Chloride 0.9% 10 Ml Flush Syringe IV 03/12/18 14:21 PRN PRN Tamsulosin HCl 0.4 mg 02/12/18 13:50 02/15/18 21:06 Flomax 0.4 Mg PO 03/09/18 21:59 0.4 mg HS YESENIA Administration Discontinued Medications Generic Name Dose Route Start Last Admin Trade Name Freq PRN Reason Stop Dose Admin Hydralazine HCl 50 mg 02/12/18 13:50 Apresoline 25 Mg Tablet PO 03/12/18 15:59 Q8H YESENIA Methylprednisolone Sodium Succinate 125 mg 02/12/18 13:50 02/13/18 12:07 Solu-Medrol 125 Mg IV 03/14/18 11:29 125 mg Q6HT YESENIA Administration Intake & Output (Last 24 hours) 02/14/18 02/15/18 02/16/18 02/17/18 11:59 11:59 11:59 11:59 Intake Total 1680 1440 1740 360 Output Total 3000 1800 2700 Balance -1320 -360 -960 360 Weight 76.6 kg 75.5 kg 75.9 kg - Vitals & Intake/Output Vital Signs: Vital Signs Temperature 98.3 F 02/16/18 12:00 Pulse Rate 82 02/16/18 12:00 Respiratory Rate 20 02/16/18 12:00 Blood Pressure 159/73 02/16/18 12:00 O2 Sat by Pulse Oximetry 98 02/16/18 12:00 Oxygen-Last Documented O2 Percentage 4 Liters = 36% Intake & Output: Intake & Output 02/14/18 02/15/18 02/16/18 02/17/18 11:59 11:59 11:59 11:59 Intake Total 1680 1440 1740 360 Output Total 3000 1800 2700 Balance -1320 -360 -960 360 Weight 76.6 kg 75.5 kg 75.9 kg - Lab Result Diagrams: 02/14/18 05:18 02/14/18 05:18 Micro Results-Entire Visit: Microbiology 02/12/18 14:12 Blood Culture - Preliminary Blood NO GROWTH TO DATE 02/12/18 14:00 Blood Culture - Preliminary Blood NO GROWTH TO DATE - Procedures and Test Procedures and Tests throughout Hospitalization: Therapy Orders & Screens 02/12/18 12:31 Oxygen NASAL CANNULA 2 lpm Comment: Diagnosis: rsp distress, Hypoxia, dyspnea, stridor, exac COPD RT Miscellaneous Order ROUTINE Comment: Physician Instructions: Reason For Exam: keep SPO2 above 88% during exercise Diagnosis: rsp distress, Hypoxia, dyspnea, stridor, exac COPD 02/12/18 13:54 RT Screen per Nursing Assess ONCE Comment: Protocol Order Physician Instructions: Greater than 3 points order RT Admission Screen Reason For Exam: Triggered on Admission Diagnosis: rsp distress, Hypoxia, dyspnea, stridor, exac COPD Diagnosis: rsp distress, Hypoxia, dyspnea, stridor, exac COPD Pneumonia: No Home O2: Yes Asthma: No CHF: No Home CPAP/BIPAP: No Home Nebs/MDI: Yes Total Points: 10 02/12/18 15:00 Respiratory Nebulizer Q4H Comment: duo Diagnosis: rsp distress, Hypoxia, dyspnea, stridor, exac COPD 02/13/18 17:40 PT Eval & Treat (MD Order) ROUTINE Reason for Eval:: deconditioning Diagnosis: rsp distress, Hypoxia, dyspnea, stridor, exac COPD Discharge Exam General Appearance: moderate distress Neurologic Exam: alert Skin Exam: normal color Eye Exam: PERRL Ears, Nose, Throat Exam: normal ENT inspection Neck Exam: normal inspection Respiratory Exam: diminished breath sounds, accessory muscle use, prolonged expirations, crackles/rales, rhonchi, wheezing Cardiovascular Exam: capillary refill >3 sec, edema Final Diagnosis/Problem List - Final Discharge Diagnosis/Problem (1) COPD exacerbation Current Visit: Yes Status: Acute Onset Date: ~02/07/18 (2) CAD (coronary artery disease) Current Visit: Yes Status: Chronic Onset Date: ~02/07/18 (3) COPD (chronic obstructive pulmonary disease) Current Visit: Yes Status: Chronic Onset Date: ~02/07/18 (4) Vascular disease of abdomen Current Visit: Yes Status: Chronic Onset Date: ~02/07/18 - Discharge Disposition: XFER OTHER Condition: Stable Prescriptions: New Furosemide 20 mg [Lasix 20 mg] 20 mg PO DAILY 30 Days #30 tablet Prednisone 10 mg PO DAILY #30 tablet Continue Albuterol 8 gm Mdi Hfa [Ventolin Hfa MDI] 2 puffs IH QID HydrALAzine HCL 25 MG TAB [Apresoline 25 MG TABLET] 50 mg PO Q8H ALPRAZolam [Xanax 0.25 mg] 0.25 tab PO QHS PRN PRN Reason: Anxiety Ranolazine 500 MG [Ranexa 500 MG] 500 mg PO BID Potassium Chloride 10 Meq Tab* [Klor Con 10 MEQ] 10 meq PO DAILY Niacin 500 mg [Niaspan 500 mg] 500 mg PO HS Isosorbide Mononitrate 30 mg [Imdur 30 MG] 30 mg PO DAILY Enalapril Maleate 10 mg [Vasotec 10 MG] 10 mg PO DAILY Albuterol/Ipratropium 3ml Neb* [DUONEB 0.5-3 MG/3 ml Neb] 3 ml IH QID Fluoxetine HCl 20 mg [Prozac 20 MG] 20 mg PO DAILY Gabapentin 300 mg PO BID Allopurinol 100 mg [Zyloprim 100 mg] 100 mg PO DAILY Docusate Sodium [Stool Softener] 50 mg PO DAILY Aspirin EC 325 mg [Ecotrin 325 MG] 325 mg PO DAILY Ezetimibe/Simvastatin [Ezetimibe-Simvastatin 10-80 mg] 1 each PO HS Tamsulosin HCl 0.4 mg [Flomax 0.4 MG] 0.4 mg PO HS Metoprolol Tartrate 25 mg [Lopressor 25MG Tab] 12.5 mg PO BID Follow up with: LEONCIO PRECIADO MD [Primary Care Provider] - 1 Week
== END 2018-02-16 14:15 | disposition hospice, home (50) | DRG 190 ==
LOC: MED SURG 11:15
PROVIDERS: ADMIT General Practice; ATTEND General Practice
DX: J44.1 Chronic obstructive pulmonary disease with (acute) exacerbation (principal); G93.40 Encephalopathy, unspecified; J18.0 Bronchopneumonia, unspecified organism; I25.10 Atherosclerotic heart disease of native coronary artery without angina pectoris; Z79.899 Other long term (current) drug therapy; F41.8 Other specified anxiety disorders; I99.9 Unspecified disorder of circulatory system
CPT/HCPCS: 36415; 36600; 71046; 80048; 80053; 82375; 82803; 83605; 84484; 85025; 85027; 87040; 94150; 94640; 94760; J1650; J1940; J1956; J2930; A9270-GY

== ENCOUNTER 2018-05-26 00:31 | Observation (INO) | payer MEDICARE, OTHER ==
[~2018-05-26 00:31] MED LIST: DUONEB 0.5-3 MG/3 ml Neb IH ONE
[2018-05-26] MEDS ORDERED: Sodium Chloride 0.9% 1000 ML 1,000 ML ONE (00:43)
[2018-05-26] MEDS ORDERED: Sodium Chloride 0.9% 1000 ML 1,000 ML IV SCH (00:45)
[2018-05-26] MEDS ORDERED: ROCEPHIN 1 Gm-D5w 50 ml Bag** 1 G/50 ML IVPB IV SCH ×3 (00:46→22:00)
[2018-05-26] MEDS: DUONEB 0.5-3 MG/3 ml Neb IH SCH ×3 (00:46→14:17)
[2018-05-26 01:33] LABS: BASOPHIL % 0.2 % (0.0-0.4); Basophil (Absolute #) 0.02 (0-0.4); Eosinophil (Absolute #) 0.18 (0-0.5); Granulocyte Absolute (ANC) 6.51 (1.4-6.9); Granulocytes % 73.5 % (36.0-66.0); Hematocrit 40.7 % (42-50); Hemoglobin 13.6 gm/dl (12.5-18.0); Lymphocyte (Absolute #) 1.52 (1.0-4.6); Lymphocytes % 17.1 % (24.0-44.0); Mean Cell Volume 94.2 fl (78-100); Mean Corpuscular Hemoglobin 31.5 pg (26-32); Mean Corpuscular Hgb Concent. 33.4 g/dl (32-36); Mean Platelet Volume 9.3 fl (6-9.5); Monocyte (Absolute #) 0.64 (0.0-1.3); Monocytes % 7.2 % (0.0-12.0); Platelet Count 126 K/mm3 (150-450); Red Blood Count 4.32 M/mm3 (4.1-5.6); Red Cell Distribution Width 14.5 % (11.5-14.0); White Blood Count 8.9 K/mm3 (4.0-10.5)
[2018-05-26] MEDS ORDERED: PROVENTIL 2.5 MG/3 ML NEB IH PRN (01:36)
[2018-05-26 02:11] LABS: ALBUMIN 4.1 g/dL (3.5-5.0); ALKALINE PHOSPHATASE 89 U/L (38-126); ANION GAP 14.6 MEQ/L (5-15); BLOOD UREA NITROGEN 31 mg/dL (9-20); CHLORIDE 105 mmol/L (98-107); Calcium 9.7 mg/dL (8.4-10.2); Carbon Dioxide 26 mmol/L (22-30); Creatinine 1 1.19 mg/dL (0.66-1.25); Glucose 121 mg/dL (74-106); Potassium 3.9 mmol/L (3.5-5.1); SGOT/AST 21 U/L (17-59); SGPT/ALT 27 U/L (0-50); SODIUM 141 mmol/L (137-145); Total Protein 6.8 g/dL (6.3-8.2)
[2018-05-26 04:49] LABS: BAND 2 % (0.0-2.0); Lymphocytes 16 % (24-44); Monocyte 7 % (0.0-12.0); Neutrophils 75 % (36.-66.); Platelet Estimate DECREASED (NORMAL); Total Cells Counted 100
[2018-05-26] MEDS: Advair Hfa 230/21 Mcg COMMON CANISTER IH SCH ×2 (06:38→06:42)
[2018-05-26] MEDS ORDERED: solu-MEDROL 125 MG IV SCH ×2 (07:00→12:00)
[2018-05-26] MEDS ORDERED: solu-MEDROL 40 MG IV SCH (07:00)
[2018-05-26 07:10] VITALS: BP 154/89
--- NOTE | 2018-05-26 08:59 | PCM.HP ---
History of Present Illness - Chief Complaint Chief Complaint: c/o fever and shortness of breath History of Present Illness: Mr.HADLEY ESPINOSA is a 67 year old male was admitted with with c/o cough, fever chills and shortness of breath. - Review of Systems Constitutional: Fever, No Chills Eyes: No Symptoms Ears, Nose, & Throat: No Symptoms Respiratory: Cough, Orthopnea, Short Of Breath Cardiac: No Chest Pain, No Edema, No Syncope Abdominal/Gastrointestinal: No Abdominal Pain, No Nausea, No Vomiting, No Diarrhea Genitourinary Symptoms: No Dysuria Musculoskeletal: No Back Pain, No Neck Pain Skin: No Rash Neurological: No Dizziness, No Focal Weakness, No Sensory Changes Psychological: No Symptoms Endocrine: No Symptoms Hematologic/Lymphatic: No Symptoms Immunological/Allergic: No Symptoms Medications & Allergies Home Medications: Home Medication List ALPRAZolam [Xanax 0.25 mg] 0.25 tab PO BID PRN 08/18/17 [History Confirmed 05/26] Albuterol 8 gm Mdi Hfa [Ventolin Hfa MDI] 2 puffs IH QID 08/18/17 [ History Confirmed 05/26/18] Albuterol/Ipratropium 3ml Neb* [DUONEB 0.5-3 MG/3 ml Neb] 3 ml IH QID [History Confirmed 05/26/18] Enalapril Maleate 10 mg [Vasotec 10 MG] 10 mg PO DAILY 08/18/17 [History Confirmed 05/26/18] HydrALAzine HCL 25 MG TAB [Apresoline 25 MG TABLET] 50 mg PO Q8H 08/18/17 [History Confirmed 05/26/18] Isosorbide Mononitrate 30 mg [Imdur 30 MG] 30 mg PO DAILY 08/18/17 [ History Confirmed 05/26/18] Potassium Chloride 10 Meq Tab* [Klor Con 10 MEQ] 10 meq PO DAILY 08/18/17 [ History Confirmed 05/26/18] Ranolazine 500 MG [Ranexa 500 MG] 500 mg PO BID 08/18/17 [History Confirmed 05/26/18] Fluoxetine HCl 20 mg [Prozac 20 MG] 20 mg PO DAILY 12/06/17 [History Confirmed 05/26/18] Allopurinol 100 mg [Zyloprim 100 mg] 100 mg PO DAILY 02/07/18 [History Confirmed 05/26/18] Docusate Sodium [Stool Softener] 50 mg PO DAILY 02/07/18 [History Confirmed 07/05] Ezetimibe/Simvastatin [Ezetimibe-Simvastatin 10-80 mg] 1 each PO HS 02/07/18 [ History Confirmed 05/26/18] Gabapentin 300 mg PO BID 02/07/18 [History Confirmed 05/26/18] Metoprolol Tartrate 25 mg [Lopressor 25MG Tab] 12.5 mg PO BID 02/07/18 [ History Confirmed 05/26/18] Tamsulosin HCl 0.4 mg [Flomax 0.4 MG] 0.4 mg PO HS 02/07/18 [History Confirmed 05/26/18] Furosemide 20 mg [Lasix 20 mg] 20 mg PO DAILY 30 Days #30 tablet 02/16/18 [Rx Confirmed 05/26/18] Prednisone 10 mg PO DAILY #30 tablet 02/16/18 [Rx Confirmed 05/26/18] Aspirin EC 81 mg [Ecotrin 81 mg] 81 mg PO DAILY 05/26/18 [History Confirmed 05/26/18] Donepezil HCl 5 mg PO DAILY 05/26/18 [History Confirmed 05/26/18] Famotidine 20 mg [Pepcid 20 MG] 20 mg PO BID 05/26/18 [History Confirmed 05/26/18] Morphine Sulfate [Roxanol] 0.25 ml PO Q4H PRN PRN 05/26/18 [History Confirmed ] Omeprazole 40 mg PO HS 05/26/18 [History Confirmed 05/26/18] Simethicone 80 mg [Mylicon 80MG] 160 mg PO QID PRN PRN 05/26/18 [History Confirmed 05/26/18] levoFLOXacin [Levofloxacin] 250 mg PO DAILY 05/26/18 [History Confirmed 05/26/18 ] Allergies/Adverse Reactions: Allergies Allergy/AdvReac Type Severity Reaction Status Date / Time penicillin G Allergy Mild Verified 02/07/18 09:17 hydrocodone bitartrate AdvReac Verified 02/07/18 09:17 [From [employer]] - Past Medical History Past Medical History: Yes Neurological History: Stroke ENT History: Cataracts Cardiac History: Aneurysm, Angina, Coronary Artery Disease, High Cholesterol, Hypertension, Myocardial Infarction ([place]), Peripheral Vascular Disease Respiratory History: COPD Endocrine Medical History: No Pertinent History Musculoskelatal History: Arthritis GI Medical History: No Pertinent History History: No Pertinent History Pyscho-Social History: Anxiety, Depression Male Reproductive Disorders: No Pertinent History Comment: GOUT. Hallucinations while ill. Scheduled for cataract surgery - Past Surgical History Past Surgical History: Yes Neuro Surgical History: No Pertinent History Cardiac History: CABG, Cardiac Catheterization, Cardiac Stent, Vascular Surgery Respiratory Surgery: No Pertinent History GI Surgical History: Appendectomy, Hernia Repair Genitourinary Surgical Hx: No Pertinent History Musculskeletal Surgical Hx: No Pertinent History Male Surgical History: No Pertinent History Other Surgical History: SEVERAL STENTS-cardiac stent x2, femoral stent x1. Double Aneurysm REPAIR JANUARY [id number], quadruple bypass - Social History Smoking Status: Former smoker How long have you smoked: 57 years Exposure to second hand smoke: No Alcohol: None Drug Use: none - Physical Exam Vital Signs: Vital Signs - 24 hr Temp Pulse Resp BP Pulse Ox 05/26/18 07:09 97.5 F 73 16 154/89 92 L 05/26/18 06:42 73 16 92 L 05/26/18 04:12 97.9 F 77 22 166/84 91 L 05/26/18 01:10 97.7 F 70 22 133/80 94 L 05/26/18 00:46 100 H 15 92 L Oxygen-Last 24 hours O2 Percentage 5 Liters = 40% O2 Percentage 5 Liters = 40% Oxygen Flowrate (L/min)-RT 5 General Appearance: no apparent distress, alert Neurologic Exam: alert, oriented x 3, cooperative, normal mood/affect, nml cerebellar function, nml station & gait, sensation nml, No motor deficits Eye Exam: PERRL/EOMI, eyes nml inspection Ears, Nose, Throat Exam: normal ENT inspection, TMs normal, pharynx normal, moist mucous membranes Neck Exam: normal inspection, non-tender, supple, full range of motion Respiratory Exam: diminished breath sounds, rhonchi, No respiratory distress Cardiovascular Exam: regular rate/rhythm, normal heart sounds, normal peripheral pulses Gastrointestinal/Abdomen Exam: soft, normal bowel sounds, No tenderness, No mass Back Exam: normal inspection, normal range of motion, No CVA tenderness, No vertebral tenderness Extremity Exam: normal inspection, normal range of motion, pelvis stable Skin Exam: normal color, warm, dry, No rash Lymphatic Exam: No adenopathy Results - Labs Lab/Micro Results: Lab Results-Last 24 Hours 05/26/18 05/26/18 Range/Units 01:30 01:30 WBC 8.9 (4.0-10.5) K/mm3 RBC 4.32 (4.1-5.6) M/mm3 Hgb 13.6 (12.5-18.0) gm/dl Hct 40.7 L (42-50) % MCV 94.2 (78-100) fl MCH 31.5 (26-32) pg MCHC 33.4 (32-36) g/dl RDW 14.5 H (11.5-14.0) % Plt Count 126 L (150-450) K/mm3 MPV 9.3 (6-9.5) fl Gran % 73.5 H (36.0-66.0) % Eos # (Auto) 0.18 (0-0.5) Absolute Lymphs (auto) 1.52 (1.0-4.6) Absolute Monos (auto) 0.64 (0.0-1.3) Lymphocytes % 17.1 L (24.0-44.0) % Monocytes % 7.2 (0.0-12.0) % Eosinophils % 2.0 (0.00-5.0) % Basophils % 0.2 (0.0-0.4) % Absolute Granulocytes 6.51 (1.4-6.9) Segmented Neutrophils 75 H (36.-66.) % Band Neutrophils 2 (0.0-2.0) % Lymphocytes (Manual) 16 L (24-44) % Monocytes (Manual) 7 (0.0-12.0) % Basophils # 0.02 (0-0.4) Platelet Estimate DECREASED (NORMAL) RBC Morphology NORMAL Sodium 141 (137-145) mmol/L Potassium 3.9 (3.5-5.1) mmol/L Chloride 105 (98-107) mmol/L Carbon Dioxide 26 (22-30) mmol/L Anion Gap 14.6 (5-15) MEQ/L BUN 31 H (9-20) mg/dL Creatinine 1.19 (0.66-1.25) mg/dL Estimated GFR > 60.0 ML/MIN Glucose 121 H (74-106) mg/dL Calcium 9.7 (8.4-10.2) mg/dL Total Bilirubin 0.60 (0.2-1.3) mg/dL AST 21 (17-59) U/L ALT 27 (0-50) U/L Alkaline Phosphatase 89 (38-126) U/L Serum Total Protein 6.8 (6.3-8.2) g/dL Albumin 4.1 (3.5-5.0) g/dL - Radiology Impressions Radiology Exams & Impressions: Radiology Procedures Category Date Time Status CHEST 1 VIEW (PORTABLE) Stat Exams 05/26/18 00:46 Taken - Other Procedures and Tests Respiratory Therapy 05/26/18 00:50 Respiratory Therapy Assessment DAILY 05/26/18 01:00 Respiratory Nebulizer Q6H 05/26/18 01:06 Oxygen NASAL CANNULA 5 lpm 05/26/18 01:35 Peak Expiratory Flow Rate ONCE 05/26/18 01:36 Respiratory Nebulizer PRN 05/26/18 07:00 Respiratory MDI BID Assessment/Plan (1) COPD exacerbation Current Visit: Yes Status: Acute Onset Date: ~02/07/18 Assessment & Plan: Chief Complaint Diagnosis c/o fever and shortness of breath Allergies Allergy/AdvReac Type Severity Reaction Status Date / Time penicillin G Allergy Mild Verified 02/07/18 09:17 hydrocodone bitartrate AdvReac Verified 02/07/18 09:17 [From [place]] Vital Signs (Last 24 hours) Temp Pulse Resp BP Pulse Ox 05/26/18 07:09 97.5 F 73 16 154/89 92 L 05/26/18 06:42 73 16 92 L 05/26/18 04:12 97.9 F 77 22 166/84 91 L 05/26/18 01:10 97.7 F 70 22 133/80 94 L 05/26/18 00:46 100 H 15 92 L Home Medications Medication Instructions Recorded Confirmed Last Taken Type Aspirin EC 81 mg [Ecotrin 81 81 mg PO DAILY 05/26/18 05/26/18 Unknown History mg] Donepezil HCl 5 mg PO DAILY 05/26/18 05/26/18 05/25/18 History Famotidine 20 mg [Pepcid 20 20 mg PO BID 05/26/18 05/26/18 05/25/18 21:30 History MG] Morphine Sulfate [Roxanol] 0.25 ml PO Q4H PRN PRN 05/26/18 05/26/18 05/25/18 21: 00 History Omeprazole 40 mg PO HS 05/26/18 05/26/18 05/25/18 21:30 History Simethicone 80 mg [Mylicon 160 mg PO QID PRN PRN 05/26/18 05/26/18 05/24/18 History 80MG] levoFLOXacin [Levofloxacin] 250 mg PO DAILY 05/26/18 05/26/18 05/25/18 History Current Medications Generic Name Dose Route Start Last Admin Trade Name Freq PRN Reason Stop Dose Admin Albuterol Sulfate 2.5 mg 05/26/18 01:36 Proventil 2.5 Mg/3 Ml Neb 06/25/18 01:35 Q4H PRN PRN SHORTNESS OF BREATH/WHEEZING Albuterol/Ipratropium 3 ml 05/26/18 01:00 05/26/18 06:38 Duoneb 0.5-3 Mg/3 Ml Neb 06/25/18 00:59 3 ml Q6HRT YESENIA Administration Sodium Chloride 1,000 mls @ 75 mls/hr 05/26/18 00:45 05/26/18 01:11 Sodium Chloride 0.9% 1000 Ml IV 06/25/18 00:44 75 mls/hr .[id number] YESENIA Administration Ceftriaxone Sodium/Dextrose 1 g in 50 mls @ 100 mls/hr 05/26/18 22:00 Rocephin 1 Gm-D5w 50 Ml Bag IV 06/25/18 21:59 Q24H22 YESENIA Methylprednisolone Sodium Succinate 80 mg 05/26/18 07:00 05/26/18 07:14 Solu-Medrol 125 Mg IV 06/25/18 06:59 80 mg Q8HT YESENIA Administration Fluticasone/Salmeterol 2 puff 05/26/18 07:00 05/26/18 06:38 Advair Hfa 230/21 Mcg Common Canister* IH 06/25/18 06:59 2 puff BIDRT YESENIA Administration Discontinued Medications Generic Name Dose Route Start Last Admin Trade Name Ivonne PRN Reason Stop Dose Admin Albuterol/Ipratropium Confirm 05/26/18 00:29 Duoneb 0.5-3 Mg/3 Ml Neb Administered 05/26/18 00:30 Dose 3 ml IH .STK-MED ONE Sodium Chloride Confirm 05/26/18 00:43 Sodium Chloride 0.9% 1000 Ml Administered 05/26/18 00:44 Dose 1,000 mls @ ud .ROUTE .STK-MED ONE Ceftriaxone Sodium/Dextrose 1 g in 50 mls @ 100 mls/hr 05/26/18 00:46 01:10 Rocephin 1 Gm-D5w 50 Ml Bag IV 06/25/18 00:45 100 mls/hr Q24H10 YESENIA Administration Methylprednisolone Sodium Succinate 80 mg 05/26/18 07:00 Solu-Medrol 40 Mg IV 06/25/18 06:59 Q8H YESENIA Intake & Output (Last 24 hours) 05/23/18 05/24/18 05/25/18 05/26/18 11:59 11:59 11:59 11:59 Intake Total 368 Output Total 1800 Balance -1432 Weight 76.9 kg Laboratory Results (Last 24 hours) 05/26/18 05/26/18 01:30 01:30 WBC 8.9 RBC 4.32 Hgb 13.6 Hct 40.7 L MCV 94.2 MCH 31.5 MCHC 33.4 RDW 14.5 H Plt Count 126 L MPV 9.3 Gran % 73.5 H Eos # (Auto) 0.18 Absolute Lymphs (auto) 1.52 Absolute Monos (auto) 0.64 Lymphocytes % 17.1 L Monocytes % 7.2 Eosinophils % 2.0 Basophils % 0.2 Absolute Granulocytes 6.51 Segmented Neutrophils 75 H Band Neutrophils 2 Lymphocytes (Manual) 16 L Monocytes (Manual) 7 Basophils # 0.02 Platelet Estimate DECREASED RBC Morphology NORMAL Sodium 141 Potassium 3.9 Chloride 105 Carbon Dioxide 26 Anion Gap 14.6 BUN 31 H Creatinine 1.19 Estimated GFR > 60.0 Glucose 121 H Calcium 9.7 Total Bilirubin 0.60 AST 21 ALT 27 Alkaline Phosphatase 89 Serum Total Protein 6.8 Albumin 4.1 Orders (Last 24 hours) Category Date Time Status Miscellaneous Nursing Order ROUTINE Care 05/26/18 00:30 Active Miscellaneous Nursing Order ROUTINE Care 05/26/18 00:44 Active Observation [Place in Observation] ROUTINE Care 05/26/18 00:43 Active Regular Diet Diet 05/26/18 Breakfast Active CHEST 1 VIEW (PORTABLE) Stat Exams 05/26/18 00:46 Taken CBC W DIFF Stat Lab 05/26/18 01:30 Completed CMP Stat Lab 05/26/18 01:30 Completed Manual Differential NC Stat Lab 05/26/18 01:30 Completed Albuterol 2.5 mg/3 ml Neb [Proventil 2.5 mg/3 ml Neb Med 05/26/18 01:36 Active ] 2.5 mg IH Q4H PRN PRN Albuterol/Ipratropium 3ml Neb* [DUONEB 0.5-3 MG/3 ml Med 05/26/18 00:29 Discontinued Neb] 3 ml IH .STK-MED ONE Albuterol/Ipratropium 3ml Neb* [DUONEB 0.5-3 MG/3 ml Med 05/26/18 01:00 Active Neb] 3 ml IH Q6HRT Ceftriaxone 1 GM/50 ML PREMIX* [ROCEPHIN 1 Gm-D5w 50 ml Med 05/26/18 00:46 Discontinued Bag] 1 g in 50 ml IV Q24H10 Ceftriaxone 1 GM/50 ML PREMIX* [ROCEPHIN 1 Gm-D5w 50 ml Med 05/26/18 22:00 Active Bag] 1 g in 50 ml IV Q24H22 Fluticasone/Salmeterol 230/21 [Advair Hfa 230/21 Mcg Med 05/26/18 07:00 Active COMMON CANISTER*] 2 puff IH BIDRT Methylprednis Sod Succ 125 mg* [solu-MEDROL 125 MG] Med 05/26/18 07:00 Active 80 mg IV Q8HT Methylprednisolone Sod Suc 40M [solu-MEDROL 40 MG] Med 05/26/18 07:00 Discontinued 80 mg IV Q8H NaCl 0.9% 1000 ml [Sodium Chloride 0.9% 1000 ML] 1,000 Med 05/26/18 00:43 Discontinued ml .ROUTE UD NaCl 0.9% 1000 ml [Sodium Chloride 0.9% 1000 ML] 1,000 Med 05/26/18 00:45 Active ml IV 75 mls/hr Oxygen NASAL CANNULA 5 lpm RT 05/26/18 01:06 Active Peak Expiratory Flow Rate ONCE RT 05/26/18 01:35 Active Pulse Oximetry .spot check RT 05/26/18 01:36 Active Respiratory MDI BID RT 05/26/18 07:00 Active Respiratory Nebulizer PRN RT 05/26/18 01:36 Active Respiratory Nebulizer Q6H RT 05/26/18 01:00 Active Respiratory Therapy Assessment DAILY RT 05/26/18 00:50 Active Patient Care Notes (Last 24 hours) 05/26/18 00:54 Nursing Note by Maida Wilson hospice executive director called this nurse due to the fact they called an ambulance to bring in this direct admit patient. the patient was extremely sob at home and hospice executive director was not sure she could get patient to the hospital without him falling. she stated this is why she called the ambulance and this was why he was arriving this way. this rn called dr lucas and informed him of this new development. dr lucas states not to have the patient evaluated in er and to have pt direct admitted as was his initial plan. pt arrives and is accompanied by above mentioned [facility] hospice nurse. pt direct admitted to room 105. respiratory therapy present for immediate evaluation and tx as ordered by dr lucas Initialized on 05/26/18 00:54 - END OF NOTE Code(s): J44.1 - CHRONIC OBSTRUCTIVE PULMONARY DISEASE W (ACUTE) EXACERBATION (2) COPD (chronic obstructive pulmonary disease) Current Visit: No Status: Chronic Onset Date: ~02/07/18 Qualifiers: COPD type: COPD with acute exacerbation
--- NOTE | 2018-05-26 09:16 | XRAY ---
Indication: COPD exacerbation. Comparison: February 13, 2018. Portable apical lordotic chest remains hyperinflated and clear. Heart is not enlarged again with previous CABG surgery. Bony thorax intact again with mild osteopenia and degenerative changes. Impression: Stable nonacute hyperinflated chest with chronic features. Comment: Preliminary interpretation was made by [facility]. No discrepancy.
[2018-05-26] MEDS ORDERED: MORPHINE SULFATE PO PRN (09:24)
[2018-05-26] MEDS ORDERED: Mylicon 80MG PO PRN (09:24)
[2018-05-26] MEDS ORDERED: xanAX 0.25 MG PO PRN (09:30)
[2018-05-26] MEDS ORDERED: Apresoline 25 MG TABLET PO SCH (09:30)
--- NOTE | 2018-05-26 09:30 | PCM.DCORD ---
- Discharge Discharge Date: 05/26/18 Disposition: Home, Self-Care Condition: Stable Prescriptions: New Ceftriaxone Sod 1000 mg Inj [Rocephin 1000 MG INJ] 1 g IM STAT #3 vial Continue Albuterol 8 gm Mdi Hfa [Ventolin Hfa MDI] 2 puffs IH QID HydrALAzine HCL 25 MG TAB [Apresoline 25 MG TABLET] 50 mg PO Q8H ALPRAZolam [Xanax 0.25 mg] 0.25 tab PO BID PRN Ranolazine 500 MG [Ranexa 500 MG] 500 mg PO BID Potassium Chloride 10 Meq Tab* [Klor Con 10 MEQ] 10 meq PO DAILY Isosorbide Mononitrate 30 mg [Imdur 30 MG] 30 mg PO DAILY Enalapril Maleate 10 mg [Vasotec 10 MG] 10 mg PO DAILY Albuterol/Ipratropium 3ml Neb* [DUONEB 0.5-3 MG/3 ml Neb] 3 ml IH QID Fluoxetine HCl 20 mg [Prozac 20 MG] 20 mg PO DAILY Gabapentin 300 mg PO BID Allopurinol 100 mg [Zyloprim 100 mg] 100 mg PO DAILY Docusate Sodium [Stool Softener] 50 mg PO DAILY Ezetimibe/Simvastatin [Ezetimibe-Simvastatin 10-80 mg] 1 each PO HS Tamsulosin HCl 0.4 mg [Flomax 0.4 MG] 0.4 mg PO HS Metoprolol Tartrate 25 mg [Lopressor 25MG Tab] 12.5 mg PO BID Furosemide 20 mg [Lasix 20 mg] 20 mg PO DAILY 30 Days #30 tablet Prednisone 10 mg PO DAILY #30 tablet levoFLOXacin [Levofloxacin] 250 mg PO DAILY Donepezil HCl 5 mg PO DAILY Omeprazole 40 mg PO HS Famotidine 20 mg [Pepcid 20 MG] 20 mg PO BID Aspirin EC 81 mg [Ecotrin 81 mg] 81 mg PO DAILY Simethicone 80 mg [Mylicon 80MG] 160 mg PO QID PRN PRN PRN Reason: Gas Morphine Sulfate [Roxanol] 0.25 ml PO Q4H PRN PRN PRN Reason: Pain Instructions: Exacerbation of COPD (DC) Additional Instructions: STAY INDOORS IN THE AIR CONDITIONING TODAY, THE HUMIDITY MAKES IT HARDER FOR YOU TO BREATHE. Follow up with: LEONCIO PRECIADO MD [Primary Care Provider] - 1 Week (DR. PRECIADO WILL FOLLOW AT HOME.) Forms: Discharge Instructions
[2018-05-26] MEDS ORDERED: ZYLOPRIM 100 MG PO SCH (10:00)
[2018-05-26] MEDS ORDERED: Klor Con 10 MEQ PO SCH (10:00)
[2018-05-26] MEDS ORDERED: NEURONTIN 300 MG PO SCH (10:00)
[2018-05-26] MEDS ORDERED: Pepcid 20 MG PO SCH (10:00)
[2018-05-26] MEDS ORDERED: Ranexa 500 MG PO SCH (10:00)
[2018-05-26] MEDS ORDERED: Imdur 30 MG PO SCH (10:00)
[2018-05-26] MEDS ORDERED: LASIX 20 MG PO SCH (10:00)
[2018-05-26] MEDS ORDERED: DELTASONE 10 MG PO SCH (10:00)
[2018-05-26] MEDS ORDERED: Vasotec 10 MG PO SCH (10:00)
[2018-05-26] MEDS ORDERED: Levofloxacin 250MG Tablet PO SCH (10:00)
[2018-05-26] MEDS ORDERED: NON-FORMULARY ITEM (Docusate Sodium [Stool Softener] 50 MG) PO SCH (10:00)
[2018-05-26] MEDS ORDERED: Prozac 20 MG PO SCH (10:00)
[2018-05-26] MEDS ORDERED: Lopressor 25MG Tab PO SCH (10:00)
[2018-05-26] MEDS ORDERED: ECOTRIN 81 MG PO SCH (10:00)
[2018-05-26] MEDS ORDERED: Colace 100 MG PO SCH (10:00)
[2018-05-26] MEDS ORDERED: Aricept 10 MG PO SCH (10:00)
[2018-05-26 14:26] VITALS: PULSE 75; O2SAT 90
[2018-05-26] MEDS ORDERED: Protonix 40MG Tablet PO SCH (22:00)
[2018-05-26] MEDS ORDERED: Zetia 10 MG PO SCH (22:00)
[2018-05-26] MEDS ORDERED: ZOCOR 20MG PO SCH (22:00)
[2018-05-26] MEDS ORDERED: EZETIMIBE PO SCH (22:00)
[2018-05-26] MEDS ORDERED: SIMVASTATIN PO SCH (22:00)
== END 2018-05-26 15:00 | disposition home or self-care (01) ==
LOC: MED SURG 00:31
PROVIDERS: ADMIT General Practice; ATTEND General Practice
DX: J44.1 Chronic obstructive pulmonary disease with (acute) exacerbation (principal); I10 Essential (primary) hypertension; I25.810 Atherosclerosis of coronary artery bypass graft(s) without angina pectoris; I49.3 Ventricular premature depolarization; F41.8 Other specified anxiety disorders; Z79.899 Other long term (current) drug therapy; Z86.73 Personal history of transient ischemic attack (TIA), and cerebral infarction without residual deficits; E78.00 Pure hypercholesterolemia, unspecified
CPT/HCPCS: 36415; 71045; 80053; 85025; 94640; 94760; G0378; J0696; J2930; J7609; A9270-GY

== ENCOUNTER 2018-06-09 21:55 | Observation (INO) | payer MEDICARE, OTHER ==
[2018-06-09] MEDS ORDERED: DUONEB 0.5-3 MG/3 ml Neb IH ONE (23:10)
[2018-06-09] MEDS: DUONEB 0.5-3 MG/3 ml Neb IH SCH (23:16)
[2018-06-09] MEDS ORDERED: ROCEPHIN 1 Gm-D5w 50 ml Bag** 1 G/50 ML IVPB IV SCH (23:30)
[2018-06-09] MEDS: solu-MEDROL 125 MG IV SCH (23:49)
[2018-06-10] MEDS ORDERED: Lasix 20 MG/2 ML IV ONE (00:01)
[2018-06-10] MEDS: MORPHINE SULFATE 2 MG INJ IV PRN ×2 (00:05→20:09)
[2018-06-10] MEDS: Sodium Chloride 0.9% 1000 ML 1,000 ML IV SCH ×2 (00:10→10:51)
[2018-06-10] MEDS ORDERED: xanAX 0.25 MG PO PRN (02:15)
[2018-06-10] MEDS: DUONEB 0.5-3 MG/3 ml Neb IH SCH ×6 (03:57→22:56)
[2018-06-10] MEDS: solu-MEDROL 125 MG IV SCH ×4 (06:01→23:32)
[2018-06-10] MEDS ORDERED: MORPHINE SULFATE PO PRN (07:44)
[2018-06-10] MEDS ORDERED: MEDICATION INTERVENTION MC SCH (08:00)
[2018-06-10] MEDS ORDERED: Ventolin Hfa MDI IH SCH (10:00)
[2018-06-10] MEDS ORDERED: EZETIMIBE PO SCH (10:00)
[2018-06-10] MEDS ORDERED: SIMVASTATIN PO SCH (10:00)
[2018-06-10] MEDS ORDERED: xanAX 0.25 MG PO SCH (10:00)
[2018-06-10] MEDS: ZOCOR 20MG PO SCH (10:14)
[2018-06-10] MEDS: LASIX 20 MG PO SCH (10:14)
[2018-06-10] MEDS: ECOTRIN 81 MG PO SCH (10:14)
[2018-06-10] MEDS: DELTASONE 10 MG PO SCH (10:14)
[2018-06-10] MEDS: Prozac 20 MG PO SCH (10:14)
[2018-06-10] MEDS: Zetia 10 MG PO SCH (10:15)
[2018-06-10] MEDS: Ranexa 500 MG PO SCH ×2 (10:15→22:11)
[2018-06-10] MEDS: Klor Con 10 MEQ PO SCH (10:15)
[2018-06-10] MEDS: Pepcid 20 MG PO SCH ×2 (10:15→22:11)
[2018-06-10] MEDS: ZYLOPRIM 100 MG PO SCH (10:15)
[2018-06-10] MEDS: Imdur 30 MG PO SCH (10:15)
[2018-06-10] MEDS ORDERED: PROVENTIL COMMON CANISTER IH SCH (11:00)
--- NOTE | 2018-06-10 12:37 | PCM.HP ---
History of Present Illness - Chief Complaint Chief Complaint: c/o shortness of breath History of Present Illness: Mr.HADLEY ESPINOSA is a 67 year old male.admitted with worsening shortness of breath for 2 days. Patient was on hospice but has opted for aggressive treatment. - Review of Systems Constitutional: No Fever, No Chills Eyes: No Symptoms Ears, Nose, & Throat: No Symptoms Respiratory: Cough, Orthopnea, Short Of Breath, Wheezing Cardiac: No Chest Pain, No Edema, No Syncope Abdominal/Gastrointestinal: No Abdominal Pain, No Nausea, No Vomiting, No Diarrhea Genitourinary Symptoms: No Dysuria Musculoskeletal: No Back Pain, No Neck Pain Skin: No Rash Neurological: No Dizziness, No Focal Weakness, No Sensory Changes Psychological: No Symptoms Endocrine: No Symptoms Hematologic/Lymphatic: No Symptoms Immunological/Allergic: No Symptoms Medications & Allergies Home Medications: Home Medication List ALPRAZolam [Xanax 0.25 mg] 0.25 tab PO BID PRN 08/18/17 [History Confirmed 06/10] Albuterol 8 gm Mdi Hfa [Ventolin Hfa MDI] 2 puffs IH QID 08/18/17 [ History Confirmed 06/10/18] Albuterol/Ipratropium 3ml Neb* [DUONEB 0.5-3 MG/3 ml Neb] 3 ml IH QID [History Confirmed 06/10/18] Isosorbide Mononitrate 30 mg [Imdur 30 MG] 30 mg PO DAILY 08/18/17 [ History Confirmed 06/10/18] Potassium Chloride 10 Meq Tab* [Klor Con 10 MEQ] 10 meq PO DAILY 08/18/17 [ History Confirmed 06/10/18] Ranolazine 500 MG [Ranexa 500 MG] 500 mg PO BID 08/18/17 [History Confirmed 06/10/18] Fluoxetine HCl 20 mg [Prozac 20 MG] 20 mg PO DAILY 12/06/17 [History Confirmed 06/10/18] Allopurinol 100 mg [Zyloprim 100 mg] 100 mg PO DAILY 02/07/18 [History Confirmed 06/10/18] Tamsulosin HCl 0.4 mg [Flomax 0.4 MG] 0.4 mg PO HS 02/07/18 [History Confirmed 06/10/18] Furosemide 20 mg [Lasix 20 mg] 20 mg PO DAILY 30 Days #30 tablet 02/16/18 [Rx Confirmed 06/10/18] Prednisone 10 mg PO DAILY #30 tablet 02/16/18 [Rx Confirmed 06/10/18] Aspirin EC 81 mg [Ecotrin 81 mg] 81 mg PO DAILY 05/26/18 [History Confirmed 06/10/18] Famotidine 20 mg [Pepcid 20 MG] 20 mg PO BID 05/26/18 [History Confirmed 06/10/18] Morphine Sulfate [Roxanol] 0.25 ml PO Q2H/PRN PRN 05/26/18 [History Confirmed ] Omeprazole 40 mg PO HS 05/26/18 [History Confirmed 06/10/18] Ezetimibe/Simvastatin [Ezetimibe-Simvastatin 10-20 mg] 1 tablet PO DAILY [History Confirmed 06/10/18] Allergies/Adverse Reactions: Allergies Allergy/AdvReac Type Severity Reaction Status Date / Time penicillin G Allergy Mild Verified 02/07/18 09:17 hydrocodone bitartrate AdvReac Verified 02/07/18 09:17 [From [place]] - Past Medical History Past Medical History: Yes Neurological History: Stroke ENT History: Cataracts Cardiac History: Aneurysm, Angina, Coronary Artery Disease, High Cholesterol, Hypertension, Myocardial Infarction (ME), Peripheral Vascular Disease Respiratory History: COPD Endocrine Medical History: No Pertinent History Musculoskelatal History: Arthritis GI Medical History: No Pertinent History History: No Pertinent History Pyscho-Social History: Anxiety, Depression Male Reproductive Disorders: No Pertinent History Comment: GOUT. Hallucinations while ill. Scheduled for cataract surgery - Past Surgical History Past Surgical History: Yes Neuro Surgical History: No Pertinent History Cardiac History: CABG, Cardiac Catheterization, Cardiac Stent, Vascular Surgery Respiratory Surgery: No Pertinent History GI Surgical History: Appendectomy, Hernia Repair Genitourinary Surgical Hx: No Pertinent History Musculskeletal Surgical Hx: No Pertinent History Male Surgical History: No Pertinent History Other Surgical History: SEVERAL STENTS-cardiac stent x2, femoral stent x1. Double Aneurysm REPAIR MARCH 25. 2016, quadruple bypass - Social History Smoking Status: Former smoker How long have you smoked: 57 years Exposure to second hand smoke: No Alcohol: None Drug Use: none - Physical Exam Vital Signs: Vital Signs - 24 hr Temp Pulse Resp BP Pulse Ox 06/10/18 11:14 98.1 F 86 22 160/78 96 06/10/18 10:43 82 20 92 L 06/10/18 07:20 97.6 F 63 20 168/88 96 06/10/18 06:53 63 21 96 06/10/18 04:15 97.1 F 74 22 170/99 94 L 06/10/18 03:58 68 20 95 06/10/18 00:35 97.5 F 76 18 178/91 93 L 06/09/18 23:14 82 18 92 L Oxygen-Last 24 hours O2 Percentage 4 Liters = 36% O2 Percentage 5 Liters = 40% O2 Percentage 40% Oxygen Flowrate (L/min)-RT 4 General Appearance: no apparent distress, alert Neurologic Exam: alert, oriented x 3, cooperative, normal mood/affect, nml cerebellar function, nml station & gait, sensation nml, No motor deficits Eye Exam: PERRL/EOMI, eyes nml inspection Ears, Nose, Throat Exam: normal ENT inspection, TMs normal, pharynx normal, moist mucous membranes Neck Exam: normal inspection, non-tender, supple, full range of motion Respiratory Exam: diminished breath sounds, prolonged expirations, crackles/ rales, rhonchi, No respiratory distress Cardiovascular Exam: regular rate/rhythm, normal heart sounds, normal peripheral pulses Gastrointestinal/Abdomen Exam: soft, normal bowel sounds, No tenderness, No mass Back Exam: normal inspection, normal range of motion, No CVA tenderness, No vertebral tenderness Extremity Exam: normal inspection, normal range of motion, pelvis stable Skin Exam: normal color, warm, dry, No rash Lymphatic Exam: No adenopathy Results - Other Procedures and Tests Respiratory Therapy 06/09/18 23:14 Oxygen NASAL CANNULA 4 lpm Respiratory Therapy Assessment DAILY 06/09/18 23:51 BiPap/CPAP ROUTINE Assessment/Plan (1) COPD exacerbation Current Visit: Yes Status: Acute Onset Date: ~06/10/18 Code(s): J44.1 - CHRONIC OBSTRUCTIVE PULMONARY DISEASE W (ACUTE) EXACERBATION (2) Dyspnea Current Visit: Yes Status: Acute Onset Date: ~06/10/18 Qualifiers: Dyspnea type: shortness of breath Qualified Code(s): R06.02 - Shortness of breath; R06.00 - Dyspnea, unspecified; R06.01 - Orthopnea Code(s): R06.00 - DYSPNEA, UNSPECIFIED (3) Hypoxia Current Visit: No Status: Acute Onset Date: ~06/10/18 Code(s): R09.02 - HYPOXEMIA (4) Shortness of breath Current Visit: No Status: Acute Onset Date: ~06/10/18 Code(s): R06.02 - SHORTNESS OF BREATH (5) CAD (coronary artery disease) Current Visit: Yes Status: Chronic Onset Date: ~02/07/18 Qualifiers: Coronary Disease-Associated Artery/Lesion type: bypass graft Code(s): I25.10 - ATHSCL HEART DISEASE OF [place] CORONARY ARTERY W/O ANG PCTRS
[2018-06-10 14:00] LABS: Hematocrit 42.9 % (42-50); Hemoglobin 13.9 gm/dl (12.5-18.0); Mean Cell Volume 95.3 fl (78-100); Mean Corpuscular Hemoglobin 30.9 pg (26-32); Mean Corpuscular Hgb Concent. 32.4 g/dl (32-36); Mean Platelet Volume 9.3 fl (6-9.5); Platelet Count 142 K/mm3 (150-450); Red Cell Distribution Width 14.8 % (11.5-14.0); White Blood Count 10.5 K/mm3 (4.0-10.5)
--- NOTE | 2018-06-10 14:01 | XRAY ---
Indication: Short of breath and cough. Comparison: May 26, 2018. Portable apical lordotic chest now demonstrates minimal right base atelectasis/scarring. Remaining heart and lungs unremarkable again with CABG surgery.
[2018-06-10 14:31] LABS: ALBUMIN 4.5 g/dL (3.5-5.0); ALKALINE PHOSPHATASE 98 U/L (38-126); ANION GAP 19.4 MEQ/L (5-15); BLOOD UREA NITROGEN 26 mg/dL (9-20); CHLORIDE 101 mmol/L (98-107); Calcium 9.9 mg/dL (8.4-10.2); Carbon Dioxide 26 mmol/L (22-30); Creatinine 1 0.88 mg/dL (0.66-1.25); Glucose 175 mg/dL (74-106); Potassium 4.1 mmol/L (3.5-5.1); SGOT/AST 26 U/L (17-59); SODIUM 142 mmol/L (137-145); Total Protein 7.1 g/dL (6.3-8.2)
[2018-06-10 14:32] LABS: A-aADO2 153; ABG HEMOGLOBIN 14.4; ABG POTASSIUM 4.1 (3.5-5.1); ARTERIAL BLD GAS O2 SATURATION 92.6 % (95-100); ARTERIAL BLOOD GAS BASE EXCESS 3.7 (-2.0-2.0); ARTERIAL BLOOD GAS FIO2 36 %; ARTERIAL BLOOD GAS PCO2 39 mmHg (35-45); ARTERIAL BLOOD GAS PO2 55 mmHg (75-100); ARTERIAL BLOOD GAS pH 7.46 (7.35-7.45); CARBOXYHEMOGLOBIN 1.7 % THgb (0.0-6.9); HCO3- 27.7 (22-28); paO2 pAO1 0.26
[2018-06-10 14:33] LABS: ABG SITE RIGHT RADIAL; ALLEN TEST OK? YES
[2018-06-10 15:00] LABS: SGPT/ALT 47 U/L (0-50)
[2018-06-10] MEDS: xanAX 0.5 MG PO PRN ×2 (18:08→22:11)
[2018-06-10] MEDS: Advair Hfa 230/21 Mcg COMMON CANISTER IH SCH (19:01)
[2018-06-10] MEDS ORDERED: ROCEPHIN 1 Gm-D5w 50 ml Bag** 1 G/50 ML IVPB IV SCH (22:00)
[2018-06-10] MEDS ORDERED: Protonix 40MG Tablet PO SCH (22:00)
[2018-06-10] MEDS ORDERED: Flomax 0.4 MG PO SCH (22:00)
[2018-06-11] MEDS: xanAX 0.5 MG PO PRN ×3 (02:29→11:58)
[2018-06-11] MEDS: DUONEB 0.5-3 MG/3 ml Neb IH SCH ×3 (02:53→11:20)
[2018-06-11] MEDS: solu-MEDROL 125 MG IV SCH ×2 (05:26→11:36)
[2018-06-11] MEDS: Advair Hfa 230/21 Mcg COMMON CANISTER IH SCH (07:04)
--- NOTE | 2018-06-11 08:39 | PCM.DS ---
Discharge Summary Date of Admission: 06/09/18 22:46 Admitting Physician: LEONCIO PRECIADO Primary Care Provider: LEONCIO PRECIADO Allergies Allergies penicillin G Allergy (Mild, Verified 02/07/18 09:17) hydrocodone bitartrate [From Sandy] Adverse Reaction (Verified 02/07/18 09:17) Hospital Summary - Hospital Course Hospital Course: Chief Complaint Diagnosis c/o shortness of breath Allergies Allergy/AdvReac Type Severity Reaction Status Date / Time penicillin G Allergy Mild Verified 02/07/18 09:17 hydrocodone bitartrate AdvReac Verified 02/07/18 09:17 [From Sandy] Vital Signs (Last 24 hours) Temp Pulse Resp BP Pulse Ox 06/11/18 08:00 98.0 F 91 H 20 139/82 90 L 06/11/18 07:04 92 H 18 94 L 06/11/18 04:00 97.6 F 94 H 20 141/87 90 L 06/11/18 02:53 94 H 20 90 L 06/11/18 00:00 97.7 F 94 H 18 157/92 91 L 06/10/18 22:56 94 H 18 91 L 06/10/18 20:00 97.4 F 95 H 20 167/83 91 L 06/10/18 18:58 88 20 90 L 06/10/18 16:18 98 F 78 20 155/78 95 06/10/18 14:30 94 H 22 92 L 06/10/18 11:14 98.1 F 86 22 160/78 96 06/10/18 10:43 82 20 92 L Home Medications Medication Instructions Recorded Confirmed Last Taken Type Ezetimibe/Simvastatin 1 tablet PO DAILY 06/10/18 06/10/18 06/09/18 08:00 History [Ezetimibe-Simvastatin 10-20 mg] Current Medications Generic Name Dose Route Start Last Admin Trade Name Freq PRN Reason Stop Dose Admin Albuterol/Ipratropium 3 ml 06/10/18 03:00 06/11/18 07:03 Duoneb 0.5-3 Mg/3 Ml Neb IH 07/10/18 02:59 3 ml Q4HRT YESENIA Administration Allopurinol 100 mg 06/10/18 10:00 06/10/18 10:15 Zyloprim 100 Mg PO 07/10/18 09:59 100 mg DAILY YESENIA Administration Alprazolam 0.5 mg 06/10/18 16:47 06/11/18 07:34 Xanax 0.5 Mg PO 07/10/18 16:46 0.5 mg Q4H PRN PRN Administration ANXIETY Aspirin 81 mg 06/10/18 10:00 06/10/18 10:14 Ecotrin 81 Mg PO 07/10/18 09:59 81 mg DAILY YESENIA Administration Ezetimibe 10 mg 06/10/18 10:00 06/10/18 10:15 Zetia 10 Mg PO 07/10/18 09:59 10 mg DAILY YESENIA Administration Famotidine 20 mg 06/10/18 10:00 06/10/18 22:11 Pepcid 20 Mg PO 07/10/18 09:59 20 mg BID YESENIA Administration Fluoxetine HCl 20 mg 06/10/18 10:00 06/10/18 10:14 Prozac 20 Mg PO 07/10/18 09:59 20 mg DAILY YESENIA Administration Furosemide 20 mg 06/10/18 10:00 06/10/18 10:14 Lasix 20 Mg PO 07/10/18 09:59 20 mg DAILY YESENIA Administration Sodium Chloride 1,000 mls @ 30 mls/hr 06/10/18 00:15 06/10/18 10:51 Sodium Chloride 0.9% 1000 Ml IV 07/10/18 00:14 100 mls/hr .Q24H YESENIA Administration Ceftriaxone Sodium/Dextrose 1 g in 50 mls @ 100 mls/hr 06/10/18 22:00 22:10 Rocephin 1 Gm-D5w 50 Ml Bag IV 07/09/18 23:29 100 mls/hr QPM YESENIA Administration Isosorbide Mononitrate 30 mg 06/10/18 10:00 06/10/18 10:15 Imdur 30 Mg PO 07/10/18 09:59 30 mg DAILY YESENIA Administration Methylprednisolone Sodium Succinate 125 mg 06/09/18 23:30 06/11/18 05:26 Solu-Medrol 125 Mg IV 07/09/18 23:29 125 mg Q6H YESENIA Administration Miscellaneous Information 1 each 06/10/18 08:00 Medication Intervention 07/10/18 07:59 .RN TO CHECK ON YESENIA Morphine Sulfate 2 mg 06/10/18 00:00 06/10/18 20:09 Morphine Sulfate 2 Mg Inj IV 06/15/18 00:00 2 mg Q4H PRN PRN Administration PAIN Pantoprazole Sodium 40 mg 06/10/18 22:00 06/10/18 22:11 Protonix 40mg Tablet PO 07/10/18 21:59 40 mg HS YESENIA Administration Potassium Chloride 10 meq 06/10/18 10:00 06/10/18 10:15 Klor Con 10 Meq PO 07/10/18 09:59 10 meq DAILY YESENIA Administration Prednisone 10 mg 06/10/18 10:00 06/10/18 10:14 Deltasone 10 Mg PO 07/10/18 09:59 10 mg DAILY YESENIA Administration Ranolazine 500 mg 06/10/18 10:00 06/10/18 22:11 Ranexa 500 Mg PO 07/10/18 09:59 500 mg BID YESENIA Administration Fluticasone/Salmeterol 2 puff 06/10/18 07:00 06/11/18 07:04 Advair Hfa 230/21 Mcg Common Canister* IH 07/10/18 06:59 2 puff BIDRT YESENIA Administration Simvastatin 20 mg 06/10/18 10:00 06/10/18 10:14 Zocor 20mg PO 07/10/18 09:59 20 mg DAILY YESENIA Administration Tamsulosin HCl 0.4 mg 06/10/18 22:00 06/10/18 22:10 Flomax 0.4 Mg PO 07/10/18 21:59 0.4 mg HS YESENIA Administration Discontinued Medications Generic Name Dose Route Start Last Admin Trade Name Freq PRN Reason Stop Dose Admin Albuterol Sulfate 2 puff 06/10/18 11:00 Proventil Common Canister IH 07/10/18 10:59 QIDRT YESENIA Albuterol/Ipratropium Confirm 06/09/18 23:10 Duoneb 0.5-3 Mg/3 Ml Neb Administered 06/09/18 23:11 Dose 3 ml IH .STK-MED ONE Alprazolam 0.25 mg 06/10/18 10:00 06/10/18 00:34 Xanax 0.25 Mg PO 07/10/18 09:59 0.25 mg BID YESENIA Administration Alprazolam 0.25 mg 06/10/18 02:15 06/10/18 10:34 Xanax 0.25 Mg PO 07/10/18 02:14 0.25 mg BID PRN PRN Administration ANXIETY Furosemide 20 mg 06/10/18 00:01 06/10/18 00:14 Lasix 20 Mg/2 Ml IV 06/10/18 00:02 20 mg ONCE ONE Administration Ceftriaxone Sodium/Dextrose 1 g in 50 mls @ 100 mls/hr 06/09/18 23:30 00:21 Rocephin 1 Gm-D5w 50 Ml Bag IV 07/09/18 23:29 100 mls/hr Q24H10 YESENIA Administration Intake & Output (Last 24 hours) 06/08/18 06/09/18 06/10/18 06/11/18 11:59 11:59 11:59 11:59 Intake Total 390 2531 Output Total 150 500 Balance 240 2031 Weight 76.7 kg Laboratory Results (Last 24 hours) 06/10/18 06/10/18 06/10/18 14:20 13:47 13:47 WBC 10.5 RBC 4.50 Hgb 13.9 Hct 42.9 MCV 95.3 MCH 30.9 MCHC 32.4 RDW 14.8 H Plt Count 142 L MPV 9.3 Puncture Site RIGHT RADIAL pCO2 39 pO2 55 L Base Excess 3.7 H O2 Saturation 90.0 L ABG pH 7.46 H ABG HCO3 27.7 ABG O2 Sat (Measured) 92.6 L Jerome Test YES A-a Gradient 153 a/A Ratio 0.26 Hemoglobin 14.4 Carboxyhemoglobin 1.7 Methemoglobin 1.0 L Temperature 37.0 POC O2 Flow Rate 36 Sodium 142 Potassium 4.1 4.1 Chloride 101 Carbon Dioxide 26 Anion Gap 19.4 H BUN 26 H Creatinine 0.88 Estimated GFR > 60.0 Glucose 175 H Calcium 9.9 Total Bilirubin 0.80 AST 26 ALT 47 Alkaline Phosphatase 98 Serum Total Protein 7.1 Albumin 4.5 Orders (Last 24 hours) Category Date Time Status CHEST 1 VIEW (PORTABLE) Routine Exams 06/10/18 13:24 Completed ABG [ARTERIAL BLOOD GASES] Routine Lab 06/10/18 14:20 Completed CBC Routine Lab 06/10/18 13:47 Completed CMP Routine Lab 06/10/18 13:47 Completed Albuterol Common Canister [Proventil Common Canister Med 06/10/18 11:00 Discontinued ] 2 puff IH QIDRT Allopurinol 100 mg [Zyloprim 100 mg] Med 06/10/18 10:00 Active 100 mg PO DAILY Alprazolam 0.25 mg [xanAX 0.25 MG] Med 06/10/18 10:00 Discontinued 0.25 mg PO BID Alprazolam 0.5 mg [xanAX 0.5 MG] Med 06/10/18 16:47 Active 0.5 mg PO Q4H PRN PRN Aspirin EC 81 mg [Ecotrin 81 mg] Med 06/10/18 10:00 Active 81 mg PO DAILY Ceftriaxone 1 GM/50 ML PREMIX* [ROCEPHIN 1 Gm-D5w 50 ml Med 06/10/18 22:00 Active Bag] 1 g in 50 ml IV QPM Ezetimibe 10 mg [Zetia 10 MG] Med 06/10/18 10:00 Active 10 mg PO DAILY Famotidine 20 mg [Pepcid 20 MG] Med 06/10/18 10:00 Active 20 mg PO BID Fluoxetine HCl 20 mg [Prozac 20 MG] Med 06/10/18 10:00 Active 20 mg PO DAILY Furosemide 20 mg [Lasix 20 mg] Med 06/10/18 10:00 Active 20 mg PO DAILY Isosorbide Mononitrate 30 mg [Imdur 30 MG] Med 06/10/18 10:00 Active 30 mg PO DAILY Medication Intervention Med 06/10/18 08:00 Active 1 each MC .RN TO CHECK ON PANTOPRAZOLE 40 mg Tablet [Protonix 40MG Tablet] Med 06/10/18 22:00 Active 40 mg PO HS Potassium Chloride 10 Meq Tab* [Klor Con 10 MEQ] Med 06/10/18 10:00 Active 10 meq PO DAILY Prednisone 10 mg [Deltasone 10 mg] Med 06/10/18 10:00 Active 10 mg PO DAILY Ranolazine 500 MG [Ranexa 500 MG] Med 06/10/18 10:00 Active 500 mg PO BID Simvastatin 20Mg [Zocor 20Mg] Med 06/10/18 10:00 Active 20 mg PO DAILY Tamsulosin HCl 0.4 mg [Flomax 0.4 MG] Med 06/10/18 22:00 Active 0.4 mg PO HS Peak Expiratory Flow Rate ONCE RT 06/10/18 14:30 Active Patient Care Notes (Last 24 hours) 06/10/18 09:17 Case Management Note by Lea Brock PT NORMALLY HAS [facility] AT HOME FOR [facility] SUPPORT. CALLED HOSPICE NURSE TO HOME LAST NIGHT FOR EVALUATION. PT C/O SEVERE SHORTNESS OF BREATH WITH OUT RELIEF. MEASURES AT HOME DID NOT PROVIDE ANY RELIEF TO PT, SO REQUESTED THAT PT BE BROUGHT TO HOSPITAL. DR. PRECIADO PLACED PT IN OBSERVATION FOR MANAGEMENT OF SYMPTOMS. [facility] DID REVOCATE PT LAST NIGHT. PLAN WILL BE TO READMIT TO [facility] ON DISCHARGE. PT HAS ALL NECESSARY EQUIP AT HOME. DENIES [facility] NEEDS FOR HOME. Initialized on 06/10/18 09:17 - END OF NOTE - Vitals & Intake/Output Vital Signs: Vital Signs Temperature 98.0 F 06/11/18 08:00 Pulse Rate 91 H 06/11/18 08:00 Respiratory Rate 20 06/11/18 08:00 Blood Pressure 139/82 06/11/18 08:00 O2 Sat by Pulse Oximetry 90 L 06/11/18 08:00 Oxygen-Last Documented O2 Percentage 5 Liters = 40% Intake & Output: Intake & Output 06/08/18 06/09/18 06/10/18 06/11/18 11:59 11:59 11:59 11:59 Intake Total 390 2531 Output Total 150 500 Balance 240 2031 Weight 76.7 kg - Lab Result Diagrams: 06/10/18 13:47 06/10/18 13:47 Lab Results-Last 24 Hrs: Lab Results-Last 24 Hours 06/10/18 06/10/18 06/10/18 Range/Units 13:47 13:47 14:20 WBC 10.5 (4.0-10.5) K/mm3 RBC 4.50 (4.1-5.6) M/mm3 Hgb 13.9 (12.5-18.0) gm/dl Hct 42.9 (42-50) % MCV 95.3 (78-100) fl MCH 30.9 (26-32) pg MCHC 32.4 (32-36) g/dl RDW 14.8 H (11.5-14.0) % Plt Count 142 L (150-450) K/mm3 MPV 9.3 (6-9.5) fl Puncture Site RIGHT RADIAL pCO2 39 (35-45) mmHg pO2 55 L (75-100) mmHg Base Excess 3.7 H (-2.0-2.0) O2 Saturation 90.0 L (94-100) g/dF ABG pH 7.46 H (7.35-7.45) ABG HCO3 27.7 (22-28) ABG O2 Sat (Measured) 92.6 L (95-100) % Jerome Test YES A-a Gradient 153 a/A Ratio 0.26 Hemoglobin 14.4 Carboxyhemoglobin 1.7 (0.0-6.9) % THgb Methemoglobin 1.0 L (1.4-1.5) % Temperature 37.0 C POC O2 Flow Rate 36 % Sodium 142 (137-145) mmol/L Potassium 4.1 4.1 (3.5-5.1) mmol/L Chloride 101 (98-107) mmol/L Carbon Dioxide 26 (22-30) mmol/L Anion Gap 19.4 H (5-15) MEQ/L BUN 26 H (9-20) mg/dL Creatinine 0.88 (0.66-1.25) mg/dL Estimated GFR > 60.0 ML/MIN Glucose 175 H (74-106) mg/dL Calcium 9.9 (8.4-10.2) mg/dL Total Bilirubin 0.80 (0.2-1.3) mg/dL AST 26 (17-59) U/L ALT 47 (0-50) U/L Alkaline Phosphatase 98 (38-126) U/L Serum Total Protein 7.1 (6.3-8.2) g/dL Albumin 4.5 (3.5-5.0) g/dL - Radiology Exams Ordered Rad Exams-Entire Visit: Radiology Procedures Category Date Time Status CHEST 1 VIEW (PORTABLE) Routine Exams 06/10/18 13:24 Completed - Procedures and Test Procedures and Tests throughout Hospitalization: Therapy Orders & Screens 06/09/18 23:14 Oxygen NASAL CANNULA 4 lpm Comment: Diagnosis: copd exac Respiratory Therapy Assessment DAILY Comment: Diagnosis: copd exac 06/09/18 23:30 EKG STAT Comment: Diagnosis: copd exac 06/09/18 23:51 BiPap/CPAP ROUTINE Comment: Diagnosis: copd exac 06/10/18 01:42 RT Screen per Nursing Assess ONCE Comment: Protocol Order Physician Instructions: Greater than 3 points order RT Admission Screen Reason For Exam: Triggered on Admission Diagnosis: copd exac Diagnosis: copd exac Pneumonia: No Home O2: Yes Asthma: No CHF: No Home CPAP/BIPAP: No Home Nebs/MDI: Yes Total Points: 10 06/10/18 07:00 Respiratory MDI BID Comment: Diagnosis: copd exac 06/10/18 14:30 Peak Expiratory Flow Rate ONCE Comment: Reason For Exam: Diagnosis: c/o shortness of breath Discharge Exam General Appearance: no apparent distress, alert Neurologic Exam: alert, oriented x 3, cooperative, normal mood/affect, nml cerebellar function, sensation nml, No motor deficits Skin Exam: normal color, warm, dry Eye Exam: PERRL, EOMI, eyes nml inspection Ears, Nose, Throat Exam: normal ENT inspection, pharynx normal, moist mucous membranes Neck Exam: normal inspection, non-tender, supple, full range of motion Respiratory Exam: diminished breath sounds, crackles/rales, rhonchi, wheezing, No respiratory distress Cardiovascular Exam: regular rate/rhythm, normal heart sounds Gastrointestinal/Abdomen Exam: soft, No tenderness, No mass Extremity Exam: normal inspection, normal range of motion Back Exam: normal inspection, normal range of motion, No CVA tenderness, No vertebral tenderness Male Genitalia Exam: deferred Rectal Exam: deferred Final Diagnosis/Problem List - Final Discharge Diagnosis/Problem (1) COPD exacerbation Current Visit: Yes Status: Resolved Onset Date: ~06/10/18 Assessment & Plan: Last Vital Signs Temp 98.0 F 06/11/18 08:00 Pulse 91 H 06/11/18 08:00 Resp 20 06/11/18 08:00 BP 139/82 06/11/18 08:00 Pulse Ox 90 L 06/11/18 08:00 Allergies penicillin G Allergy (Mild, Verified 02/07/18 09:17) hydrocodone bitartrate [From Sandy] Adverse Reaction (Verified 02/07/18 09:17) Active Medications Albuterol/Ipratropium (Duoneb 0.5-3 Mg/3 Ml Neb) 3 ml IH Q4HRT YESENIA Stop: 07/10/18 02:59 Last Admin: 06/11/18 07:03 Dose: 3 ml Allopurinol (Zyloprim 100 Mg) 100 mg PO DAILY YESENIA Stop: 07/10/18 09:59 Last Admin: 06/10/18 10:15 Dose: 100 mg Alprazolam (Xanax 0.5 Mg) 0.5 mg PO Q4H PRN PRN PRN Reason: ANXIETY Stop: 07/10/18 16:46 Last Admin: 06/11/18 07:34 Dose: 0.5 mg Aspirin (Ecotrin 81 Mg) 81 mg PO DAILY YESENIA Stop: 07/10/18 09:59 Last Admin: 06/10/18 10:14 Dose: 81 mg Ezetimibe (Zetia 10 Mg) 10 mg PO DAILY YESENIA Stop: 07/10/18 09:59 Last Admin: 06/10/18 10:15 Dose: 10 mg Famotidine (Pepcid 20 Mg) 20 mg PO BID YESENIA Stop: 07/10/18 09:59 Last Admin: 06/10/18 22:11 Dose: 20 mg Fluoxetine HCl (Prozac 20 Mg) 20 mg PO DAILY YESENIA Stop: 07/10/18 09:59 Last Admin: 06/10/18 10:14 Dose: 20 mg Furosemide (Lasix 20 Mg) 20 mg PO DAILY YESENIA Stop: 07/10/18 09:59 Last Admin: 06/10/18 10:14 Dose: 20 mg Sodium Chloride (Sodium Chloride 0.9% 1000 Ml) 1,000 mls @ 30 mls/hr IV .Q24H YESENIA Stop: 07/10/18 00:14 Last Admin: 06/10/18 10:51 Dose: 100 mls/hr Ceftriaxone Sodium/Dextrose (Rocephin 1 Gm-D5w 50 Ml Bag) 1 g in 50 mls @ 100 mls/hr IV QPM YESENIA Stop: 07/09/18 23:29 Last Admin: 06/10/18 22:10 Dose: 100 mls/hr Isosorbide Mononitrate (Imdur 30 Mg) 30 mg PO DAILY YESENIA Stop: 07/10/18 09:59 Last Admin: 06/10/18 10:15 Dose: 30 mg Methylprednisolone Sodium Succinate (Solu-Medrol 125 Mg) 125 mg IV Q6H YESENIA Stop: 07/09/18 23:29 Last Admin: 06/11/18 05:26 Dose: 125 mg Miscellaneous Information (Medication Intervention) 1 each MC .RN TO CHECK ON YESENIA Stop: 07/10/18 07:59 Morphine Sulfate (Morphine Sulfate 2 Mg Inj) 2 mg IV Q4H PRN PRN PRN Reason: PAIN Stop: 06/15/18 00:00 Last Admin: 06/10/18 20:09 Dose: 2 mg Pantoprazole Sodium (Protonix 40mg Tablet) 40 mg PO HS YESENIA Stop: 07/10/18 21:59 Last Admin: 06/10/18 22:11 Dose: 40 mg Potassium Chloride (Klor Con 10 Meq) 10 meq PO DAILY YESENIA Stop: 07/10/18 09:59 Last Admin: 06/10/18 10:15 Dose: 10 meq Prednisone (Deltasone 10 Mg) 10 mg PO DAILY YESENIA Stop: 07/10/18 09:59 Last Admin: 06/10/18 10:14 Dose: 10 mg Ranolazine (Ranexa 500 Mg) 500 mg PO BID YESENIA Stop: 07/10/18 09:59 Last Admin: 06/10/18 22:11 Dose: 500 mg Fluticasone/Salmeterol (Advair Hfa 230/21 Mcg Common Canister*) 2 puff IH BIDRT YESENIA Stop: 07/10/18 06:59 Last Admin: 06/11/18 07:04 Dose: 2 puff Simvastatin (Zocor 20mg) 20 mg PO DAILY YESENIA Stop: 07/10/18 09:59 Last Admin: 06/10/18 10:14 Dose: 20 mg Tamsulosin HCl (Flomax 0.4 Mg) 0.4 mg PO HS YESENIA Stop: 07/10/18 21:59 Last Admin: 06/10/18 22:10 Dose: 0.4 mg Intake & Output 06/10/18 06/11/18 11:59 11:59 Intake Total 390 2531 Output Total 150 500 Balance 240 2031 Weight 76.7 kg Orders 06/10/18 08:00 Medication Intervention 1 each MC .RN TO CHECK ON 06/10/18 10:00 Allopurinol 100 mg [Zyloprim 100 mg] 100 mg PO DAILY Aspirin EC 81 mg [Ecotrin 81 mg] 81 mg PO DAILY Ezetimibe 10 mg [Zetia 10 MG] 10 mg PO DAILY Famotidine 20 mg [Pepcid 20 MG] 20 mg PO BID Fluoxetine HCl 20 mg [Prozac 20 MG] 20 mg PO DAILY Furosemide 20 mg [Lasix 20 mg] 20 mg PO DAILY Isosorbide Mononitrate 30 mg [Imdur 30 MG] 30 mg PO DAILY Potassium Chloride 10 Meq Tab* [Klor Con 10 MEQ] 10 meq PO DAILY Prednisone 10 mg [Deltasone 10 mg] 10 mg PO DAILY Ranolazine 500 MG [Ranexa 500 MG] 500 mg PO BID Simvastatin 20Mg [Zocor 20Mg] 20 mg PO DAILY 06/10/18 14:30 Peak Expiratory Flow Rate ONCE 06/10/18 16:47 Alprazolam 0.5 mg [xanAX 0.5 MG] 0.5 mg PO Q4H PRN PRN 06/10/18 22:00 Ceftriaxone 1 GM/50 ML PREMIX* [ROCEPHIN 1 Gm-D5w 50 ml Bag] 1 g in 50 ml IV QPM PANTOPRAZOLE 40 mg Tablet [Protonix 40MG Tablet] 40 mg PO HS Tamsulosin HCl 0.4 mg [Flomax 0.4 MG] 0.4 mg PO HS Lab Tests 06/10/18 06/10/18 06/10/18 13:47 13:47 14:20 WBC 10.5 RBC 4.50 Hgb 13.9 Hct 42.9 MCV 95.3 MCH 30.9 MCHC 32.4 RDW 14.8 H Plt Count 142 L MPV 9.3 Puncture Site RIGHT RADIAL pCO2 39 pO2 55 L Base Excess 3.7 H O2 Saturation 90.0 L ABG pH 7.46 H ABG HCO3 27.7 ABG O2 Sat (Measured) 92.6 L Jerome Test YES A-a Gradient 153 a/A Ratio 0.26 Hemoglobin 14.4 Carboxyhemoglobin 1.7 Methemoglobin 1.0 L Temperature 37.0 POC O2 Flow Rate 36 Sodium 142 Potassium 4.1 4.1 Chloride 101 Carbon Dioxide 26 Anion Gap 19.4 H BUN 26 H Creatinine 0.88 Estimated GFR > 60.0 Glucose 175 H Calcium 9.9 Total Bilirubin 0.80 AST 26 ALT 47 Alkaline Phosphatase 98 Serum Total Protein 7.1 Albumin 4.5 (2) Dyspnea Current Visit: Yes Status: Resolved Onset Date: ~06/10/18 (3) Hypoxia Current Visit: No Status: Chronic Onset Date: ~06/10/18 (4) Shortness of breath Current Visit: No Status: Resolved Onset Date: ~06/10/18 (5) CAD (coronary artery disease) Current Visit: Yes Status: Chronic Onset Date: ~02/07/18 - Discharge Discharge Date: 06/11/18 Disposition: Hospice @ [place] Condition: Stable Prescriptions: New Cephalexin Mh 500 mg [Keflex 500 mg] 500 mg PO QID #30 capsule Continue Albuterol 8 gm Mdi Hfa [Ventolin Hfa MDI] 2 puffs IH QID ALPRAZolam [Xanax 0.25 mg] 0.25 tab PO BID PRN Ranolazine 500 MG [Ranexa 500 MG] 500 mg PO BID Potassium Chloride 10 Meq Tab* [Klor Con 10 MEQ] 10 meq PO DAILY Isosorbide Mononitrate 30 mg [Imdur 30 MG] 30 mg PO DAILY Albuterol/Ipratropium 3ml Neb* [DUONEB 0.5-3 MG/3 ml Neb] 3 ml IH QID Fluoxetine HCl 20 mg [Prozac 20 MG] 20 mg PO DAILY Allopurinol 100 mg [Zyloprim 100 mg] 100 mg PO DAILY Tamsulosin HCl 0.4 mg [Flomax 0.4 MG] 0.4 mg PO HS Furosemide 20 mg [Lasix 20 mg] 20 mg PO DAILY 30 Days #30 tablet Prednisone 10 mg PO DAILY #30 tablet Omeprazole 40 mg PO HS Famotidine 20 mg [Pepcid 20 MG] 20 mg PO BID Aspirin EC 81 mg [Ecotrin 81 mg] 81 mg PO DAILY Morphine Sulfate [Roxanol] 0.25 ml PO Q2H/PRN PRN PRN Reason: Pain Ezetimibe/Simvastatin [Ezetimibe-Simvastatin 10-20 mg] 1 tablet PO DAILY Follow up with: LEONCIO PRECIADO MD [Primary Care Provider] - 1 Week
[2018-06-11 11:26] VITALS: PULSE 89; O2SAT 93
[2018-06-11] MEDS: Ranexa 500 MG PO SCH (11:34)
[2018-06-11] MEDS: ZOCOR 20MG PO SCH (11:34)
[2018-06-11] MEDS: DELTASONE 10 MG PO SCH (11:34)
[2018-06-11] MEDS: Imdur 30 MG PO SCH (11:34)
[2018-06-11] MEDS: LASIX 20 MG PO SCH (11:35)
[2018-06-11] MEDS: Pepcid 20 MG PO SCH (11:35)
[2018-06-11] MEDS: Prozac 20 MG PO SCH (11:35)
[2018-06-11] MEDS: Zetia 10 MG PO SCH (11:35)
[2018-06-11] MEDS: ZYLOPRIM 100 MG PO SCH (11:35)
[2018-06-11] MEDS: ECOTRIN 81 MG PO SCH (11:35)
[2018-06-11] MEDS: Klor Con 10 MEQ PO SCH (11:35)
[2018-06-11 12:33] VITALS: BP 167/90
== END 2018-06-11 12:50 | disposition hospice, home (50) ==
LOC: MED SURG 22:46
PROVIDERS: ADMIT General Practice; ATTEND General Practice
DX: J44.1 Chronic obstructive pulmonary disease with (acute) exacerbation (principal); R09.02 Hypoxemia; I25.810 Atherosclerosis of coronary artery bypass graft(s) without angina pectoris; Z86.73 Personal history of transient ischemic attack (TIA), and cerebral infarction without residual deficits; E78.00 Pure hypercholesterolemia, unspecified; I10 Essential (primary) hypertension; I73.9 Peripheral vascular disease, unspecified; M19.90 Unspecified osteoarthritis, unspecified site; F41.8 Other specified anxiety disorders; M10.9 Gout, unspecified
CPT/HCPCS: 36415; 36600; 71045; 80053; 82375; 82803; 85027; 93005; 94002; 94003; 94150; 94640; 94760; G0378; J0696; J1940; J2270; J2930; A9270-GY